=== PATIENT | male | born 1970 | race African-American/Black ===

== ENCOUNTER 2017-11-13 19:09 | Observation (INO) | payer SELFPAY ==
--- OUTSIDE RECORDS SUMMARY | 2017-11-13 19:11 | XMS REPORT | Clinical Summary ---
:1970 Author Organization [facility] Address [address] [place] [address] Care Team Providers Name Role Phone Asked, No Pcp Primary Care Provider Unavailable Allergies Active Allergy Reactions Severity Noted Date Comments No Known Drug Allergies 04/25/2016 Current Medications Prescription Sig. Disp. Refills Start Date End Date Status colchicine 0.6 mg Take 1 Active capsule capsule every day by oral route for 90 days. blood-glucose meter Contour Next Active (CONTOUR NEXT EZ EZ Meter METER) [facility] blood sugar Contour Next Active diagnostic strips Strips (CONTOUR NEXT STRIPS) strip test strips glimepiride (AMARYL) Take 1 tablet Active 2 MG tablet every day by oral route for 90 days. metFORMIN Take 1 tablet Active (GLUCOPHAGE) 500 mg twice a day tablet by oral route for 90 days. carvedilol (COREG) Take 50 mg by Active 25 MG tablet mouth 2 (two) times a day with meals. furosemide (LASIX) Take 3 504 tablet 3 02/20/2017 Active 20 mg tablet tablets (60 mg total) by mouth 2 (two) times a day. spironolactone Take 1 tablet 90 tablet 3 02/20/2017 Active (ALDACTONE) 25 MG every day by tablet oral route for 90 days. losartan-hydrochloro Take 1 tablet 90 tablet 3 02/20/2017 Active thiazide (HYZAAR) by mouth 8 100-25 mg per tablet daily. pravastatin Take 1 tablet 90 tablet 3 02/20/2017 Active (PRAVACHOL) 40 MG (40 mg total) tablet by mouth daily. hydrALAZINE Take 1 tablet 180 tablet 3 03/21/2017 Active (APRESOLINE) 25 MG (25 mg total) tablet by mouth 2 (two) times a day. aspirin (ECOTRIN) 81 Take 81 mg by Active MG enteric coated mouth daily. tablet isosorbide dinitrate Take 1 tablet 60 tablet 11 03/21/2017 Active (ISORDIL) 20 MG (20 mg total) 8 tablet by mouth 2 (two) times a day. allopurinol Take 1 tablet 90 tablet 3 03/21/2017 Active (ZYLOPRIM) 300 MG every day by tablet oral route for 90 days. warfarin (COUMADIN) Take 3 180 tablet 0 09/21/2017 Active 5 MG tablet tablets 9 (15mg) by mouth X 1 day per week; 2 tablets (10mg) on the other 6 days allopurinol Take 1 tablet Discontinued (ZYLOPRIM) 300 MG every day by 7 tablet oral route for 90 days. aspirin 325 MG Take 1 tablet Discontinued tablet every day by 7 oral route for 90 days. hydrALAZINE Take 1 tablet Discontinued (APRESOLINE) 25 MG twice a day 7 tablet by oral route for 90 days. isosorbide dinitrate Take 1 tablet Discontinued (ISORDIL) 20 MG every 8 hours 7 tablet by oral route for 90 days. pravastatin Take 1 tablet Discontinued (PRAVACHOL) 40 MG every day by 7 tablet oral route for 90 days. spironolactone Take 1 tablet Discontinued (ALDACTONE) 25 MG every day by 7 tablet oral route for 90 days. warfarin (COUMADIN) Take 10 mg by Discontinued 10 MG tablet mouth daily. 8 minocycline Take 100 mg Discontinued (MINOCIN,DYNACIN) by mouth 7 100 MG capsule daily. furosemide (LASIX) Take 60 mg by Discontinued 20 mg tablet mouth 2 (two) 7 times a day. naproxen (NAPROSYN) Take 500 mg Discontinued 500 MG tablet by mouth 2 7 (two) times a day with meals. valsartan (DIOVAN) Take 1 tablet 90 tablet 3 09/06/2016 Discontinued 40 MG tablet (40 mg total) 7 by mouth daily. losartan-hydrochloro Take 1 tablet 90 tablet 3 10/04/2016 Discontinued thiazide (HYZAAR) by mouth 7 100-25 mg per tablet daily. isosorbide Take 1 tablet 90 tablet 3 02/20/2017 Discontinued mononitrate (20 mg total) 7 (ISMO,MONOKET) 20 MG by mouth tablet daily. hydrALAZINE Take 1 tablet 90 tablet 3 02/20/2017 Discontinued (APRESOLINE) 25 MG (25 mg total) 7 tablet by mouth daily. isosorbide Take 1 tablet 180 tablet 3 03/21/2017 Discontinued mononitrate (20 mg total) 7 (ISMO,MONOKET) 20 MG by mouth 2 tablet (two) times a day. COUMADIN 5 mg Three tabs 180 tablet 3 09/11/2017 Discontinued tabletIndications: (15 mg) one 8 LV (left day a week; 2 ventricular) mural tabs (10 mg ) thrombus without NH on other 6 days Hospital, Clinic, or Ordered Dose Route Frequency Start Date End Date Status Other Facility Administered Medication warfarin (COUMADIN) 5 mg oral once 11/30/2016 11/30/2016 Discontinued tablet 5 mgIndications: Thrombotic disorder warfarin (COUMADIN) 5 mg oral once 11/30/2016 09/19/2017 Discontinued tablet 5 mgIndications: Thrombotic disorder Active Problems Problem Noted Date Non-ischemic cardiomyopathy 03/21/2017 Cardiac defibrillator in situ 06/28/2016 Last Assessment & Plan: No rhythm problems, no recent shocks or fires. Chronic combined systolic and diastolic heart failure 04/25/2016 Last Assessment & Plan: niCMP, HFrEF, stage C, NYHA II. Stable Exam with soft S4. Continue all medications as directed. Cough 04/25/2016 Dyslipidemia 04/25/2016 Essential hypertension 04/25/2016 Last Assessment & Plan: BP at goal. No change in medications Continue exercise and low-sodium diet. RTC in 4-6 weeks with home BP log and BP medications list. Gout 04/25/2016 Hyperglycemia 04/25/2016 Thrombotic disorder 04/25/2016 Last Assessment & Plan: On Coumadin, stable. Encounters Date Type Specialty Care Team Description 10/31/2017 Office Visit Cardiology Lincoln Guy, LV (left ventricular) mural thrombus without NH (Primary Dx); Chronic combined systolic and diastolic heart failure; Non-ischemic cardiomyopathy; Cardiac defibrillator in situ 09/26/2017 Anticoagulation Visit Cardiology LV (left ventricular) mural thrombus without NH (Primary Dx) 09/21/2017 Telephone Cardiology Jeanine Guthrie, RX REFILL MA 09/19/2017 Office Visit Cardiology Lincoln Guy, Paroxysmal atrial fibrillation (Primary Dx); Chronic combined systolic and diastolic heart failure; Essential hypertension; Thrombotic disorder; Cardiac defibrillator in situ 09/11/2017 Orders Only Cardiology [place], LV (left ventricular) Tamar, TELEPHONE CLERK TELEGRAPH OFFICE mural thrombus without NH (Primary Dx) 08/08/2017 Office Visit Cardiology Lincoln Guy, Chronic combined systolic and diastolic heart failure (Primary Dx); Essential hypertension; Thrombotic disorder; Cardiac defibrillator in situ 08/08/2017 Telephone Cardiology [place], Anticoagulation Tamar, TELEPHONE CLERK TELEGRAPH OFFICE 07/03/2017 Anticoagulation Visit Cardiology LV (left ventricular) mural thrombus following NH (Primary Dx) 06/02/2017 Anticoagulation Visit Cardiology LV (left ventricular) mural thrombus without NH (Primary Dx) 05/19/2017 Anticoagulation Visit Cardiology LV (left ventricular) mural thrombus without NH (Primary Dx) 04/18/2017 Office Visit Cardiology Lincoln Guy, Chronic combined systolic and diastolic heart failure (Primary Dx); Essential hypertension; Thrombotic disorder; Cardiac defibrillator in situ 04/18/2017 Telephone Cardiology [place], Anticoagulation Tamar, TELEPHONE CLERK TELEGRAPH OFFICE 03/21/2017 Office Visit Cardiology Lincoln Guy, Chronic combined systolic and diastolic heart failure (Primary Dx); Essential hypertension; Cardiac defibrillator in situ; Non-ischemic cardiomyopathy 03/21/2017 Telephone Cardiology [place], Anticoagulation Tamar, TELEPHONE CLERK TELEGRAPH OFFICE 03/21/2017 Telephone Cardiology [place], Anticoagulation Tamar, TELEPHONE CLERK TELEGRAPH OFFICE 02/23/2017 Anticoagulation Visit Cardiology LV (left ventricular) mural thrombus (Primary Dx) 02/20/2017 Telephone Cardiology Sherrie Whitley, FRANNY Med Refill 02/20/2017 Telephone Cardiology Sherrie Whitley, FRANNY Med Refill 02/15/2017 Telephone Cardiology Sherrie Whitley, FRANNY refills 02/02/2017 Anticoagulation Visit Cardiology LV (left ventricular) mural thrombus (Primary Dx) 12/15/2016 Anticoagulation Visit Cardiology [place], Thrombus (Primary Dx) Tamar, TELEPHONE CLERK TELEGRAPH OFFICE 12/07/2016 Anticoagulation Visit Cardiology [place], Thrombotic disorder Tamar, TELEPHONE CLERK TELEGRAPH OFFICE (Primary Dx) 11/30/2016 Anticoagulation Visit Cardiology [place], Thrombotic disorder Tamar, TELEPHONE CLERK TELEGRAPH OFFICE (Primary Dx) 11/30/2016 Orders Only Cardiology Traylor, Tamar, TELEPHONE CLERK TELEGRAPH OFFICE 11/30/2016 Orders Only Cardiology [place], Thrombotic disorder Tamar, TELEPHONE CLERK TELEGRAPH OFFICE (Primary Dx) after 11/12/2016 Family History Medical History Relation Name Comments Heart disease Brother Hypertension Brother Heart disease Father Hypertension Father Heart disease Mother Hypertension Mother Diabetes Sister Heart disease Sister Hypertension Sister Relation Name Status Comments Brother Father Mother Sister Social History Tobacco Use Types Packs/Day Years Used Date Never Smoker Smokeless Tobacco: Never Used Alcohol Use Drinks/Week oz/Week Comments No Sex Assigned at Date Recorded Not on file Last Filed Vital Signs Vital Sign Reading Time Taken Blood Pressure 95/65 10/31/2017 4:13 PM CDT Pulse 55 10/31/2017 4:13 PM CDT Temperature - - Respiratory Rate 18 10/31/2017 4:13 PM CDT Oxygen Saturation 98% 10/31/2017 4:13 PM CDT Inhaled Oxygen Concentration - - Weight 111 kg (245 lb) 10/31/2017 4:13 PM CDT Height 170.2 cm (5' 7") 10/31/2017 4:13 PM CDT Body Mass Index 38.37 10/31/2017 4:13 PM CDT Plan of Treatment Date Type Specialty Care Team Description 11/28/2017 Anticoagulation Visit Cardiology 02/06/2018 Office Visit Cardiology Christiano Soto MD [address] [address] Health Maintenance Due Date Last Done Comments INFLUENZA VACCINE 02/14/2018 Results POC PT/INR (10/31/2017 4:16 PM)Only the most recent of11 resultswithin the time period is included. Component Value Ref Range POC prothrombin time 17.3 POC INR 1.4 Specimen Performing Laboratory Blood ECG 12 lead (08/08/2017 1:40 PM) Component Value Ref Range Ventricular rate 85 Atrial rate 85 NE interval 144 QRSD interval 104 QT interval 406 QTC interval 483 P axis 1 64 QRS axis 1 1 T wave axis 189 EKG impression Normal sinus rhythm-Biatrial enlargement-Left ventricular hypertrophy-T wave abnormality, consider inferolateral ischemia-Prolonged QT- Abnormal ECG-In automated comparison with ECG of 23-OCT-2015 06:02,-No significant change was found- Specimen Performing Laboratory [facility] [address] [place] [address] Prothrombin time with INR (08/08/2017)Only the most recent of2 resultswithin the time period is included. Component Value Ref Range INR 1.70 Specimen Performing Laboratory Blood [facility] after 11/12/2016
[2017-11-13] MEDS ORDERED: FUROSEMIDE 40 MG/4 ML VIAL ONE (19:26)
[2017-11-13 19:33] LABS: Absolute Lymphocytes (CBC) 1.5 K/uL (0.7-4.9); Absolute Monocytes 0.3 K/uL (0.1-1.3); Absolute Neutrophil 2.9 K/uL (1.8-8.0); Eosinophils % 1.3 % (0-4.4); Hematocrit 40.8 % (39.6-49.0); Lymphocytes % 31.8 % (15.3-44.8); MCH 28.7 pg (27.0-35.0); MCV 85.2 fL (80-100); MPV 10.2 fL (7.6-11.3); Monocytes % 6.8 % (3.3-12.3); RBC Red Blood Cell Count 4.79 M/uL (4.33-5.43)
[2017-11-13 19:37] LABS: Protime INR 1.52
[2017-11-13 19:40] LABS: Potassium 4.2 mEq/L (3.6-5.0)
[2017-11-13 19:47] LABS: Albumin 4.1 g/dL (3.2-5.5); Bilirubin Direct 0.1 mg/dL (0-0.2); Bilirubin Total 0.6 mg/dL (0.3-1.2); Magnesium 2.4 mg/dL (1.8-2.5); Protein, Total 8.3 g/dL (6.0-8.3)
[2017-11-13 19:50] LABS: CKMB Creatine Kinase MB 4.9 ng/ml (0.3-4.0)
[2017-11-13] MEDS ORDERED: ASPIRIN 81 MG CHEWABLE TABLET ONE (20:05)
[2017-11-13] MEDS ORDERED: INSULIN -REGULAR HUMAN 50 UNIT/0.5 ML ML ONE (20:05)
[2017-11-13] MEDS ORDERED: NITROGLYCERIN 0.4 MG/TAB SL ONE (20:06)
--- NOTE | 2017-11-13 20:09 | EDPHYS ---
Physician Documentation [facility] Name: Cam Huitron Age: 47 yrs Sex: Male : 1970 Arrival Date: 11/13/2017 Time: 19:11 Bed 20 Private MD: ED Physician Surjit Huertas HPI: 11/13 19:57 This 47 yrs old Black Male presents to ER via EMS with complaints of Shortness Of kb Breath. 19:57 The patient has experienced similar episodes in the past, multiple times. The patient kb has not recently seen a physician. 19:57 The patient or guardian reports chest pain that is located primarily in the substernal kb area. Onset: 2 day(s) ago. The pain does not radiate. Associated signs and symptoms: Pertinent positives: shortness of breath, Pertinent negatives: abdominal pain, cough, diaphoresis, dizziness, headache, lower extremity pain, lower extremity swelling, lightheadedness, nausea, near syncope, palpitations, recent travel, syncope, vomiting. The chest pain is described as a heaviness. Duration: The patient or guardian reports a single episode, that is still ongoing. Modifying factors: The symptoms are alleviated by nothing. the symptoms are aggravated by exertion. Severity of pain: At its worst the pain was moderate in the emergency department the pain is unchanged. Historical: - Allergies: 19:13 No Known Allergies; bp - Home Meds: 19:13 furosemide 20 mg Oral tab 3 tabs 2 times per day [Active]; metformin 500 mg Oral TbER 1 bp tab 2 times per day [Active]; - PMHx: 19:13 CHF; Diabetes - NIDDM; Gout; Hypertension; Myocardial infarction; bp - Immunization history:: Adult Immunizations up to date. - Social history:: Smoking status: unknown. ROS: 19:56 Constitutional: Negative for fever, chills, and weight loss, Cardiovascular: Negative kb for chest pain, palpitations, and edema, Abdomen/GI: Negative for abdominal pain, nausea, vomiting, diarrhea, and constipation, Back: Negative for injury and pain, : Negative for injury, bleeding, discharge, and swelling, MS/Extremity: Negative for injury and deformity, Skin: Negative for injury, rash, and discoloration, Neuro: Negative for headache, weakness, numbness, tingling, and seizure. 19:56 Respiratory: Positive for dyspnea on exertion, shortness of breath, at rest. Negative for cough, hemoptysis, orthopnea, pleurisy, sputum production, wheezing. Exam: 19:56 Constitutional: This is a well developed, well nourished patient who is awake, alert, kb and in no acute distress. Head/Face: Normocephalic, atraumatic. ENT: Nares patent. No nasal discharge, no septal abnormalities noted. Tympanic membranes are normal and external auditory canals are clear. Oropharynx with no redness, swelling, or masses, exudates, or evidence of obstruction, uvula midline. Mucous membranes moist. Neck: Trachea midline, no thyromegaly or masses palpated, and no cervical lymphadenopathy. Supple, full range of motion without nuchal rigidity, or vertebral point tenderness. No Meningismus. Chest/axilla: Normal chest wall appearance and motion. Nontender with no deformity. No lesions are appreciated. Cardiovascular: Regular rate and rhythm with a normal S1 and S2. No gallops, murmurs, or rubs. Normal PMI, no JVD. No pulse deficits. Abdomen/GI: Soft, non-tender, with normal bowel sounds. No distension or tympany. No guarding or rebound. No evidence of tenderness throughout. Back: No spinal tenderness. No costovertebral tenderness. Full range of motion. Skin: Warm, dry with normal turgor. Normal color with no rashes, no lesions, and no evidence of cellulitis. MS/ Extremity: Pulses equal, no cyanosis. Neurovascular intact. Full, normal range of motion. Neuro: Awake and alert, GCS 15, oriented to person, place, time, and situation. Cranial nerves II-XII grossly intact. Motor strength 5/5 in all extremities. Sensory grossly intact. Cerebellar exam normal. Normal gait. 19:56 Respiratory: the patient does not display signs of respiratory distress, Respirations: normal, Breath sounds: decreased breath sounds, that are mild, that are moderate, are located in both bases. Vital Signs: 19:20 BP 145 / 77; Pulse 80; Resp 16; Temp 98.7; Pulse Ox 96% ; Weight 111.13 kg; Height 5 bp ft. 7 in. (170.18 cm); 19:58 BP 148 / 90; Pulse 84; Resp 16; Pulse Ox 100% on R/A; mt 21:34 BP 120 / 91; Pulse 86; Resp 18; Pulse Ox 97% on R/A; mt 19:20 Body Mass Index 38.37 (111.13 kg, 170.18 cm) bp MDM: 19:12 Patient medically screened. kb 19:56 Data reviewed: vital signs, nurses notes. Data interpreted: Pulse oximetry: on room air kb is 96 %. Interpretation: normal. 20:08 The patient was given aspirin in the Emergency Department. Counseling: I had a detailed kb discussion with the patient and/or guardian regarding: the historical points, exam findings, and any diagnostic results supporting the discharge/admit diagnosis, lab results, radiology results, the need for further work-up and treatment in the hospital. 11/13 19:15 Order name: Basic Metabolic Panel; Complete Time: 19:54 kb 11/13 19:15 Order name: BNP; Complete Time: 19:52 kb 11/13 19:15 Order name: CBC with Diff; Complete Time: 19:38 kb 11/13 19:15 Order name: Ckmb; Complete Time: 19:54 kb 11/13 19:15 Order name: CPK; Complete Time: 19:54 kb 11/13 19:15 Order name: LFT's; Complete Time: 19:54 kb 11/13 19:15 Order name: Magnesium; Complete Time: 19:54 kb 11/13 19:15 Order name: PT-INR; Complete Time: 19:39 kb 11/13 19:15 Order name: Ptt, Activated; Complete Time: 19:39 kb 11/13 19:15 Order name: Troponin (emerg Dept Use Only); Complete Time: 19:48 kb 11/13 20:30 Order name: Basic Metabolic Panel EDMS 11/13 20:30 Order name: Basic Metabolic Panel EDMS 11/13 20:30 Order name: CBC with Automated Diff EDMS 11/13 20:30 Order name: CBC with Automated Diff EDMS 11/13 19:15 Order name: XRAY Chest (1 view); Complete Time: 20:49 kb 11/13 19:15 Order name: EKG; Complete Time: 19:16 kb 11/13 19:15 Order name: Cardiac monitoring; Complete Time: 19:25 kb 11/13 20:30 Order name: Carb Control (ADA) [address] EDMS 11/13 20:30 Order name: CONS Physician Consult EDMS 11/13 20:30 Order name: Hemoglobin A1C [facility] 11/13 20:30 Order name: Hemoglobin A1C [facility] 11/13 20:30 Order name: Troponin I [facility] 11/13 20:30 Order name: Troponin I [facility] 11/13 20:30 Order name: Troponin I [facility] 11/13 19:15 Order name: EKG - Nurse/Tech; Complete Time: 19:25 kb 11/13 19:15 Order name: IV Saline Lock; Complete Time: 19:25 kb 11/13 19:15 Order name: Labs collected and sent; Complete Time: 19:25 kb 11/13 19:15 Order name: O2 Per Protocol; Complete Time: 19:25 kb 11/13 19:15 Order name: O2 Sat Monitoring; Complete Time: 19:25 kb Administered Medications: 19:25 Drug: Lasix 40 mg Route: IVP; Site: right antecubital; bp 20:16 Follow up: Urine output 800 ml bp 20:10 Drug: Insulin Regular Human 10 units {Co-Signature: bs1 (Claudine Barrera RN).} Route: bp IVP; Site: right antecubital; 21:40 Follow up: Response: Blood sugar is lowered bp 20:10 Drug: Aspirin Chewable Tablet 324 mg Route: PO; bp 20:16 Follow up: Response: No adverse reaction bp 20:10 Drug: Nitroglycerin 0.4 mg Route: Sublingual; bp 20:39 Follow up: Response: Pain is decreased bp 20:10 Drug: morphine 2 mg Route: IVP; Site: right antecubital; bp 21:37 Follow up: Response: Pain is decreased bp 20:10 Drug: Zofran 4 mg Route: IVP; Site: right antecubital; bp 21:37 Follow up: Response: Pain is decreased bp Point of Care Testing: Blood Glucose: 19:13 Blood Glucose: 555 mg/dL; bp 21:12 Blood Glucose: 173 mg/dL; mt 19:13 EMS bp Ranges: Critical Glucose Levels:Adult <50 mg/dl or >400 mg/dl <40 mg/dl or >180 mg/dl Disposition: 11/14 07:19 Co-signature as Attending Physician, Surjit Huertas MD I agree with the assessment and arnaldo plan of care. Disposition: 11/13/17 20:09 Hospitalization ordered by Eden Ramos for Observation. Preliminary diagnosis are Chest pain, unspecified, Dyspnea, Hyperglycemia, unspecified, Elevated Troponin. - Bed requested for Telemetry/MedSurg (observation). - Status is Observation. bp - Condition is Stable. - Problem is new. - Symptoms have improved. UTI on Admission? No Signatures: Dispatcher [employer] EDMS Dyana Martinez FNP-C FNP-Ckb Webb, Martha, RN RN mw Anderson, Corey, MD MD cha Peltier, Brian, RN RN bp Claudine Barrera RN bs1
--- NOTE | 2017-11-13 20:09 | ER ---
Nurse's Notes [facility] Name: Cam Huitron Age: 47 yrs Sex: Male : 1970 Arrival Date: 11/13/2017 Time: 19:11 Bed 20 Private MD: Diagnosis: Chest pain, unspecified;Dyspnea;Hyperglycemia, unspecified;Elevated Troponin Presentation: 11/13 19:11 Presenting complaint: EMS states: HE'S BEEN HAVING SHORTNESS OF BREATH FOR TWO DAYS. bp Transition of care: patient was not received from another setting of care. Onset of symptoms was November 11, 2017. Initial Sepsis Screen: Does the patient meet any 2 criteria? No. Patient's initial sepsis screen is negative. Does the patient have a suspected source of infection? No. Patient's initial sepsis screen is negative. Care prior to arrival: Glucose check: 555. 19:11 Method Of Arrival: EMS: [facility] bp 19:11 Acuity: SILVER 3 bp Triage Assessment: 19:13 General: Appears in no apparent distress. comfortable, obese, Behavior is calm, bp cooperative, appropriate for age. Pain: Denies pain. EENT: No deficits noted. Neuro: Level of Consciousness is awake, alert, obeys commands, Oriented to person, place, time, situation, Appropriate for age. Cardiovascular: Rhythm is sinus rhythm. Respiratory: Reports shortness of breath Breath sounds with crackles Onset: The symptoms/episode began/occurred yesterday, the patient has mild shortness of breath. GI: No signs and/or symptoms were reported involving the gastrointestinal system. : No signs and/or symptoms were reported regarding the genitourinary system. Derm: No deficits noted. Musculoskeletal: Circulation, motion, and sensation intact. Range of motion: intact in all extremities. Historical: - Allergies: 19:13 No Known Allergies; bp - Home Meds: 19:13 furosemide 20 mg Oral tab 3 tabs 2 times per day [Active]; metformin 500 mg Oral TbER 1 bp tab 2 times per day [Active]; - PMHx: 19:13 CHF; Diabetes - NIDDM; Gout; Hypertension; Myocardial infarction; bp - Immunization history:: Adult Immunizations up to date. - Social history:: Smoking status: unknown. Screenin:16 Abuse screen: Denies threats or abuse. Denies injuries from another. Nutritional bp screening: No deficits noted. Tuberculosis screening: No symptoms or risk factors identified. Fall Risk None identified. Assessment: 19:14 General: SEE TRIAGE NOTE. 47YO BM P/W SOB/CP AND HYPERGLYCEMIA, QUESTIONABLE MED bp COMPLIANCE. 21:35 Cardiovascular: Rhythm is sinus rhythm. Respiratory: Airway is patent Respiratory bp effort is even, unlabored. Vital Signs: 19:20 BP 145 / 77; Pulse 80; Resp 16; Temp 98.7; Pulse Ox 96% ; Weight 111.13 kg; Height 5 bp ft. 7 in. (170.18 cm); 19:58 BP 148 / 90; Pulse 84; Resp 16; Pulse Ox 100% on R/A; mt 21:34 BP 120 / 91; Pulse 86; Resp 18; Pulse Ox 97% on R/A; mt 19:20 Body Mass Index 38.37 (111.13 kg, 170.18 cm) bp ED Course: 19:11 Patient arrived in ED. bp 19:12 Dyana [facility]C [facility] kb 19:12 Surjit Huertas MD is Attending Physician. kb 19:12 Triage completed. bp 19:14 Arm band placed on. bp 19:15 Patient has correct armband on for positive identification. Placed in gown. Bed in low bp position. Call light in reach. Side rails up X2. Pulse ox on. NIBP on. 19:20 Inserted saline lock: 20 gauge in right antecubital area, using aseptic technique. bp Blood collected. 19:24 Abel Parra, FRANNY is Primary Nurse. bp 19:42 X-ray completed. Portable x-ray completed in exam room. Patient tolerated procedure kc2 well. 19:42 XRAY Chest (1 view) In Process Unspecified. EDMS 20:08 Eden Ramos MD is Hospitalizing Provider. kb 21:36 No provider procedures requiring assistance completed. Patient admitted, IV remains in bp place. Administered Medications: 19:25 Drug: Lasix 40 mg Route: IVP; Site: right antecubital; bp 20:16 Follow up: Urine output 800 ml bp 20:10 Drug: Insulin Regular Human 10 units {Co-Signature: bs1 (Claudine Barrera RN).} Route: bp IVP; Site: right antecubital; 21:40 Follow up: Response: Blood sugar is lowered bp 20:10 Drug: Aspirin Chewable Tablet 324 mg Route: PO; bp 20:16 Follow up: Response: No adverse reaction bp 20:10 Drug: Nitroglycerin 0.4 mg Route: Sublingual; bp 20:39 Follow up: Response: Pain is decreased bp 20:10 Drug: morphine 2 mg Route: IVP; Site: right antecubital; bp 21:37 Follow up: Response: Pain is decreased bp 20:10 Drug: Zofran 4 mg Route: IVP; Site: right antecubital; bp 21:37 Follow up: Response: Pain is decreased bp Point of Care Testing: Blood Glucose: 19:13 Blood Glucose: 555 mg/dL; bp 21:12 Blood Glucose: 173 mg/dL; mt 19:13 EMS bp Ranges: Output: 20:16 Urine: 800ml; Total: 800ml. bp Outcome: 20:09 Decision to Hospitalize by Provider. kb 21:36 Condition: stable bp 21:36 Instructed on the need for admit. 21:40 Admitted to Tele accompanied by tech, family with patient, via wheelchair, room 219, bp with chart, Report called to TIFFANY BLANTON 21:46 Patient left the ED. bp Signatures: Dispatcher [employer] EDMS Dyana Martinez, REINALDO THIRD COOK-Vy [place] 2 [facility] Abel Parra RN RN bp Claudine Barrera RN bs1 Corrections: (The following items were deleted from the chart) 19:32 19:20 BP 145 / 77; Pulse 80bpm; Resp 16bpm; Pulse Ox 96%; Temp 98.7F; bp bp
[2017-11-13] MEDS ORDERED: ACETAMINOPHEN 500 MG TAB PO PRN (20:22)
[2017-11-13] MEDS ORDERED: ONDANSETRON 4 MG/2 ML VIAL IV PRN (20:22)
--- NOTE | 2017-11-13 20:45 | P.HP ---
Certification for Inpatient Patient admitted to: Observation With expected LOS: <2 Midnights Practitioner: I am a practitioner with admitting privileges, knowledge of patient current condition, hospital course, and medical plan of care. Services: Services provided to patient in accordance with Admission requirements found in Title 42 Section 412.3 of the Code of Federal Regulations Patient History Date of Service: 11/13/17 Reason for admission: chest pain History of Present Illness: Mr Huitron is a 47 years old male with history of CAD, Chronic systolic CHF with EF 30-35%, s/p ICD placement, CKD, HTN, anticoagulated with warfarin due to previous history of mural thrombi, who start about 2 days ago with recurrent episodes of chest pain. He describe the pain as squeezy sensation, lasting for 2 minutes, associated with worsening SOB. He denied nuasea or diaphoresis episodes. Lab work is ramarkable for troponin I is 0.09, BS 484, creatinine 1.61. At the time of november exmamination his chest pain was improving after receive a dose of Nitro SL. Allergies No Known Allergies Allergy (Unverified 02/16/17 07:43) Home Medications: Allopurinol 300 mg PO DAILY #30 tablet 02/10/15 Aspirin Chewable [Aspirin Chewable*] 81 mg PO DAILY #30 tab.chew 02/10/15 Pravastatin Sodium [Pravachol] 40 mg PO DAILY #30 tablet 02/10/15 Metformin HCl [Glucophage*] 500 mg PO BIDWM #60 tab 07/18/15 Spironolactone [Aldactone*] 25 mg PO DAILY 08/25/16 Carvedilol [Coreg*] 12.5 mg PO BID #60 tab 10/01/16 Furosemide [Lasix] 40 mg PO BID #120 tablet 10/01/16 Glimepiride [Amaryl*] 2 mg PO BID 02/16/17 Hydralazine [Apresoline*] 25 mg PO DAILY 02/16/17 Isosorbide Mononitrate [Ismo] 20 mg PO DAILY 02/16/17 Losartan/Hydrochlorothiazide [Losartan-Hctz 100-25 mg Tab] 1 each PO DAILY 02/16 Warfarin Sodium [Coumadin] 10 mg PO DAILY 02/16/17 - Past Medical/Surgical History Diabetic: Yes -: HTN -: diabetes, -: chf -: stemi mi aug 2014 -: gout -: defibrillator - Family History Sister -: Heart disease, Kidney disease Mother -: Heart disease Notes: chf Father -: Lung disease, Cancer Notes: lung ca - Social History Alcohol use: No CD- Drugs: No Caffeine use: Yes Review of Systems 10-point ROS is otherwise unremarkable Physical Examination - Physical Exam General: Alert, In no apparent distress HEENT: Atraumatic, PERRLA, Mucous membr. moist/pink, EOMI, Sclerae nonicteric Neck: Supple, 2+ carotid pulse no bruit, No LAD, Without JVD or thyroid abnormality Respiratory: Clear to auscultation bilaterally, Normal air movement Cardiovascular: Regular rate/rhythm, Normal S1 S2 Gastrointestinal: Normal bowel sounds, No tenderness Musculoskeletal: No tenderness Integumentary: No rashes Neurological: Normal speech, Normal strength at 5/5 x4 extr, Normal tone, Normal affect Lymphatics: No axilla or inguinal lymphadenopathy - Studies Laboratory Data (last 24 hrs) 11/13/17 19:12: PT 18.0 H, INR 1.52, APTT 32.5 11/13/17 19:12: WBC 4.9, Hgb 13.8, Hct 40.8, Plt Count 207 11/13/17 19:12: B-Natriuretic Peptide 44 11/13/17 19:12: Sodium 133 L, Potassium 4.2, BUN 24 H, Creatinine 1.61 H, Glucose 484 H*, Magnesium 2.4 D, Total Bilirubin 0.6, AST 50 H, ALT 66 H, Alkaline Phosphatase 108 Assessment and Plan - Problems (Diagnosis) (1) Acute kidney injury superimposed on CKD Current Visit: Yes Status: Acute (2) Chest pain Onset Date: 02/16/17 Current Visit: No Status: Acute Qualifiers: Chest pain type: precordial pain Qualified Code(s): R07.2 - Precordial pain (3) Chronic systolic congestive heart failure Onset Date: 02/10/15 Current Visit: No Status: Chronic (4) History of implantable cardioverter-defibrillator (ICD) placement Current Visit: No Status: Chronic (5) Hypertension Onset Date: 02/10/15 Current Visit: No Status: Chronic Qualifiers: Hypertension type: essential hypertension (6) Non-insulin dependent type 2 diabetes mellitus Onset Date: 02/16/17 Current Visit: No Status: Chronic - Plan Mr Hiutron will be admitted to the hospital due to chest pain. It improved after Nitro SL, EKG shows no changes with previous one, Tropoinin I elevated 0.09. Renal function is worsening as well. Will consult Cardiology team, order serial cardiac enzymes and EKG. Will resume ASA, Statins and Carvedilol. Also start SSI to control his BS, the rest of the home medication once verified. Check HgbA1c. - Advance Directives Does patient have a Living Will: No Does patient have a Durable POA for Healthcare: No - Code Status/Comfort Care Code Status Assessed: Yes Code Status: Full Code
--- NOTE | 2017-11-13 20:47 | RAD REPORT ---
EXAM DESCRIPTION: Sreekanth Single View11/13/2017 8:24 pm CLINICAL HISTORY: Chest pain COMPARISON: February 2017 FINDINGS: The lungs appear clear of acute infiltrate. The heart is borderline enlarged. Pacemaker l ead is in place IMPRESSION: No acute abnormalities displayed
[2017-11-13] MEDS: INSULIN -REGULAR HUMAN 50 UNIT/0.5 ML ML SQ SCH (21:00)
[2017-11-13] MEDS ORDERED: ONDANSETRON 4 MG/2 ML VIAL ONE (21:15)
[2017-11-13] MEDS ORDERED: Morphine 2 MG/2 ML SYR ONE (21:16)
[2017-11-13] MEDS: CARVEDILOL 12.5 MG TAB PO SCH (22:58)
[2017-11-14 04:52] LABS: Absolute Lymphocytes (CBC) 1.6 K/uL (0.7-4.9); Absolute Monocytes 0.5 K/uL (0.1-1.3); Absolute Neutrophil 2.9 K/uL (1.8-8.0); Basophils % 0.7 % (0-1.3); Eosinophils % 1.7 % (0-4.4); Hematocrit 37.6 % (39.6-49.0); Lymphocytes % 31.8 % (15.3-44.8); MCH 28.4 pg (27.0-35.0); MCV 85.3 fL (80-100); MPV 10.2 fL (7.6-11.3); Monocytes % 8.9 % (3.3-12.3); RBC Red Blood Cell Count 4.41 M/uL (4.33-5.43)
[2017-11-14 05:40] LABS: Potassium 3.9 mEq/L (3.6-5.0)
[2017-11-14] MEDS ORDERED: POTASSIUM 25 MEQ EFFERV TAB PO ONE (05:53)
[2017-11-14] MEDS ORDERED: REGADENOSON 0.4 MG/5 ML SYR IV ONE (07:40)
[2017-11-14 08:12] LABS: Urine Appearance CLEAR; Urine Bilirubin NEGATIVE (NEG); Urine Blood NEGATIVE (NEG); Urine Color YELLOW; Urine Glucose 3+ (NEG); Urine Protein NEGATIVE (NEG); Urine Specific Gravity 1.025 (1.005-1.030); Urine Urobilinogen 0.2 mg/dL (0.2-1.0); Urine pH 5.5 (5.0-7.0)
[2017-11-14 08:14] LABS: Urine Microscopic Reflex NO UMIC
[2017-11-14] MEDS: ALLOPURINOL 300 MG TAB PO SCH (08:52)
[2017-11-14] MEDS: INSULIN -REGULAR HUMAN 50 UNIT/0.5 ML ML SQ SCH ×4 (08:52→21:12)
[2017-11-14] MEDS: LOSARTAN/HCTZ 50-12.5 PO SCH (08:53)
[2017-11-14] MEDS: HYDRALAZINE HCL 25 MG TABLET PO SCH (08:55)
[2017-11-14] MEDS: SPIRONOLACTONE 25 MG TABLET PO SCH (08:55)
[2017-11-14] MEDS: FUROSEMIDE 20 MG TABLET PO SCH ×2 (08:56→21:14)
[2017-11-14] MEDS: ASPIRIN 81 MG CHEWABLE TABLET PO SCH (08:56)
[2017-11-14] MEDS: ISOSORBIDE MONO 10 MG TAB PO SCH ×2 (08:57→21:15)
[2017-11-14] MEDS: CARVEDILOL 12.5 MG TAB PO SCH ×2 (08:57→21:13)
[2017-11-14 09:55] LABS: A1c Component 1.72 mg/dL
[2017-11-14 10:07] LABS: Hemoglobin A1c 14.3 % (4-6.0)
[2017-11-14] MEDS ORDERED: D50W 25 GM/50 ML SYRINGE IV PRN (13:25)
[2017-11-14] MEDS ORDERED: GLUCAGON 1 MG/VIAL IM PRN (13:25)
--- NOTE | 2017-11-14 14:05 | RAD REPORT ---
EXAM DESCRIPTION: NM - Rest Stress Cardiac Imaging - 11/14/2017 1:53 pm CLINICAL HISTORY: Chest pain. COMPARISON: 08/25/2016 TECHNIQUE: The patient was administered approximately 10mCi of Tc 99m Sestamibi prior to resting SPE CT imaging of the heart. The patient was then administered approximately 30 mCi of Tc 99m Sestamibi f ollowing exercise or pharmacologic stress. Multiplanar SPECT images were reviewed. FINDINGS: No stress induced ischemic defect is seen to suggest stress induced ischemia. Large fixed defect along the inferior vogel again noted, without appreciable change, likely related to scar tissu e. The end diastolic volume is 171 ml, the end systolic volume is 119 ml, and the ejection fraction is 3 0 %. IMPRESSION: No stress induced ischemia. Reduced EF of 30%.
--- NOTE | 2017-11-14 14:39 | EKG ---
Test Date: 2017-11-13 Test Time: 19:15:32 Information Systems Consultant: ESTELLE MEASUREMENT RESULTS: Intervals: Rate: 77 PA: 142 QRSD: 112 QT: 390 QTc: 441 [place]: P: 50 PA: 142 QRS: 0 T: 195 INTERPRETIVE STATEMENTS: Normal sinus rhythm Left ventricular hypertrophy with repolarization abnormality Abnormal ECG Compared to ECG 02/15/2017 16:54:59 No significant changes Electronically Signed On 11-14-17 14:34:30 CDT by Tomas Pickard
--- NOTE | 2017-11-14 15:45 | TREADPHA ---
DX: CHEST PAIN/ CONGESTIVE HEART FAILURE Date of Study: 11/14/2017 Ht: 5 7 Wt: 245 lb 6 oz Consulting Physician: KEISHA MEDICATIONS: TYLENOL, ASPIRIN, COREG, NOVOLIN-R, ZOFRAN, COUMADIN HISTORY: 47 YEARS OLD, MALE HERE FOR CHEST PAIN AND CONGESTIVE HEART FAILURE. HISTORY OF DIABETES, GOUT, HYPERTENSION, MYOCARIDAL INFARCTION, DEFIBULLATOR PLACED 2015. PHYSICIAL EXAMINATION: RESTING B.P.: 90/72 RESTING H.R.: 86 RESTING EKG: SINUS RHYTHM, LEFT VENTRICULAR HYPERTROPHY PROTOCOL: LEXISCAN EXERCISE TIME: 3:30 B.P. AT PEAK STRESS: 86/57 IMPRESSION: LEXISCAN STRESS TEST PERFORMED. CARDIOLITE INJECTED PER PROTOCOL. PREMATURE VENTRICULAR COMPLEXES NOTED THORUGHOUT TEST. DENIES ANY PAIN. SEE NUCLEAR MEDICINE REPORT.
[2017-11-14] MEDS: INSULIN DETEMIR 100 UNIT/1 ML INSULIN SQ SCH (16:36)
[2017-11-14] MEDS ORDERED: WARFARIN SODIUM 5 MG TAB PO SCH (17:00)
--- NOTE | 2017-11-14 18:05 | PN ---
Date of Progress Note: 11/14/2017 Subjective: The patient seen and examined. Chart reviewed and case discussed with RN and Dr. Elsy desai. The patient doing well. Reports the chest pain has improved. Will be going for stress test late r today. Review of Systems: Negative except as above. Medications: Reviewed. Physical Examination: Vital Signs: Temperature 97.7, heart rate 74, blood pressure 136/86, respirations 16, O2 98% on room air. General: Awake, alert, oriented x3, in no acute distress. Morbidly obese male, BMI 38. CV: S1, S2. Regular rate and rhythm. Peripheral pulses present. No murmurs. Respiratory: Clear to auscultation bilaterally. No wheezing. No stridor. No use of accessory musc les. Gastrointestinal: Abdomen is soft, nontender, and nondistended. Positive bowel sounds. No guarding or rigidity. Extremities: No clubbing, cyanosis, edema. Neuro: Nonfocal. Laboratory Data: Sodium 140, potassium 3.9, chloride 102, CO2 29, BUN 25, creatinine 1.43, glucose 2 87. Hemoglobin A1c is 14.3. Calcium 9.4. Troponin 0.09 and 0.07. WBC 5.1, H and H 12.5 and 37.6, platelets 190. Assessment And Plan: A 47-year-old male with: 1.Unstable angina. The patient is going for repeat stress test. Appreciate Cardiology input. Cont inue with chest pain guidelines. 2.Acute on chronic kidney injury. We will continue to monitor creatinine. Continue with IV fluids. Avoid NSAIDs and nephrotoxins. 3.Chronic systolic heart failure, currently compensated. We will continue home medications. 4.Status post AICD secondary to cardiomyopathy. 5.Essential hypertension, stable. 6.Diabetes mellitus type 2 with chronic kidney complications without long-term use of insulin, uncon trolled. Hemoglobin A1c is 14%. We will adjust insulin dose and basal insulin. Plan: Cardiac stress test. /GABRIELA Voice ID: [id number] Report ID: [id number]
--- NOTE | 2017-11-14 19:07 | CON ---
Date of Consultation: 11/14/2017 History Of Present Illness: Mr. Huitron is a patient normally of Dr. Guy at [facility], has a conges tive heart failure program. He has a history of congestive heart failure. He was admitted to Dr. Reaves's service on 11/13/2017. I saw the patient on 11/14/2017. Reason For Consultation: At this time is chest pain. History Of Present Illness: Mr. Huitron has a history of a chronic systolic congestive heart failure. He has a history of left ventricular apical thrombus that has resolved, but still taking Coumadin. He has a history of renal insufficiency, has AICD, diabetes, history of gout, COPD, coronary artery disease, and PCI, left-sided pleuritic-type chest pain which is now without any nausea, vomiting, torri phoresis, PND, orthopnea, pedal edema, palpitations, or shock. By the time I saw him, he had a tropo jordan of 0.09, blood glucose level was 484, AST was 50, ALT is 66, BNP was only 44. He had a negative Lexiscan in August of 2016, and a chest x-ray today was negative. EKG showed a paced rhythm. Past Medical History: Otherwise stated above. Allergies: NONE. Review of Systems: Negative. Social History: Negative. Family History: Noncontributory. Medications: Include Lasix, metformin, and Coumadin. Physical Examination: Vital Signs: Stable. He was afebrile. HEENT: Negative. Neck: Supple. No bruit. Chest: Clear to auscultation and percussion. Cardiac: Revealed a regular rhythm. No murmurs, gallops, or rubs. Abdomen: Benign. Extremities: Revealed no clubbing, cyanosis, or edema. Diagnostic Data: As stated earlier. Impression And Plan: 1.Chest pain that sounds more pleuritic. The patient does have coronary artery disease and has a hi story of congestive heart failure and AICD. No reason to repeat an echocardiogram since he has had o ne within the last year documenting a cardiomyopathy. 2.Chronic systolic congestive heart failure without any exacerbation. 3.Diabetes, very poorly controlled. 4.Renal insufficiency, stage 3. 5.Elevated troponin, probably secondary to congestive heart failure. 6.History of left ventricular thrombus, on Coumadin. 7.History of gout. 8.History of chronic obstructive pulmonary disease. Mr. Huitron stated to me that Dr. Guy is moving to [place] and he would rather stay local and I rec ommended that he can see me as an outpatient for today. I will order another stress test which accor bell to him is due as per his supervisor [employer] in [place]. We will see what the Lexiscan shows before ma wilfrid the further decision. RUBEN/GABRIELA Voice ID: [id number] Report ID: [id number]
[2017-11-14] MEDS ORDERED: ATORVASTATIN 10 MG TAB PO SCH (21:00)
[2017-11-15 05:32] LABS: Potassium 3.9 mEq/L (3.6-5.0)
[2017-11-15 05:35] VITALS: O2SAT 96
[2017-11-15] MEDS ORDERED: POTASSIUM 25 MEQ EFFERV TAB PO ONE (06:30)
[2017-11-15 06:38] VITALS: BMI 38.5
[2017-11-15] MEDS: ALLOPURINOL 300 MG TAB PO SCH (09:09)
[2017-11-15] MEDS: LOSARTAN/HCTZ 50-12.5 PO SCH (09:09)
[2017-11-15] MEDS: FUROSEMIDE 20 MG TABLET PO SCH (09:09)
[2017-11-15] MEDS: ISOSORBIDE MONO 10 MG TAB PO SCH (09:09)
[2017-11-15] MEDS: ASPIRIN 81 MG CHEWABLE TABLET PO SCH (09:10)
[2017-11-15] MEDS: SPIRONOLACTONE 25 MG TABLET PO SCH (09:10)
[2017-11-15] MEDS: INSULIN -REGULAR HUMAN 50 UNIT/0.5 ML ML SQ SCH ×2 (09:10→12:18)
[2017-11-15] MEDS: CARVEDILOL 12.5 MG TAB PO SCH (09:10)
[2017-11-15] MEDS: HYDRALAZINE HCL 25 MG TABLET PO SCH (09:10)
[2017-11-15] MEDS: INSULIN DETEMIR 100 UNIT/1 ML INSULIN SQ SCH (09:10)
[2017-11-15 13:34] VITALS: BP 104/65; TEMP 99.8
--- NOTE | 2017-11-16 14:49 | DS ---
Date of Discharge: 11/15/2017 Consultants: Dr. Pickard with Cardiology. Procedures: Cardiac stress test. No stress-induced ischemia seen. Admitting Diagnoses: 1.Chest pain, unstable angina. 2.Acute kidney injury on chronic kidney injury. 3.Chronic systolic heart failure. 4.History of ICD placement. 5.Essential hypertension. 6.Diabetes mellitus type 2, non-insulin dependent. Discharge Diagnoses: 1.Unstable angina. 2.Acute on chronic kidney injury. 3.Chronic systolic heart failure, compensated. 4.Status post AICD secondary to cardiomyopathy. 5.Essential hypertension, stable. 6.Diabetes mellitus type 2 with chronic kidney complications without long-term use of insulin, uncon trolled. Hemoglobin A1c 14%. Hospital Course: The patient is a 47-year-old male with past medical history of heart disease, who c omes in with chest pain. The patient has ICD placed before and is on Coumadin due to history of mura l thrombi. The patient was admitted to the hospital for further workup of his chest pain. His tropo jordan levels were elevated at 0.09. The patient was seen by Cardiology, Dr. Pickard, who ordered a str ess test. Stress test was negative, did not show any stress-induced ischemia. The patient was other crowell doing well. His chest pain resolved. He did have some uncontrolled blood sugars. His hemoglob in A1c was 14.3%. He was added on long-acting insulin. The patient did have some acute on chronic k idney injury, which remained stable. The patient was then cleared for discharge from Cardiology [facility]. He is chest pain free. The patient was then discharged home in stable condition. Activity: As tolerated. Medications: As per medication reconciliation list. Followup: Follow up with primary care physician in 2-3 days. Follow up with director pharmacovigilance, Dr. Sivan funes in 1 week. Return to ER for worsening condition. Diet: Diabetic. Physical Examination: General: Awake, alert, oriented, no acute distress. CV: S1, S2. No murmurs. Respiratory: Moving air well bilaterally. Extremities: No clubbing, cyanosis, edema. Abdomen: Soft, nontender, and nondistended. Positive bowel sounds. Neurologic: Nonfocal. SA/MODL Voice ID: [id number] Report ID: [id number]
== END 2017-11-15 12:34 | disposition home or self-care (01) ==
LOC: ER 19:09 → 2ND 20:10
PROVIDERS: ADMIT Internal Medicine; ATTEND Internal Medicine
DX: I25.110 Atherosclerotic heart disease of native coronary artery with unstable angina pectoris (principal); Z95.810 Presence of automatic (implantable) cardiac defibrillator; I13.0 Hypertensive heart and chronic kidney disease with heart failure and stage 1 through stage 4 chronic kidney disease, or unspecified chronic kidney disease; E11.22 Type 2 diabetes mellitus with diabetic chronic kidney disease; E11.65 Type 2 diabetes mellitus with hyperglycemia; N18.9 Chronic kidney disease, unspecified; I50.22 Chronic systolic (congestive) heart failure; N17.9 Acute kidney failure, unspecified; E66.01 Morbid (severe) obesity due to excess calories; Z68.38 Body mass index [BMI] 38.0-38.9, adult; Z79.01 Long term (current) use of anticoagulants
CPT/HCPCS: 36415; 71045; 78452; 80048; 80076; 81003; 82550; 82553; 82962; 83036; 83735; 83880; 84484; 85025; 85610; 85730; 93005; 93017; 94760; 96374; 96375; 99285; A9500; G0378; J2270; J2405; J2785

== ENCOUNTER 2018-12-14 19:18 | Observation (INO) | payer OTHER, SELFPAY ==
--- OUTSIDE RECORDS SUMMARY | 2018-12-14 19:22 | XMS REPORT | Clinical Summary ---
:1970 Author Organization [facility] Address [address] [place] [address] Care Team Providers Name Role Phone Ronan Blandon MD Primary Care Provider Allergies Active Allergy Reactions Severity Noted Date Comments No Known Drug Allergies 04/25/2016 Medications Medication Sig Dispensed Refills Start Date End Date Status blood-glucose meter Contour Next 0 Active (CONTOUR NEXT EZ EZ Meter METER) [facility] [place] blood sugar Contour Next 0 Active diagnostic strips Strips once a (CONTOUR NEXT day STRIPS) strip test strips glimepiride (AMARYL) Take 1 tablet 0 Active 2 MG tablet every day by oral route for 90 days. metFORMIN Take 1 tablet 0 Active (GLUCOPHAGE) 500 mg twice a day by tablet oral route for 90 days. carvedilol (COREG) Take 50 mg by 0 Active 25 MG tablet mouth 2 (two) times a day with meals. pravastatin Take 1 tablet 90 tablet 3 02/20/2017 Active (PRAVACHOL) 40 MG (40 mg total) tablet by mouth daily. hydrALAZINE Take 1 tablet 180 tablet 3 03/21/2017 Active (APRESOLINE) 25 MG (25 mg total) tablet by mouth 2 (two) times a day. aspirin (ECOTRIN) 81 Take 81 mg by 0 Active MG enteric coated mouth daily. tablet warfarin (COUMADIN) TAKE TWO 180 tablet 3 01/19/2018 Active 5 MG tablet TABLETS BY MOUTH ONCE DAILY digOXIN (LANOXIN) Take 1 tablet 90 tablet 3 02/06/2018 Active 125 mcg (125 mcg 9 tabletIndications: total) by Chronic combined mouth daily. systolic and diastolic CHF (congestive heart failure) (HCC), Chronic combined systolic and diastolic heart failure (HCC), Non-ischemic cardiomyopathy (HCC), Hyperlipidemia, unspecified hyperlipidemia type warfarin (COUMADIN) TAKE 1 TABLET 90 tablet 0 09/10/2018 Active 10 MG tablet BY MOUTH DAILY 0 spironolactone Take 1 tablet 90 tablet 3 09/26/2018 Active (ALDACTONE) 25 MG every day by tabletIndications: oral route for Chronic combined 90 days. systolic and diastolic heart failure (HCC) allopurinol Take 1 tablet 90 tablet 2 09/27/2018 Active (ZYLOPRIM) 300 MG every day by tablet oral route for 90 days. HUMULIN 70/30 U-100 0 09/27/2018 Active KWIKPEN 100 unit/mL (70-30) sertraline (ZOLOFT) Take 50 mg by 0 Active 50 MG tablet mouth daily. isosorbide dinitrate Take 1 tablet 180 tablet 3 10/09/2018 Active (ISORDIL) 20 MG (20 mg total) 0 tablet by mouth 2 (two) times a day. furosemide (LASIX) Take 1 tablet 30 tablet 1 10/09/2018 Active 40 mg (40 mg total) 0 tabletIndications: by mouth Chronic combined daily. systolic and diastolic heart failure (HCC) colchicine 0.6 mg Take 1 capsule 0 Discontinued capsule every day by 8 oral route for 90 days. furosemide (LASIX) Take 3 tablets 504 tablet 3 02/20/2017 Discontinued 20 mg tablet (60 mg total) 8 by mouth 2 (two) times a day. spironolactone Take 1 tablet 90 tablet 3 02/20/2017 Discontinued (ALDACTONE) 25 MG every day by 9 tablet oral route for 90 days. losartan-hydrochloro Take 1 tablet 90 tablet 3 02/20/2017 Discontinued thiazide (HYZAAR) by mouth 8 100-25 mg per tablet daily. isosorbide dinitrate Take 1 tablet 60 tablet 11 03/21/2017 (ISORDIL) 20 MG (20 mg total) 8 tablet by mouth 2 (two) times a day. allopurinol Take 1 tablet 90 tablet 3 03/21/2017 Discontinued (ZYLOPRIM) 300 MG every day by 9 tablet oral route for 90 days. warfarin (COUMADIN) Take 3 tablets 180 tablet 0 09/21/2017 Discontinued 5 MG tablet (15mg) by 8 mouth X 1 day per week; 2 tablets (10mg) on the other 6 days torsemide (DEMADEX) Take 2 tablets 360 tablet 3 02/06/2018 Discontinued 20 MG (40 mg total) 8 tabletIndications: by mouth 2 Chronic combined (two) times a systolic and day. diastolic CHF (congestive heart failure) (HCC), Chronic combined systolic and diastolic heart failure (HCC), Non-ischemic cardiomyopathy (HCC), Hyperlipidemia, unspecified hyperlipidemia type losartan (COZAAR) Take 1 tablet 90 tablet 3 02/06/2018 Discontinued 100 MG (100 mg total) 9 tabletIndications: by mouth Chronic combined daily. systolic and diastolic CHF (congestive heart failure) (HCC), Chronic combined systolic and diastolic heart failure (HCC), Non-ischemic cardiomyopathy (HCC), Hyperlipidemia, unspecified hyperlipidemia type torsemide (DEMADEX) Please take 360 tablet 3 05/11/2018 Discontinued 20 MG 60mg by mouth 9 tabletIndications: in the morning Chronic combined and 40mg by systolic and mouth in the diastolic CHF afternoon (congestive heart failure) (HCC), Chronic combined systolic and diastolic heart failure (HCC), Non-ischemic cardiomyopathy (HCC), Hyperlipidemia, unspecified hyperlipidemia type furosemide (LASIX) Take 1 tablet 30 tablet 1 09/26/2018 Discontinued 40 mg (40 mg total) 9 tabletIndications: by mouth Chronic combined daily. systolic and diastolic heart failure (HCC) atorvastatin Take 40 mg by 0 09/27/2018 Discontinued (LIPITOR) 40 MG mouth daily. 9 tablet furosemide (LASIX) Take 1 tablet 30 tablet 1 10/09/2018 Discontinued 40 mg (40 mg total) 9 tabletIndications: by mouth Chronic combined daily. systolic and diastolic heart failure (HCC) Active Problems Problem Noted Date Chest pain 10/09/2018 Last Assessment & Plan: - Refills given for medications. - If chest pain persists, then we will plan for stress test. Sleep apnea 03/13/2018 Last Assessment & Plan: - He has still not done his sleep study. We will help set up an appointment for him. Non-ischemic cardiomyopathy 03/21/2017 Cardiac defibrillator in situ 06/28/2016 Last Assessment & Plan: No rhythm problems, no recent shocks or fires. Chronic combined systolic and diastolic heart failure 04/25/2016 Last Assessment & Plan: NYHA II - Order blood work today. - Will follow up on echo results once finalized. - I suggested not taking his dose of Lasix tomorrow to see how he feels. He can restart it the day after next. Dyslipidemia 04/25/2016 Essential hypertension 04/25/2016 Last Assessment & Plan: BP at goal. No change in medications Continue exercise and low-sodium diet. RTC in 4-6 weeks with home BP log and BP medications list. Gout 04/25/2016 Hyperglycemia 04/25/2016 Last Assessment & Plan: - I advised him to have better control of his blood glucose levels. - I have also advised him to find a physician locally to help manage his blood glucose. Thrombotic disorder 04/25/2016 Last Assessment & Plan: On Coumadin, stable. Resolved Problems Problem Noted Date Resolved Date Cough 04/25/2016 10/09/2018 Encounters Date Type Specialty Care Team Description 12/14/2018 Telephone Cardiology Que, abnormal labs FRANNY Lopez 12/13/2018 Hospital Encounter Sleep Medicine Williams, Obstructive sleep Jayasimha apnea MD Jim 12/12/2018 Transcribe Orders Sleep Medicine Williams, Obstructive sleep Jayasimha apnea (Primary Dx) MD Jim 12/11/2018 Office Visit Cardiology Karina Soto MD systolic and diastolic heart failure (HCC) (Primary Dx) 11/30/2018 Orders Only Cardiology John Corey MD 11/20/2018 Anticoagulation Visit Cardiology LV (left ventricular) mural thrombus (Primary Dx) 11/14/2018 Hospital Encounter Sleep Medicine Karina Soto combined systolic and diastolic heart failure (HCC); MD Christiano Sleep apnea, unspecified type 11/06/2018 Office Visit Cardiology Kavita Fishman Chronic combined CYNTHIA Enrique-Rekha systolic and diastolic heart failure (HCC) (Primary Dx) 11/06/2018 Hospital Encounter Transplant Cornelia Mejia Chronic combined MD Pascale systolic and diastolic congestive heart failure (HCC) 11/06/2018 Anticoagulation Visit Cardiology LV (left ventricular) mural thrombus (Primary Dx) 11/05/2018 Orders Only Pascale Snow RN 10/31/2018 Orders Only Cardiology Christiano Soto MD 10/12/2018 Orders Only Cardiology Sherrie Whitley, Karina combined RN systolic and diastolic congestive heart failure (HCC) (Primary Dx) 10/09/2018 Office Visit Cardiology Brittany, Left ventricular thrombosis without MT (Primary Dx); MD Christiano Other chest pain; Chronic combined systolic and diastolic heart failure (HCC); Sleep apnea, unspecified type 10/01/2018 Telephone Cardiology Que, Hilda Only; FRANNY Lopez Appointment 10/01/2018 Orders Only Cardiology Karina Soto combined MD Christiano systolic and diastolic heart failure (HCC) (Primary Dx) 09/27/2018 Telephone Cardiology Ritesh Triana, Med Refill MA 09/26/2018 Refill Cardiology Que, Med Refill FRANNY Lopez 09/20/2018 Anticoagulation Visit Cardiology Left ventricular thrombosis without MT (Primary Dx) 09/11/2018 Telephone Cardiology Ritesh Triana, Med Refill MA 09/10/2018 Refill Cardiology Jeanine Guthrie Med Refill A, MA 09/06/2018 Anticoagulation Visit Cardiology Left ventricular thrombosis without MT (Primary Dx) 08/23/2018 Anticoagulation Visit Cardiology Left ventricular mural thrombus without MT (Primary Dx) 08/09/2018 Anticoagulation Visit Cardiology Left ventricular mural thrombus (Primary Dx); Left ventricular mural thrombus without MT; Thrombotic disorder 07/26/2018 Anticoagulation Visit Cardiology 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) (Primary Dx) 07/04/2018 Anticoagulation Visit Cardiology Left ventricular mural thrombus without MT (Primary Dx) 06/19/2018 Office Visit Cardiology Brittany, Left ventricular mural thrombus (Primary Dx); MD Christiano Chronic combined systolic and diastolic heart failure (HCC) 05/22/2018 Documentation Cardiology Kavita Fishman NP-C 05/11/2018 Office Visit Cardiology Kavita Fishman Chronic combined systolic and diastolic heart failure (HCC) (Primary Dx); ESTUARDO Enrique Chronic combined systolic and diastolic CHF (congestive heart failure) (HCC); Non-ischemic cardiomyopathy (HCC); Hyperlipidemia, unspecified hyperlipidemia type 05/11/2018 Hospital Encounter Transplant Gabby Borrego Chronic combined systolic and diastolic congestive heart failure (HCC) 05/11/2018 Telephone Cardiology Sherrie Whitley, med instructions RN 05/08/2018 Orders Only Cardiology Sherrie Whitley, Karina combined RN systolic and diastolic congestive heart failure (HCC) (Primary Dx) 05/04/2018 Orders Only Cardiology Juju Simons 04/25/2018 Surgery Procedural [place], Cv right heart cath Cardiology MD Jony with CARDIOMEMS PLACEMENT [[id number] (CPT)] 04/25/2018 Hospital Encounter Procedural Brittany, Cardiology MD Christiano 04/24/2018 Documentation Cardiology PudloKavita Theordore, CHRONIC MANAGER-C 04/23/2018 Orders Only Cardiology PudloKavitadore, CHRONIC MANAGER-C 04/23/2018 Documentation Cardiology PudloKavita Theordore, CHRONIC MANAGER-C 04/23/2018 Documentation Cardiology PudloKavita Theordore, CHRONIC MANAGER-C 04/11/2018 Documentation Cardiology Kavita Fishmandorufina, CHRONIC MANAGER-C 04/06/2018 Refill Cardiology Lincoln Guy MD 03/30/2018 Hospital Encounter Procedural Brittany Cardiology MD Christiano 03/29/2018 Telephone Cardiology Jeanine Guthrie ANTICOAGULATION A, MA 03/20/2018 Telephone Cardiology Landon, Follow-up FRANNY Chinchilla 03/20/2018 Orders Only Cardiology Landon, Chronic combined systolic and diastolic heart failure (Primary Dx); FRANNY Chinchilla Non-ischemic cardiomyopathy 03/13/2018 Office Visit Cardiology Brittany, Chronic combined systolic and diastolic heart failure (Primary Dx); MD Christiano Sleep apnea, unspecified type; Hyperglycemia 02/14/2018 Lab Lab jess, Routine general MD Christiano medical examination at a health care facility (Primary Dx) 02/13/2018 Telephone Cardiology hilda Lopez RN 02/12/2018 Telephone Cardiology Jessica Results FRANNY Coffman 02/09/2018 Lab Lab jess, Chronic combined systolic and diastolic CHF ( congestive heart failure); MD Christiano Chronic combined systolic and diastolic heart failure; Non-ischemic cardiomyopathy; Hyperlipidemia, unspecified hyperlipidemia type; Abnormal laboratory test 02/09/2018 Orders Only Cardiology Brittany, Chronic combined systolic and diastolic heart failure (Primary Dx); MD Christiano Non-ischemic cardiomyopathy 02/06/2018 Office Visit Cardiology Brittany, Hyperlipidemia, unspecified hyperlipidemia type (Primary Dx); MD Christiano Chronic combined systolic and diastolic CHF (congestive heart failure); Chronic combined systolic and diastolic heart failure; Non-ischemic cardiomyopathy; Abnormal laboratory test 01/18/2018 Refill Cardiology Lincoln Guy MD 01/02/2018 Anticoagulation Visit Cardiology LV (left ventricular) mural thrombus without MT (Primary Dx) after 12/13/2017 Family History Medical History Relation Name Comments [...] Assigned at Date Recorded Not on file Job Start Date Occupation Industry Not on file Not on file Not on file Travel History Travel Start Travel End No recent travel history available. Last Filed Vital Signs Vital Sign Reading Time Taken Blood Pressure 141/83 12/11/2018 3:01 PM CDT Pulse 80 12/11/2018 3:01 PM CDT Temperature 36 C (96.8 F) 11/06/2018 12:21 PM CDT Respiratory Rate 18 12/11/2018 3:01 PM CDT Oxygen Saturation 100% 12/11/2018 3:01 PM CDT Inhaled Oxygen Concentration - - Weight 109 kg (240 lb) 12/11/2018 3:01 PM CDT Height 170.2 cm (5' 7") 12/11/2018 3:01 PM CDT Body Mass Index 37.59 12/11/2018 3:01 PM CDT Plan of Treatment Date Type Specialty Care Team Description 08/13/2019 Office Visit Cardiology Christiano Soto MD [address] [place] [id number] Health Maintenance Due Date Last Done Comments INFLUENZA VACCINE 02/14/2019 Implants Implanted Type Area Well Service Floorperson Device Shelf Model / Identifier Expiration Serial / Date Lot [employer] Sensor [employer] - [id number] Cardiovascular N/A: [employer] [id number] / Implanted: 04/25/2018 (Quantity not on file) Implants N/A INC / Procedures Procedure Name Priority Date/Time Associated Diagnosis Comments CBC WITH PLATELET AND Routine 12/12/2018 1:36 Chronic combined Results for this DIFFERENTIAL PM CDT systolic and procedure are in diastolic heart the results failure (HCC) section. COMPREHENSIVE Routine 12/12/2018 1:36 Chronic combined Results for this METABOLIC PANEL PM CDT systolic and procedure are in diastolic heart the results failure (HCC) section. ECHOCARDIOGRAM 2D Routine 12/11/2018 3:01 Left ventricular Results for this COMPLETE W MMODE PM CDT thrombosis without MT procedure are in SPECTRAL COLOR DOPPLER Chronic combined the results (57689) systolic and section. diastolic heart failure (HCC) AMB REFERRAL TO SLEEP Routine 11/20/2018 10:41 Chronic combined MEDICINE AM CDT systolic and diastolic heart failure (HCC) Sleep apnea, unspecified type POC PT/INR Routine 11/20/2018 10:02 LV (left ventricular) Results for this AM CDT mural thrombus procedure are in the results section. ESTIMATED GFR STAT 11/06/2018 12:05 Results for this PM CDT procedure are in the results section. MAGNESIUM LEVEL STAT 11/06/2018 12:05 Chronic combined Results for this PM CDT systolic and procedure are in diastolic congestive the results heart failure (HCC) section. BASIC METABOLIC PANEL STAT 11/06/2018 12:05 Chronic combined Results for this PM CDT systolic and procedure are in diastolic congestive the results heart failure (HCC) section. B NATRIURETIC PEPTIDE STAT 11/06/2018 12:05 Chronic combined Results for this PM CDT systolic and procedure are in diastolic congestive the results heart failure (HCC) section. POC PT/INR Routine 11/06/2018 10:51 LV (left ventricular) AM CDT mural thrombus ECG 12-LEAD Routine 10/09/2018 4:55 Left ventricular Results for this PM CDT thrombosis without MT procedure are in Other chest pain the results section. POC PT/INR Routine 10/09/2018 3:30 Left ventricular Results for this PM CDT thrombosis without MT procedure are in the results section. CBC WITH PLATELET AND Routine 10/03/2018 11:56 Chronic combined Results for this DIFFERENTIAL AM CDT systolic and procedure are in diastolic heart the results failure (HCC) section. DIGOXIN LEVEL Routine 10/03/2018 11:56 Chronic combined Results for this AM CDT systolic and procedure are in diastolic heart the results failure (HCC) section. B NATRIURETIC PEPTIDE Routine 10/03/2018 11:56 Chronic combined Results for this AM CDT systolic and procedure are in diastolic heart the results failure (HCC) section. COMPREHENSIVE Routine 10/03/2018 11:56 Chronic combined Results for this METABOLIC PANEL AM CDT systolic and procedure are in diastolic heart the results failure (HCC) section. POC PT/INR Routine 09/20/2018 10:20 Left ventricular Results for this AM [employer] GRADE TEACHER thrombosis without MT procedure are in the results section. POC PT/INR Routine 09/06/2018 10:20 Left ventricular Results for this AM [employer] TE[employer] thrombosis without MT procedure are in the results section. POC PT/INR Routine 08/23/2018 10:22 Left ventricular Results for this AM [employer] mural thrombus procedure are in without MT the results section. POC PT/INR Routine 08/09/2018 10:31 Left ventricular Results for this AM [employer]ER mural thrombus procedure are in without MT the results Left ventricular section. mural thrombus Thrombotic disorder POC PT/INR Routine 07/26/2018 10:21 Left ventricular Results for this AM [employer] mural thrombosis procedure are in following myocardial the results infarction (HCC) section. POC PT/INR Routine 07/04/2018 12:01 Left ventricular Results for this PM [employer] TE[employer]ER mural thrombus procedure are in without MT the results section. B NATRIURETIC PEPTIDE Routine 06/21/2018 1:54 Chronic combined Results for this PM [employer]ER systolic and procedure are in diastolic heart the results failure (HCC) section. BASIC METABOLIC PANEL Routine 06/21/2018 1:54 Chronic combined Results for this PM [employer]ER systolic and procedure are in diastolic heart the results failure (HCC) section. POC PT/INR Routine 06/19/2018 1:10 Left ventricular Results for this PM [employer] GRADE TE[employer]ER mural thrombus procedure are in the results section. CV PACEMAKER DEFIB ILR Routine 06/11/2018 INTERROGATION ESTIMATED GFR STAT 05/11/2018 11:00 Results for this AM CDT procedure are in the results section. MAGNESIUM LEVEL STAT 05/11/2018 11:00 Chronic combined Results for this AM CDT systolic and procedure are in diastolic congestive the results heart failure (HCC) section. B NATRIURETIC PEPTIDE STAT 05/11/2018 11:00 Chronic combined Results for this AM CDT systolic and procedure are in diastolic congestive the results heart failure (HCC) section. COMPREHENSIVE STAT 05/11/2018 11:00 Chronic combined Results for this METABOLIC PANEL AM CDT systolic and procedure are in diastolic congestive the results heart failure (HCC) section. POC GLUCOSE Routine 04/25/2018 4:59 Results for this PM CDT procedure are in the results section. CV RIGHT HEART CATH Routine 04/25/2018 4:19 Results for this PM CDT procedure are in the results section. POC GLUCOSE Routine 04/25/2018 1:29 Results for this PM CDT procedure are in the results section. PROTHROMBIN TIME WITH STAT 04/25/2018 11:51 Results for this INR AM CDT procedure are in the results section. HC COMPLETE BLD COUNT STAT 04/25/2018 11:51 Results for this W/AUTO DIFF AM CDT procedure are in the results section. B NATRIURETIC PEPTIDE STAT 04/25/2018 11:51 Results for this AM CDT procedure are in the results section. POC GLUCOSE Routine 04/25/2018 11:31 Results for this AM CDT procedure are in the results section. ESTIMATED GFR STAT 04/25/2018 11:23 Results for this AM CDT procedure are in the results section. COMPREHENSIVE STAT 04/25/2018 11:23 Results for this METABOLIC PANEL AM CDT procedure are in the results section. ECHOCARDIOGRAM 2D STAT 03/30/2018 2:59 Results for this COMPLETE W MMODE PM CDT procedure are in SPECTRAL COLOR DOPPLER the results ([id number]) section. ESTIMATED GFR STAT 03/30/2018 12:22 Results for this PM CDT procedure are in the results section. B NATRIURETIC PEPTIDE STAT 03/30/2018 12:22 Results for this PM CDT procedure are in the results section. COMPREHENSIVE STAT 03/30/2018 12:22 Results for this METABOLIC PANEL PM CDT procedure are in the results section. POC GLUCOSE Routine 03/30/2018 9:27 Results for this AM CDT procedure are in the results section. ECG PRE/POST OP Routine 03/30/2018 9:17 Results for this AM CDT procedure are in the results section. PT AND PTT Routine 03/28/2018 2:32 Chronic combined Results for this PM CDT systolic and procedure are in diastolic heart the results failure section. Non-ischemic cardiomyopathy CBC WITH PLATELET AND Routine 03/28/2018 2:32 Chronic combined Results for this DIFFERENTIAL PM CDT systolic and procedure are in diastolic heart the results failure section. Non-ischemic cardiomyopathy BASIC METABOLIC PANEL Routine 03/28/2018 2:32 Chronic combined Results for this PM CDT systolic and procedure are in diastolic heart the results failure section. Non-ischemic cardiomyopathy ALKALINE PHOSPHATASE Routine 02/14/2018 2:10 Routine general Results for this PM CDT medical examination procedure are in at a [facility] care the results facility section. AST (SGOT) Routine 02/14/2018 2:10 Routine general Results for this PM CDT medical examination procedure are in at a health care the results facility section. ALT (SGPT) Routine 02/14/2018 2:10 Routine general Results for this PM CDT medical examination procedure are in at a health care the results facility section. POTASSIUM LEVEL Routine 02/14/2018 2:10 Routine general Results for this PM CDT medical examination procedure are in at a health care the results facility section. COMPREHENSIVE Routine 02/09/2018 10:17 Results for this METABOLIC PANEL AM CDT procedure are in the results section. HC COMPLETE BLD COUNT Routine 02/09/2018 10:17 Results for this W/AUTO DIFF AM CDT procedure are in the results section. T3 Routine 02/09/2018 10:17 Results for this AM CDT procedure are in the results section. T4 Routine 02/09/2018 10:17 Results for this AM CDT procedure are in the results section. THYROID STIMULATING Routine 02/09/2018 10:17 Results for this HORMONE AM CDT procedure are in the results section. B NATRIURETIC PEPTIDE Routine 02/09/2018 10:17 Results for this AM CDT procedure are in the results section. ZZESTIMATED GFR Routine 02/09/2018 10:17 Results for this AM CDT procedure are in the results section. HEMOGLOBIN A1C Routine 02/09/2018 10:17 Chronic combined Results for this AM CDT systolic and procedure are in diastolic CHF the results (congestive heart section. failure) Chronic combined systolic and diastolic heart failure Non-ischemic cardiomyopathy Hyperlipidemia, unspecified hyperlipidemia type Abnormal laboratory test ECHOCARDIOGRAM 2D Routine 02/09/2018 9:42 Chronic combined Results for this COMPLETE W MMODE AM CDT systolic and procedure are in SPECTRAL COLOR DOPPLER diastolic CHF the results (82130) (congestive heart section. failure) Chronic combined systolic and diastolic heart failure Non-ischemic cardiomyopathy Hyperlipidemia, unspecified hyperlipidemia type ECG 12-LEAD Routine 02/06/2018 1:35 Chronic combined Results for this PM CDT systolic and procedure are in diastolic CHF the results (congestive heart section. failure) POC PT/INR Routine 02/06/2018 1:34 Chronic combined Results for this PM CDT systolic and procedure are in diastolic CHF the results (congestive heart section. failure) POC PT/INR Routine 01/02/2018 2:59 LV (left ventricular) Results for this PM CDT mural thrombus procedure are in without MT the results section. after 12/13/2017 Results CBC with platelet and differential (12/12/2018 1:36 PM CDT)Only the most recent of5 resultswithin the time period is included. [facility] WBC 5.0 3.8 - 10.8 [facility] Thousand/uL [place] RBC 4.86 4.20 - 5.80 [facility] Million/uL [place] HGB 13.6 13.2 - 17.1 [facility] g/dL [place] HCT 41.5 38.5 - 50.0 % [facility] [place] MCV 85.4 80.0 - 100.0 fL [facility] [place] MCH 28.0 27.0 - 33.0 pg [facility] [place] MCHC 32.8 32.0 - 36.0 [facility] g/dL [place] RDW 13.7 11.0 - 15.0 % [employer] [facility] [place] Platelet count 208 140 - 400 [facility] Thousand/uL [place] MPV 12.5 7.5 - 12.5 fL [employer] [place] Neutrophils, absolute 3,130 1,500 - 7,800 [facility] cells/uL [place] Lymphocytes, absolute 1,490 850 - 3,900 [facility] cells/uL [place] Monocytes, absolute 290 200 - 950 [facility] cells/uL [place] Eosinophils, absolute 90 15 - 500 [facility] cells/uL [place] Basophils, absolute 0 0 - 200 [facility] cells/uL [place] Neutrophils 62.6 % [employer] [place] Lymphocytes 29.8 % [employer] [place] Monocytes 5.8 % [employer] [place] Eosinophils 1.8 % [employer] [place] Basophils + RC 0.0 % [employer] [place] Specimen Blood Narrative Performed At FASTING:NO [facility] FASTING: NO Resulting Agency Comment Performing Organization Information: Site ID: [id number] Name: [facility] Lab Address: [address] [place] [phone] Director: Alma Delia Pal Performing Organization Address City/State/Zipcode Phone Number [employer] [address] [address] Comprehensive metabolic panel (12/12/2018 1:36 PM CDT)Only the most recent of6 resultswithin the time period is included. [facility] Glucose 823 (H) 65 - 139 [facility] Comment: mg/dL [place] Results verified by repeat analysis on dilution. Non-fasting reference interval BUN, whole blood 37 (H) 7 - 25 mg/dL [employer] [place] Creatinine 2.05 (H) 0.60 - 1.35 [facility] mg/dL [place] EGFR Non-Afr. 37 (L) > OR=60 [facility] Prydeinig mL/min/1.73m2 [place] EGFR 43 (L) > OR=60 [facility] Prydeinig mL/min/1.73m2 [place] BUN/creatinine 18 6 - 22 (calc) [facility] ratio [place] Sodium 123 (L) 135 - 146 [facility] mmol/L [place] Potassium 3.8 3.5 - 5.3 [facility] mmol/L [place] Chloride 85 (L) 98 - 110 [facility] Comment: mmol/L [place] Verified by repeat analysis. CO2 25 20 - 32 [facility] mmol/L [place] Calcium 9.3 8.6 - 10.3 [facility] mg/dL [place] Protein 7.4 6.1 - 8.1 [facility] g/dL [place] Albumin, S 4.0 3.6 - 5.1 [facility] g/dL [place] Globulin, total 3.4 1.9 - 3.7 [facility] g/dL (calc) [place] Albumin/globulin 1.2 1.0 - 2.5 [facility] ratio (calc) [place] Total bilirubin 0.5 0.2 - 1.2 [facility] mg/dL [place] Alkaline 112 40 - 115 U/L [facility] phosphatase [place] AST 24 10 - 40 U/L [facility] [place] ALT 31 9 - 46 U/L [facility] [place] Specimen Blood Narrative Performed At FASTING:NO [facility] FASTING: NO Resulting Agency Comment Performing Organization Information: Site ID: [id number] Name: [facility] Lab Address: [address] [place] [phone] Director: Alma Delia Pal Performing Organization Address City/State/Zipcode Phone [place] [address] Echocardiogram complete w contrast and 3D if needed (12/11/2018 3:01 PM CDT) Specimen Narrative Performed At [facility] Echocardiography Report Pat.Name:BARBARA KAVITA Komal.ID:[id number] .Date: 12/11/2018 Refer.MD:CHRISTIANO SOTO MD Exam Time: 2:04:00 PMStudy Type:Routine Echo Height:67inWeight: 240lb BSA: 2.19 m2 DOBAge:1970,48Y Sex: MALEBP:141/83 HR:71 bpm Sonogrphr: Jada Estrada, [facility], [facility]. Stat.:OutpatientRoom:[facility] Study Status:Final Echo Event ID:[id number] Order ID:[id number] Reason for Study:Chronic combined systolic and diastolic heart failure History / Clinical:Congestive Heart Failure, Hypertension, Congestive Cardiomyopathy, Hyperlipidemia Procedures:2D Echo, Colorflow Doppler, Intravenous Definity Contrast Race:B SUMMARY: LV size is mildly enlarged. There is severe concentric LV hypertrophy. LV EF is severely depressed. Estimated EF is 25-29%. Diastolic dysfunction Grade I (Mild): Impaired relaxation with normal LV filling pressures. FINDINGS: LV: LV size is mildly enlarged. There is severe concentric LV hypertrophy.LV EF is severely depressed. Estimated EF is 25-29%.Overall wall motion is hypokinetic. RV: RV size is normal. A pacemaker wire is seen in the RV. RV systolicfunction is depressed. LA: LA volume is moderately enlarged. RA: RA volume is normal. A pacemaker wire is seen. AO: Aortic root diameter is normal. MAEGAN: No pericardial effusion. AV: Mild thickening and calcification of AV leaflets. MV: No structural MV abnormalities noted. Mild mitral regurgitation. PV: Pulmonic valve not well seen. TV: No structural TV abnormalities noted. Mccall: Diastolic dysfunction Grade I (Mild): Impaired relaxation withnormal LV filling pressures. Other:Insufficient TR jet to estimate PA systolic pressure. MEASUREMENTS: 2D Parasternal Long Lutz Ao An2.5 cmLV%fs9.8 % Ao Rtd 3.3 cmIndex1.5 cm/m IVSd 1.6 cm LVOT 2.3 cmLVPWd1.5 cm LA Ds4.5 cm LV Fsdu691.6 g(122-174) LVIDd5.1 cmIndex2.3 cm/m LVM Hfdzi470.4 g/m2 LVIDs4.6 cmRWT0.6 LV EF SinglePlane LV Ad 46.4 cm2(9.5-22.3) LV EF 28.6 %(63-77) CBONF265.7 ml (65-193) Index84.3 ml/m HR70 bpm LV As 37.2 cm2(4-11.6) LV CO3.7 l/min JHSZS618.9 eaHutxd86.2 ml/m LV CI1.7 l/m/m2 LV SV 52.7 ml LA Sng Plane LA Area 22.9 cm2(8.8-23.4) LA Vol60.5 ml Index27.6 ml/m LA LngAx 7.3 cm DOPPLER LVOT Stroke Vol LVOT 2.3 cmLVOT CO3.8 l/min LVOT TVI13.2 cmLVOT CI1.8 l/m/m2 LVOT Tm206 nidlRJ75 bpm LVOT SV 54.8 ml Signed 12/12/2018 07:37 AM Rafi Decker MD Procedure Note Interface, Radiology Results In - 12/12/2018 7:39 AM CDT [facility] Echocardiography Report Pat.Name: KAVITA JIMENEZ Pat.ID: [id number] St.Date: 12/11/2018 Refer.MD: CHRISTIANO SOTO MD Exam Time: 2:04:00 PM Study Type:Routine Echo Height: 67in Weight: 240lb BSA: 2.19 m2 Age: 3 1970,48Y Sex: MALE BP: 141/83 HR: 71 bpm Sonogrphr: BIANCA Mauro FASE Pat. Stat.:Outpatient Room: [place] [address] Study Status:Final Echo Event ID:[id number] Order ID: [id number] Reason for Study:Chronic combined systolic and diastolic heart failure History / Clinical:Congestive Heart Failure, Hypertension, Congestive Cardiomyopathy, Hyperlipidemia Procedures:2D Echo, Colorflow Doppler, Intravenous Definity Contrast Race: B SUMMARY: LV size is mildly enlarged. There is severe concentric LV hypertrophy. LV EF is severely depressed. Estimated EF is 25-29%. Diastolic dysfunction Grade I (Mild): Impaired relaxation with normal LV filling pressures. FINDINGS: LV: LV size is mildly enlarged. There is severe concentric LV hypertrophy. LV EF is severely depressed. Estimated EF is 25-29%. Overall wall motion is hypokinetic. RV: RV size is normal. A pacemaker wire is seen in the RV. RV systolic function is depressed. LA: LA volume is moderately enlarged. RA: RA volume is normal. A pacemaker wire is seen. AO: Aortic root diameter is normal. MAEGAN: No pericardial effusion. AV: Mild thickening and calcification of AV leaflets. MV: No structural MV abnormalities noted. Mild mitral regurgitation. PV: Pulmonic valve not well seen. TV: No structural TV abnormalities noted. Mccall: Diastolic dysfunction Grade I (Mild): Impaired relaxation with normal LV filling pressures. Other: Insufficient TR jet to estimate PA systolic pressure. MEASUREMENTS: 2D Parasternal Long Lutz Ao An 2.5 cm LV%fs 9.8 % Ao Rtd 3.3 cm Index 1.5 cm/m IVSd 1.6 cm LVOT 2.3 cm LVPWd 1.5 cm LA Ds 4.5 cm LV Mass 355.6 g (122-174) LVIDd 5.1 cm Index 2.3 cm/m LVM Index 162.4 g/m2 LVIDs 4.6 cm RWT 0.6 LV EF SinglePlane LV Ad 46.4 cm2 (9.5-22.3) LV EF 28.6 % (63-77) LVEDV 184.7 ml (65-193) Index 84.3 ml/m HR 70 bpm LV As 37.2 cm2 (4-11.6) LV CO 3.7 l/min LVESV 131.9 ml Index 60.2 ml/m LV CI 1.7 l/m/m2 LV SV 52.7 ml LA Sng Plane LA Area 22.9 cm2 (8.8-23.4) LA Vol 60.5 ml Index 27.6 ml/m LA LngAx 7.3 cm DOPPLER LVOT Stroke Vol LVOT 2.3 cm LVOT CO 3.8 l/min LVOT TVI 13.2 cm LVOT CI 1.8 l/m/m2 LVOT Tm 206 msec HR 70 bpm LVOT SV 54.8 ml Signed 12/12/2018 07:37 AM Rafi Decker MD Performing Organization Address City/State/Zipcode Phone Number [facility] [address] [place] [address] Ambulatory referral to Sleep Medicine (11/20/2018 10:41 AM CDT) Narrative Performed At POC PT/INR (11/20/2018 10:02 AM CDT)Only the most recent of11 resultswithin the time period is included. POC prothrombin time 39.8 POC INR 3.3 Specimen Blood Estimated GFR (11/06/2018 12:05 PM CDT)Only the most recent of4 resultswithin the time period is included. Estimated GFR 56 (A) mL/min/1.73 [place] [facility] Comment: m2 HOSPITAL CatergoryUnitsInterpretation G1 >=90 Normal or high G2 60-89Mildly decreased T2t63-07Abbwim to moderately decreased Y4b23-31Ksdkupbjkg to severely decreased G4 15-29Severely decreased G5 <15Kidney failure The eGFR was calculated using the Chronic Kidney Disease Epidemiology Collaboration (CKD-EPI) equation. Interpretation is based on recommendations of the National Kidney Foundation-Kidney Disease Outcomes Quality Initiative (NKF-KDOQI) published in 2014. Specimen Plasma specimen Performing Organization Address City/[facility] [place] [facility] Phone Number [facility] DEPARTMENT OF PATHOLOGY AND [address] [place] [address] B natriuretic peptide (11/06/2018 12:05 PM CDT)Only the most recent of7 resultswithin the time period is included. BNP 44 0 - 100 pg/mL [facility] Specimen Blood Performing Organization Address [facility]/[place] [facility] Cent[facility]ode Phone Number [facility] DEPARTMENT OF PATHOLOGY AND [address] [place] [address] Magnesium level (11/06/2018 12:05 PM CDT)Only the most recent of2 resultswithin the time period is included. Magnesium 1.9 1.6 - 2.6 mg/dL [facility] Specimen Plasma specimen Performing Organization Address [facility] Phone Number [facility] DEPARTMENT OF PATHOLOGY AND [address] [place], [place] [id number] Basic metabolic panel (11/06/2018 12:05 PM CDT)Only the most recent of3 resultswithin the time period is included. Sodium 139 135 - 148 mEq/L [facility] Potassium 3.9 3.5 - 5.0 mEq/L [facility] Chloride 99 98 - 112 mEq/L [facility] CO2 26 24 - 31 mEq/L [facility] Anion gap 14@ANIO 7 - 15 mEq/L [facility] BUN 23 (H) 6 - 20 mg/dL [facility] Creatinine 1.65 (H) 0.70 - 1.20 mg/dL [facility] Glucose 333 (H) 65 - 99 mg/dL [facility] Calcium 9.8 8.3 - 10.2 mg/dL [facility] Specimen Plasma specimen Performing Organization Address City/[facility]/Zipcode Phone Number [facility] DEPARTMENT OF PATHOLOGY AND [address] [place] [address] GENOMIC MEDICINE [facility] [address] [place] [address] ECG 12 lead (10/09/2018 4:55 PM CDT)Only the most recent of2 resultswithin the time period is included. Ventricular rate 72 [facility] Atrial rate 72 [facility] AK interval 144 [facility] MUSE QRSD interval 110 [facility] QT interval 410 [facility] MUSE QTC interval 448 [facility] MUSE P axis 1 41 [facility] QRS axis 1 -8 [facility] T wave axis 176 [facility] MUSE EKG impression Normal sinus rhythm-Possible Left atrial enlargement-Left ventricular hypertrophy with repolarization abnormality-Abnormal ECG-In automated comparison with ECG of 30-MAR-2018 09:17,-aberrant conduction is no longer present- Specimen Narrative Performed At Performing Organization Address [facility]/[place] [facility] Centercode Phone Number [facility] [address] [place] [address] Digoxin level (10/03/2018 11:56 AM CDT) Digoxin <0.5 (L) 0.8 - 2.0 mcg/L [employer] Comment: [place] Verified by repeat analysis. WILMAN Anti-Digoxin (Digibind(R)) in serum/plasma of patients under toxicity therapy may interfere with the digoxin immunoassay. Specimen Blood Narrative Performed At FASTING:YES [facility] FASTING: YES Resulting Agency Comment Performing Organization Information: Site ID: [id number] Name: [facility] Lab Address: [address] [place] [phone] Director: Alma Delia Pal Performing Organization Address [facility]/Zipcode Phone Number [employer] [place] [phone] CV pacemaker defib or ilr interrogation (06/11/2018) Narrative Performed At POC glucose (04/25/2018 4:59 PM CDT)Only the most recent of4 resultswithin the time period is included. 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 Pulmonary hypertension is absent. Wedge pressure is normal. Cardiac output is decreased. Low CO Successful cardioMEMs placement F/up heart failure clinic Performing Organization Address [facility]/[place] [facility] Centercode Phone Number [facility] [address] [place] [address] Prothrombin time with INR (04/25/2018 11:51 AM CDT) [facility] Prothrombin time 24.4 (H) 12.0 - 15.0 [facility] DEPARTMENT OF sec PATHOLOGY AND GENOMIC MEDICINE INR 2.2 [facility] DEPARTMENT OF Comment: PATHOLOGY AND The International Normalized Ratio (INR) is a therapeutic GENOMIC MEDICINE monitoring tool for patients who are stable on oral anticoagulant therapy. An INR of 2.0-3.0 is suggested for deep vein thrombosis/pulmonary embolism. Specimen Blood Performing Organization Address [facility] Phone Number [facility] DEPARTMENT OF PATHOLOGY AND [address] [place] [address] GENOMIC MEDICINE Echocardiogram complete w contrast and 3D if needed (03/30/2018 2:59 PM CDT) Specimen Narrative Performed At [facility] Echocardiography Report [address] [place] [address] Pat.Name:KAVITA JIMENEZ Pat.ID:[id number] .Date: 03/30/2018 Refer.MD:CHRISTIANO SOTO MD Exam Time: 1:46:00 PMStudy Type:Routine Echo Height:67inWeight: 247lb BSA: 2.21 m2 DOBAge:1970,47Y Sex: MALEBP:153/92 HR:84 bpmSonogrphr: BIANCA Bautista Pat. Stat.:Inpatient Room:[facility] Study Status:Final Echo Event ID:[id number] Order ID:[id number] Reason for Study:HF - Re-eval of known HF (systolic or diastolic) with a change in clinical status or cardiac exam with a clear precipitating change in medication or diet; LVEF Assessment History / Clinical:Congestive Heart Failure, Hypertension, Congestive Cardiomyopathy, Hyperlipidemia Procedures:2D Echo, Colorflow Doppler, Portable, Stat, Intravenous Definity Contrast Race:B SUMMARY: LV EF is moderately to severely depressed. Global hypokinesis. Estimated EF is 25-29%. RV size is normal. RV systolic function is mild to moderately depressed. Diastolic dysfunction Grade III (Severe): Impaired relaxation with restrictive LV filling pressures. FINDINGS: LV: LV size is mildly enlarged. There is moderate to severe eccentricLV hypertrophy. LV EF is moderately to severely depressed.Global hypokinesis. Estimated EF is 25-29%. RV: RV size is normal. A pacemaker wire is seen in the RV. RV systolicfunction is mild to moderately depressed. LA: LA volume is moderately enlarged. RA: RA volume is normal. A pacemaker wire is seen. AO: Aortic root diameter is normal. MAEGAN: No pericardial effusion. AV: Focal calcification of AV leaflets. MV: No structural MV abnormalities noted. Mild mitral regurgitation. PV: No structural PV abnormalities noted. TV: No structural TV abnormalities noted. Mccall: Diastolic dysfunction Grade III (Severe): Impaired relaxationwith restrictive LV filling pressures. Other:Insufficient TR jet to estimate PA systolic pressure. MEASUREMENTS: 2D Parasternal Long Lutz LVOT 2.1 cmLA Ds4.4 cm LVIDd6 cmIndex2.7 cm/m Ao An2.4 cm LVIDs5 cmAo Rtd 2.8 cm Index1.3 cm/m LV%fs 16.7 % LV Odfm820 g(122-174) IVSd 1.4 cmLVM Pkgko209.1 g/m2 LVPWd1 cmRWT0.3 LA Sng Plane LA Area 26.2 cm2(8.8-23.4) LA Vol94.7 ml Index42.9 ml/m LA LngAx 6.1 cm Signed 03/30/2018 05:04 PM Miguelito Esposito M.D. Procedure Note Interface, Radiology Results In - 03/30/2018 5:05 PM CDT Echocardiography Report [id number]Name: KAVITA JIMENEZ [facility].ID: [id number] .Date: 03/30/2018 Refer.MD: CHRISTIANO SOTO MD Exam Time: 1:46:00 PM Study Type:Routine Echo Height: 67in Weight: 247lb BSA: 2.21 m2 Age: 3 1970,47Y Sex: MALE BP: 153/92 HR: 84 bpm Sonogrphr: BIANCA Bautista Pat. Stat.:Inpatient Room: [facility] Study Status:Final Echo Event ID:[id number] Order ID: [id number] Reason for Study:HF - Re-eval of known HF (systolic or diastolic) with a change in clinical status or cardiac exam with a clear precipitating change in medication or diet; LVEF Assessment History / Clinical:Congestive Heart Failure, Hypertension, Congestive Cardiomyopathy, Hyperlipidemia Procedures:2D Echo, Colorflow Doppler, Portable, Stat, Intravenous Definity Contrast Race: B SUMMARY: LV EF is moderately to severely depressed. Global hypokinesis. Estimated EF is 25-29%. RV size is normal. RV systolic function is mild to moderately depressed. Diastolic dysfunction Grade III (Severe): Impaired relaxation with restrictive LV filling pressures. FINDINGS: LV: LV size is mildly enlarged. There is moderate to severe eccentric LV hypertrophy. LV EF is moderately to severely depressed. Global hypokinesis. Estimated EF is 25-29%. RV: RV size is normal. A pacemaker wire is seen in the RV. RV systolic function is mild to moderately depressed. LA: LA volume is moderately enlarged. RA: RA volume is normal. A pacemaker wire is seen. AO: Aortic root diameter is normal. MAEGAN: No pericardial effusion. AV: Focal calcification of AV leaflets. MV: No structural MV abnormalities noted. Mild mitral regurgitation. PV: No structural PV abnormalities noted. TV: No structural TV abnormalities noted. Mccall: Diastolic dysfunction Grade III (Severe): Impaired relaxation with restrictive LV filling pressures. Other: Insufficient TR jet to estimate PA systolic pressure. MEASUREMENTS: 2D Parasternal Long Lutz LVOT 2.1 cm LA Ds 4.4 cm LVIDd 6 cm Index 2.7 cm/m Ao An 2.4 cm LVIDs 5 cm Ao Rtd 2.8 cm Index 1.3 cm/m LV%fs 16.7 % LV Mass 314 g (122-174) IVSd 1.4 cm LVM Index 142.1 g/m2 LVPWd 1 cm RWT 0.3 LA Sng Plane LA Area 26.2 cm2 (8.8-23.4) LA Vol 94.7 ml Index 42.9 ml/m LA LngAx 6.1 cm Signed 03/30/2018 05:04 PM Miguelito Esposito M.D. Performing Organization Address City/State/[place] [facility] Centercode Phone Number [facility] [address] [place] [address] ECG Pre/Post Op (03/30/2018 9:17 AM CDT) Ventricular rate 72 [facility] Atrial rate 72 [facility] AK interval 146 [facility] QRSD interval 106 [facility] QT interval 420 [facility] QTC interval 459 [facility] MUSE P axis 1 38 [facility] QRS axis 1 -13 [facility] T wave axis 175 [facility] MUSE EKG impression Sinus rhythm with Possible premature atrial complexes with aberrant conduction-Biatrial enlargement-Left ventricular hypertrophy with repolarization abnormality-Abnormal ECG-In automated comparison with [facility] MUSE ECG of 06-FEB-2018 13:35,-premature ventricular complexes are no longer present-aberrant conduction is now present- Specimen Performing Organization Address [facility]/[place] [facility] Centercowi Phone Number [facility] MUSE [address] [place] [address] PT and PTT (03/28/2018 2:32 PM CDT) PTT 37 (H) 22 - 34 sec [facility] Comment: [place] This test has not been validated for monitoring unfractionated heparin therapy. For testing that is validated for this type of therapy, please refer to the Heparin Anti-Xa assay (test code 13151). For additional information, please refer to http://education.[employer].com/faq/YBR397 (This link is being provided for informational/educational purposes only.) INR 2.4 (H) [facility] Comment: [place] Reference Range 0.9-1.1 Moderate-intensity Warfarin Therapy 2.0-3.0 Higher-intensity Warfarin Therapy 3.0-4.0 Prothrombin time 23.6 (H) 9.0 - 11.5 [facility] sec [place] Specimen Blood Narrative Performed At FASTING:NO [facility] FASTING: NO Resulting Agency Comment Performing Organization Information: Site ID: [id number] Name: [facility] Lab Address: [address] [place] [phone] Director: Alma Delia Pal Performing Organization Address [facility]/[place] [facility] Centercode Phone Number [employer] [place] [phone] ALT (SGPT) (02/14/2018 2:10 PM CDT) ALT 28 5 - 50 U/L [facility] DEPARTMENT OF PATHOLOGY AND GENOMIC MEDICINE Specimen Plasma specimen Performing Organization Address [facility] Phone Number [facility] DEPARTMENT OF PATHOLOGY AND [address] [place] [address] AST (SGOT) (02/14/2018 2:10 PM CDT) AST 22 10 - 50 U/L [facility] DEPARTMENT OF PATHOLOGY AND GENOMIC MEDICINE Specimen Plasma specimen Performing Organization Address [facility] Phone Number [facility] DEPARTMENT OF PATHOLOGY AND [address] [place] [address] Potassium level (02/14/2018 2:10 PM CDT) Potassium 3.9 3.5 - 5.0 mEq/L [facility] DEPARTMENT OF PATHOLOGY AND GENOMIC MEDICINE Specimen Plasma specimen Performing Organization Address [facility] Phone Number [facility] DEPARTMENT OF PATHOLOGY AND [address] [place] [address] Alkaline phosphatase (02/14/2018 2:10 PM CDT) Alkaline phosphatase 81 40 - 129 U/L [facility] DEPARTMENT OF PATHOLOGY AND GENOMIC MEDICINE Specimen Plasma specimen Performing Organization Address [facility] Phone Number [facility] DEPARTMENT OF PATHOLOGY AND [address] [place] [address] Estimated GFR (02/09/2018 10:17 AM CDT) GFR Non Af Amer 59 (A) mL/min/1.73 [facility] DEPARTMENT OF m2 PATHOLOGY AND GENOMIC MEDICINE GFR Af Amer 71 mL/min/1.73 [facility] DEPARTMENT OF Comment: m2 PATHOLOGY AND Chronic kidney disease: <60 mL/min/1.73m2 GENOMIC MEDICINE Kidney failure: <15 mL/min/1.73m2 The estimated GFR is calculated from the IDMS-traceable Modification of Diet in Renal Disease Equation. The accuracy of the calculation is poor when the creatinine is normal. Calculated values >90 mL/min/1.73m2 are not reported. This equation has not been validated in children (<18 years), women, the elderly (>70 years), or ethnic groups other than Caucasians and Americans. Specimen Plasma specimen Performing Organization Address [facility]/Zipcode Phone Number [facility] DEPARTMENT OF PATHOLOGY AND [address] [place] [address] GENOMIC MEDICINE T3 (02/09/2018 10:17 AM CDT) T3 97 80 - 200 ng/dL [facility] DEPARTMENT OF PATHOLOGY AND GENOMIC MEDICINE Specimen Plasma specimen Performing Organization Address [facility]/[place] [facility] Centercode Phone Number [facility] [facility] DEPARTMENT OF PATHOLOGY AND [address] [place] [address] Thyroid stimulating hormone (02/09/2018 10:17 AM CDT) TSH 0.47 0.27 - 4.20 uIU/mL [facility] DEPARTMENT OF PATHOLOGY AND GENOMIC MEDICINE Specimen Plasma specimen Performing Organization Address [facility] Phone Number [facility] DEPARTMENT OF PATHOLOGY AND [address] [place] [address] MEDICINE T4 (02/09/2018 10:17 AM CDT) T4 7.6 4.5 - 11.7 ug/dL [facility] DEPARTMENT OF PATHOLOGY AND GENOMIC MEDICINE Specimen Plasma specimen Performing Organization Address [facility] [place] Phone Number [facility] DEPARTMENT OF PATHOLOGY AND [address] [place] [address] MEDICINE Hemoglobin A1c (02/09/2018 10:17 AM CDT) Hemoglobin A1C 10.8 (H) 4.0 - 5.6 % [facility] DEPARTMENT OF Comment: PATHOLOGY AND HbA1c cutoffs for diagnosing diabetes: GENOMIC MEDICINE 4.0% - 5.6%=normal 5.7% - 6.4%=increased risk for diabetes (prediabetes) >=6.5%=diabetes Goals for glycemic control (ADA 2016) < 7.0%Target for non adults with diabetes. More or less stringent targets may be appropriate for individual patients. <7.5% Target for Children and adolescents with type 1 diabetes. Specimen Blood Performing Organization Address [facility] [place] [facility] Cent[facility]ode Phone Number [facility] DEPARTMENT OF PATHOLOGY AND [address] [place] [address] MEDICINE Echocardiogram complete w contrast and 3D if needed (02/09/2018 9:42 AM CDT) Specimen Narrative Performed At [facility] Echocardiography Report Pat.Name:KAVITA JIMENEZ.ID:[id number] St.Date: 02/09/2018 Refer.MD:CHRISTIANO SOTO MD Exam Time: 9:04:00 AMStuderasmo Type:Routine Echo Height:67inWeight: 245lb BSA: 2.21 m2 DOBAge:1970,47Y Sex: MALEBP:174/111 HR:76 bpmSonogrphr: Hesham Davila NADIR Pat. Stat.:OutpatientRoom:[facility] Study Status:Final Echo Event ID:[id number] Order ID:[id number] Reason for Study:Combined Diastolic, Systolic Congestive Heart Failure, Cardiomyopathy History / Clinical:Congestive Heart Failure, Hypertension, Congestive Cardiomyopathy, Hyperlipidemia Procedures:2D Echo, Colorflow Doppler, Portable Race:B SUMMARY: LV size is mildly enlarged. There is mild eccentric LV hypertrophy. LV EF is moderately to severely depressed. Mild aortic stenosis. RV size is normal. RV systolic function is mildly depressed. FINDINGS: LV: LV size is mildly enlarged. There is mild eccentric LV hypertrophy.LV EF is moderately to severely depressed. EstimatedEF is 30-34%. Global hypokinesis. RV: RV size is normal. A pacemaker wire is seen in the RV. RV systolicfunction is mildly depressed. LA: LA volume is mild to moderately enlarged. RA: RA volume is normal. A pacemaker wire is seen. AO: Aortic root is normal in size. MAEGAN: No pericardial effusion. IAS:Atrial septum is normal. AV: Mild thickening and calcification of AV leaflets. Mild aorticstenosis. MV: Mild mitral annular calcification. A trace of mitral regurgitation. PV: No structural PV abnormalities noted. TV: No structural TV abnormalities noted. A trace of tricuspid regurgitation Mccall: LV relaxation is impaired. LV filling pressure is restrictivepattern, mean PCWP >25mmHg. Hepatic vein pressureis normal, RA pressure < 5mmHg. Other:Insufficient TR jet to estimate PA systolic pressure. MEASUREMENTS: 2D Parasternal Long Lutz LVOT 2.3 cmLA Ds4.3 cm LVIDd5.8 cmIndex2.6 cm/m Ao Rtd 3.3 cm Index1.5 cm/m LVIDs4.6 cm LV Ahus368.6 g(122-174) IVSd 1.3 cmLVM Rzdlx754.9 g/m2 LVPWd1.2 cmRWT0.5 LA Sng Plane LA Area 24.8 cm2(8.8-23.4) LA Vol82.2 ml Index37.2 ml/m LA LngAx 6.3 cm LA Biplane LA 4Ch Area 20.6 cm2 LA Vol63.1 ml Index28.6 ml/m LA 2Ch Area 20.9 cm2 DOPPLER AV For Flow/Valve Assess AV pkVel 211.5 cm/s (100-170) AV ET243 msec AV mnVel 150.6 cm/Cinthya AC/ET 0.4 AV pkPG 17.9 mmHgAV TVI36.6 cm AV Mean G 10.5 mmHgAVpkAcRt 5029.6 cm/s2 AV AC 94 msec (83-118) Signed 02/12/2018 10:23 AM Félix Last MD Procedure Note Interface, Radiology Results In - 02/12/2018 10:24 AM CDT [facility] Ech[facility] Report Pat.Name: KAVITA JIMENEZ Komal.ID: [id number] .Date: 02/09/2018 Refer.MD: CHRISTIANO SOTO MD Exam Time: 9:04:00 AM Study Type:Routine Echo Height: 67in Weight: 245lb BSA: 2.21 m2 Age: 2 1970,47Y Sex: MALE BP: 174/111 HR: 76 bpm Sonogrphr: Hesham Davila RDCS Pat. Stat.:Outpatient Room: [facility] Study Status:Final Echo Event ID:[id number] Order ID: [id number] Reason for Study:Combined Diastolic, Systolic Congestive Heart Failure, Cardiomyopathy History / Clinical:Congestive Heart Failure, Hypertension, Congestive Cardiomyopathy, Hyperlipidemia Procedures:2D Echo, Colorflow Doppler, Portable Race: B SUMMARY: LV size is mildly enlarged. There is mild eccentric LV hypertrophy. LV EF is moderately to severely depressed. Mild aortic stenosis. RV size is normal. RV systolic function is mildly depressed. FINDINGS: LV: LV size is mildly enlarged. There is mild eccentric LV hypertrophy. LV EF is moderately to severely depressed. Estimated EF is 30-34%. Global hypokinesis. RV: RV size is normal. A pacemaker wire is seen in the RV. RV systolic function is mildly depressed. LA: LA volume is mild to moderately enlarged. RA: RA volume is normal. A pacemaker wire is seen. AO: Aortic root is normal in size. MAEGAN: No pericardial effusion. IAS: Atrial septum is normal. AV: Mild thickening and calcification of AV leaflets. Mild aortic stenosis. MV: Mild mitral annular calcification. A trace of mitral regurgitation. PV: No structural PV abnormalities noted. TV: No structural TV abnormalities noted. A trace of tricuspid regurgitation Mccall: LV relaxation is impaired. LV filling pressure is restrictive pattern, mean PCWP >25mmHg. Hepatic vein pressure is normal, RA pressure < 5mmHg. Other: Insufficient TR jet to estimate PA systolic pressure. MEASUREMENTS: 2D Parasternal Long Lutz LVOT 2.3 cm LA Ds 4.3 cm LVIDd 5.8 cm Index 2.6 cm/m Ao Rtd 3.3 cm Index 1.5 cm/m LVIDs 4.6 cm LV Mass 271.6 g (122-174) IVSd 1.3 cm LVM Index 122.9 g/m2 LVPWd 1.2 cm RWT 0.5 LA Sng Plane LA Area 24.8 cm2 (8.8-23.4) LA Vol 82.2 ml Index 37.2 ml/m LA LngAx 6.3 cm LA Biplane LA 4Ch Area 20.6 cm2 LA Vol 63.1 ml Index 28.6 ml/m LA 2Ch Area 20.9 cm2 DOPPLER AV For Flow/Valve Assess AV pkVel 211.5 cm/s (100-170) AV ET 243 msec AV mnVel 150.6 cm/s AV AC/ET 0.4 AV pkPG 17.9 mmHg AV TVI 36.6 cm AV Mean G 10.5 mmHg AVpkAcRt 5029.6 cm/s2 AV AC 94 msec (83-118) Signed 02/12/2018 10:23 AM Félix Last MD Performing Organization Address City/State/[place] [facility] Phone Number [facility] [id number] [place] [address] after 12/13/2017 Insurance Payer Benefit Plan / Subscriber ID Effective Dates Phone Address Type Group [facility] t Advance Directives Patient has advance care planning documents on file. For more information, please contact:Festus Melendrez[address] [place] [address]
--- NOTE | 2018-12-14 20:06 | RAD REPORT ---
EXAM DESCRIPTION: Sreekanth Single View12/14/2018 8:00 pm CLINICAL HISTORY: Hypertension COMPARISON: October 2017 FINDINGS: The lungs appear clear of acute infiltrate. The heart is mildly enlarged. Pacemaker leads are in place. IMPRESSION: No acute abnormalities displayed
[2018-12-14 20:10] LABS: Absolute Lymphocytes (CBC) 1.5 K/uL (0.7-4.9); Basophils % 0.5 % (0-1.3); Eosinophils % 1.4 % (0-4.4); Hematocrit 40.6 % (39.6-49.0); Lymphocytes % 32.9 % (15.3-44.8); MPV 11.1 fL (7.6-11.3); RBC Red Blood Cell Count 4.82 M/uL (4.33-5.43)
[2018-12-14 20:16] LABS: Protime INR 1.81
[2018-12-14 20:28] LABS: ALT/SGPT 58 U/L (12-78); AST/SGOT 41 U/L (15-37); Albumin 3.5 g/dL (3.4-5.0); Alkaline Phosphatase 147 U/L (45-117); BUN Blood Urea Nitrogen 38 mg/dL (7-18); Bicarbonate 25 mmol/L (21-32); Bilirubin Direct < 0.1 mg/dL (0-0.2); Bilirubin Total 0.5 mg/dL (0.2-1.0); Magnesium 2.7 mg/dL (1.8-2.4); NT PRO-BNP 165 pg/mL (<125); Potassium 4.1 mmol/L (3.5-5.1); Protein, Total 8.1 g/dL (6.4-8.2); Sodium Level 125 mmol/L (136-145); Troponin (Emerg Dept Use Only) 0.09 ng/mL (0.0-0.045)
[2018-12-14 20:30] LABS: Glucose Level 655 mg/dL (74-106)
[2018-12-14] MEDS ORDERED: INSULIN -REGULAR HUMAN 50 UNIT/0.5 ML ML ONE (21:00)
--- NOTE | 2018-12-14 21:15 | ER ---
Nurse's Notes [facility] Name: Cam Huitron Age: 48 yrs Sex: Male : 1970 Arrival Date: 12/14/2018 Time: 19:25 Bed 7 Private MD: Diagnosis: Chest pain, unspecified;Hyperglycemia, unspecified;Renal insufficiency;sub-therapeutic digoxin level, elevated troponin Presentation: 12/14 19:26 Presenting complaint: EMS states: pt c/o SOB and CP X4 days [employer]. pt FSBG over 500 on ak1 EMS Glucometer. pt stated to EMS he has not had his insulin or metformin today. pt was given 324 aspirin [employer]. Transition of care: patient was not received from another setting of care. Onset of symptoms is unknown. Risk Assessment: Do you want to hurt yourself or someone else? Patient reports no desire to harm self or others. Initial Sepsis Screen: Does the patient meet any 2 criteria? No. Patient's initial sepsis screen is negative. Does the patient have a suspected source of infection? No. Patient's initial sepsis screen is negative. Care prior to arrival: 324mg aspirin. 19:26 Method Of Arrival: EMS: [facility] ak1 19:26 Acuity: SILVER 3 ak1 Triage Assessment: 19:35 General: Appears in no apparent distress. Behavior is calm, cooperative. Pain: ak1 Complains of pain in chest. EENT: No signs and/or symptoms were reported regarding the EENT system. Neuro: No deficits noted. Cardiovascular: Heart tones S1 S2 present Capillary refill < 3 seconds Rhythm is sinus rhythm. Respiratory: Airway is patent Respiratory effort is even, unlabored, Respiratory pattern is regular, Breath sounds are clear bilaterally. GI: No signs and/or symptoms were reported involving the gastrointestinal system. : No signs and/or symptoms were reported regarding the genitourinary system. Derm: No signs and/or symptoms reported regarding the dermatologic system. Musculoskeletal: No signs and/or symptoms reported regarding the musculoskeletal system. Historical: - Allergies: 19:35 No Known Allergies; ak1 - Home Meds: 19:35 carvedilol 25 mg Oral tab 2 tab 2 times per day [Active]; glimepiride 2 mg Oral tab 1 ak1 tab twice a day [Active]; hydralazine 25 mg Oral tab 1 tab daily [Active]; metformin 500 mg Oral TbER 1 tab 2 times per day [Active]; losartan 100 mg oral tab 1 tab once daily [Active]; digoxin 125 mcg Oral tab 1 tab once daily [Active]; aspirin 81 mg Oral TbEC 1 tab once daily [Active]; pravastatin 40 mg Oral tab 1 tab once daily [Active]; spironolactone 25 mg Oral tab 1 tab once daily [Active]; torsemide oral 60mg in the morning and 40mg in the afternoon oral [Active]; allopurinol 300 mg Oral tab 1 tab once daily [Active]; warfarin 10 mg Oral tab 1 tab once daily [Active]; - PMHx: 19:35 Myocardial infarction; Hypertension; Gout; Diabetes - NIDDM; CHF; Anemia; ADD/ADHD; ak1 - PSHx: 19:[address]; ak1 - Immunization history:: Adult Immunizations unknown. - Social history:: Smoking status: Patient/guardian denies using tobacco. - Ebola Screening: : No symptoms or risks identified at this time. Screenin:46 Abuse screen: Denies threats or abuse. Denies injuries from another. Nutritional ak1 screening: No deficits noted. Tuberculosis screening: No symptoms or risk factors identified. Fall Risk None identified. Assessment: 19:45 Pain: Pain does not radiate. Pain began 2-3 days ago. ak1 20:11 Reassessment: Patient appears in no apparent distress at this time. No changes from ak1 previously documented assessment. Patient is alert, oriented x 3, equal unlabored respirations, skin warm/dry/pink. pt sister, Komal, can be reached at [phone]. pt sister, Gaviota, can be reached at [phone] Patient states feeling better. Patient states symptoms have improved. Vital Signs: 19:26 BP 145 / 98; Pulse 87; Resp 16; Temp 97.6(O); Pulse Ox 100% on R/A; Weight 108.86 kg ak1 (R); Height 5 ft. 7 in. (170.18 cm) (R); Pain 6/10; 20:47 BP 135 / 85; Pulse 83; Resp 20; Pulse Ox 98% on R/A; ak1 22:12 BP 127 / 97; Pulse 88; Resp 18; Temp 98; Pulse Ox 98% on R/A; ak1 23:19 BP 125 / 75; Pulse 82; Resp 14; Temp 98.1; Pulse Ox 98% on R/A; ak1 19:26 Body Mass Index 37.59 (108.86 kg, 170.18 cm) ak1 ED Course: 19:20 Inserted saline lock: 20 gauge in right antecubital area, using aseptic technique. cc3 Blood collected. 19:25 Patient arrived in ED. cc3 19:26 Eleonora Simmons, FRANNY is Primary Nurse. ak1 19:28 Triage completed. ak1 19:29 Gloria Van FNP-C [facility]. snw 19:29 Mxa Martin MD is Attending Physician. snw 19:45 Patient maintains SpO2 saturation greater than 95% on room air. ak1 19:46 Patient has correct armband on for positive identification. Placed in gown. Bed in low ak1 position. Call light in reach. Side rails up X2. classroom monitor on. Pulse ox on. NIBP on. 19:46 Arm band placed on Patient placed Patient notified of wait time. EKG completed in ak1 triage. Results shown to MD. 19:59 XRAY Chest (1 view) In Process Unspecified. EDMS 21:12 Eden Ramos MD is Hospitalizing Provider. snw 23:20 No provider procedures requiring assistance completed. Patient admitted, IV remains in ak1 place. Administered Medications: 19:49 Not Given (inappropriate): NS 0.45 % 1000 ml IV at 125 ml/hr continuous snw 20:45 Drug: Insulin Regular Human 10 units {Co-Signature: ak1 (Eleonora Simmons RN).} Route: IVP; cc3 Site: right antecubital; 21:50 Follow up: Response: No adverse reaction ak1 Point of Care Testing: Blood Glucose: 21:53 Blood Glucose: 367 mg/dL; ak1 Ranges: Outcome: 21:14 Decision to Hospitalize by Provider. snw 23:22 Condition: good ak1 23:22 Instructed on the need for admit. 23:35 Admitted to Tele accompanied by tech, via wheelchair, room 424, with chart, Report ak1 called to Monica BLANTON for 424 23:52 Patient left the ED. ak1 Signatures: Dispatcher [employer] EDMS Gloria Van FNP-C [employer] PRODUCTION SUPERVISOR-Csnw Iris, Eleonora, RN RN ak1 Jeanne Sierra cc3 Eleonora Simmons RN ak1
--- NOTE | 2018-12-14 21:16 | EDPHYS ---
Physician Documentation [facility] Name: Cam Huitron Age: 48 yrs Sex: Male : 1970 Arrival Date: 12/14/2018 Time: 19:25 Bed 7 Private MD: ED Physician Max Martin HPI: 12/14 20:42 This 48 yrs old Black Male presents to ER via EMS with complaints of Chest Pain, snw Breathing Difficulty. 20:42 The patient or guardian reports chest pain that is located primarily in the substernal snw area. Onset: gradually, 4 day(s) ago, and became persistent increases with activity. Associated signs and symptoms: The patient has no apparent associated signs or symptoms. The chest pain is described as a pressure. Duration: The patient or guardian reports multiple episodes, that wax and wane. Modifying factors: the symptoms are aggravated by activity. Severity of pain: At its worst the pain was moderate. EMS care prior to arrival includes: aspirin, saline lock, supplemental oxygen. The patient has experienced a previous episode. sees Dr. Blandon, no recent changes to medications. Historical: - Allergies: 19:35 No Known Allergies; ak1 - Home Meds: 19:35 carvedilol 25 mg Oral tab 2 tab 2 times per day [Active]; glimepiride 2 mg Oral tab 1 ak1 tab twice a day [Active]; hydralazine 25 mg Oral tab 1 tab daily [Active]; metformin 500 mg Oral TbER 1 tab 2 times per day [Active]; losartan 100 mg oral tab 1 tab once daily [Active]; digoxin 125 mcg Oral tab 1 tab once daily [Active]; aspirin 81 mg Oral TbEC 1 tab once daily [Active]; pravastatin 40 mg Oral tab 1 tab once daily [Active]; spironolactone 25 mg Oral tab 1 tab once daily [Active]; torsemide oral 60mg in the morning and 40mg in the afternoon oral [Active]; allopurinol 300 mg Oral tab 1 tab once daily [Active]; warfarin 10 mg Oral tab 1 tab once daily [Active]; - PMHx: 19:35 Myocardial infarction; Hypertension; Gout; Diabetes - NIDDM; CHF; Anemia; ADD/ADHD; ak1 - PSHx: 19:[address]; ak1 - Immunization history:: Adult Immunizations unknown. - Social history:: Smoking status: Patient/guardian denies using tobacco. - Ebola Screening: : No symptoms or risks identified at this time. ROS: 20:39 Constitutional: Negative for fever, chills, and weight loss, Eyes: Negative for injury, snw pain, redness, and discharge, ENT: Negative for injury, pain, and discharge, Neck: Negative for injury, pain, and swelling, Cardiovascular: Positive for chest pain over the past four days, increasing in intensity with activity, no defibrilation episodes, no palpitations, and no edema, Respiratory: Negative for shortness of breath, cough, wheezing, and pleuritic chest pain, Abdomen/GI: Negative for abdominal pain, nausea, vomiting, diarrhea, and constipation, Back: Negative for injury and pain, : Negative for injury, bleeding, discharge, and swelling, MS/Extremity: Negative for injury and deformity, Skin: Negative for injury, rash, and discoloration, Neuro: Negative for headache, weakness, numbness, tingling, and seizure. Exam: 20:38 Constitutional: This is a well developed, well nourished patient who is awake, alert, snw and in no acute distress. Head/Face: Normocephalic, atraumatic. Eyes: Pupils equal round and reactive to light, extra-ocular motions intact. Lids and lashes normal. Conjunctiva and sclera are non-icteric and not injected. Cornea within normal limits. Periorbital areas with no swelling, redness, or edema. ENT: Nares patent. No nasal discharge, no septal abnormalities noted. Tympanic membranes are normal and external auditory canals are clear. Oropharynx with no redness, swelling, or masses, exudates, or evidence of obstruction, uvula midline. Mucous membranes moist. Neck: Trachea midline, no thyromegaly or masses palpated, and no cervical lymphadenopathy. Supple, full range of motion without nuchal rigidity, or vertebral point tenderness. No Meningismus. Chest/axilla: Normal chest wall appearance and motion. Nontender with no deformity. No lesions are appreciated. Respiratory: Lungs have equal breath sounds bilaterally, clear to auscultation and percussion. No rales, rhonchi or wheezes noted. No increased work of breathing, no retractions or nasal flaring. Abdomen/GI: Soft, non-tender, with normal bowel sounds. No distension or tympany. No guarding or rebound. No evidence of tenderness throughout. Back: No spinal tenderness. No costovertebral tenderness. Full range of motion. Skin: Warm, dry with normal turgor. Normal color with no rashes, no lesions, and no evidence of cellulitis. MS/ Extremity: Pulses equal, no cyanosis. Neurovascular intact. Full, normal range of motion. Neuro: Awake and alert, GCS 15, oriented to person, place, time, and situation. Cranial nerves II-XII grossly intact. Motor strength 5/5 in all extremities. Sensory grossly intact. Cerebellar exam normal. Normal gait. Psych: Awake, alert, with orientation to person, place and time. Behavior, mood, and affect are within normal limits. 20:38 Cardiovascular: Rate: normal, Rhythm: regular, Pulses: no pulse deficits are appreciated, Heart sounds: normal, Edema: is not appreciated. Vital Signs: 19:26 BP 145 / 98; Pulse 87; Resp 16; Temp 97.6(O); Pulse Ox 100% on R/A; Weight 108.86 kg ak1 (R); Height 5 ft. 7 in. (170.18 cm) (R); Pain 6/10; 20:47 BP 135 / 85; Pulse 83; Resp 20; Pulse Ox 98% on R/A; ak1 22:12 BP 127 / 97; Pulse 88; Resp 18; Temp 98; Pulse Ox 98% on R/A; ak1 23:19 BP 125 / 75; Pulse 82; Resp 14; Temp 98.1; Pulse Ox 98% on R/A; ak1 19:26 Body Mass Index 37.59 (108.86 kg, 170.18 cm) ak1 MDM: 19:29 Patient medically screened. snw 20:37 Data reviewed: vital signs, nurses notes. Data interpreted: Pulse oximetry: on room air snw is 100 %. Interpretation: normal. Counseling: I had a detailed discussion with the patient and/or guardian regarding: the historical points, exam findings, and any diagnostic results supporting the discharge/admit diagnosis, lab results. 20:40 HEART Score: History: Moderately Suspicious (1), ECG: Significant ST-deviation (2), snw Age: > 45 and < 65 years (1), Risk Factors: > or = 3 Risk factors for atherosclerotic disease (2), [Hypercholesterolemia] [Hypertension] [DM] Troponin: < or = 1 x Normal Limit (0), Total Score =. The patient was not given aspirin in the Emergency Department. Administered by EMS. 12/14 19:37 Order name: CBC with Diff; Complete Time: 20:17 snw 12/14 19:37 Order name: Chem 7; Complete Time: 20:35 snw 12/14 19:37 Order name: Blood Culture Adult (2) snw 12/14 19:37 Order name: Procalcitonin; Complete Time: 20:50 snw 12/14 19:37 Order name: Lactate; Complete Time: 20:35 snw 12/14 19:37 Order name: LFT's; Complete Time: 20:35 snw 12/14 19:37 Order name: Magnesium; Complete Time: 20:35 snw 12/14 19:37 Order name: NT PRO-BNP; Complete Time: 20:35 snw 12/14 19:37 Order name: PT-INR; Complete Time: 20:26 snw 12/14 19:37 Order name: Troponin (emerg Dept Use Only); Complete Time: 20:35 snw 12/14 19:37 Order name: XRAY Chest (1 view); Complete Time: 20:17 snw 12/14 19:52 Order name: Digoxin snw 12/14 19:53 Order name: Digoxin Level; Complete Time: 20:50 EDMS 12/14 19:37 Order name: EKG; Complete Time: 19:38 snw 12/14 19:37 Order name: Cardiac monitoring; Complete Time: 19:47 snw 12/14 19:37 Order name: EKG - Nurse/Tech; Complete Time: 19:48 snw 12/14 19:37 Order name: IV Saline Lock; Complete Time: 19:48 snw 12/14 19:37 Order name: Labs collected and sent; Complete Time: 20:00 snw 12/14 19:37 Order name: O2 Per Protocol; Complete Time: 19:47 snw 12/14 19:37 Order name: O2 Sat Monitoring; Complete Time: 19:48 snw 12/14 21:41 Order name: FSBS; Complete Time: 21:53 snw Administered Medications: 19:49 Not Given (inappropriate): NS 0.45 % 1000 ml IV at 125 ml/hr continuous snw 20:45 Drug: Insulin Regular Human 10 units {Co-Signature: ak1 (Eleonora Simmons RN).} Route: IVP; cc3 Site: right antecubital; 21:50 Follow up: Response: No adverse reaction ak1 Point of Care Testing: Blood Glucose: 21:53 Blood Glucose: 367 mg/dL; ak1 Ranges: Critical Glucose Levels:Adult <50 mg/dl or >400 mg/dl <40 mg/dl or >180 mg/dl Disposition: 12/14/18 21:14 Hospitalization ordered by Eden Rmaos for Inpatient Admission. Preliminary diagnosis are Chest pain, unspecified, Hyperglycemia, unspecified, Renal insufficiency, sub-therapeutic digoxin level, elevated troponin. - Bed requested for Telemetry/MedSurg (Inpatient). - Status is Inpatient Admission. ak1 - Condition is Stable. - Problem is an acute exacerbation. - Symptoms have worsened. UTI on Admission? No Addendum: 12/17/2018 07:02 Co-signature as Attending Physician, Max Martin MD I agree with the assessment and k dr plan of care. Signatures: Dispatcher [employer] EDMS Max Martin MD MD [facility] Gloria Van, JOINT SUPERVISOR-C JOINT SUPERVISOR-Csnw Eleonora Simmons RN RN ak1 Sarah Ellington RN RN Jeanne Sierra cc3 Eleonora Simmons RN ak1 Corrections: (The following items were deleted from the chart) 12/14 19:39 19:29 Constitutional: This is a well developed, well nourished patient who is awake, snw alert, and in no acute distress. Head/Face: Normocephalic, atraumatic. Eyes: Pupils equal round and reactive to light, extra-ocular motions intact. Lids and lashes normal. Conjunctiva and sclera are non-icteric and not injected. Cornea within normal limits. Periorbital areas with no swelling, redness, or edema. ENT: Nares patent. No nasal discharge, no septal abnormalities noted. Tympanic membranes are normal and external auditory canals are clear. Oropharynx with no redness, swelling, or masses, exudates, or evidence of obstruction, uvula midline. Mucous membranes moist. Neck: Trachea midline, no thyromegaly or masses palpated, and no cervical lymphadenopathy. Supple, full range of motion without nuchal rigidity, or vertebral point tenderness. No Meningismus. Chest/axilla: Normal chest wall appearance and motion. Nontender with no deformity. No lesions are appreciated. Cardiovascular: Regular rate and rhythm with a normal S1 and S2. No gallops, murmurs, or rubs. Normal PMI, no JVD. No pulse deficits. Respiratory: Lungs have equal breath sounds bilaterally, clear to auscultation and percussion. No rales, rhonchi or wheezes noted. No increased work of breathing, no retractions or nasal flaring. Abdomen/GI: Soft, non-tender, with normal bowel sounds. No distension or tympany. No guarding or rebound. No evidence of tenderness throughout. Back: No spinal tenderness. No costovertebral tenderness. Full range of motion. Neuro: Awake and alert, GCS 15, oriented to person, place, time, and situation. Cranial nerves II-XII grossly intact. Motor strength 5/5 in all extremities. Sensory grossly intact. Cerebellar exam normal. Normal gait. Psych: Awake, alert, with orientation to person, place and time. Behavior, mood, and affect are within normal limits. snw 19:39 19:29 Musculoskeletal/extremity: ROM: limited active range of motion due to pain, in snw the left knee, snw 19:39 19:29 Skin: Appearance: Color: erythematous, Temperature: hot, swelling, cellulitis, snw that is moderate, on the left leg, jl intact, dressing removed. Lower leg skin shiny, edematous. 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 Preliminary cg diagnosis is Chest pain, unspecified; Hyperglycemia, unspecified; Renal insufficiency; sub-therapeutic digoxin level, elevated troponin. Bed requested for Telemetry/MedSurg (Inpatient). Status is Inpatient Admission. Condition is Stable. Problem is an acute exacerbation. Symptoms have worsened. UTI on Admission? No. snw 23:52 23:13 12/14/2018 21:14 Hospitalization Ordered by Eden Ramos MD for Inpatient ak1 Admission. Preliminary diagnosis is Chest pain, unspecified; Hyperglycemia, unspecified; Renal insufficiency; sub-therapeutic digoxin level, elevated troponin. Bed requested for Telemetry/MedSurg (Inpatient). Status is Inpatient Admission. Condition is Stable. Problem is an acute exacerbation. Symptoms have worsened. UTI on Admission? No. cg
--- NOTE | 2018-12-14 22:18 | P.HP ---
Certification for Inpatient Patient admitted to: Observation With expected LOS: <2 Midnights Practitioner: I am a practitioner with admitting privileges, knowledge of patient current condition, hospital course, and medical plan of care. Services: Services provided to patient in accordance with Admission requirements found in Title 42 Section 412.3 of the Code of Federal Regulations Patient History Date of Service: 12/14/18 Reason for admission: chest pain, hyperglycemia History of Present Illness: Mr Huitron is a 48 years old male with history of HTN, DM II, CAD, ICD placement , who came to ED complaining of chest pain. The pain is located substernally, pressure like, sometimes associated with SOB and nausea, no diaphoresis. The pain is comes and go, lasting for 20 minutes. Sometimes exacerbated by deep breathing Trop I 0.09, EKG . He had similar symptoms about 1 year ago. Had a NM stress test negative to induce ischemia. EKG today is different to the last one , now he has incomplete LBBB. BS elevated as well. He recognized not been very compliant with his insulin. No signs of DKA. Allergies No Known Allergies Allergy (Verified 11/13/17 22:47) Home medications list reviewed: Yes Home Medications: Allopurinol 300 mg PO DAILY 11/13/17 Carvedilol 12.5 mg PO BID 11/13/17 Furosemide 60 mg PO BID 11/13/17 Hydralazine HCl 25 mg PO DAILY 11/13/17 Isosorbide [place] (Bid) [Ismo 10 mg Tab*] 20 mg PO BID 11/13/17 Losartan/Hydrochlorothiazide [Losartan-Hctz 100-25 mg Tab] 1 tab PO DAILY Metformin HCl 1,000 mg PO BID 11/13/17 Pravastatin Sodium 40 mg PO DAILY 11/13/17 Spironolactone [Aldactone*] 25 mg PO DAILY 11/13/17 Warfarin Sodium 10 mg PO DAILY 11/13/17 Insulin Detemir [Levemir*] 7 units SQ BIDWM #1 vial 11/15/17 - Past Medical/Surgical History Diabetic: Yes -: HTN -: diabetes, -: chf -: stemi mi aug 2014 -: gout -: ICD - Family History Sister -: Heart disease, Kidney disease Notes: deseased Mother -: Heart disease Notes: chf Father -: Lung disease, Cancer Notes: lung ca - Social History Smoking Status: Never smoker Alcohol use: No CD- Drugs: No Caffeine use: Yes Place of Residence: Home Review of Systems 10-point ROS is otherwise unremarkable Physical Examination - Physical Exam General: Alert, In no apparent distress HEENT: Atraumatic, PERRLA, Mucous membr. moist/pink, EOMI, Sclerae nonicteric Neck: Supple, 2+ carotid pulse no bruit, No LAD, Without JVD or thyroid abnormality Respiratory: Clear to auscultation bilaterally, Normal air movement Cardiovascular: Regular rate/rhythm, Normal S1 S2 Gastrointestinal: Normal bowel sounds, No tenderness Musculoskeletal: No tenderness Integumentary: No rashes Neurological: Normal speech, Normal strength at 5/5 x4 extr, Normal tone, Normal affect Lymphatics: No axilla or inguinal lymphadenopathy - Studies Laboratory Data (last 24 hrs) 12/14/18 19:20: PT 20.9 H, INR 1.81 12/14/18 19:20: Sodium 125 L, Potassium 4.1, BUN 38 H, Creatinine 2.69 H, Glucose 655 H*, Magnesium 2.7 H, Total Bilirubin 0.5, AST 41 H, ALT 58, Alkaline Phosphatase 147 H 12/14/18 19:20: WBC 4.5, Hgb 13.4 L, Hct 40.6, Plt Count 200 Assessment and Plan - Problems (Diagnosis) (1) Diabetes mellitus Current Visit: Yes Status: Acute Qualifiers: Diabetes mellitus type: type 2 Diabetes mellitus exterminator insulin use: with exterminator use Diabetes mellitus complication status: with unspecified complications Qualified Code(s): E11.8 - Type 2 diabetes mellitus with unspecified complications; Z79.4 - senior care (current) use of insulin (2) Chest pain Onset Date: 11/14/17 Current Visit: No Status: Acute Qualifiers: Chest pain type: unspecified Qualified Code(s): R07.9 - Chest pain, unspecified (3) CKD (chronic kidney disease) stage 3, GFR 30-59 ml/min Onset Date: 02/16/17 Current Visit: No Status: Chronic (4) Chronic anticoagulation Current Visit: No Status: Chronic (5) Dilated cardiomyopathy Current Visit: No Status: Chronic (6) Hypertension Onset Date: 02/10/15 Current Visit: No Status: Chronic Qualifiers: Hypertension type: essential hypertension - Plan Will admit the patient for chest pain. He has mildly elevated trop I (similar to last admission) EKG incomplete LBBB (new compared to last EKG) Will order serial cardiac enzymes, EKG, consult Cariology team for further recommendations. Check HgbA1c. Conitnue with SSI. - Advance Directives Does patient have a Living Will: No Does patient have a Durable POA for Healthcare: No - Code Status/Comfort Care Code Status Assessed: Yes Code Status: Full Code
[2018-12-15 00:04] VITALS: BMI 37.5
[2018-12-15] MEDS ORDERED: GLUCAGON 1 MG/VIAL IM PRN ×5 (00:17→17:59)
[2018-12-15] MEDS ORDERED: ONDANSETRON 4 MG/2 ML VIAL IV PRN (00:17)
[2018-12-15] MEDS: NA CHLORIDE 0.9% 1,000 ML IV SCH ×3 (00:17→21:09)
[2018-12-15] MEDS ORDERED: D50W 25 GM/50 ML SYRINGE IV PRN ×5 (00:17→17:59)
[2018-12-15] MEDS ORDERED: INSULIN -REGULAR HUMAN 50 UNIT/0.5 ML ML SQ SCH ×2 (00:35→07:30)
[2018-12-15 06:03] LABS: Absolute Lymphocytes (CBC) 1.6 K/uL (0.7-4.9); Basophils % 0.3 % (0-1.3); Eosinophils % 1.4 % (0-4.4); Hematocrit 39.6 % (39.6-49.0); Lymphocytes % 32.3 % (15.3-44.8); MPV 10.6 fL (7.6-11.3); Monocytes % 7.3 % (3.3-12.3); RBC Red Blood Cell Count 4.73 M/uL (4.33-5.43)
[2018-12-15 06:20] LABS: Potassium 3.4 mmol/L (3.5-5.1)
[2018-12-15] MEDS: INSULIN -REGULAR HUMAN 50 UNIT/0.5 ML ML SQ SCH ×3 (06:24→18:28)
--- NOTE | 2018-12-15 08:34 | EKG ---
Test Date: 2018-12-14 Test Time: 19:14:19 Chrome Plater Helper: ALICJA MEASUREMENT RESULTS: Intervals: Rate: 83 NE: 146 QRSD: 108 QT: 364 QTc: 427 [place]: P: 42 NE: 146 QRS: -8 T: 164 INTERPRETIVE STATEMENTS: Normal sinus rhythm Possible Left atrial enlargement Left ventricular hypertrophy with repolarization abnormality Abnormal ECG Compared to ECG 11/13/2017 19:15:32 No significant changes Electronically Signed On 12-15-18 08:32:46 CDT by Virgilio Juárez
[2018-12-15] MEDS ORDERED: POTASSIUM CL SA 10 MEQ TAB PO ONE (09:00)
[2018-12-15 09:51] LABS: Urine Appearance CLEAR; Urine Bilirubin NEGATIVE (NEG); Urine Blood NEGATIVE (NEG); Urine Color YELLOW; Urine Glucose 3+ (NEG); Urine Protein NEGATIVE (NEG); Urine Specific Gravity 1.025 (1.005-1.030); Urine Urobilinogen 0.2 mg/dL (0.2-1.0); Urine pH 5.5 (5.0-7.0)
[2018-12-15] MEDS: ATORVASTATIN 10 MG TAB PO SCH (10:02)
[2018-12-15] MEDS: CARVEDILOL 12.5 MG TAB PO SCH ×2 (10:02→21:07)
[2018-12-15] MEDS: ASPIRIN 81 MG CHEWABLE TABLET PO SCH (10:03)
[2018-12-15 10:11] LABS: Urine Microscopic Reflex NO UMIC
--- NOTE | 2018-12-15 10:39 | CON ---
History Of Present Illness: Mr. Huitron was told by his doctor to come to the hospital. His blood kerr gar apparently was over 800. Since he has been here, his blood sugars have been in the 300s. I am a sked to see him because he has an abnormal troponin level. We have seen Mr. Huitron in the past. He has cardiomyopathy. No evidence of blocked arteries. He has a defibrillator and is followed by a ca rdiology group in [place]. His defibrillator was put in in 2014. He has been in the Heart Transplan t Program, I believe, at [facility], but I do not think he is on the transplant list presently. He wa s not having shortness of breath. When asked, he said he is having chest pain, but it was not a comp laint. He was not planning on seeing anybody about it. His troponin levels are elevated, there has been one of 0.09 and one of 0.11. He has had cardiac cath before, but never any other interventions. The last time we did any study on him, it was a nuclear stress test. It was just about exactly a y ear ago. The ejection fraction was in the 30s similar to what an echo ejection fraction was. There is no evidence of ischemia or scar. The patient has underlying renal insufficiency as well. Physical Examination: General: 5 feet 7 inches, 240 pounds. Appears to be older than his stated age of 48. Lungs: No crackles or wheeze. Heart: There seems to be a systolic murmur consistent with aortic valve sclerosis. I do not think celsa campos has aortic stenosis. He probably has some mitral regurgitation as well. Abdomen: Soft. Extremities: No edema. Distal pulses diminished, but palpable. Impression: My impression is that Mr. Huitron's troponins are caused by his severe metabolic abnormal ity with diabetes out of control. I do not see the need to do another stress test. I do not have an y plans to do a cardiac cath on Mr. Huitron based on what we see. He simply needs to get his diabetes under better control and continue to follow the physicians in [facility] that see him. SH/MODL Voice ID: [id number] Report ID: [id number]
[2018-12-15] MEDS: INSULIN 70/30 100 UNITS/ML SQ SCH (11:45)
[2018-12-15] MEDS ORDERED: INSULIN -REGULAR HUMAN 50 UNIT/0.5 ML ML SQ ONE ×2 (15:39→18:00)
--- NOTE | 2018-12-15 16:23 | P.PN ---
Subjective Date of Service: 12/15/18 Chief Complaint: chest pain, hyperglycemia Patient seen and examined. Chart reviewed and case discussed w RN and Dr. Juárez. Patient denies any further chest pain. Review of Systems 10-point ROS is otherwise unremarkable Cardiovascular: As per HPI Physical Examination - Vital Signs Temperature: 98.0 F Blood Pressure: 128/66 Pulse: 85 Respirations: 18 Pulse Ox (%): 94 - Physical Exam General: Alert, In no apparent distress, Oriented x3, Obese HEENT: Atraumatic, PERRLA, EOMI Neck: Supple, JVD not distended Respiratory: Clear to auscultation bilaterally, Normal air movement Cardiovascular: No edema, Normal pulses, Regular rate/rhythm, Normal S1 S2 Gastrointestinal: Normal bowel sounds, Soft and benign, Non-distended, No tenderness Musculoskeletal: No tenderness Integumentary: No rashes, No erythema Neurological: Normal speech, Normal tone, Normal affect - Studies Laboratory Data (last 24 hrs) 12/14/18 19:20: PT 20.9 H, INR 1.81 12/14/18 19:20: Sodium 125 L, Potassium 4.1, BUN 38 H, Creatinine 2.69 H, Glucose 655 H*, Magnesium 2.7 H, Total Bilirubin 0.5, AST 41 H, ALT 58, Alkaline Phosphatase 147 H 12/14/18 19:20: WBC 4.5, Hgb 13.4 L, Hct 40.6, Plt Count 200 Medications List Reviewed: Yes Assessment And Plan - Current Problems (Diagnosis) (1) Unstable angina Current Visit: Yes Status: Acute (2) CKD (chronic kidney disease) stage 3, GFR 30-59 ml/min Onset Date: 02/16/17 Current Visit: No Status: Chronic (3) Chronic systolic congestive heart failure Onset Date: 02/10/15 Current Visit: No Status: Chronic (4) History of implantable cardioverter-defibrillator (ICD) placement Current Visit: No Status: Chronic (5) Hyperlipidemia Onset Date: 02/10/15 Current Visit: No Status: Chronic Qualifiers: Hyperlipidemia type: unspecified Qualified Code(s): E78.5 - Hyperlipidemia , unspecified (6) Hypothyroidism Onset Date: 02/10/15 Current Visit: No Status: Chronic Qualifiers: Hypothyroidism type: acquired Qualified Code(s): E03.9 - Hypothyroidism, unspecified (7) Diabetes mellitus Current Visit: Yes Status: Acute Qualifiers: Diabetes mellitus type: type 2 Diabetes mellitus nursing home insulin use: with portfolio strategist use Diabetes mellitus complication status: with hyperglycemia Qualified Code(s): E11.65 - Type 2 diabetes mellitus with hyperglycemia; Z79.4 - prison (current) use of insulin - Plan Chest pain is resolving. No intervention planned by cardiology. Patient had recent stress test that was negative. Pts blood glucose levels very high and his diabetes is poorly controlled. Will add long acting insulin. Pt already on aggressive sliding scale. Pt continues to be high risk - needs better control of blood glucose before being discharged. Resume home meds Discuss with cardiology regarding starting entresto. creatnine improving. Monitor. Avoid NSAIDs replace potassium and monitor Discharge Plan: Home Plan to discharge in: 24 Hours
[2018-12-15] MEDS ORDERED: WARFARIN SODIUM 5 MG TAB PO SCH (17:00)
[2018-12-15 19:15] LABS: Potassium 4.2 mmol/L (3.5-5.1)
[2018-12-15] MEDS ORDERED: INSULIN 70/30 100 UNITS/ML SQ SCH (21:00)
[2018-12-15] MEDS ORDERED: INSULIN GLARGINE 100 UNITS/ML SQ SCH (21:00)
[2018-12-15] MEDS: clonazePAM 0.5 MG TAB PO SCH (21:07)
[2018-12-15] MEDS: ISOSORBIDE MONO 10 MG TAB PO SCH (21:07)
[2018-12-15] MEDS: GLIMEPIRIDE 2 MG TABLET PO SCH (21:07)
[2018-12-16] MEDS: INSULIN -REGULAR HUMAN 50 UNIT/0.5 ML ML SQ SCH ×3 (00:51→12:10)
[2018-12-16 05:40] LABS: Potassium 3.7 mmol/L (3.5-5.1)
[2018-12-16] MEDS ORDERED: POTASSIUM CL SA 10 MEQ TAB PO ONE (05:49)
[2018-12-16] MEDS: NA CHLORIDE 0.9% 1,000 ML IV SCH (06:32)
[2018-12-16] MEDS: clonazePAM 0.5 MG TAB PO SCH (08:52)
[2018-12-16] MEDS: ASPIRIN 81 MG CHEWABLE TABLET PO SCH (08:52)
[2018-12-16] MEDS: ISOSORBIDE MONO 10 MG TAB PO SCH (08:52)
[2018-12-16] MEDS: GLIMEPIRIDE 2 MG TABLET PO SCH (08:53)
[2018-12-16] MEDS: ATORVASTATIN 10 MG TAB PO SCH (08:53)
[2018-12-16] MEDS: CARVEDILOL 12.5 MG TAB PO SCH (08:54)
[2018-12-16] MEDS ORDERED: hydroCHLOROthiazide 25 MG TAB PO SCH (09:00)
[2018-12-16] MEDS ORDERED: DIGOXIN 0.125 MG TABLET PO SCH (09:00)
[2018-12-16] MEDS ORDERED: ALLOPURINOL 300 MG TAB PO SCH (09:00)
[2018-12-16] MEDS ORDERED: SERTRALINE HCL 50 MG TAB PO SCH (09:00)
[2018-12-16] MEDS ORDERED: SPIRONOLACTONE 25 MG TABLET PO SCH (09:00)
[2018-12-16] MEDS ORDERED: HYDRALAZINE HCL 25 MG TABLET PO SCH (09:00)
[2018-12-16] MEDS ORDERED: FUROSEMIDE 40 MG TABLET PO SCH (09:00)
[2018-12-16] MEDS ORDERED: LOSARTAN POTASSIUM 50 MG TABLET PO SCH (09:00)
[2018-12-16] MEDS: INSULIN 70/30 100 UNITS/ML SQ SCH (09:02)
[2018-12-16] MEDS ORDERED: CETIRIZINE HCL 5 MG TABLET PO PRN (10:23)
[2018-12-16 12:01] VITALS: BP 111/57; TEMP 97
[2018-12-16 12:42] VITALS: O2SAT 98
--- NOTE | 2018-12-16 13:48 | P.DS ---
Admission Date: 12/14/18 Discharge Date: 12/16/18 Disposition: ROUTINE DISCHARGE Discharge Condition: FAIR Reason for Admission: chest pain, hyperglycemia - Problems (1) Unstable angina Status: Acute (2) CKD (chronic kidney disease) stage 3, GFR 30-59 ml/min Onset Date: 02/16/17 Status: Chronic (3) Chronic systolic congestive heart failure Onset Date: 02/10/15 Status: Chronic (4) History of implantable cardioverter-defibrillator (ICD) placement Status: Chronic (5) Hyperlipidemia Onset Date: 02/10/15 Status: Chronic Qualifiers: Hyperlipidemia type: unspecified Qualified Code(s): E78.5 - Hyperlipidemia , unspecified (6) Hypothyroidism Onset Date: 02/10/15 Status: Chronic Qualifiers: Hypothyroidism type: acquired Qualified Code(s): E03.9 - Hypothyroidism, unspecified (7) Diabetes mellitus Status: Acute Qualifiers: Diabetes mellitus type: type 2 Diabetes mellitus longterm insulin use: with longterm use Diabetes mellitus complication status: with hyperglycemia Qualified Code(s): E11.65 - Type 2 diabetes mellitus with hyperglycemia; Z79.4 - terminal carman (current) use of insulin Brief History of Present Illness: from [facility]&P Mr Huitron is a 48 years old male with history of HTN, DM II, CAD, ICD placement , who came to ED complaining of chest pain. The pain is located substernally, pressure like, sometimes associated with SOB and nausea, no diaphoresis. The pain is comes and go, lasting for 20 minutes. Sometimes exacerbated by deep breathing Trop I 0.09, EKG . He had similar symptoms about 1 year ago. Had a NM stress test negative to induce ischemia. EKG today is different to the last one , now he has incomplete LBBB. BS elevated as well. He recognized not been very compliant with his insulin. No signs of DKA. Hospital Course: Patient is a 48-year-old male with past medical history of systolic heart failure diabetes which is not well controlled hypertension status post a for [place] comes in with chest pain. Patient had recent stress test and echocardiogram done. Patient was started on chest pain guidelines. Troponin levels remained minimally elevated at 0.09 and this was 0.1. Cardiology was consulted. Dr. Everett on recommend any further testing including repeat stress test or cardiac catheterization. He felt that this was likely due to his metabolic derangements and uncontrolled blood sugars. Patient's pain resolved. Regarding patient's diabetes is very poorly controlled. He is not on any long- acting insulin. his hemoglobin A1c is still pending. Patients blood glucose level was in the 600's arrived. He was not in DKA. Patient was started on IV fluids. His home dose of insulin was resumed however was insufficient to control his blood sugar levels. Patient was then switched to long-acting Lantus along with sliding scale insulin. Blood sugars were difficult to control. Patient would need some outpatient diabetes education setup through [facility]. Patient is cleared for discharge from cardiology standpoint. Patient may be a candidate for Entresto. follow up with cardiology. He was asymptomatic. Patient went home in a stable condition. Chest pain-free Vital Signs/Physical Exam: Temp Pulse Resp BP Pulse Ox 97 F 78 18 111/57 L 98 12/16/18 12:00 12/16/18 12:00 12/16/18 12:00 12/16/18 12:00 12/16/18 12:00 General: Alert, In no apparent distress, Oriented x3, Obese HEENT: Atraumatic, PERRLA, EOMI Neck: Supple, JVD not distended Respiratory: Clear to auscultation bilaterally, Normal air movement Cardiovascular: Regular rate/rhythm, Normal S1 S2 Gastrointestinal: Normal bowel sounds, No tenderness Musculoskeletal: No tenderness Integumentary: No rashes Neurological: Normal speech, Normal tone, Normal affect Laboratory Data at Discharge: WBC 5.1 K/uL (4.3-10.9) 12/15/18 05:22 Hgb 13.1 g/dL (13.6-17.9) L 12/15/18 05:22 Hct 39.6 % (39.6-49.0) 12/15/18 05:22 Plt Count 178 K/uL (152-406) 12/15/18 05:22 PT 20.9 SECONDS (9.5-12.5) H 12/14/18 19:20 INR 1.81 12/14/18 19:20 Sodium 140 mmol/L (136-145) 12/16/18 05:06 Potassium 3.7 mmol/L (3.5-5.1) 12/16/18 05:06 BUN 24 mg/dL (7-18) H 12/16/18 05:06 Creatinine 1.33 mg/dL (0.55-1.3) H 12/16/18 05:06 Glucose 202 mg/dL (74-106) H 12/16/18 05:06 Magnesium 2.7 mg/dL (1.8-2.4) H 12/14/18 19:20 Total Bilirubin 0.5 mg/dL (0.2-1.0) 12/14/18 19:20 AST 41 U/L (15-37) H 12/14/18 19:20 ALT 58 U/L (12-78) 12/14/18 19:20 Alkaline Phosphatase 147 U/L (45-117) H 12/14/18 19:20 Troponin I 0.08 ng/mL (0.0-0.045) H 12/15/18 14:59 Home Medications: Allopurinol 300 mg PO DAILY 11/13/17 Carvedilol 25 mg PO BID 11/13/17 Furosemide 40 mg PO DAILY 11/13/17 Hydralazine HCl 25 mg PO DAILY 11/13/17 Isosorbide Mifflin (Bid) [Ismo 10 mg Tab*] 20 mg PO BID 11/13/17 Losartan/Hydrochlorothiazide [Losartan-Hctz 100-25 mg Tab] 1 tab PO DAILY Metformin HCl 1,000 mg PO BID 11/13/17 Spironolactone [Aldactone*] 25 mg PO DAILY 11/13/17 Warfarin Sodium 10 mg PO DAILY 11/13/17 Aspirin 81 mg PO DAILY 12/15/18 Atorvastatin Calcium 40 mg PO BEDTIME 12/15/18 Digoxin [Lanoxin*] 125 mcg PO DAILY 12/15/18 Glimepiride [Amaryl*] 2 mg PO BID 12/15/18 Sertraline [Zoloft*] 50 mg PO DAILY 12/15/18 clonazePAM [Clonazepam] 0.5 mg PO BID 12/15/18 Insulin -Regular Human [Novolin -R*] 7 unit SQ TIDWM #1 vial 12/16/18 Insulin Glargine Human [Lantus*] 20 units SQ BEDTIME #1 vial 12/16/18 New Medications: Insulin -Regular Human [Novolin -R*] 7 unit SQ TIDWM #1 vial Insulin Glargine Human [Lantus*] 20 units SQ BEDTIME #1 vial Patient Discharge Instructions: f/up w PCP in 2-3 days. f/up w rivet thrower Dr. Juárez in 2 weeks. Return to ER for worsening condition. Diabetic education set up at [facility]. INR check on Monday Diet: ADA Activity: Ad giacomo Followup: Ronan Blandon MD [ACTIVE - CAN ADMIT] - (call to schedule appointment)
== END 2018-12-16 12:20 | disposition home or self-care (01) ==
LOC: ER 19:18 → ERHOLD 22:24 → 4TH 23:30
PROVIDERS: ADMIT Internal Medicine; ATTEND Internal Medicine
DX: I25.110 Atherosclerotic heart disease of native coronary artery with unstable angina pectoris (principal); I44.7 Left bundle-branch block, unspecified; I13.0 Hypertensive heart and chronic kidney disease with heart failure and stage 1 through stage 4 chronic kidney disease, or unspecified chronic kidney disease; E11.22 Type 2 diabetes mellitus with diabetic chronic kidney disease; E11.65 Type 2 diabetes mellitus with hyperglycemia; N18.3 Chronic kidney disease, stage 3 (moderate); I50.22 Chronic systolic (congestive) heart failure; E78.5 Hyperlipidemia, unspecified; E03.9 Hypothyroidism, unspecified; Z95.810 Presence of automatic (implantable) cardiac defibrillator; Z79.4 Long term (current) use of insulin
CPT/HCPCS: 93005; 87040; 85025 ×2; 80048 ×4; 36415 ×2; 83735; 84132; 85610; 80162; 82962 ×12; 80076; 83605; 81003; 83036; 84484 ×4; 84145; 83880; 71045; 96374; 99285; J7030 ×4; G0378 ×2

== ENCOUNTER 2019-12-03 15:53 | Emergency (ER) | payer OTHER ==
--- OUTSIDE RECORDS SUMMARY | 2019-12-03 15:57 | XMS REPORT | Clinical Summary ---
:1970 Author Organization [facility] Address [address] [place] [address] Care Team Providers Name Role Phone Ronan Blandon MD Primary Care Provider Allergies Active Allergy Reactions Severity Noted Date Comments No Known Drug Allergies 04/25/2016 Medications Medication Sig Dispensed Refills Start Date End Date Status glimepiride Take 1 0 Active (AMARYL) 2 MG tablet every tablet day by oral route for 90 days. metFORMIN Take 1 0 Active (GLUCOPHAGE) 500 mg tablet twice tablet a day by oral route for 90 days. carvedilol (COREG) Take 50 mg 0 Active 25 MG tablet by mouth 2 (two) times a day with meals. pravastatin Take 1 90 tablet 3 02/20/2017 Active (PRAVACHOL) 40 MG tablet (40 tablet mg total) by mouth daily. hydrALAZINE Take 1 180 tablet 3 03/21/2017 Active (APRESOLINE) 25 MG tablet (25 tablet mg total) by mouth 2 (two) times a day. aspirin (ECOTRIN) Take 81 mg 0 A ctive 81 MG enteric by mouth coated tablet daily. warfarin (COUMADIN) TAKE 1 90 tablet 0 09/10/2018 Active 10 MG tablet TABLET BY MOUTH DAILY HUMULIN 70/30 U-100 0 09/27/2018 Active KWIKPEN 100 unit/mL (70-30) sertraline (ZOLOFT) Take 50 mg 0 Active 50 MG tablet by mouth daily. warfarin (COUMADIN) TAKE 2 180 tablet 3 01/24/2019 Active 5 MG tablet TABLETS BY MOUTH ONCE DAILY semaglutide Inject under 0 Activ e (OZEMPIC SUBQ) the skin once a week. 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 systolic and diastolic CHF (congestive heart failure) (HCC), Chronic combined systolic and diastolic heart failure (HCC), Non-ischemic cardiomyopathy (HCC), Hyperlipidemia, unspecified hyperlipidemia type digOXIN (LANOXIN) Take 1 90 tablet 3 02/06/2018 E xpired 125 mcg tablet (125 9 tabletIndications: mcg total) Chronic combined by mouth systolic and daily. diastolic CHF (congestive heart failure) (HCC), Chronic combined systolic and diastolic heart failure (HCC), Non-ischemic cardiomyopathy (HCC), Hyperlipidemia, unspecified hyperlipidemia type spironolactone Take 1 90 tablet 3 09/26/2018 Disc ontinued (ALDACTONE) 25 MG tablet every 0 tabletIndications: day by oral Chronic combined route for 90 systolic and days. diastolic heart failure (HCC) allopurinol Take 1 90 tablet 2 09/27/2018 Discont inued (ZYLOPRIM) 300 MG tablet every 0 tablet day by oral route for 90 days. isosorbide Take 1 180 tablet 3 10/09/2018 dinitrate (ISORDIL) tablet (20 0 20 MG tablet mg total) by mouth 2 (two) times a day. furosemide (LASIX) Take 1 30 tablet 1 10/09/2018 Discontinued 40 mg tablet (40 0 tabletIndications: mg total) by Chronic combined mouth daily. systolic and diastolic heart failure (HCC) furosemide (LASIX) TAKE 1 60 tablet 0 09/02/2019 Discontinued 40 mg TABLET BY 0 tabletIndications: MOUTH ONCE Chronic combined DAILY systolic and diastolic heart failure (HCC) Active Problems Problem Noted Date Chest pain 10/09/2018 Last Assessment & Plan: - Refills given for medications. - If chest pain persists, then we will p shannon for stress test. Sleep apnea 03/13/2018 Last [...] Will follow up on echo results once fi nalized. - I suggested not taking his dose of Las ix tomorrow to see how he feels. He [...] have also advised him to find a phys ician locally to help manage his blood glucose. Thrombotic disorder 04/25/2016 Last Assessment & Plan: On Coumadin, stable. 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 POLICY ADVISOR Essential hyper tension 11/14/2019 Travel 10/28/2019 Refill Cardiology Brittany Med Refkeena Alvarado MD 10/14/2019 Telephone Cardiology Vanessa Gonzalez Appointment MA 10/14/2019 Travel 10/14/2019 Telephone Cardiology Vanessa Gonzalez Appointment MA 09/20/2019 Travel 09/13/2019 Telephone Cardiology [place], Anticoagulation Tamar, MUSEUM TOUR GUIDE 09/04/2019 Telephone Cardiology [place] Anticoagulation Tamar, MUSEUM TOUR GUIDE 09/01/2019 Refill Cardiology Brittany, Med Refkeena Alvarado MD 08/13/2019 Office Visit Cardiology Brittany, Chronic combine d MD Christiano systolic and diastolic heart failure (HCC) (Primary Dx) 08/07/2019 Refill Cardiology Que, Med Gladys Lopez RN 07/19/2019 Documentation Cardiology Kavita Fishman Follow-up ESTUARDO Enrique ([facility]) 07/07/2019 Refill Cardiology Brittany, Med Refkeena Alvarado MD 07/03/2019 Documentation Cardiology Kasey Daniels Pacemaker Ch nima [place] 06/17/2019 Refill Cardiology Brittany Med Refkeena Alvarado MD 06/03/2019 Anticoagulation Visit Cardiology Left v entricular mural thrombus (Primary Dx) 04/17/2019 Telephone Transplant Dorothy Shell [facility] T[facility] RN 04/15/2019 Office Visit Cardiology Chronic combine d systolic and diastolic heart failure (HCC) (Primary Dx); Essential hyper tension; Non-ischemic ca rdiomyopathy (HCC) 04/15/2019 Documentation ADMIN Pascale Snow, RN 04/09/2019 Orders Only ADMIN Pascale Snow, Chronic hea rt RN failure, unspec ified heart failure t ype (HCC) (Primary Dx) 04/08/2019 Anticoagulation Visit Cardiology Left v entricular mural thrombus (Primary Dx) 03/14/2019 Orders Only ADMIN Pascale Snow, Chronic hea rt RN failure, unspec ified heart failure t ype (HCC) (Primary Dx) 03/05/2019 Lab Lab hCristiano Soto MD 03/05/2019 Anticoagulation Visit Cardiology Left v entricular mural thrombus (Primary Dx) 02/19/2019 Orders Only Cardiology John Corey MD 02/05/2019 Anticoagulation Visit Cardiology Left v entricular mural thrombus (Primary Dx) 01/30/2019 Documentation ADMIN Juju Simons 01/28/2019 Refill Cardiology Ritesh Triana MA Med Refill 01/22/2019 Refill Cardiology Brittany, Med Refill MD Christiano 01/08/2019 Documentation ADMIN Pascale Snow RN 01/07/2019 Documentation ADMIN Juju Simons 12/14/2018 Telephone Cardiology [place], sophie Lopez RN 12/13/2018 Hospital Encounter Sleep Medicine Williams, Obstruc tive sleep Jayasimha apnea MD Jim 12/12/2018 Transcribe Orders Sleep Medicine Williams, Obstruct rajendra sleep Jayasimha apnea (Primary Dx) MD Jim 12/11/2018 Office Visit Cardiology Karina Soto combine d MD Christiano systolic and diastolic heart failure (HCC) (Primary Dx) after 12/02/2018 Family History Medical History Relation Name Comments [...] Travel End No recent travel history available. COVID-19 Exposure Response Date Recorded In the last month, have you been in contact with No / Unsure 12/03/2019 2:21 PM CDT someone who was confirmed or suspected to have Coronavirus / COVID-19? Last Filed Vital Signs Vital Sign Reading Time Taken Comments Blood Pressure 114/60 08/13/2019 3:06 PM GUN STOCK MAKER Pulse 88 08/13/2019 3:06 PM GUN STOCK MAKER Temperature 36.4 C (97.6 F) 04/15/2019 11:27 AM CDT Respiratory Rate 18 04/15/2019 11:27 AM CDT Oxygen Saturation 98% 04/15/2019 11:27 AM CDT Inhaled Oxygen Concentration - - Weight 103 kg (226 lb) 08/13/2019 3:06 PM GUN STOCK MAKER Height 170.2 cm (5' 7") 08/13/2019 3:06 PM GUN STOCK MAKER Body Mass Index 35.4 08/13/2019 3:06 PM GUN STOCK MAKER Plan of Treatment Date Type Specialty Care Team Description 12/31/2019 Office Visit Cardiology Christiano Soto MD [address] [place], [place] [address] [phone] Health Maintenance Due Date Last Done Comments COLONOSCOPY SCREENING 09/19/2019 SHINGLES VACCINES (#1) 09/19/2019 INFLUENZA VACCINE 02/15/2020 Implants Implanted Type Area Glaze Mixer Device Shelf Model / Identifier Expiration Serial / Date Lot Cardiomems [employer] Sensor And Delivery Systems - [id number] Cardiovas cular N/A: [employer] [id number] / Implanted: 04/25/2018 at [facility] (Quantity not on file) Implants N/A INC / Procedures Procedure Name Priority Date/Time Associated Comments Diagnosis COMPREHENSIVE Routine 09/06/2019 12:27 Chronic combined Result s for this METABOLIC PANEL PM GUN STOCK MAKER systolic and procedure ar e in diastolic heart the results failure (HCC) section. CBC WITH PLATELET AND Routine 09/06/2019 12:27 Chronic combine d Results for this DIFFERENTIAL PM GUN STOCK MAKER systolic and procedure are i n diastolic heart the results failure (HCC) section. LIPID PANEL Routine 09/06/2019 12:27 Chronic combined Results for this PM GUN STOCK MAKER systolic and procedure are i n diastolic heart the results failure (HCC) section. POC PT/INR Routine 08/13/2019 3:42 Chronic combined Results for this PM GUN STOCK MAKER systolic and procedure are i n diastolic heart the results failure (HCC) section. ECG 12-LEAD Routine 08/13/2019 3:09 Chronic combined Results for this PM GUN STOCK MAKER systolic and procedure are i n diastolic heart the results failure (HCC) section. CV PACEMAKER DEFIB ILR Routine 06/16/2019 INTERROGATION POC PT/INR Routine 06/03/2019 1:11 Left ventricular Results for this PM GUN STOCK MAKER mural thrombus procedure are in the results section. NT-PROBNP Routine 04/15/2019 12:31 Results for this PM CDT procedure are i n the results section. ESTIMATED GFR Routine 04/15/2019 12:31 Results fo r this PM CDT procedure are i n the results section. BASIC METABOLIC PANEL Routine 04/15/2019 12:31 Chronic heart R esults for this PM CDT failure, procedure are i n unspecified heart the result s failure type (HCC) section. POC PT/INR Routine 04/08/2019 11:12 Left ventricular Results for this AM CDT mural thrombus procedure are in the results section. POC PT/INR Routine 03/05/2019 11:16 Left ventricular Results for this AM CDT mural thrombus procedure are in the results section. POC PT/INR Routine 02/05/2019 1:32 Left ventricular Results for this PM CDT mural thrombus procedure are in the results section. GENERAL SLEEP STUDY Routine 12/21/2018 7:59 Obstructive sleep AM CDT apnea CBC WITH PLATELET AND Routine 12/12/2018 1:36 Chronic combine d Results for this DIFFERENTIAL PM CDT systolic and procedure are i n diastolic heart the results failure (HCC) section. COMPREHENSIVE Routine 12/12/2018 1:36 Chronic combined Result s for this METABOLIC PANEL PM CDT systolic and procedure ar e in diastolic heart the results failure (HCC) section. TTE COMPLETE, WO Routine 12/11/2018 3:01 Left ventricular Res ults for this CONTRAST, W DOPPLER PM CDT thrombosis without pr ocedure are in ([id number]) [place] the results Chronic combined section. systolic and diastolic heart failure (HCC) after 12/02/2018 Results CBC with platelet and differential (09/06/2019 12:27 PM GUN STOCK MAKER)Only the most recent of2 resultswithin the time period is included. WBC 6.3 3.8 - 10.8 [facility] Thousand/uL [place] RBC 5.06 4.20 - 5.80 [facility] Million/uL [place] HGB 13.5 13.2 - 17.1 [facility] g/dL [place] HCT 41.1 38.5 - 50.0 % [facility] [place] MCV 81.2 80.0 - 100.0 fL [facility] [place] MCH 26.7 (L) 27.0 - 33.0 pg [facility] [place] MCHC 32.8 32.0 - 36.0 [facility] g/dL [place] RDW 15.2 (H) 11.0 - 15.0 % [facility] [place] Platelet count 238 140 - 400 [facility] Thousand/uL [place] MPV 11.8 7.5 - 12.5 fL [facility] [place] Neutrophils, absolute 4,505 1,500 - 7,800 [facility] cells/uL [place] Lymphocytes, absolute 1,329 850 - 3,900 [facility] cells/uL [place] Monocytes, absolute 359 200 - 950 [facility] cells/uL [place] Eosinophils, absolute 88 15 - 500 [facility] cells/uL [place] Basophils, absolute 19 0 - 200 [facility] cells/uL [place] Neutrophils 71.5 % [facility] [place] Lymphocytes 21.1 % [facility] [place] Monocytes 5.7 % [facility] [place] Eosinophils 1.4 % [employer] [place] Basophils + RC 0.3 % [employer] [place] Specimen Blood Narrative Performed At FASTING:YES [facility] FASTING: YES Resulting Agency Comment Performing Organization Information: Site ID: [id number] Name: [facility] Address: [address] [place] [id number] Director: Tate Rodriguez Performing Organization Address City/[facility] Centercode Phone [place] [address] Lipid panel (09/06/2019 12:27 PM GUN STOCK MAKER) Cholesterol, total 195 <200 mg/dL [facility] [employer] [place] HDL cholesterol 52 > OR = 40 [facility] mg/dL [place] Triglycerides 124 <150 mg/dL [facility] LDL cholesterol 120 (H) mg/dL (calc) [facility] [employer] calculated Comment: [facility] Reference range: <100 Desirable range <100 mg/dL for primary prevention; <70 mg/dL for patients with CHD or diabetic patients with > or = 2 CHD risk factors. LDL-C is now calculated using the Bridgette calculation, which is a validated novel method providi ng better accuracy than the Friedewald equation in the estimation of LDL-C. Danish SS et al. YOSVANY. 2013;310(19): 8338-2561 (http://education.Movellas.[employer]/faq/ZUA683) Cholesterol/HDL 3.8 <5.0 (calc) [employer] Non-HDL cholesterol 143 (H) <130 mg/dL [employer] Comment: (calc) [place] For patients with diabetes plus 1 major ASCVD risk factor, treating to a non-HDL-C goal of <100 mg/dL (LDL-C of <70 mg/dL) is considered a therapeutic option. Specimen Blood Narrative Performed At FASTING:YES [facility] FASTING: YES Resulting Agency Comment Performing Organization Information: Site ID: [id number] Name: [facility] Address: [address] [place] [id number] Director: Tate Rodriguez Performing Organization Address [facility]/Zipcode Phone Number DENISE [employer] [address] [address] Comprehensive metabolic panel (09/06/2019 12:27 PM GUN STOCK MAKER)Only the most recent of2 resultswithin the time period is included. Glucose 172 (H) 65 - 99 [facility] Comment: mg/dL [facility] Fasting reference interval For someone without known diabetes, a glucose value >125 mg/dL indicates that they may have diabetes and this should be confirmed with a follow-up test. BUN 17 7 - 25 mg/dL [facility] [place] Creatinine 1.27 0.60 - 1.35 [facility] mg/dL [place] EGFR Non-Afr. 66 > OR = 60 [facility] Finnish mL/min/1.73m [facility] 2 EGFR 76 > OR = 60 [facility] Finnish mL/min/1.73m [facility] 2 BUN/creatinine NOT APPLICABLE 6 - 22 [facility] ratio (calc) [facility] Sodium 138 135 - 146 [facility] mmol/L [place] Potassium 4.1 3.5 - 5.3 [facility] mmol/L [place] Chloride 101 98 - 110 [facility] mmol/L [place] CO2 30 20 - 32 [facility] mmol/L [place] Calcium 9.8 8.6 - 10.3 [facility] mg/dL [place] Protein 7.1 6.1 - 8.1 [facility] g/dL [place] Albumin, S 4.0 3.6 - 5.1 [facility] g/dL [place] Globulin, total 3.1 1.9 - 3.7 [facility] g/dL (calc) [place] Albumin/globulin 1.3 1.0 - 2.5 [facility] ratio (calc) [facility] Total bilirubin 0.5 0.2 - 1.2 [facility] mg/dL [place] Alkaline 93 36 - 130 U/L [employer] phosphatase [place] AST 17 10 - 40 U/L [facility] [place] ALT 20 9 - 46 U/L [facility] Specimen Blood Narrative Performed At FASTING:YES [facility] FASTING: YES Resulting Agency Comment Performing Organization Information: Site ID: [id number] Name: [facility] Mehnaz jaimes Address: [address] [place] [address] Director: Tate Rodriguez Performing Organization Address City/State/Zipcode Phone Number DENISE [employer] [place] [address] [place] [phone] POC PT/INR (08/13/2019 3:42 PM GUN STOCK MAKER)Only the most recent of5 resultswithin the time period is included. Pathologist Sig nature POC prothrombin time 20.0 POC INR 1.7 Specimen Blood ECG 12 lead (08/13/2019 3:09 PM GUN STOCK MAKER) Pathologist Sig nature Ventricular rate 81 [facility] Atrial rate 81 [facility] TN interval 144 [facility] QRSD interval 104 [facility] QT interval 402 [facility] QTC interval 466 [facility] P axis 1 50 [facility] QRS axis 1 4 [facility] T wave axis 193 [facility] EKG impression Normal sinus rhythm-Possible Left atrial enlargement-Left ventricular hypertrophy with repolarization abnormality-Abnormal ECG-In automated comparison with ECG of 09-OCT-2018 16:55,-No significant farooq [facility] MUSE e was found- Specimen Narrative Performed At This result has an attachment that is no t available. Performing Organization Address City/[facility] Centercode Phone Number [facility] MUSE [address] [place] [phone] CV pacemaker defib or ilr interrogation (06/16/2019) Narrative Performed At This result has an attachment that is no t available. NT-proBNP (04/15/2019 12:31 PM CDT) Pathologist [facility] NT-proBNP 116 0 - 125 pg/mL [facility] Specimen Performing Organization Address City/[facility] Centercode Phone Number [facility] DEPARTMENT OF PATHOLOGY AND [address] [place] [phone] GENOMIC MEDICINE [address] [address] Estimated GFR (04/15/2019 12:31 PM CDT) Estimated GFR 53 (A) mL/min/1.73 [facility] Comment: m2 HOSPITAL Catergory Units Interpretation G1 >=90 Normal or high G2 60-89 Mildly decreased G3a 45-59 Mildly to moderately decreas ed G3b 30-44 Moderately to severely decre ased G4 15-29 Severely decreased G5 <15 Kidney failure The eGFR was calculated using the Chronic Kidney Disea se Epidemiology Collaboration (CKD-EPI) equation. Interpretation is based on recommendations of the National Kidney Foundation-Kidney Disease Outcomes Eduar lity Initiative (NKF-KDOQI) published in 2014. Specimen Plasma specimen Performing Organization Address City/[facility] Centercode Phone Number [facility] DEPARTMENT OF PATHOLOGY AND [address] [place] [phone] [place] [id number] [place] [address] Basic metabolic panel (04/15/2019 12:31 PM CDT) Pathologist Sig nature Sodium 139 135 - 148 mEq/L [facility] Potassium 3.3 (L) 3.5 - 5.0 mEq/L [facility] Chloride 99 98 - 112 mEq/L [facility] CO2 29 24 - 31 mEq/L [facility] Anion gap 11@ANIO 7 - 15 mEq/L [facility] BUN 31 (H) 6 - 20 mg/dL [facility] Creatinine 1.72 (H) 0.70 - 1.20 mg/dL [facility] Glucose 230 (H) 65 - 99 mg/dL [facility] Calcium 9.8 8.3 - 10.2 mg/dL [facility] Specimen Plasma specimen Performing Organization Address City/State/Zipcode Phone Number [facility] DEPARTMENT OF PATHOLOGY AND [address] [place] [phone] [address] [id number] [place] [address] General sleep study (12/21/2018 7:59 AM CDT) Specimen Narrative Performed At This result has an attachment that is no t available. Echocardiogram complete w contrast and 3D if needed (12/11/2018 3:01 PM CDT) Specimen Narrative Performed At [facility] Echo cardiography Report Pat.Name: KAVITA JIMENEZ Pat.ID: [id number] .Date: 12/11/2018 Refer.MD: CHRISTIANO SOTO MD Exam Time: 2:04:00 PM Study Type:R outine Echo Height: 67in Weight: 240lb BSA: 2.19 m2 Ag e: 1970,48Y Sex: MALE BP: 141/83 HR: 71 bpm Sonogrphr: BIANCA Mauro FASE Pat. Stat.:Outpatient Room: [place] [address] Study Status:Final Echo Event ID:[id number] Order ID: [id number] Reason for Study:Chronic combined systol ic and diastolic heart failure History / Clinical:Congestive Heart Fail ure, Hypertension, Congestive Cardiomyopathy, Hyperlipidemia Procedures:2D Echo, Colorflow Doppler, I ntravenous Definity Contrast Race: B SUMMARY: LV size is mildly enlarged. There is sev ere concentric LV hypertrophy. LV EF is severely depressed. Estimated E F is 25-29%. Diastolic dysfunction Grade I (Mild): I mpaired relaxation with normal LV filling pressures. FINDINGS: LV: LV size is mildly enlarged. There is severe concentric LV hypertrophy. LV EF is severely depres sed. Estimated EF is 25-29%. Overall wall mo tion is hypokinetic. RV: RV size is normal. A pacema ker wire is seen in the RV. RV systolic function is de pressed. LA: LA volume is moderately enl arged. RA: RA volume is normal. A pace maker wire is seen. AO: Aortic root diameter is nor mal. MAEGAN: No pericardial effusion. AV: Mild thickening and calcifi cation of AV leaflets. MV: No structural MV abnormalit ies noted. Mild mitral regurgitation. PV: Pulmonic valve not well see n. TV: No structural TV abnormalit ies noted. Mccall: Diastolic dysfunction Grade I (Mild): Impaired relaxation with normal LV filling pressures. Other: Insufficient TR jet to estim ate PA systolic pressure. MEASUREMENTS: 2D Parasternal Long [place] Ao An 2.5 cm LV%fs 9.8 % Ao Rtd 3.3 cm Index 1.5 cm/m IVSd 1.6 cm LVOT 2.3 cm LVPWd 1.5 cm LA Ds 4.5 cm LV Mass 355.6 g (122-17 4) LVIDd 5.1 cm Index 2.3 cm/m LVM Index 162.4 g/m2 LVIDs 4.6 cm RWT 0.6 LV EF SinglePlane LV Ad 46.4 cm2 (9.5-22 .3) LV EF 28.6 % (63-77 ) LVEDV 184.7 ml (65-193) Index 84.3 ml/m HR 70 bpm LV As 37.2 cm2 (4-11.6) LV CO 3.7 l/min LVESV 131.9 ml Index 60.2 ml/m LV CI 1.7 l/m/m2 LV SV 52.7 ml LA Sng Plane LA Area 22.9 cm2 (8.8-23.4) LA Vol 60.5 ml Index 27.6 ml/m LA LngAx 7.3 cm DOPPLER LVOT Stroke Vol LVOT 2.3 cm LVOT C O 3.8 l/min LVOT TVI 13.2 cm LVOT CI 1.8 l/m/m2 LVOT Tm 206 msec HR 70 bpm LVOT SV 54.8 ml Signed 12/12/2018 07:37 AM Rafi Decker MD Procedure Note Interface, Radiology Results In - 2018 7:39 AM CDT [facility]ologist [facility] Echocardiography Report Pat.Name: KAVITA JIMENEZ Pat.I D: [id number] St.Date: 12/11/2018 Refer .MD: CHRISTIANO SOTO MD Exam Time: 2:04:00 PM Study Type:Routine Echo Height: 67in Weigh t: 240lb BSA: 2.19 m2 Age: 2 1970,48Y Sex: MALE BP: 141/83 HR: 71 bpm Sonogrphr: BIANCA Mauro FASE Pat. Stat.:Outpatient Room: [place] Study Status:Final Echo Event ID:[id number] Order ID: [id number] Reason for Study:Chronic combined systol ic and diastolic heart failure History / Clinical:Congestive Heart Fail ure, Hypertension, Congestive Cardiomyopathy, Hyperlipidemia Procedures:2D Echo, Colorflow Doppler, I ntravenous Definity Contrast Race: B SUMMARY: LV size is mildly enlarged. There is sev ere concentric LV hypertrophy. LV EF is severely depressed. Estimated E F is 25-29%. Diastolic dysfunction Grade I (Mild): I mpaired relaxation with normal LV filling pressures. FINDINGS: LV: LV size is mildly enlarged. Th ere is severe concentric LV hypertrophy. LV EF is severel y depressed. Estimated EF is 25-29%. Overall wall motion i s hypokinetic. RV: RV size is normal. A pacemaker wire is seen in the RV. RV systolic function is depresse d. LA: LA volume is moderately enlarg ed. RA: RA volume is normal. A pacemak er wire is seen. AO: Aortic root diameter is normal . MAEGAN: No pericardial effusion. AV: Mild thickening and calcificat ion of AV leaflets. MV: No structural MV abnormalities noted. Mild mitral regurgitation. PV: Pulmonic valve not well seen. TV: No structural TV abnormalities noted. Mccall: Diastolic dysfunction Grade I (Mild): Impaired relaxation with normal LV filling pressu res. Other: Insufficient TR jet to estimat e PA systolic pressure. MEASUREMENTS: 2D Parasternal [place] Ao An 2.5 cm LV%f s 9.8 % Ao Rtd 3.3 cm Inde x 1.5 cm/m IVSd 1.6 cm LVOT 2.3 cm LVPW d 1.5 cm LA Ds 4.5 cm LV Mass 355.6 g (122-174) LVIDd 5.1 cm Inde x 2.3 cm/m LVM Index 162.4 g/m2 LVIDs 4.6 cm RWT 0.6 LV EF SinglePlane LV Ad 46.4 cm2 (9.5-22.3) LV EF 28.6 % (63-77) LVEDV 184.7 ml (65-193) Inde x 84.3 ml/m HR 70 bpm LV As 37.2 cm2 (4-11.6) LV C O 3.7 l/min LVESV 131.9 ml Inde x 60.2 ml/m LV CI 1.7 l/m/m2 LV [...] Organization Address City/State/Zipcode Phone Number [facility] [address] [place] [address] after 12/02/2018 Advance Directives For more information, please contact: [phone] Type Date 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
[2019-12-03 17:26] LABS: Absolute Lymphocytes (CBC) 1.5 K/uL (0.7-4.9); Hematocrit 35.1 % (39.6-49.0); Lymphocytes % 32.4 % (15.3-44.8); MPV 9.7 fL (7.6-11.3); RBC Red Blood Cell Count 4.19 M/uL (4.33-5.43)
[2019-12-03 17:47] LABS: ALT/SGPT 22 U/L (12-78); AST/SGOT 14 U/L (15-37); Albumin 3.3 g/dL (3.4-5.0); Alkaline Phosphatase 101 U/L (45-117); BUN Blood Urea Nitrogen 19 mg/dL (7-18); Bicarbonate 27 mmol/L (21-32); Bilirubin Direct < 0.1 mg/dL (0-0.2); Bilirubin Total 0.3 mg/dL (0.2-1.0); Glucose Level 354 mg/dL (74-106); Magnesium 1.9 mg/dL (1.8-2.4); NT PRO-BNP 286 pg/mL (<125); Potassium 3.9 mmol/L (3.5-5.1); Protein, Total 7.3 g/dL (6.4-8.2); Sodium Level 140 mmol/L (136-145); Troponin (Emerg Dept Use Only) 0.04 ng/mL (0.0-0.045)
--- NOTE | 2019-12-03 18:05 | RAD REPORT ---
EXAM DESCRIPTION: CT - Chest For Pe Angio - 12/03/2019 5:49 pm CLINICAL HISTORY: Chest pain. SOB COMPARISON: CTANGIO CHEST FOR PE dated 09/01/2013; Chest Single View dated 12/14/2018 TECHNIQUE: CT angiogram of the pulmonary arteries was performed with MIP. All CT scans are performed using dose optimization technique as appropriate and may include automated exposure control or mA/KV adjustment according to patient size. FINDINGS: No evidence of pulmonary thromboembolism. A 13 mm metallic linear structure is present in the left lower lobe posterior pulmonary artery. No acute aortic finding demonstrated. Mild interstitial pulmonary edema. No significant pericardial or pleural fluid. No concerning bony finding. Mild esophageal thickening. IMPRESSION: No evidence of pulmonary thromboembolism. 13 mm metallic linear structure in the left lo wer lobe posterior pulmonary artery may represent fractured wiring from the pacemaker wires. Mild interstitial pulmonary edema.
--- NOTE | 2019-12-03 18:09 | RAD REPORT ---
EXAM DESCRIPTION: RAD - Chest Single View - 12/03/2019 5:49 pm CLINICAL HISTORY: SOB Chest pain. COMPARISON: Chest Single View dated 12/14/2018; Chest Single View dated 11/13/2017; Chest Single View dated 02/15/2017; Chest Single View dated 09/29/2016 FINDINGS: Portable technique limits examination quality. The lungs are grossly clear. The heart is upper limit of normal in size. Single lead pacer/ defibrill ator device noted. IMPRESSION: No acute intrathoracic process suspected.
[2019-12-03 18:47] LABS: Protime INR 5.36
--- NOTE | 2019-12-03 20:51 | EDPHYS ---
Physician Documentation [facility] Name: Cam Huitron Age: 49 yrs Sex: Male : 1970 Arrival Date: 12/03/2019 Time: 15:55 Bed 26 Private MD: ED Physician Boy Beasley HPI: 12/02 19:17 This 49 yrs old Black Male presents to ER via Ambulatory with complaints of Shortness kdr Of Breath, Leg Pain. 19:17 The patient has shortness of breath at rest, with light activity. Onset: The kdr symptoms/episode began/occurred gradually, 3 day(s) ago. Duration: The symptoms are continuous. The patient's shortness of breath is aggravated by exertion, light activity. Associated signs and symptoms: Pertinent positives: Left calf pain and swelling for three weeks. Severity of symptoms: At their worst the symptoms were mild in the emergency department the symptoms are unchanged. The patient has not experienced similar symptoms in the past. The patient has not recently seen a physician. Historical: - Allergies: 16:33 No Known Allergies; ph - PMHx: 16:33 ADD/ADHD; Anemia; CHF; Diabetes - NIDDM; Gout; Hypertension; Myocardial infarction; ph - PSHx: 16:33 defibrillator; ph - Immunization history:: Adult Immunizations up to date. - Social history:: Smoking status: unknown. ROS: 19:17 Constitutional: Negative for fever, chills, and weight loss, Eyes: Negative for injury, kdr pain, redness, and discharge, Neck: Negative for injury, pain, and swelling, Cardiovascular: Negative for chest pain, palpitations, and edema, Abdomen/GI: Negative for abdominal pain, nausea, vomiting, diarrhea, and constipation, Back: Negative for injury and pain, : Negative for injury, bleeding, discharge, and swelling, Skin: Negative for injury, rash, and discoloration, Neuro: Negative for headache, weakness, numbness, tingling, and seizure activity. Psych: Negative for depression, anxiety, suicide ideation, homicidal ideation, and hallucinations, Allergy/Immunology: Negative for hives, rash, and allergies, Endocrine: Negative for neck swelling, polydipsia, polyuria, polyphagia, and marked weight changes, Hematologic/Lymphatic: Negative for swollen nodes, abnormal bleeding, and unusual bruising. 19:17 Respiratory: Positive for dyspnea on exertion, shortness of breath, on exertion. Negative for hemoptysis, orthopnea, pleurisy, sputum production, wheezing, Similar to prior CHF episode. Exam: 19:17 Constitutional: This is a well developed, well nourished patient who is awake, alert, kdr and in no acute distress. Head/Face: Normocephalic, atraumatic. Eyes: Pupils equal round and reactive to light, extra-ocular motions intact. Lids and lashes normal. Conjunctiva and sclera are non-icteric and not injected. Cornea within normal limits. Periorbital areas with no swelling, redness, or edema. Neck: Trachea midline, no thyromegaly or masses palpated, and no cervical lymphadenopathy. Supple, full range of motion without nuchal rigidity, or vertebral point tenderness. No Meningismus. Chest/axilla: Normal chest wall appearance and motion. Nontender with no deformity. No lesions are appreciated. Cardiovascular: Regular rate and rhythm with a normal S1 and S2. No gallops, murmurs, or rubs. Normal PMI, no JVD. No pulse deficits. Respiratory: Lungs have equal breath sounds bilaterally, clear to auscultation and percussion. No rales, rhonchi or wheezes noted. No increased work of breathing, no retractions or nasal flaring. Abdomen/GI: Soft, non-tender, with normal bowel sounds. No distension or tympany. No guarding or rebound. No evidence of tenderness throughout. Back: No spinal tenderness. No costovertebral tenderness. Full range of motion. Skin: Warm, dry with normal turgor. Normal color with no rashes, no lesions, and no evidence of cellulitis. Neuro: Awake and alert, GCS 15, oriented to person, place, time, and situation. Cranial nerves II-XII grossly intact. Motor strength 5/5 in all extremities. Sensory grossly intact. Cerebellar exam normal. Normal gait. Psych: Awake, alert, with orientation to person, place and time. Behavior, mood, and affect are within normal limits. 19:17 Musculoskeletal/extremity: Extremities: grossly normal except: pain, swelling, tenderness, Right medial calf. Vital Signs: 16:29 BP 123 / 63; Pulse 66; Resp 18; Temp 98.0; Pulse Ox 98% on R/A; Weight 104.33 kg; ph Height 5 ft. 2 in. (157.48 cm); 16:30 BP 123 / 63; Pulse 65; Resp 17; Pulse Ox 98% on R/A; vc 17:30 BP 112 / 73; Pulse 64; Resp 16; Pulse Ox 98% on R/A; vc 18:15 BP 122 / 70; Pulse 61; Resp 15; Pulse Ox 95% on R/A; vc 19:00 BP 130 / 74; Pulse 69; Resp 16; Pulse Ox 97% on R/A; vc 20:00 BP 148 / 89; Pulse 60; Resp 16; Pulse Ox 99% on R/A; vc 20:57 BP 137 / 72; Pulse 62; Resp 15; Pulse Ox 98% on R/A; vc 16:29 Body Mass Index 42.07 (104.33 kg, 157.48 cm) ph MDM: 19:34 Patient medically screened. [facility] 12/03 06:40 Data reviewed: vital signs, nurses notes. Counseling: I had a detailed discussion with [facility] the patient and/or guardian regarding: the historical points, exam findings, and any diagnostic results supporting the discharge/admit diagnosis, lab results, radiology results. Special discussion: I discussed with the patient/guardian in detail that at this point there is no indication for admission to the hospital. It is understood, however, that if the symptoms persist or worsen the patient needs to return immediately for re-evaluation. 12/02 16:57 Order name: Basic Metabolic Panel; Complete Time: 19:02 [facility] 12/02 16:57 Order name: CBC with Diff; Complete Time: 17:50 [facility] 12/02 16:57 Order name: LFT's; Complete Time: 19: [facility] 12/02 16:57 Order name: Magnesium; Complete Time: 19:02 [facility] 12/02 16:57 Order name: NT PRO-BNP; Complete Time: 19:02 [facility] 12/02 16:57 Order name: PT-INR; Complete Time: 19:02 [facility] 12/02 16:57 Order name: Troponin (emerg Dept Use Only); Complete Time: 19:02 [facility] 12/02 16:57 Order name: XRAY Chest (1 view); Complete Time: 19:02 [facility] 12/02 16:57 Order name: EKG; Complete Time: 16:57 [facility] 12/02 16:57 Order name: Cardiac monitoring; Complete Time: 17:49 [facility] 12/02 17:12 Order name: DD; Complete Time: 19:02 [facility] 12/02 17:12 Order name: US Extremity Venous Unilateral Ltd [facility] 12/02 17:17 Order name: CT Chest For PE Angio; Complete Time: 19:02 [facility] 12/02 17:57 Order name: CREATININE WHOLE BLOOD; Complete Time: 19:02 [facility] 12/02 16:57 Order name: EKG - Nurse/Tech; Complete Time: 17:49 [facility] 12/02 16:57 Order name: IV Saline Lock; Complete Time: 17:50 [facility] 12/02 16:57 Order name: Labs collected and sent; Complete Time: 17:50 [facility] 12/02 16:57 Order name: O2 Per Protocol; Complete Time: 17:50 [facility] 12/02 16:57 Order name: O2 Sat Monitoring; Complete Time: 17:50 [facility] Administered Medications: No medications were administered Disposition: 12/03/19 20:50 Discharged to Home. Impression: Pain in left lower leg, Dyspnea, unspecified. - Condition is Stable. - Discharge Instructions: Pain Without a Known Cause, Shortness of Breath. - Prescriptions for Ibuprofen 800 mg Oral Tablet - take 1 tablet by ORAL route every 8 hours As needed take with food; 30 tablet. - Medication Reconciliation Form, Thank You Letter, Antibiotic Education, Prescription Opioid Use form. - Follow up: Private Physician; When: Upon discharge from the Emergency Department; Reason: Recheck today's complaints, Continuance of care, Re-evaluation by your physician. - Problem is new. - Symptoms have improved. Signatures: Dispatcher [employer] EDPR Max Martin MD MD kdr Lauren Ribeiro, RN RN Boy Beasley MD MD tw4 Amelia Dang RN RN vc Corrections: (The following items were deleted from the chart) 12/02 21:03 20:50 12/03/2019 20:50 Discharged to Home. Impression: Pain in left lower leg; Dyspnea, vc unspecified. Condition is Stable. Forms are Medication Reconciliation Form, Thank You Letter, Antibiotic Education, Prescription Opioid Use. Follow up: Private Physician; When: Upon discharge from the Emergency Department; Reason: Recheck today's complaints, Continuance of care, Re-evaluation by your physician. Problem is new. Symptoms have improved. tw4
--- NOTE | 2019-12-03 20:51 | ER ---
Nurse's Notes [facility] Name: Cam Huitron Age: 49 yrs Sex: Male : 1970 Arrival Date: 12/03/2019 Time: 15:55 Bed 26 Private MD: Diagnosis: Pain in left lower leg;Dyspnea, unspecified Presentation: 12/02 16:29 Chief complaint: Patient states: Shortness of breath upon exertion, area of pain and ph swelling to L calf that began a few weeks ago, reports hx of CHF, denies fever or cough, states, " My sister wanted me to get my leg checked for a blood clot.". Coronavirus screen: Patient denies a cough. Patient reports shortness of breath or difficulty breathing. Patient denies measured and/or subjective temperature greater than 100.4F prior to today's visit. Patient denies travel on a cruise ship or to a country the [facility] currently lists as an affected area. Patient denies contact with known and/or suspected case of COVID-19. Ebola Screen: No symptoms or risks identified at this time. Initial Sepsis Screen: Does the patient meet any 2 criteria? No. Patient's initial sepsis screen is negative. Does the patient have a suspected source of infection? No. Patient's initial sepsis screen is negative. Risk Assessment: Do you want to hurt yourself or someone else? Patient reports no desire to harm self or others. Onset of symptoms was December 03, 2019. 16:29 Method Of Arrival: Ambulatory 16:29 Acuity: SILVER 3 ph Triage Assessment: 16:44 General: Appears in no apparent distress. comfortable, Behavior is calm, cooperative, vc appropriate for age. Respiratory: Reports shortness of breath at rest on exertion Onset: The symptoms/episode began/occurred at an unknown time. the patient has mild shortness of breath. Historical: - Allergies: 16:33 No Known Allergies; ph - PMHx: 16:33 ADD/ADHD; Anemia; CHF; Diabetes - NIDDM; Gout; Hypertension; Myocardial infarction; ph - PSHx: 16:33 defibrillator; ph - Immunization history:: Adult Immunizations up to date. - Social history:: Smoking status: unknown. Screenin:43 Abuse screen: Denies threats or abuse. Nutritional screening: No deficits noted. vc Tuberculosis screening: No symptoms or risk factors identified. Fall Risk None identified. Assessment: 16:43 Pain: Complains of pain in left calf Pain currently is 7 out of 10 on a pain scale. vc Quality of pain is described as aching, dull, Aggravated by increased activity, repositioning, weight bearing. Neuro: Level of Consciousness is awake, alert, obeys commands, Oriented to person, place, time, situation. Cardiovascular: Rhythm is regular. Respiratory: Airway is patent Respiratory effort is even, unlabored, Breath sounds are clear. 16:48 General: Appears in no apparent distress. comfortable, Behavior is calm, cooperative, vc appropriate for age. GI: No signs and/or symptoms were reported involving the gastrointestinal system. : No signs and/or symptoms were reported regarding the genitourinary system. Derm: Skin is black in color to posterior calf, the size of a quarter, hard and warm on palpation. Musculoskeletal: Swelling present in left calf Reports pain in left calf. 17:54 Reassessment: Patient back from CT via stretcher. vc 18:00 Reassessment: Patient appears in no apparent distress at this time. Patient and/or vc family updated on plan of care and expected duration. Pain level reassessed. Patient is alert, oriented x 3, equal unlabored respirations, skin warm/dry/pink. 19:00 Reassessment: Patient appears in no apparent distress at this time. Patient and/or vc family updated on plan of care and expected duration. Pain level reassessed. Patient is alert, oriented x 3, equal unlabored respirations, skin warm/dry/pink. Patient states symptoms have not improved. 20:00 Reassessment: Patient appears in no apparent distress at this time. Patient and/or vc family updated on plan of care and expected duration. Pain level reassessed. Patient is alert, oriented x 3, equal unlabored respirations, skin warm/dry/pink. 20:51 Reassessment: Patient appears in no apparent distress at this time. Patient and/or vc family updated on plan of care and expected duration. Pain level reassessed. Patient is alert, oriented x 3, equal unlabored respirations, skin warm/dry/pink. Respiratory: Respiratory effort is even, unlabored, Respiratory pattern is regular, symmetrical. 21:02 Reassessment: Patient states feeling better. Patient states symptoms have improved. vc Vital Signs: 16:29 BP 123 / 63; Pulse 66; Resp 18; Temp 98.0; Pulse Ox 98% on R/A; Weight 104.33 kg; ph Height 5 ft. 2 in. (157.48 cm); 16:30 BP 123 / 63; Pulse 65; Resp 17; Pulse Ox 98% on R/A; vc 17:30 BP 112 / 73; Pulse 64; Resp 16; Pulse Ox 98% on R/A; vc 18:15 BP 122 / 70; Pulse 61; Resp 15; Pulse Ox 95% on R/A; vc 19:00 BP 130 / 74; Pulse 69; Resp 16; Pulse Ox 97% on R/A; vc 20:00 BP 148 / 89; Pulse 60; Resp 16; Pulse Ox 99% on R/A; vc 20:57 BP 137 / 72; Pulse 62; Resp 15; Pulse Ox 98% on R/A; vc 16:29 Body Mass Index 42.07 (104.33 kg, 157.48 cm) ph ED Course: 15:55 Patient arrived in ED. ag5 16:18 Max Martin MD is Attending Physician. kdr 16:30 Amelia Dang RN is Primary Nurse. vc 16:32 Triage completed. ph 16:33 Arm band placed on Patient placed in an exam room. ph 16:47 Patient has correct armband on for positive identification. Bed in low position. Call vc light in reach. Side rails up X2. Pulse ox on. NIBP on. 17:49 XRAY Chest (1 view) In Process Unspecified. EDMS 17:49 CT Chest For PE Angio In Process Unspecified. EDMS 18:47 Notified ED physician of a critical lab result(s). INR 5.36. hb 19:18 Attending Physician role handed off by Max Martin MD tw4 19:18 Boy Beasley MD is Attending Physician. tw4 20:55 US Extremity Venous Unilateral Ltd In Process Unspecified. EDMS 21:02 No provider procedures requiring assistance completed. IV discontinued, intact, vc bleeding controlled, No redness/swelling at site. Pressure dressing applied. Administered Medications: No medications were administered Outcome: 20:50 Discharge ordered by . tw4 21:02 Discharged to home ambulatory. vc 21:02 Condition: good 21:02 Discharge instructions given to patient, Instructed on discharge instructions, follow up and referral plans. medication usage, Demonstrated understanding of instructions, follow-up care, medications, Prescriptions given X 1. 21:03 Patient left the ED. vc Signatures: Dispatcher [employer] EDMS Max Martin MD MD kdr Hall, Patricia, RN RN Sun Winters RN RN Boy Perez MD MD tw4 Klever [place] 5 Amelia Dang RN RN vc
[2019-12-03 21:40] VITALS: TEMP 98
[2019-12-03 21:47] VITALS: BP 137/72; O2SAT 98
--- NOTE | 2019-12-03 21:53 | RAD REPORT ---
EXAM DESCRIPTION: US - Extremity Venous Uni Ltd - 12/03/2019 8:55 pm CLINICAL HISTORY: SOB;Pain Leg swelling and edema. COMPARISON: EXT VENOUS UNI LTD dated 09/30/2015 FINDINGS: Left lower extremity venous system was interrogated with Doppler technique. Normal flow, c ompressibility and augmentation was noted. There is no DVT present.Nonspecific fluid collection measu ring 2.4 x 1.8 cm is seen left calf. IMPRESSION: No evidence of left lower extremity deep venous thrombosis.
--- NOTE | 2019-12-05 06:32 | EKG ---
Test Date: 2019-12-03 Test Time: 17:23:28 Certified Real Estate Appraiser: ORQUIDEA MEASUREMENT RESULTS: Intervals: Rate: 63 NM: 152 QRSD: 104 QT: 418 QTc: 427 [place]: P: 47 NM: 152 QRS: 7 T: 196 INTERPRETIVE STATEMENTS: Sinus rhythm with occasional premature ventricular complexes Possible Left atrial enlargement ST & T wave abnormality, consider inferolateral ischemia Abnormal ECG Compared to ECG 12/14/2018 19:14:19 Ventricular premature complex(es) now present ST (T wave) deviation now present Possible ischemia now present Left ventricular hypertrophy no longer present Early repolarization no longer present Electronically Signed On 12-05-19 06:30:26 CDT by Tomas Pickard
== END 2019-12-03 21:03 | disposition home or self-care (01) ==
LOC: ER 15:53
DX: M79.662 Pain in left lower leg (principal); I10 Essential (primary) hypertension; Z95.810 Presence of automatic (implantable) cardiac defibrillator
CPT/HCPCS: 93005; 85025; 80048; 36415; 83735; 85610; 82565; 85379; 80076; 84484; 83880; 71275; 71045; 93971; 99283; Q9967

== ENCOUNTER 2021-06-02 16:30 | Emergency (ER) | payer OTHER ==
--- OUTSIDE RECORDS SUMMARY | 2021-06-02 16:33 | XMS REPORT | Continuity of Care Document ---
:1970 Author Organization [facility] t Address [address] [place] [address] Care Team Providers Name Role Phone MARIPOSA Attending Clinician Unavailable Michael Donaldson RN Attending Clinician Unavailable Only, Test Attending Clinician Unavailable Cara BECERRA Attending Clinician MARROQUIN Attending Clinician Unavailable Doctor Unassigned, Name Attending Clinician Unavailable Payers Payer Name Policy Type Policy Number Effective Date Expiration Date S ource Problems This patient has no known problems. Allergies, Adverse Reactions, Alerts Allergy Allergy Status Severity Reaction(s) Onset Inactive Treating Comm ents Source Name Type Date Date Clinician NO KNOWN Drug Active [facility]ERGIE Class ity of [facility] Social History Social Habit Start Date Stop Date Quantity Comments Source [facility] to SARS-CoV-2 Not sure [facility] [place] [facility] Smoking Status Start Date Stop Date Source Unknown if ever smoked [facility] Medications This patient has no known medications. Procedures Procedure Date / Time Performed Performing Clinician [facility] e ASSIGNMENT OF BENEFITS 2020-03-04 16:50:53 Doctor Unassigned, No [facility] Encounters Start End Encounter Admission Attending Care Care Encounter Source Date/Time Date/Time Type Type Clinicians Facility Department ID 2021-04-28 2021-04-28 Outpatient ALEXIA [facility] [id number] [place] 00:00:00 00:00:00 NICHOLAS [address] 2021-02-15 2021-02-15 Outpatient [facility] [id number] [place] 00:00:00 00:00:[address] 2021-02-04 2021-02-04 Outpatient [facility] [id number] [place] 00:00:00 00:00:[address] 2020-03-05 2020-03-05 Letter OSWALDO Donaldson [id number] Univers 00:00:00 00:00:00 (Out) Renée RICHTER [id number] it y of HOSPITAL [id number] Octavio as [id number] [facility] [address] [place] 2020-03-05 2020-03-05 Letter OSWALDO Donaldson [id number] 00:00:00 00:00:00 (Out) Renée RICHTER [id number] [facility] [id number] [facility] 2020-03-04 2020-03-04 Laboratory Only, [facility] Test [facility] 1.2.840. [id number] [facility] 11:49:51 12:04:51 Only Alexx Marroquin [id number] ity of [place] [id number] [facility] [id number] [facility] [address] 2020-03-04 2020-03-04 Laboratory Only, [facility] [id number] 11:49:51 12:04:51 Only Test [place] [id number] [place] [id number] [place] [id number] [facility] 2020-03-04 2020-03-04 Outpatient R ALEXX MARROQUIN [facility] [place] 337 [id number] [facility] 10:45:00 10:45:00 ity of [facility] 2020-03-04 2020-03-04 Orders Doctor OSWALDO [id number] Univers 00:00:00 00:00:00 Only Unassigned, NEELAM [id number] ity of [place] [facility] [id number] Octavio as [id number] [address] 2020-03-04 2020-03-04 Orders Doctor OSWALDO [id number] 00:00:00 00:00:00 Only Unassigned, NEELAM [id number] [place] [facility] [id number] Results This patient has no known results.
[2021-06-02] MEDS ORDERED: ACETAMINOPHEN 325 MG TABLET ONE (17:55)
[2021-06-02 18:11] LABS: SARS-COV-2 RT PCR NEGATIVE (NEGATIVE)
--- NOTE | 2021-06-02 18:24 | RAD REPORT ---
EXAM DESCRIPTION: RAD - Chest Single View - 06/02/2021 6:15 pm CLINICAL HISTORY: fever, cough COMPARISON: November 2019 TECHNIQUE: AP portable chest image was obtained 06/02/2021 6:15 pm . FINDINGS: Lung volumes are low. No focal mass or consolidation. Significant failure or volume overlo ad suspected. Defibrillator is in place. Heart and vasculature are normal. No measurable pleural effu jaimie and no pneumothorax. No acute bony abnormality seen. No acute aortic findings suspected. IMPRESSION: No acute cardiopulmonary process. No significant change from comparison study.
--- NOTE | 2021-06-02 18:36 | ER ---
Nurse's Notes [facility] Name: Cam Huitron Age: 50 yrs Sex: Male : 1970 Arrival Date: 06/02/2021 Time: 16:33 Bed 15 Private MD: Diagnosis: Acute pharyngitis, unspecified Presentation: 06/02 16:36 Chief complaint: Patient states: i have a sore throat and a slight headache that tw2 started yesterday. i feel weak all over. it comes and goes. also have a little cough. and i had a little diarrhea this morning. and i think i have a UTI. my urine has been dark for 2 or 3 weeks. Coronavirus screen: cough unrelated to allergies, fatigue, headache, runny nose, sore throat, Client presents with at least one sign or symptom that may indicate coronavirus-19. Standard/surgical mask placed on the client. Provider contacted for isolation considerations. Ebola Screen: Patient denies travel to an Ebola-affected area in the 21 days before illness onset. Initial Sepsis Screen: Does the patient meet any 2 criteria? HR > 90 bpm. No. Patient's initial sepsis screen is negative. Does the patient have a suspected source of infection? No. Patient's initial sepsis screen is negative. Risk Assessment: Do you want to hurt yourself or someone else? Patient reports no desire to harm self or others. Onset of symptoms was June 02, 2021. 16:36 Method Of Arrival: Ambulatory tw2 16:36 Acuity: SILVER 3 tw2 Triage Assessment: 16:40 General: Appears in no apparent distress. Behavior is calm, cooperative, appropriate tw2 for age. Pain: Complains of pain in uvula, left aspect of posterior pharynx and right aspect of posterior pharynx. EENT: Reports nasal discharge. Respiratory: Reports cough that is Airway is patent Respiratory effort is even, unlabored, Respiratory pattern is regular, symmetrical, Denies shortness of breath. Historical: - Allergies: 16:38 No Known Allergies; tw2 - Home Meds: 16:38 allopurinol 300 mg Oral tab 1 tab once daily [Active]; carvedilol 25 mg Oral tab 2 tab tw2 2 times per day [Active]; aspirin 81 mg Oral TbEC 1 tab once daily [Active]; digoxin 125 mcg Oral tab 1 tab once daily [Active]; glimepiride 2 mg Oral tab 1 tab twice a day [Active]; hydralazine 25 mg Oral tab 1 tab daily [Active]; losartan 100 mg Oral tab 1 tab once daily [Active]; metformin 500 mg Oral TbER 1 tab 2 times per day [Active]; pravastatin 40 mg Oral tab 1 tab once daily [Active]; spironolactone 25 mg Oral tab 1 tab once daily [Active]; torsemide 60mg in the morning and 40mg in the afternoon Oral [Active]; warfarin 10 mg Oral tab 1 tab once daily [Active]; - PMHx: 16:38 ADD/ADHD; Anemia; CHF; Diabetes - NIDDM; Gout; Hypertension; Myocardial infarction; tw2 - PSHx: 16:38 defibrillator; tw2 - Immunization history:: Client reports receiving the 2nd dose of the Covid vaccine. - Social history:: Smoking status: Patient denies any tobacco usage or history of. Screenin:44 Abuse screen: Denies threats or abuse. Nutritional screening: No deficits noted. tw2 Tuberculosis screening: No symptoms or risk factors identified. Fall Risk Secondary diagnosis (15 points) impaired mobility, Ambulatory Aid- Crutches/Cane/Walker (15 pts). Assessment: 16:45 Respiratory: Reports cough that is Airway is patent Respiratory effort is even, kd3 unlabored, Breath sounds are clear bilaterally. 19:17 EENT: Throat is reddened. bp Vital Signs: 16:36 BP 124 / 89; Pulse 110; Resp 20; Temp 100.1(TE); Pulse Ox 100% on R/A; Weight 99.79 kg; tw2 Height 5 ft. 7 in. (170.18 cm); Pain 8/10; 18:00 BP 132 / 82; Pulse 98; Resp 16; Pulse Ox 100% ; bp 19:15 BP 139 / 82; Pulse 75; Resp 16; Pulse Ox 99% ; bp 16:36 Body Mass Index 34.46 (99.79 kg, 170.18 cm) tw2 ED Course: 16:33 Patient arrived in ED. am2 16:36 Willie Downs PA is PHCP. [facility] 16:36 Ketan Varghese MD is Attending Physician. [facility] 16:38 Triage completed. tw2 16:39 Arm band placed on. tw2 16:40 Bed in low position. Call light in reach. Adult w/ patient. tw2 16:54 Madhuri Del Valle, RN is Primary Nurse. kd3 17:15 Strep Sent. kd3 18:15 Chest Single View XRAY In Process Unspecified. EDMS 19:15 IV discontinued. bp 19:15 No provider procedures requiring assistance completed. bp Administered Medications: 17:58 Drug: Tylenol 650 mg Route: PO; bp 19:17 Follow up: Response: No adverse reaction bp Outcome: 18:36 Discharge ordered by . jmm 19:15 Discharged to home ambulatory. bp 19:16 Discharged to home ambulatory. bp 19:16 Condition: stable 19:16 Discharge instructions given to patient, Instructed on discharge instructions, follow up and referral plans. medication usage, Demonstrated understanding of instructions, follow-up care, medications. 19:18 Patient left the ED. bp Signatures: Dispatcher [employer] EDMS Willie Downs PA PA jmm Wise, Tara, RN RN tw2 Pavithra Pedro am2 Abel Parra, RN RN bp Madhuri Del Valle, RN RN kd3 Corrections: (The following items were deleted from the chart) 16:41 16:36 Chief complaint: Patient states: i have a sore throat and a slight headache that tw2 started yesterday. i feel weak all over. it comes and goes. also have a little cough. and i had a little diarrhea this morning tw2 16:44 16:40 Respiratory: Reports cough that is Denies shortness of breath tw2 tw2 17:19 17:15 Influenza Screen (A \T\ B)+BA.LAB.BRZ drawn and sent. kd3 EDMS 17:19 17:15 SARS-COV-2 RT PCR+MOL.LAB.BRZ drawn and sent. 3 EDMS
--- NOTE | 2021-06-02 18:36 | EDPHYS ---
Physician Documentation [facility] Name: Cam Huitron Age: 50 yrs Sex: Male : 1970 Arrival Date: 06/02/2021 Time: 16:33 Bed 15 Private MD: ED Physician Ketan Varghese HPI: 06/02 16:55 This 50 yrs old Black Male presents to ER via Ambulatory with complaints of Sore jmm Throat, General Weakness. 16:55 The patient presents with sore throat. Onset: The symptoms/episode began/occurred jmm today. Modifying factors: The symptoms are alleviated by nothing, the symptoms are aggravated by nothing. Associated signs and symptoms: Pertinent positives: cough, fever. It is unknown whether or not the patient has had similar symptoms in the past. Historical: - Allergies: 16:38 No Known Allergies; tw2 - Home Meds: 16:38 allopurinol 300 mg Oral tab 1 tab once daily [Active]; carvedilol 25 mg Oral tab 2 tab tw2 2 times per day [Active]; aspirin 81 mg Oral TbEC 1 tab once daily [Active]; digoxin 125 mcg Oral tab 1 tab once daily [Active]; glimepiride 2 mg Oral tab 1 tab twice a day [Active]; hydralazine 25 mg Oral tab 1 tab daily [Active]; losartan 100 mg Oral tab 1 tab once daily [Active]; metformin 500 mg Oral TbER 1 tab 2 times per day [Active]; pravastatin 40 mg Oral tab 1 tab once daily [Active]; spironolactone 25 mg Oral tab 1 tab once daily [Active]; torsemide 60mg in the morning and 40mg in the afternoon Oral [Active]; warfarin 10 mg Oral tab 1 tab once daily [Active]; - PMHx: 16:38 ADD/ADHD; Anemia; CHF; Diabetes - NIDDM; Gout; Hypertension; Myocardial infarction; tw2 - PSHx: 16:38 defibrillator; tw2 - Immunization history:: Client reports receiving the 2nd dose of the Covid vaccine. - Social history:: Smoking status: Patient denies any tobacco usage or history of. ROS: 16:55 Constitutional: Positive for body aches, fever. jmm 16:55 ENT: Positive for sore throat. 16:55 Respiratory: Positive for cough. 16:55 All other systems are negative. Exam: 16:55 Constitutional: This is a well developed, well nourished patient who is awake, alert, jmm and in no acute distress. Head/Face: atraumatic. Eyes: EOMI, no conjunctival erythema appreciated ENT: Moist Mucus Membranes Neck: Trachea midline, Supple Chest/axilla: Normal chest wall appearance and motion. Cardiovascular: Regular rate and rhythm. No edema appreciated Respiratory: Normal respirations, no respiratory distress appreciated Abdomen/GI: Non distended, soft 16:55 Skin: General appearance color normal MS/ Extremity: Moves all extremities, no obvious deformities appreciated, no edema noted to the lower extremities Neuro: Awake and alert, normal gait Psych: Behavior is normal, Mood is normal, Patient is cooperative and pleasant 16:55 ENT: Posterior pharynx: erythema, that is moderate. Vital Signs: 16:36 BP 124 / 89; Pulse 110; Resp 20; Temp 100.1(TE); Pulse Ox 100% on R/A; Weight 99.79 kg; tw2 Height 5 ft. 7 in. (170.18 cm); Pain 8/10; 18:00 BP 132 / 82; Pulse 98; Resp 16; Pulse Ox 100% ; bp 19:15 BP 139 / 82; Pulse 75; Resp 16; Pulse Ox 99% ; bp 16:36 Body Mass Index 34.46 (99.79 kg, 170.18 cm) tw2 MDM: 16:55 Patient medically screened. [facility] 18:34 Data reviewed: vital signs, nurses notes. Counseling: I had a detailed discussion with [facility] the patient and/or guardian regarding: the historical points, exam findings, and any diagnostic results supporting the discharge/admit diagnosis, lab results, radiology results, the need for outpatient follow up, to return to the emergency department if symptoms worsen or persist or if there are any questions or concerns that arise at home. 06/02 16:58 Order name: Strep; Complete Time: 17:33 [facility] 06/02 17:19 Order name: COVID-19/FLU A+B; Complete Time: 18:16 [facility] 06/02 17:45 Order name: Chest Single View XRAY; Complete Time: 18:26 [facility] 06/02 19:00 Order name: Urine Dipstick-Ancillary; Complete Time: 19:01 [facility] 06/02 16:58 Order name: Urine Dipstick-Ancillary (obtain specimen); Complete Time: 19:00 [facility] Administered Medications: 17:58 Drug: Tylenol 650 mg Route: PO; bp 19:17 Follow up: Response: No adverse reaction bp Disposition Summary: 06/02/21 18:36 Discharge Ordered Location: Home [facility] Condition: Stable [facility] Diagnosis - Acute pharyngitis, unspecified [facility] Followup: [facility] - With: Private Physician - When: 2 - 3 days - Reason: Recheck today's complaints, Continuance of care, Re-evaluation by your physician Discharge Instructions: - Discharge Summary Sheet [facility] - Pharyngitis [facility] Forms: - Medication Reconciliation Form [facility] - Thank You Letter [facility] - Antibiotic Education [facility] - Prescription Opioid Use [facility] Prescriptions: - Augmentin 875-125 mg Oral Tablet - take 1 tablet by ORAL route every 12 hours for 10 days; 20 tablet; Refills: 0, [facility] Product Selection Permitted Addendum: 06/05/2021 07:36 Co-signature as Attending Physician, Ketan Varghese MD I agree with the assessment and r n plan of care. Attestation: The patient's history, exam findings, diagnostics, and a summary of any interventions or procedures was reviewed in detail with Willie BENJAMIN. Signatures: Dispatcher [employer] [facility] Willie Downs PA PA [facility] Ketan Varghese MD MD rn Wise, Tara, RN RN 2 Abel Parra, RN RN bp Corrections: (The following items were deleted from the chart) 06/02 17:19 16:59 Influenza Screen (A \T\ B)+BA.LAB.BRZ ordered. EDMS EDMS 17:19 16:59 SARS-COV-2 RT PCR+MOL.LAB.BRZ ordered. EDMS EDMS
[2021-06-02 19:00] LABS: Urine Blood Trace-lysed (Negative); Urine Glucose 3+ (Negative); Urine Protein 1+ (Negative); Urine Specific Gravity 1.015 (1.005-1.030)
[2021-06-02 19:24] VITALS: TEMP 100.1
[2021-06-02 19:26] VITALS: BP 139/82; O2SAT 99
== END 2021-06-02 19:18 | disposition home or self-care (01) ==
LOC: ER 16:30
DX: J02.9 Acute pharyngitis, unspecified (principal); I11.0 Hypertensive heart disease with heart failure; I50.9 Heart failure, unspecified; E11.9 Type 2 diabetes mellitus without complications; I25.2 Old myocardial infarction; Z95.810 Presence of automatic (implantable) cardiac defibrillator; Z20.822 Contact with and (suspected) exposure to COVID-19
CPT/HCPCS: 87081; 81003; 0240U; 71045; 99283

== ENCOUNTER 2022-07-10 22:35 | Emergency (ER) | payer OTHER ==
--- OUTSIDE RECORDS SUMMARY | 2022-07-10 22:40 | XMS REPORT | Continuity of Care Document ---
:1970 Author Organization [facility] t Address [address] [place] [address] Care Team Providers Name Role Phone Jamia Thomas MD, Ronan Garcia Primary Care Physician [phone] Tamar Traylor LVN Attending Clinician Unavailable Brittany BECERRA, Christiano Attending Clinician Rodger TREVIZO, Mesha Attending Clinician Unavailable Jeanine Guthrie MA Attending Clinician Unavailable Fannie Greene MA Attending Clinician Unavailable Keith Russell NP, Shari Sharma Attending Clinician [phone] Mendoza BLANTON, Renée Rodriguez Attending Clinician Unavailable Only, Adc Test Attending Clinician Unavailable Jena Marroquin MD Attending Clinician JENA MARROQUIN Attending Clinician Unavailable Doctor Unassigned, [place] Attending Clinician Unavailable Payers Payer Name Policy Type Policy Number Effective Date Expiration Date [facility] [id number] 2021 (MEDICARE 00:00:00 REPLACEMENT O) Problems Condition Condition Condition Status Onset Resolution Last Treating Co mments Source Name Details Category Date Date Treatment Clinician Date Chest pain Chest pain Disease Active Last M ethodi 3-[address] 00:00: t & Plan: Hospita 00 Formattin shahnaz g of this note might be different from the original. - Refills given for medicatio ns. - If chest pain persists, then we will plan for stress test. Sleep Sleep Disease Active Last Methodi apnea apnea 8-[address] 00:00: t & Plan: Hospita 00 Formattin l g of this note might be different from the original. - He has still not done his sleep study. We will help set up an appointme nt for him. 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 No rhythm problems, no recent shocks or fires. 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 NYHA II- Order blood work today.- Will follow up on echo results once finalized . - I suggested not taking his dose of Lasix tomorrow to see how he feels. He can restart it the day after next. Dyslipidem Dyslipidem Disease Active 2015-07 M mishel ia ia 0-10 st 00:00: Hospita 00 l Essential Essential Disease Active 2015-07 Last Met hodi hypertensi hypertensi 0-[address] on on 00:00: t & Plan: Hospita 00 Formattin l g of this note might be different from the original. BP at goal. No change in medicatio nsContinu e exercise and low-sodiu m diet.RTC in 4-6 weeks with home BP log and BP medicatio ns list. Gout Gout Disease Active 2015-07 Methodi 0-10 st 00:00: Hospita 00 l Hyperglyce Hyperglyce Disease Active 2015-07 Last M mishel thelma thelma 0-[address] 00:00: t & Plan: Hospita 00 Formattin l g of this note might be different from the original. - I advised him to have better control of his blood glucose levels. - I have also advised him to find a physician locally to help manage his blood glucose. Thrombotic Thrombotic Disease Active 2015-07 Last M dariaodi disorder disorder 0-[address] 00:00: t & Plan: Hospita 00 Formattin l g of this note might be different from the original. On Coumadin, stable. Allergies, Adverse Reactions, Alerts Allergy Allergy Status Severity Reaction(s) Onset Inactive Treating Comm ents Source Name Type Date Date Clinician No Known Propensi Active 2015-07 Method i Drug ty to 0-10 st Allergie adverse 00:00: Hospita s reaction 00 l s to drug NO KNOWN Drug Active Univers ALLERGIE Class ity of S [facility] Family History Family Member Diagnosis Comments Start Date Stop Date Source Natural brother Heart disease [facility] Natural brother Hypertension [facility] Natural father Heart disease [facility] father Hypertension [facility] mother Heart disease [facility] mother Hypertension [facility] sister Diabetes [facility] sister Heart disease [facility] sister Hypertension [facility] Social History Social Habit Start Date Stop Date Quantity Comments Source Exposure to Not sure [facility] of SARS-CoV-2 [facility] (event) [place] Alcohol intake 2022-05-18 2022-05-18 [facility] 00:00:00 00:00:00 non-drinker of alcohol (finding) Tobacco use and 2016-04-25 2016-04-25 Smokeless tobacco [facility] exposure 00:00:00 00:00:00 non-user Sex Ass[birth year] At [birth year] [facility] 00:00:00 00:00:00 Smoking Status Start Date Stop Date Source Unknown if ever smoked [facility] Never smoked tobacco [facility] ospital Medications Ordered Filled Start Stop Current Ordering Indication Dosage Frequency Signature Comments Components Source Medication Medication Date Date Medication? Clinician (SIG) Name Name icosapent 2021-07- Yes 1g Q.5D Take 1 Metho di ethyL 2-12 - capsule (1 st (Vascepa) 1 00:00: 04:59 g total) H ospita gram 00 :00 by mouth 2 l capsule (two) times a day for 90 days. rosuvastati 2021-07 Yes Take 1 Meth judy n (CRESTOR) - tablet by st 10 mg 00:00: mouth once Hospit a tablet 00 daily l carvedilol 2021-07 Yes 50mg Q.5D Take 50 mg M ethodi (COREG) 25 -[address] MG tablet 10:02: (two) Hospita 14 times a l day with meals. aspirin 2021-07 Yes 81mg QD Take 81 mg Meth judy (ECOTRIN) 07-[address] 81 MG 10:02: daily. Hospita enteric 14 l coated tablet sertraline 2021-07 Yes 50mg QD Take 50 mg M ethodi (ZOLOFT) 50 07-[address] MG tablet 10:02: daily. Hospit a 14 l semaglutide 2021-07 Yes Q7D Inject Meth judy (OZEMPIC 07-[address] SUBQ) 10:02: skin once Hospita 14 a week. l spironolact 2021-07 Yes [id number] Take 1 Methodi one 0-[address] (ALDACTONE) 00:00: mouth once Hospita 25 MG 00 daily l tablet metFORMIN Yes TAKE 1 Method i (GLUCOPHAGE 9-[address] ) 500 mg 00:00: MOUTH IN Hospi ta tablet 00 THE l MORNING AND TAKE 1 TABLET BEFORE BEDTIME digOXIN Yes [id number] TAKE 1 Meth judy (LANOXIN) 9-[address] 125 mcg 00:00: MOUTH ONCE Hosp lani (0.125 mg) 00 DAILY l tablet PLEASE SCHEDULE AN APPOINTMEN T FOR FUTURE REFILLS furosemide Yes [id number] 40mg QD Take 1 Methodi (LASIX) 40 8-25 9100 tablet (40 st mg tablet 00:00: mg total) Hos savage 00 by mouth l daily. digOXIN 2021- No [id number] 125ug QD Take 1 Me thodi (LANOXIN) 8-25 09-[address] 125 mcg 00:00: 00:00 (125 mcg Hospi ta (0.125 mg) 00 :00 total) by l tablet mouth daily. warfarin Yes Take 2 Methodi (COUMADIN) 7-[address] 5 MG tablet 00:00: mouth x 5 H ospita 00 days per l week and 3 tablets (15mg) on Monday and sacubitriL- Yes 1{tbl} Q.5D Take 1 Me thodi valsartan 6-[address] (ENTRESTO) 00:00: mouth 2 Hosp lani 97-103 mg 00 (two) l tablet per times a tablet day. digOXIN 2021- No [id number] TAKE 1 Met hodi (LANOXIN) 6-10 08-[address] 125 mcg 00:00: 00:00 MOUTH ONCE Hos savage (0.125 mg) 00 :00 DAILY . l tablet APPOINTMEN T REQUIRED FOR FUTURE REFILLS metFORMIN 2021- No TAKE ONE Met hodi (GLUCOPHAGE 5-25 09-[address] ) 500 mg 00:00: 00:00 MOUTH IN Hosp lani tablet 00 :00 THE l MORNING AND 1 TABLET BY MOUTH BEFORE BEDTIME digOXIN 2021- No [id number] TAKE 1 Met hodi (LANOXIN) 5-25 06-[address] 125 mcg 00:00: 00:00 MOUTH ONCE Hos savage (0.125 mg) 00 :00 DAILY . l tablet APPOINTMEN T REQUIRED FOR FUTURE REFILLS metFORMIN 2021- No Take 1 Metho di (GLUCOPHAGE 3-09 03-[address] ) 500 mg 11:23: 00:00 twice a Hospi ta tablet 46 :00 day by l oral route for 90 days. glimepiride 2021- No Take 1 Met hodi (AMARYL) 2 3-09 03-[address] MG tablet 10:30: 00:00 every day Ho spita 09 :00 by oral l route for 90 days. sacubitriL- Yes 1{tbl} Q.5D Take 1 Me thodi valsartan 3-[address] (ENTRESTO) 00:00: mouth in Hos savage 49-51 mg 00 the l tablet per morning tablet and 1 tablet before bedtime. metFORMIN 2021- No 500mg Q.5D Take 1 Meth judy (GLUCOPHAGE 3-09 05-[address] ) 500 mg 00:00: 00:00 (500 mg Hospi ta tablet 00 :00 total) by l mouth in the morning and 1 tablet (500 mg total) before bedtime. furosemide 2021- No [id number] Take 1 Methodi (LASIX) 40 2-25 08-[address] mg tablet 00:00: 00:00 mouth once H ospita 00 :00 daily l isosorbide 2021- No Take 1 Meth judy dinitrate 2-25 07-[address] (ISORDIL) 00:00: 00:00 mouth Hospit a 20 MG 00 :00 twice l tablet daily furosemide Yes [id number] 40mg QD Take 1 Methodi (LASIX) 40 08-12 9100 tablet (40 st mg tablet 00:00: mg total) Hos savage 00 by mouth l daily. furosemide 2021- No [id number] 40mg QD Take 1 Methodi (LASIX) 40 08-12- 9100 tablet (40 st mg tablet 00:00: 00:00 mg total) Ho spita 00 :00 by mouth l daily. digOXIN 2020-07 Yes [id number] TAKE 1 Meth judy (LANOXIN) 2-[address] 125 mcg 00:00: MOUTH ONCE Hosp lani (0.125 mg) 00 DAILY l tablet (NEED APPOINTMEN T FOR MORE REFILLS) pravastatin 2020-07 Yes Take 1 Meth judy (PRAVACHOL) 2-[address] 40 mg 00:00: mouth once Hospit a tablet 00 daily l digOXIN 2020-07- No [id number] TAKE 1 Met hodi (LANOXIN) 2-27 05-[address] 125 mcg 00:00: 00:00 MOUTH ONCE Hos savage (0.125 mg) 00 :00 DAILY l tablet (NEED APPOINTMEN T FOR MORE REFILLS) pravastatin 2020-07- No Take 1 Met hodi (PRAVACHOL) 2-27 04-[address] 40 mg 00:00: 00:00 mouth once Hospi ta tablet 00 :00 daily l allopurinoL 2020-07 Yes 300mg QD Take 1 Met hodi (ZYLOPRIM) 0-[address] 300 MG 00:00: (300 mg Hospita tablet 00 total) by l mouth daily. allopurinoL 2020-07 Yes 300mg QD Take 1 Met hodi (ZYLOPRIM) 0-[address] 300 MG 00:00: (300 mg Hospita tablet 00 total) by l mouth daily. glimepiride 2020-07 Yes Take 1 Meth judy (AMARYL) 2 0-[address] MG tablet 15:12: every day Hos savage 49 by oral l route for 90 days. metFORMIN 2020-07 Yes Take 1 Method i (GLUCOPHAGE 0-[address] ) 500 mg 15:12: twice a Hospit a tablet 49 day by l oral route for 90 days. carvedilol 2020-07 Yes 50mg Q.5D Take 50 mg M ethodi (COREG) 25 0-[address] MG tablet 15:12: (two) Hospita 49 times a l day with meals. aspirin 2020-07 Yes 81mg QD Take 81 mg Meth judy (ECOTRIN) 0-[address] 81 MG 15:12: daily. Hospita enteric 49 l coated tablet sertraline 2020-07 Yes 50mg QD Take 50 mg M ethodi (ZOLOFT) 50 0-[address] MG tablet 15:12: daily. Hospit a 49 l semaglutide 2020-07 Yes Q7D Inject Meth judy (OZEMPIC 0-[address] SUBQ) 15:12: skin once Hospita 49 a week. l sacubitriL- 2020-07 Yes 1{tbl} Q.5D Take 1 Me thodi valsartan 0-[address] (Entresto) 00:00: mouth 2 Hosp lani 24-26 mg 00 (two) l tablet per times a tablet day. rosuvastati 2020-07- No 10mg QD Take 1 Met hodi n (CRESTOR) 0-13 11-28 tablet (10 s t 10 mg 00:00: 00:00 mg total) Hospit a tablet 00 :00 by mouth l daily. rosuvastati 2020-07- No 10mg QD Take 1 Met hodi n (CRESTOR) 0-13 10-14 tablet (10 s t 10 mg 00:00: 04:59 mg total) Hospit a tablet 00 :00 by mouth l daily. sacubitriL- 2020-07- No 1{tbl} Q.5D Take 1 M ethodi valsartan 0-13 03-[address] (Entresto) 00:00: 00:00 mouth 2 Hos savage 24-26 mg 00 :00 (two) l tablet per times a tablet day. isosorbide Yes Take 1 Metho di dinitrate 9-[address] (ISORDIL) 00:00: mouth Hospita 20 MG 00 twice l tablet daily isosorbide 2021- No Take 1 Meth judy dinitrate 04-[address] (ISORDIL) 00:00: 00:00 mouth Hospit a 20 MG 00 :00 twice l tablet daily furosemide 2021- No [id number] 40mg QD Take 1 Methodi (LASIX) 40 04-13 9100 tablet (40 st mg tablet 00:00: 00:00 mg total) Ho spita 00 :00 by mouth l daily. furosemide 2021- No [id number] 40mg QD Take 1 Methodi (LASIX) 40 04-13 9100 tablet (40 st mg tablet 00:00: 00:00 mg total) Ho spita 00 :00 by mouth l daily. pravastatin 2020- No Take 1 Met hodi (PRAVACHOL) 04-[address] 40 mg 00:00: 00:00 mouth once Hospi ta tablet 00 :00 daily l furosemide 2020- No [id number] Take 1 Methodi (LASIX) 40 04-[address] mg tablet 00:00: 00:00 mouth once H ospita 00 :00 daily l pravastatin 2020- No 40mg QD Take 1 Met hodi (PRAVACHOL) 02-24 tablet (40 s t 40 mg 00:00: 00:00 mg total) Hospit a tablet 00 :00 by mouth l daily. digOXIN 2020- No [id number] Take 1 Met hodi (LANOXIN) 02-[address] 125 mcg 00:00: 00:00 mouth once Hos savage (0.125 mg) 00 :00 daily l tablet digOXIN 2020- No [id number] Take 1 Met hodi (LANOXIN) 02-[address] 125 mcg 00:00: 00:00 mouth once Hos savage (0.125 mg) 00 :00 daily l tablet warfarin Yes Two Methodi (COUMADIN) 7-[address] 5 MG tablet 00:00: daily or Ho spita 00 as l directed by MD office warfarin 2021- No Two Methodi (COUMADIN) 02-04 07-[address] 5 MG tablet 00:00: 00:00 daily or H ospita 00 :00 as l directed by MD office allopurinoL 2020- No Take 1 Met hodi (ZYLOPRIM) 12-[address] 300 MG 00:00: 00:00 mouth once Hosp lani tablet 00 :00 daily l pravastatin 2020- No 40mg QD Take 1 Met hodi (PRAVACHOL) 12-03 08- tablet (40 s t 40 mg 00:00: 00:00 mg total) Hospit a tablet 00 :00 by mouth l daily. spironolact 2019-07 Yes [id number] Take 1 Methodi one 08-[address] (ALDACTONE) 00:00: mouth once Hospita 25 MG 00 daily l tablet spironolact 2019-07 No [id number] Take 1 Methodi one 08-[address] (ALDACTONE) 00:00: 00:00 mouth once Hospita 25 MG 00 :00 daily l tablet furosemide 2019-07 No [id number] 40mg QD Take 1 Methodi (LASIX) 40 08-09 9100 tablet (40 st mg tablet 00:00: 00:00 mg total) Ho spita 00 :00 by mouth l daily. allopurinoL 2019-07 No Take 1 Met hodi (ZYLOPRIM) 08-09 05-[address] 300 MG 00:00: 00:00 mouth once Hosp lani tablet 00 :00 daily l digOXIN 2019-07- No [id number] Take 1 Met hodi (LANOXIN) 07-18 08-[address] 125 mcg 00:00: 00:00 mouth once Hos savage (0.125 mg) 00 :00 daily l tablet warfarin Yes TAKE 2 Methodi (COUMADIN) 7-[address] 5 MG tablet 00:00: MOUTH ONCE Hospita 00 DAILY l warfarin Yes TAKE 2 Methodi (COUMADIN) 7-[address] 5 MG tablet 00:00: MOUTH ONCE Hospita 00 DAILY l isosorbide 2020- No 20mg Q.5D Take 1 Meth judy dinitrate 10-09 09-28 tablet (20 st (ISORDIL) 00:00: 00:00 mg total) Ho spita 20 MG 00 :00 by mouth 2 l tablet (two) times a day. HUMULIN Yes Methodi 70/30 U-100 3-14 st KWIKPEN 100 00:00: Hospit a unit/mL 00 l (70-30) HUMULIN Yes Methodi 70/30 U-100 3-14 st KWIKPEN 100 00:00: Hospit a unit/mL 00 l (70-30) warfarin 2020- No TAKE 1 Method i (COUMADIN) 2-25 10-[address] 10 MG 00:00: 00:00 MOUTH Hospita tablet 00 :00 DAILY l hydrALAZINE Yes 25mg Q.5D Take 1 Meth judy (APRESOLINE 9-05 tablet (25 st ) 25 MG 00:00: mg total) Hospi ta tablet 00 by mouth 2 l (two) times a day. hydrALAZINE 2021- No 25mg Q.5D Take 1 Met hodi (APRESOLINE 9-05 06-29 tablet (25 s t ) 25 MG 00:00: 00:00 mg total) Hosp lani tablet 00 :00 by mouth 2 l (two) times a day. pravastatin 2020- No 40mg QD Take 1 Met hodi (PRAVACHOL) 807 05-20 tablet (40 s t 40 MG 00:00: 00:00 mg total) Hospit a tablet 00 :00 by mouth l daily. Vital Signs Vital Name Observation Time Observation Value Comments Source Systolic blood 2022-05-31 20:06:00 148 mm[Hg] [facility] pressure Diastolic blood 2022-05-31 20:06:00 91 mm[Hg] [facility] pressure Heart rate 2022-05-31 20:06:00 84 /min [facility] Body height 2022-05-31 20:06:00 170.2 cm [facility] Body weight 2022-05-31 20:06:00 99.791 kg [facility] BMI 2022-05-31 20:06:00 34.46 kg/m2 [facility] Oxygen saturation in 2022-05-31 20:06:00 99 /min [facility] Arterial blood by Pulse oximetry Respiratory rate 2022-05-18 14:59:00 16 /min [facility] Systolic blood 2021-04-28 20:07:00 138 mm[facility]Hg[facility] Diastolic blood 2021-04-28 20:07:00 81 mm[Hg] [facility] pressure Heart rate 2021-04-28 20:07:00 88 /min [facility] Body height 2021-04-28 20:07:00 170.2 cm [facility] Body weight 2021-04-28 20:07:00 100.971 kg [facility] BMI 2021-04-28 20:07:00 34.86 kg/m2 [facility] Oxygen saturation in 2021-04-28 20:07:00 92 /min [facility] Arterial blood by Pulse oximetry Procedures Procedure Date / Time Performing Clinician Source Performed CV MRI VALVE ASSESSMENT 2022-05-31 21:02:52 Christiano Soto [facility] W CONTRAST ESTIMATED GFR 2022-05-31 19:42:00 [facility] P[facility]EL 2022-05-31 19:42:00 [facility] PROTHROMBIN TIME WITH 2022-05-25 16:07:00 [facility] 2022-05-25 16:05:00 Christiano Soto [facility] ospital LIPID PANEL 2022-05-25 16:05:00 [facility] CBC WITH PLATELET AND 2022-05-25 16:05:00 [facility] DIFFERENTIAL THYROID STIMULATING 2022-05-25 16:05:00 Christiano Soto [facility] HORMONE T4, FREE 2022-05-25 16:05:00 Christiano [facility]oto [facility] COMPREHENSIVE METABOLIC 2022-05-25 16:05:00 Christiano Soto [facility] PANEL PROTHROMBIN TIME WITH 2022-05-25 00:00:00 Provider, Not In [facility] INR System ECG 12-LEAD 2022-05-18 15:08:12 Christiano Soto H ospital PROTHROMBIN TIME WITH 2022-04-19 17:14:00 Christiano Soto [facility] INR POC PT/INR 2022-04-04 16:09:59 Christiano Soto [facility] PROTHROMBIN TIME WITH 2022-04-04 00:00:00 Provider, Not In [facility] INR System PROTHROMBIN TIME WITH 2022-04-01 19:17:00 Christiano Soto [facility] INR PROTHROMBIN TIME WITH 2022-02-21 18:51:00 Christiano Soto [facility] INR POC PT/INR 2022-01-12 20:18:00 Christiano Soto H ospital ECG 12-LEAD 2022-01-12 19:59:11 Christiano Soto H ospital PROTHROMBIN TIME WITH 2022-01-12 00:00:00 Provider, Not In [facility] INR System LIPID PANEL 2021-10-27 18:40:00 Christiano Soto H ospital COMPREHENSIVE METABOLIC 2021-10-27 18:40:00 Christiano Soto [facility] PANEL CBC WITH PLATELET AND 2021-10-27 18:40:00 Christiano Soto [facility] DIFFERENTIAL T3 2021-10-27 18:40:00 Christiano Soto H ospital T4, FREE 2021-10-27 18:40:00 Christiano Soto H ospital THYROID STIMULATING 2021-10-27 18:40:00 [facility] A1C 2021-10-27 18:40:00 Christiano Soto H ospital TTE COMPLETE, W 2021-09-29 15:00:00 Christiano Soto H ospital CONTRAST, W DOPPLER ([id number]) POC PT/INR 2021-09-22 16:52:00 Christiano Soto H ospital BASIC METABOLIC PANEL 2021-05-06 19:51:00 Christiano Soto [facility] PROTHROMBIN TIME WITH 2021-05-06 19:50:00 [facility] 12-LEAD 2021-04-28 20:13:30 Christiano Stoo [facility] POC PT/INR 2021-02-15 16:44:00 [facility] PROT[facility]OMBIN TIME WITH 2021-02-15 00:00:00 Provider, Historical [facility] INR POC PT/INR 2021-02-04 16:31:00 [facility] PROTHROM[facility] TIME WITH 2021-02-04 00:00:00 Provider, Historical [facility] INR ASSIGNMENT OF BENEFITS 2020-03-04 16:50:53 Doctor Unassigned, No [facility] Plan of Care Planned Activity Planned Date Details Comments Source Future Scheduled 2022-07-10 Pneumococcal Vaccine: [facility] Test 22:38:21 Pediatrics (0 to 5 Years) and At-Risk Patients (6 to 64 Years) (1 - PCV) [code = Pneumococcal Vaccine: Pediatrics (0 to 5 Years) and At-Risk Patients (6 to 64 Years) (1 - PCV)] Future Scheduled 2022-07-10 DIABETES: RETINAL EYE [facility] Test 22:38:21 EXAM [code = DIABETES: RETINAL EYE EXAM] Future Scheduled 2022-07-10 DIABETIC FOOT EXAM [facility] Test 22:38:21 [code = DIABETIC FOOT EXAM] Future Scheduled 2022-07-10 URINE MICROALBUMIN [facility] Test 22:38:21 [code = URINE MICROALBUMIN] Future Scheduled 2022-07-10 Hepatitis C screening [facility] Test 22:38:21 (procedure) [code = 046411434] Future Scheduled 2022-07-10 COLONOSCOPY SCREENING [facility] Test 22:38:21 [code = COLONOSCOPY SCREENING] Future Scheduled 2022-07-10 SHINGLES VACCINES (1 Met [facility] Test 22:38:21 of 2) [code = SHINGLES VACCINES (1 of 2)] Future Scheduled 2022-07-10 COVID-19 VACCINE (4 - [facility] Test 22:38:21 Booster for Moderna series) [code = COVID-19 VACCINE (4 - Booster for Moderna series)] Future Scheduled 2022-07-10 INFLUENZA VACCINE [facility] Test 22:38:21 [code = INFLUENZA VACCINE] Future Scheduled 2021-08-12 COVID-19 VACCINE (1) Met [facility] Test 09:06:24 [code = COVID-19 VACCINE (1)] Future Scheduled 2021-08-12 Hepatitis C screening [facility] Test 09:06:24 (procedure) [code = 797859038] Future Scheduled 2021-08-12 COLONOSCOPY SCREENING [facility] Test 09:06:24 [code = COLONOSCOPY SCREENING] Future Scheduled 2021-08-12 SHINGLES VACCINES (#1) [facility] Test 09:06:24 [code = SHINGLES VACCINES (#1)] Future Scheduled 2021-08-12 INFLUENZA VACCINE Method [facility] Test 09:06:24 [code = INFLUENZA VACCINE] Encounters Start End Encounter Admission Attending Care Care Encounter Source Date/Time Date/Time Type Type Clinicians Facility Department ID 2022-07-08 2022-07-08 Orders Layton, 1.2.840.1 [id number] Methodi 00:00:00 00:00:00 Only Tamar [id number] 3.430.2.7 Hospit a .3.331373 l .8 2022-07-01 2022-07-01 Orders Layton 1.2.840.1 [id number] Methodi 00:00:00 00:00:00 Only Tamar [id number] 3.430.2.7 Hospit a .3.615284 l .8 2022-06-29 2022-06-29 Documentat Brittany 1.2.840.1 [id number] Methodi 00:00:00 00:00:00 ion Christiano [id number] 3.430.2.7 Hospit a .3.895725 l .8 2022-06-27 2022-06-27 Orders Rodger 1.2.840.1 [id number] Methodi 00:00:00 00:00:00 Only Mesha [id number] 3.430.2.7 Hospit a .3.636105 l .8 2022-06-26 2022-06-26 [facility], 1.2.840.1 [id number] Methodi 00:00:00 00:00:[id number] 3.430.2.7 Hospit a .3.279279 l .8 2022-06-24 2022-06-24 Orders Layton, 1.2.840.1 [id number] Methodi 00:00:00 00:00:00 Only Tamar [id number] 3.430.2.7 Hospit a .3.033231 l .8 2022-06-17 2022-06-17 Orders Layton, 1.2.840.1 [id number] Methodi 00:00:00 00:00:00 Only Tamar [id number] 3.430.2.7 Hospit a .3.487229 l .8 2022-06-10 2022-06-10 Orders Layton, 1.2.840.1 [id number] Methodi 00:00:00 00:00:00 Only Tamar [id number] 3.430.2.7 Hospit a .3.951822 l .8 2022-06-10 2022-06-10 [facility], 1.2.840.1 [id number] Methodi 00:00:00 00:00:[address] 3.430.2.7 Hospit a .3.731651 l .8 2022-06-03 2022-06-03 Orders Layton, 1.2.840.1 [id number] Methodi 00:00:00 00:00:00 Only Tamar [id number] 3.430.2.7 Hospit a .3.560779 l .8 2022-05-31 2022-05-31 [facility], 1.2.840.1 [id number] Methodi 13:02:32 23:59:00 Encounter Christiano [id number] 3.430.2.7 Hospit a .3.311391 l .8 2022-05-31 2022-05-31 [facility] [id number] [place] 00:00:00 00:00:[address]O [address] 2022-05-30 2022-05-30 Travel 1.2.840.1 1.2.087.674 4393 495835 Methodi 00:00:00 00:00:[address] 3.430.2.7 0.2.7.3.698 Ho spita .3.327400 084.8 l .8 2022-05-27 2022-05-27 Orders Layton, 1.2.840.1 [id number] 034980 3767 Methodi 00:00:00 00:00:00 Only Tamar 25945.1.[address] 3.430.2.7 Hospit a .3.252187 l .8 2022-05-26 2022-05-26 Telephone [place], 1.2.840.1 [id number] 2100 093349 Methodi 00:00:00 00:00:00 Jeanine A [address]10.1.[address] 3.430.2.7 Hospit a .3.569861 l .8 2022-05-26 2022-05-26 Telephone Layton, 1.2.840.1 [id number] 2099 070544 Methodi 00:00:00 00:00:[address] 3.430.2.7 Hospit a .3.785681 l .8 2022-05-20 2022-05-20 Orders Layton 1.2.840.1 [id number] 835588 9884 Methodi 00:00:00 00:00:00 Only Tamar 04265.1.[address] 3.430.2.7 Hospit a .3.337684 l .8 2022-05-18 2022-05-18 [facility], 1.2.840.1 [id number] 2099 710888 Methodi 09:20:00 12:15:38 Visit Christiano 53374.1.[address] 3.430.2.7 Hospit a .3.597027 l .8 2022-05-18 2022-05-18 Travel 1.2.840.1 1.2.035.397 4905 207542 Methodi 00:00:00 00:00:[address] 3.430.2.7 0.2.7.3.698 Ho spita .3.900600 084.8 l .8 2022-05-18 2022-05-18 [facility] 90486 42875 Ancram 00:00:00 00:00:00 CHRISTIANO [address] 2022-05-13 2022-05-13 Bishop Traylor, 1.2.840.1 [id number] 540110 1847 Methodi 00:00:00 00:00:00 Only Tamar 95269.1.[address] 3.430.2.7 Hospit a .3.917714 l .8 2022-05-11 2022-05-11 Travel 1.2.840.1 1.2.090.126 1098 556323 Methodi 00:00:00 00:00:[address] 3.430.2.7 0.2.7.3.698 Ho spita .3.783969 084.8 l .8 2022-05-09 2022-05-09 Refill [facility], 1.2.840.1 [id number] 2099 203783 Methodi 00:00:00 00:00:[address] 3.430.2.7 Hospit a .3.983696 l .8 2022-05-06 2022-05-06 Orders Layton, 1.2.840.1 [id number] 960377 2458 Methodi 00:00:00 00:00:00 Only Tamar 60292.1.[address] 3.430.2.7 Hospit a .3.202338 l .8 2022-04-29 2022-04-29 Orders Layton, 1.2.840.1 205795311 670248 4771 Methodi 00:00:00 00:00:00 Only Tamar 25688.1.[address] 3.430.2.7 Hospit a .3.540572 l .8 2022-04-22 2022-04-22 Orders Layton, 1.2.840.1 [id number] 132314 9493 Methodi 00:00:00 00:00:00 Only Tamar 78557.1.[address] 3.430.2.7 Hospit a .3.165705 l .8 2022-04-20 2022-04-20 Telephone Layton, 1.2.840.1 [id number] 2100 696910 Methodi 00:00:00 00:00:[address] 3.430.2.7 Hospit a .3.919272 l .8 2022-04-15 2022-04-15 Orders Layton, 1.2.840.1 945994100 963063 7087 Methodi 00:00:00 00:00:00 Only Tamar 06565.1.[address] 3.430.2.7 Hospit a .3.606435 l .8 2022-04-08 2022-04-08 Orders Layton, 1.2.840.1 069477549 237146 7297 Methodi 00:00:00 00:00:00 Only Tamar 36258.1.[address] 3.430.2.7 Hospit a .3.820935 l .8 2022-04-04 2022-04-04 Anticoagul 1.2.840.1 478267148 152 7600161 Methodi 10:50:00 11:00:[address] Visit 3.430.2.7 Hospit a .3.039476 l .8 2022-04-04 2022-04-04 Travel 1.2.840.1 1.2.499.447 9349 551049 Methodi 00:00:00 00:00:[address] 3.430.2.7 0.2.7.3.698 Ho spita .3.144523 084.8 l .8 2022-04-04 2022-04-04 Atiya Traylor, 1.2.840.1 [id number] 2099 865988 Methodi 00:00:00 00:00:[address] 3.430.2.7 Hospit a .3.776537 l .8 2022-04-04 2022-04-04 Outpatient [facility] 8539313 641 Ancram 00:00:00 00:00:[address] 2022-04-01 2022-04-01 Orders Layton 1.2.840.1 086843228 440206 5884 Methodi 00:00:00 00:00:00 Only Tamar 45167.1.[address] 3.430.2.7 Hospit a .3.685786 l .8 2022-03-30 2022-03-30 Refill Brittany, 1.2.840.1 [id number] 2099 817574 Methodi 00:00:00 00:00:[address] 3.430.2.7 Hospit a .3.991123 l .8 2022-03-25 2022-03-25 Orders Layton 1.2.840.1 596912287 577003 9569 Methodi 00:00:00 00:00:00 Only Tamar 59207.1.[address] 3.430.2.7 Hospit a .3.939356 l .8 2022-03-18 2022-03-18 Orders Layton 1.2.840.1 142793967 186559 1733 Methodi 00:00:00 00:00:00 Only Tamar 67182.1.[address] 3.430.2.7 Hospit a .3.809461 l .8 2022-03-15 2022-03-15 Refill Brittany, 1.2.840.1 [id number] 2099 370668 Methodi 00:00:00 00:00:[address] 3.430.2.7 Hospit a .3.689416 l .8 2022-03-11 2022-03-11 Bishop Traylor, 1.2.840.1 [id number] 841017 6830 Methodi 00:00:00 00:00:00 Only Tamar 26133.1.[address] 3.430.2.7 Hospit a .3.797528 l .8 2022-03-10 2022-03-10 Gladys Greene, 1.2.840.1 [id number] 2099 938217 Methodi 00:00:00 00:00:[address] 3.430.2.7 Hospit a .3.440088 l .8 2022-03-04 2022-03-04 Bishop Traylor, 1.2.840.1 628500112 088201 6407 Methodi 00:00:00 00:00:00 Only Tamar 13261.1.[address] 3.430.2.7 Hospit a .3.770199 l .8 2022-02-25 2022-02-25 Bishop Traylor, 1.2.840.1 006113713 697002 3641 Methodi 00:00:00 00:00:00 Only Tamar 31396.1.[address] 3.430.2.7 Hospit a .3.195894 l .8 2022-02-22 2022-02-22 Atiya Traylor 1.2.840.1 445570024 2099 543887 Methodi 00:00:00 00:00:[address] 3.430.2.7 Hospit a .3.029237 l .8 2022-02-18 2022-02-18 Bishop Traylor, 1.2.840.1 825557991 322383 0095 Methodi 00:00:00 00:00:00 Only Tamar 33382.1.[address] 3.430.2.7 Hospit a .3.167072 l .8 2022-02-11 2022-02-11 Orders Layton, 1.2.840.1 [id number] 562199 0698 Methodi 00:00:00 00:00:00 Only Tamar 14633.1.[address] 3.430.2.7 Hospit a .3.171913 l .8 2022-02-04 2022-02-04 Gladys Guthrie, 1.2.840.1 [id number] 250733 5452 Methodi 00:00:00 00:00:00 Jeanine A [address]573.1.[address] 3.430.2.7 Hospit a .3.792616 l .8 2022-02-04 2022-02-04 Bishop Traylor, 1.2.840.1 312668131 505280 2203 Methodi 00:00:00 00:00:00 Only Tamar 33272.1.[address] 3.430.2.7 Hospit a .3.927089 l .8 2022-01-28 2022-01-28 Orders Layton, 1.2.840.1 846934026 600813 9704 Methodi 00:00:00 00:00:00 Only Tamar 48454.1.[address] 3.430.2.7 Hospit a .3.126371 l .8 2022-01-21 2022-01-21 Orders Layton, 1.2.840.1 792107430 683160 9339 Methodi 00:00:00 00:00:00 Only Tamar 39179.1.[address] 3.430.2.7 Hospit a .3.124549 l .8 2022-01-12 2022-01-12 Office Brittany, 1.2.840.1 [id number] 2100 832553 Methodi 13:40:00 14:00:00 Visit Christiano 96974.1.[address] 3.430.2.7 Hospit a .3.236150 l .8 2022-01-12 2022-01-12 Bishop Traylor, 1.2.840.1 329491242 301187 4492 Methodi 00:00:00 00:00:00 Only Tamar 66375.1.[address] 3.430.2.7 Hospit a .3.612053 l .8 2022-01-12 2022-01-12 Travel 1.2.840.1 1.2.761.993 9349 509135 Methodi 00:00:00 00:00:[address] 3.430.2.7 0.2.7.3.698 Ho spita .3.698853 084.8 l .8 2022-01-12 2022-01-12 Outpatient [facility], [facility] 88850 39829 Ancram 00:00:00 00:00:00 CHRISTIANO [address] 2022-01-02 2022-01-02 Refill [facility], 1.2.840.1 [id number] 2100 818006 Methodi 00:00:00 00:00:[address] 3.430.2.7 Hospit a .3.403816 l .8 2021-12-22 2021-12-22 Refill imaraj, 1.2.840.1 347106162 2100 046096 Methodi 00:00:00 00:00:[address] 3.430.2.7 Hospit a .3.855271 l .8 2021-11-29 2021-11-29 Refill [facility], 1.2.840.1 [id number] 2099 804448 Methodi 00:00:00 00:00:[address] 3.430.2.7 Hospit a .3.469480 l .8 2021-11-09 2021-11-09 Refill imaraj, 1.2.840.1 [id number] 2099 181232 Methodi 00:00:00 00:00:[address] 3.430.2.7 Hospit a .3.417833 l .8 2021-10-27 2021-10-27 Orders Bhimaraj, 1.2.840.1 [id number] 2099 372444 Methodi 00:00:00 00:00:00 Only Christiano 99006.1.[address] 3.430.2.7 Hospit a .3.396408 l .8 2021-10-22 2021-10-22 Orders Rodger, 1.2.840.1 [id number] 2099 649234 Methodi 00:00:00 00:00:00 Only Mesha 42632.1.[address] 3.430.2.7 Hospit a .3.034885 l .8 2021-10-05 2021-10-05 Atiya Rodger, 1.2.840.1 [id number] 23741924 Methodi 00:00:00 00:00:[address] 3.430.2.7 Hospit a .3.578246 l .8 2021-09-29 2021-09-29 Travel 1.2.840.1 1.2.849.720 7341 535301 Methodi 00:00:00 00:00:[address] 3.430.2.7 0.2.7.3.698 Ho spita .3.495117 084.8 l .8 2021-09-29 2021-09-29 [facility] 46985 10473 Ancram 00:00:00 00:00:00 CHRISTIANO [address] 2021-09-24 2021-09-24 Bishop Traylor, 1.2.840.1 [id number] 496450 1495 Methodi 00:00:00 00:00:00 Only Tamar 84473.1.[address] 3.430.2.7 Hospit a .3.892215 l .8 2021-09-22 2021-09-22 Office jess, 1.2.840.1 [id number] 2099 901863 Methodi 10:40:00 11:33:28 Visit Christiano 36040.1.[address] 3.430.2.7 Hospit a .3.642807 l .8 2021-09-22 2021-09-22 Travel 1.2.840.1 1.2.745.059 0201 177845 Methodi 00:00:00 00:00:[address] 3.430.2.7 0.2.7.3.698 Ho spita .3.369972 084.8 l .8 2021-09-22 2021-09-22 [facility], [facility] Ancram 00:00:00 00:00:00 CHRISTIANO [address] 2021-09-10 2021-09-10 Bishop Traylor, 1.2.840.1 [id number] 323990 0400 Methodi 00:00:00 00:00:00 Only Tamar 09656.1.[address] 3.430.2.7 Hospit a .3.357439 l .8 2021-09-09 2021-09-09 Refill Brittany 1.2.840.1 [id number] 2099 147683 Methodi 00:00:00 00:00:[address] 3.430.2.7 Hospit a .3.591215 l .8 2021-08-27 2021-08-27 Bishop Traylor 1.2.840.1 724066901 912014 1293 Methodi 00:00:00 00:00:00 Only Tamar 48476.1.[address] 3.430.2.7 Hospit a .3.603177 l .8 2021-08-13 2021-08-13 Bishop Traylor 1.2.840.1 865278099 556196 6616 Methodi 00:00:00 00:00:00 Only Tamar 34586.1.[address] 3.430.2.7 Hospit a .3.298355 l .8 2021-08-13 2021-08-13 Bishop Traylor 1.2.840.1 578308035 914245 8081 Methodi 00:00:00 00:00:00 Only Tamar 99922.1.[address] 3.430.2.7 Hospit a .3.369854 l .8 2021-08-12 2021-08-12 Orders Rodger, 1.2.840.1 [id number] 2099 635657 Methodi 00:00:00 00:00:00 Only Mesha 40355.1.[address] 3.430.2.7 Hospit a .3.296150 l .8 2021-08-12 2021-08-12 Orders Rodger, 1.2.840.1 [id number] 2099 625773 Methodi 00:00:00 00:00:00 Only Mesha 31001.1.[address] 3.430.2.7 Hospit a .3.559855 l .8 2021-07-30 2021-07-30 Orders Layton, 1.2.840.1 [id number] 143919 1601 Methodi 00:00:00 00:00:00 Only Tamar 92872.1.[address] 3.430.2.7 Hospit a .3.133472 l .8 2021-07-30 2021-07-30 Orders Layton, 1.2.840.1 172505951 081407 6098 Methodi 00:00:00 00:00:00 Only Tamar 93331.1.[address] 3.430.2.7 Hospit a .3.428271 l .8 2021-07-16 2021-07-16 Orders Layton, 1.2.840.1 542397548 511929 7357 Methodi 00:00:00 00:00:00 Only Tamar 98808.1.[address] 3.430.2.7 Hospit a .3.916208 l .8 2021-07-16 2021-07-16 Orders Layton, 1.2.840.1 250580901 091112 1000 Methodi 00:00:00 00:00:00 Only Tamar 95931.1.[address] 3.430.2.7 Hospit a .3.320763 l .8 2021-07-11 2021-07-11 Refkeena Soto, 1.2.840.1 [id number] 2099 972480 Methodi 00:00:00 00:00:[address] 3.430.2.7 Hospit a .3.661502 l .8 2021-07-11 2021-07-11 Refill Brittany, 1.2.840.1 593298317 2100 613092 Methodi 00:00:00 00:00:[address] 3.430.2.7 Hospit a .3.882685 l .8 2021-07-08 2021-07-08 Telephone Rodgre, 1.2.840.1 [id number] 21 [id number] Methodi 00:00:00 00:00:[address] 3.430.2.7 Hospit a .3.059057 l .8 2021-07-05 2021-07-05 [facility]patient [facility] 239580- 202 Devoted 08:00:00 08:00:00 [address] [employer] 2021-07-02 2021-07-02 Orders Layton, 1.2.840.1 [id number] 133504 5523 Methodi 00:00:00 00:00:00 Only Tamar 31360.1.[address] 3.430.2.7 Hospit a .3.751780 l .8 2021-06-18 2021-06-18 Orders Layton, 1.2.840.1 [id number] 381075 2649 Methodi 00:00:00 00:00:00 Only Tamar 91002.1.[address] 3.430.2.7 Hospit a .3.496502 l .8 2021-06-04 2021-06-04 Orders Layton, 1.2.840.1 901873623 142258 9746 Methodi 00:00:00 00:00:00 Only Tamar 35850.1.[address] 3.430.2.7 Hospit a .3.272660 l .8 2021-05-31 2021-05-31 Telephone Brittany, 1.2.840.1 [id number] 21 [id number] Methodi 00:00:00 00:00:[address] 3.430.2.7 Hospit a .3.705851 l .8 2021-05-21 2021-05-21 Orders Layton, 1.2.840.1 [id number] 069418 7686 Methodi 00:00:00 00:00:00 Only Tamar 10980.1.[address] 3.430.2.7 Hospit a .3.688102 l .8 2021-05-12 2021-05-12 Orders Rodger, 1.2.840.1 [id number] 2099 911789 Methodi 00:00:00 00:00:00 Only Mesha 65357.1.[address] 3.430.2.7 Hospit a .3.955281 l .8 2021-05-12 2021-05-12 Refill Brittany, 1.2.840.1 542113975 2099 814193 Methodi 00:00:00 00:00:[address] 3.430.2.7 Hospit a .3.082386 l .8 2021-05-07 2021-05-07 Telephone Layton, 1.2.840.1 [id number] 2099 273185 Methodi 00:00:00 00:00:[address] 3.430.2.7 Hospit a .3.486049 l .8 2021-05-07 2021-05-07 Orders Layton, 1.2.840.1 [id number] 245376 1283 Methodi 00:00:00 00:00:00 Only Tamar 98683.1.[address] 3.430.2.7 Hospit a .3.172047 l .8 2021-04-28 2021-04-28 Office Brittany, 1.2.840.1 [id number] 2099 846594 Methodi 15:01:18 16:02:44 Visit Christiano 56073.1.[address] 3.430.2.7 Hospit a .3.431277 l .8 2021-04-28 2021-04-28 Travel 1.2.840.1 1.2.562.466 4355 301030 Methodi 00:00:00 00:00:[address] 3.430.2.7 0.2.7.3.698 Ho spita .3.245679 084.8 l .8 2021-04-23 2021-04-23 Bishop Traylor, 1.2.840.1 291304921 224075 3996 Methodi 00:00:00 00:00:00 Only Tamar 13361.1.[address] 3.430.2.7 Hospit a .3.732436 l .8 2021-04-12 2021-04-12 Refill Brittany, 1.2.840.1 [id number] 2099 101897 Methodi 00:00:00 00:00:[address] 3.430.2.7 Hospit a .3.492228 l .8 2021-03-30 2021-03-30 Bishop Traylor, 1.2.840.1 745889919 382905 7293 Methodi 00:00:00 00:00:00 Only Tamar 75932.1.[address] 3.430.2.7 Hospit a .3.838652 l .8 2021-03-30 2021-03-30 Atiya Traylor, 1.2.840.1 [id number] 2099 095856 Methodi 00:00:00 00:00:[address] 3.430.2.7 Hospit a .3.624352 l .8 2021-03-08 2021-03-08 Travel 1.2.840.1 1.2.442.946 5236 408124 Methodi 00:00:00 00:00:[address] 3.430.2.7 0.2.7.3.698 Ho spita .3.648639 084.8 l .8 2021-02-24 2021-02-24 Bishop Soares, 1.2.840.1 [id number] 2099 909834 Methodi 00:00:00 00:00:00 Only Mesha 24923.1.[address] 3.430.2.7 Hospit a .3.196703 l .8 2021-02-17 2021-02-17 Refill Santiagorhoda, 1.2.840.1 [id number] 2099 474145 Methodi 00:00:00 00:00:[address] 3.430.2.7 Hospit a .3.695865 l .8 2021-02-15 2021-02-15 Anticoagul 1.2.840.1 786248714 106 8743162 Methodi 11:26:57 11:36:[address] Visit 3.430.2.7 Hospit a .3.413090 l .8 2021-02-15 2021-02-15 Travel 1.2.840.1 1.2.269.717 0151 253752 Methodi 00:00:00 00:00:[address] 3.430.2.7 0.2.7.3.698 Ho spita .3.099112 084.8 l .8 2021-02-04 2021-02-04 Anticoagul 1.2.840.1 728833319 054 1402976 Methodi 11:25:38 11:45:[address] Visit 3.430.2.7 Hospit a .3.368158 l .8 2021-02-04 2021-02-04 Bishop Traylor, 1.2.840.1 [id number] 895128 9452 Methodi 00:00:00 00:00:00 Only Tamar 27804.1.[address] 3.430.2.7 Hospit a .3.631603 l .8 2021-02-04 2021-02-04 Travel 1.2.840.1 1.2.799.685 2525 589448 Methodi 00:00:00 00:00:[address] 3.430.2.7 0.2.7.3.698 Ho spita .3.740678 084.8 l .8 2021-01-25 2021-01-25 Refill Floresmamadouwali, 1.2.840.1 249672662 2100 928922 Methodi 00:00:00 00:00:[address] 3.430.2.7 Hospit a .3.573547 l .8 2021-01-04 2021-01-04 Documentat Delos 1.2.840.1 [id number] 923 4232497 Methodi 00:00:00 00:00:00 ion Drew, 85920.1.[address] Shari F. 3.430.2.7 Hosp lani .3.493680 l .8 2020-12-03 2020-12-03 Orders Rodger, 1.2.840.1 [id number] 2099 311793 Methodi 00:00:00 00:00:00 Only Mesha 64446.1.[address] 3.430.2.7 Hospit a .3.611945 l .8 2020-12-02 2020-12-02 Refill Floresmamadouwali, 1.2.840.1 [id number] 2099 103267 Methodi 00:00:00 00:00:[address] 3.430.2.7 Hospit a .3.276438 l .8 2020-03-05 2020-03-05 Letter OSWALDO Donaldson 1.2.840.114 [id number] 27 [facility] 00:00:00 00:00:00 (Out) Renée RICHTER 350.1.13.[address] [facility] 4.2.7.2.686 Octavio as [id number] [facility] [address] Branch 2020-03-05 2020-03-05 Letter OSWALDO Donaldson 1.2.840.114 [id number] 27 00:00:00 00:00:00 (Out) Renée RICHTER 350.1.13.10 [facility] 4.2.7.2.686 [id number] 019 2020-03-04 2020-03-04 Laboratory Only, Adc Test [facility] 1.2.840. 114 [id number] [facility] 11:49:51 12:04:51 Only Jena Marroquin 350.1.13.10 ity [facility] 4.2.7.2.686 [facility] [id number] [facility] [address] 2020-03-04 2020-03-04 Laboratory Only, [facility] 1.2.840.114 7 [id number] 11:49:51 12:04:51 Only Test [place] 350.1.13.10 [place] 4.2.7.2.686 [place] [id number] [facility] 2020-03-04 2020-03-04 Outpatient R JENA MARROQUIN [facility] 629 [id number] Univers 10:45:00 10:45:00 ity of [facility] 2020-03-04 2020-03-04 Orders Doctor OSWALDO 1.2.840.114 [id number] Univers 00:00:00 00:00:00 Only Unassigned, NEELAM 350.1.13.10 ity of [place] [facility] 4.2.7.2.686 [facility] [phone] [address] 2020-03-04 2020-03-04 Orders Doctor OSWALDO 1.2.840.114 806562 85 00:00:00 00:00:00 Only Unassigned, NEELAM 350.1.13.10 [place] [facility] 4.2.7.2.686 [id number] 009 Results Test Description Test Time Test Comments Results Result Comments Source POC panel 2022-05-31 19:53:01 Test Item Value Reference Range Interpretation Comme [facility] POC creatinine (test code = 1.2 mg/dl 0.7-1.2 Oyster Grader Name: Keshawn Mireles 37901-5) ID: [id number] POC hematocrit (test code = 43 % 41-51 4544-3) [id number] 19:53:00 Test Item Value Reference Range Interpretation Comments Estimated GFR (test mL/min/1.73 m2 [facility] Units code = 30468-0) Interpretati onG1 >=90 Normal or highG 2 60-89 Mildly decrease dG3a 45-59 Mildly to moder ately tevmkvivqD9f 3 0-44 Moderately to s everely decreasedG4 15- 29 Severely decreasedG5 <15 Kidney failureThe eGFR was calculated usin g the Chronic Kidney Disease Epidemiology Co llaboration (CKD-EPI) equat ion. Interpretation is based on recommendations of the National Kidney Foundation-Kidn ey Disease Outcomes Qualit y Initiative (NKF-KDOQI) pub lished in 2014. [facility] [id number] 06:16:00 Test Item Value Reference Range Interpretation Comments Glucose (test code = 357 mg/dL 65-99 H Fastin g 2345-7) reference interval For someone without known diabetes, a glucosevalue >1 25 mg/dL indicates that they may havediabetes an d this should be confirmed with afollow-up test . BUN (test code = 25 mg/dL 7-25 3094-0) Creatinine (test 1.20 mg/dL 0.70-1.30 code = 2160-0) eGFR (test code = See_Comment The eGFR i s based 8257) on the CKD-EPI 2020 equation. To calculate the n ew eGFR from a previous Creatinine or Cystatin Cresul t, go to https://www.kid ne y.org/professio na ls/kdoqi/gfr%5F ca lculator [Automated message] The system which generated this result transmitted reference range : > OR = 60 mL/min/1.73m2. The reference range was not used to interpr et this result as normal/abnormal . BUN/creatinine ratio NOT APPLICABLE See_Comment [Aut omated (test code = 3097-3) message ] The system which generated this result transmitted reference range : 6 - 22 (calc). The reference range was not used to interpr et this result as normal/abnormal . Sodium (test code = 136 mmol/L 873-242 7183-2) Potassium (test code 4.1 mmol/L 3.5-5.3 = 2823-3) Chloride (test code 102 mmol/L 98-110 = 2075-0) CO2 (test code = 26 mmol/L 20-32 2027-) Calcium (test code = 9.4 mg/dL 8.6-10.3 82679-0) Protein (test code = 7.1 g/dL 6.1-8.1 2885-2) Albumin, S (test 3.8 g/dL 3.6-5.1 code = 1751-7) Globulin, total See_Comment [Automated (test code = message] The 90830-3) system which generated this result transmitted reference range : 1.9 - 3.7 g/dL (calc). The reference range was not used to interpret this result as normal/abnormal . Albumin/globulin See_Comment [Automated ratio (test code = message] The 1759-0) system which generated this result transmitted reference range : 1.0 - 2.5 (calc ). The reference range was not used to interpr et this result as normal/abnormal . Total bilirubin 0.4 mg/dL 0.2-1.2 (test code = 1975-2) Alkaline phosphatase 87 U/L 35-144 (test code = 6768-6) AST (test code = 18 U/L 10-35 0-8) ALT (test code = 18 U/L 9-46 2-6) SHIVAM (test code = FASTING:YES SHIVAM) FASTING: YES RAC (test code = Performing RAC) Organization Information: Site ID: RGA Name: [facility] Address: [address] [place] [phone] Director: Tate Rodriguez Lab Interpretation Abnormal (test code = 20399-9) [id number] 06:16:00 Test Item Value Reference Interpretation Comments Range Cholesterol, total 188 mg/dL See_Comment [Automat ed (test code = 2093-3) message ] The system which generated this result transmitted reference range : <=200. The reference range was not used to interpret this result as normal/abnormal . HDL cholesterol 43 mg/dL See_Comment [Automated (test code = 2085-9) message ] The system which generated this result transmitted reference range : > OR = 40. The reference range was not used to interpret this result as normal/abnormal . Triglycerides (test 301 mg/dL See_Comment H If a no n-fasting code = 2571-8) specimen was collected, considerrepeat triglyceride testing on a fasting specime nif clinically indicated. Kanu pacheco al. J. of Cl in. Lipidol. 2015;9:129-169. [Automated mess age] The system whic h generated this result transmit maxine reference range : <=150. The reference range was not used to interpret this result as normal/abnormal . LDL cholesterol mg/dL (calc) H Reference ra nge: calculated (test <100 Desira ble code = 11968-6) range <100 m g/dL for primary prevention; <70 mg/dL for patie nts with CHD or diabetic patien ts with > or = 2 C HD risk factors. L DL-C is now calculat ed using the Danish-Christian calculation, wh ich is a validated novel method providing rosemary r accuracy than t he Friedewald equa tion in the estimati on of LDL-C. Zena n SS et al. YOSVANY. 2013;310(19): 0817-5695 (http://educati on.SaaSMAX .Pinkdingo /faq/XJG413) Cholesterol/HDL See_Comment [Automated ratio (test code = message] The system 9830-1) which generated this result transmitted reference range : <5.0 (calc). Th e reference range was not used to interpret this result as normal/abnormal . Non-HDL cholesterol See_Comment H For shailesh ents with (test code = diabetes plus 1 63133-1) major ASCVD ris k factor, treatin g to a non-HDL-C goa l of <100 mg/dL (LDL -C of <70 mg/dL) i s considered a therapeutic opt ion. [Automated mess age] The system whic h generated this result transmit maxine reference range : <130 mg/dL (melissa c). The reference r keenan was not used to interpret this result as normal/abnormal . SHIVAM (test code = FASTING:YES SHIVAM) FASTING: YES RAC (test code = Performing RAC) Organization Information: Site ID: RGA Name: [facility] Address: [address] [place] [phone] Director: Tate Rodriguez Lab Interpretation Abnormal (test code = 82232-5) nicole Santos2022-11-10 06:16:00 Test Item Value Reference Range Interpretation Comments T4, free (test code 1.4 ng/dL 0.8-1.8 = 3024-7) SHIVAM (test code = FASTING:YES FASTING: YES SHIVAM) RAC (test code = Performing Organization RAC) Information: Site ID: A Name: [facility] Lab Address: [address] [place] [phone] [facility] [id number] 06:16:00 Test Item Value Reference Range Interpretation Comments TSH (test See_Comment [Automated mes freedom] code = The system ic h 3016-3) generated this result transmit maxine reference range : 0.40 - 4.50 mIU /L. The reference r keenan was not used to interpret this result as normal/abnormal . SHIVAM (test FASTING:YES FASTING: code = SHIVAM) YES RAC (test Performing code = RAC) Organization Information: Site ID: [facility] Name: [facility] Lab Address: [address] [place] [address] [facility]10 06:16:00 Test Item Value Reference Range Interpretation Comments T3 (test code = 105 ng/dL 76-181 3053-6) SHIVAM (test code = FASTING:YES FASTING: YES SHIVAM) RAC (test code = Performing Organization RAC) Information: Site ID: JON Name: [facility] Lab Address: [address] [place], [place] [id number] Director[facility] with [facility] and [id number] 06:16:00 Test Item Value Reference Range Interpretation Comments WBC (test code = See_Comment [Automated 0590-2) message] The system which generated this result transmitted reference range : 3.8 - 10.8 Thousand/uL. Th e reference range was not used to interpret this result as normal/abnormal . RBC (test code = See_Comment [Automated 249-8) message] The system which generated this result transmitted reference range : 4.20 - 5.80 Million/uL. The reference range was not used to interpret this result as normal/abnormal . HGB (test code = 13.2 g/dL 13.2-17.1 718-7) HCT (test code = 39.4 % 38.5-50.0 4544-3) MCV (test code = 82.6 fL 80.0-100.0 787-2) MCH (test code = 27.7 pg 27.0-33.0 785-6) MCHC (test code = 33.5 g/dL 32.0-36.0 786-4) RDW (test code = 13.4 % 11.0-15.0 788-0) Platelet count See_Comment [Automated (test code = message] The 777-3) system which generated this result transmitted reference range : 140 - 400 Thousand/uL. Th e reference range was not used to interpret this result as normal/abnormal . MPV (test code = 10.4 fL 7.5-12.5 776-5) Neutrophils, See_Comment [Automated absolute (test message] The code = 751-8) system which generated this result transmitted reference range : 1,500 - 7,800 cells/uL. The reference range was not used to interpret this result as normal/abnormal . Lymphocytes, See_Comment [Automated absolute (test message] The code = 731-0) system which generated this result transmitted reference range : 850 - 3,900 cells/uL. The reference range was not used to interpret this result as normal/abnormal . Monocytes, See_Comment [Automated absolute (test message] The code = 742-7) system which generated this result transmitted reference range : 200 - 950 cells/uL. The reference range was not used to interpret this result as normal/abnormal . Eosinophils, See_Comment [Automated absolute (test message] The code = 711-2) system which generated this result transmitted reference range : 15 - 500 cells/uL. The reference range was not used to interpret this result as normal/abnormal . Basophils, See_Comment [Automated absolute (test message] The code = 704-7) system which generated this result transmitted reference range : 0 - 200 cells/u L. The reference range was not used to interpr et this result as normal/abnormal . Neutrophils (test 62.2 % code = 770-8) Lymphocytes (test 31.6 % code = 736-9) Monocytes (test 4.5 % code = 5905-5) Eosinophils (test 1.3 % code = 713-8) Basophils + RC 0.4 % (test code = 706-2) SHIVAM (test code = FASTING:YES SHIVAM) FASTING: YES RAC (test code = Performing RAC) Organization Information: Site ID: RGA Name: [facility] Address: [address] [place] [id number] Director: Tate Rodriguez [facility]th[facility] time with [id number] 05:19:00 Test Item Value Reference Range Interpretation Comments INR (test code = H Reference R keenan 6301-6) 0.9-1.1Moderate -i ntensity Warfar in Therapy 2.0-3.0Higher-i nt ensity Warfarin Therapy 3.0-4.0 Prothrombin time See_Comment H For additio nal (test code = 5902-2) informa tion, please refer tohttp://educat io n.streamOnce/faq/FAQ10 4( This link is being provided for informational/e du cational purpos es only.) [Automat ed message] The system which generated this result transmitted reference range : 9.0 - 11.5 sec. The reference range was not used to interpr et this result as normal/abnormal . RAC (test code = Performing RAC) Organization Information: Site ID: A Name: [facility] Address: [address] [place] [phone] Director: Tate Rodriguez Lab Interpretation Abnormal (test code = 07157-1) [facility] 12 [id number] 07:55:19 Test Item Value Reference Range Interpretation Comments Ventricular rate (test code = 253) Atrial rate (test code = 255) VT interval (test code = 266) QRSD interval (test code = 260) QT interval (test code = 264) QTC interval (test code = 265) P axis 1 (test code = 267) QRS axis 1 (test code = 268) T wave axis (test code = 270) EKG impression (test Sinus rhythm with code = 273) occasional premature ventricular complexes-Possible Left atrial enlargement-Left ventricular hypertrophy with repolarization abnormality-Electronical ly Signed By Donna Talbot ([id number]) on 05/19/2022 2:55:13 AM [facility] [id number] 16:09:59 Test Item Value Reference Range Interpretation Comments POC prothrombin time (test code = 4159522) POC INR (test code = 1132922) [facility] CenterHem[facility] [id number] 11:38:00 Test Item Value Reference Interpretation Comments Range Hemoglobin A1C (test See_Comment H For rl eone without code = 4548-4) known diabete s, a hemoglobin A1cv alue of 6.5% or grea ter indicates that they may have diabet es and this should be confirmed with a follow-up test. For someone with kn own diabetes, a luis ue <7% indicates t hat their diabetes is well controlled and a value greater than or equal t o 7% indicates suboptimal cont rol. A1c targets landen uld be individualiz ed based on durati on of diabetes, ag e, comorbid conditions, and other considerations. Currently, no consensus exist s regarding use ofhemoglobin A1 c for diagnosis o f diabetes for children. [Automated mess age] The system whic [employer] generated this result transmit maxine reference range : <5.7 % of total Hgb. The refere nce range was not u sed to interpret th is result as normal/abnormal . SHIVAM (test code = FASTING:YES SHIVAM) FASTING: YES RAC (test code = Performing RAC) Organization Information: Site ID: A Name: [facility] Address: [address] [place], [place] [id number] Director: Tate Rodriguez Lab Interpretation Abnormal (test code = 14163-7) [facility] [id number] 09:04:00 Test Item Value Reference Range Interpretation Comments INR (test code = H Reference R keenan 6301-6) 0.9-1.1Moderate -i ntensity Warfar in Therapy 2.0-3.0Higher-i nt ensity Warfarin Therapy 3.0-4.0 Prothrombin time See_Comment H For additio nal (test code = 5902-2) informa tion, please refer tohttp://educat io n.streamOnce/faq/FAQ10 4( This link is being provided for informational/e du cational purpos es only.) [Automat ed message] The system which generated this result transmitted reference range : 9.0 - 11.5 sec. The reference range was not used to interpr et this result as normal/abnormal . RAC (test code = Performing RAC) Organization Information: Site ID: A Name: [facility] Address: [address] [place] [address] Director: Tate Rodriguez Lab Interpretation Abnormal (test code = 43547-2) [facility] metabolic [id number] 06:54:00 Test Item Value Reference Interpretation Comments Range Glucose (test code 266 mg/dL 65-99 H Fasting reference = 2345-7) interval For so agustín without known diabetes, a glucosevalue >1 25 mg/dL indicates that they may havediabetes an d this should be confirmed with afollow-up test . BUN (test code = 22 mg/dL 7-25 3094-0) Creatinine (test 1.39 mg/dL 0.70-1.33 H For patient s >49 code = 2160-0) years of age, the reference limit for Creatinine is approximately 1 3% higher for peopleidentifie d as -Oralia n. EGFR Non-Afr. See_Comment L [Automated me ssage] Turkish (test code The syst em which = 2775) generated this result transmit maxine reference range : > OR = 60 mL/min/1.73m2. The reference range was not used to interpret this result as normal/abnormal . EGFR See_Comment [Automated mes freedom] Turkish (test code The syst em which = 2774) generated this result transmit maxine reference range : > OR = 60 mL/min/1.73m2. The reference range was not used to interpret this result as normal/abnormal . BUN/creatinine See_Comment [Automated m essage] ratio (test code = The syste m which 3097-3) generated this result transmit maxine reference range : 6 - 22 (calc). The reference range was not used to interpret this result as normal/abnormal . Sodium (test code = 139 mmol/L 413-594 2795-2) Potassium (test 4.3 mmol/L 3.5-5.3 code = 2823-3) Chloride (test code 99 mmol/L 98-110 = 2075-0) CO2 (test code = 33 mmol/L 20-32 H 2028-03) Calcium (test code 9.1 mg/dL 8.6-10.3 = 02398-4) RAC (test code = Performing RAC) Organization Information: Site ID: RGA [facility] Address: [address] [place] [address] Director: Tate Rodriguez Lab Interpretation Abnormal (test code = 04580-4) [facility] 12 [id number] 09:04:28 Test Item Value Reference Range Interpretation Comments Ventricular rate (test code = 253) Atrial rate (test code = 255) VT interval (test code = 266) QRSD interval (test code = 260) QT interval (test code = 264) QTC interval (test code = 265) P axis 1 (test code = 267) QRS axis 1 (test code = 268) T wave axis (test code = 270) EKG impression (test Sinus rhythm with code = 273) occasional premature ventricular complexes-Biatrial enlargement-ST & T wave abnormality, consider inferior ischemia-ST & T wave abnormality, consider anterolateral ischemia- [facility] [id number] 16:44:00 Test Item Value Reference Range Interpretation Comments POC prothrombin time (test code = 8382267) POC INR (test code = 9400944) [facility]
[2022-07-11 00:32] LABS: Absolute Lymphocytes (CBC) 1.5 K/uL (0.7-4.9); Hematocrit 41.2 % (39.6-49.0); Lymphocytes % 17.8 % (15.3-44.8); MCV 82.4 fL (80-100); MPV 9.5 fL (7.6-11.3)
[2022-07-11 00:38] LABS: Protime INR 3.43
[2022-07-11] MEDS ORDERED: FENTANYL CITR 100 MCG/2 ML ONE (00:51)
[2022-07-11 01:04] LABS: Magnesium 2.4 mg/dL (1.6-2.4); Potassium 3.5 mmol/L (3.5-5.1)
--- NOTE | 2022-07-11 01:08 | EDPHYS ---
Physician Documentation [facility] Name: Cam Huitron Age: 51 yrs Sex: Male : 1970 Arrival Date: 07/10/2022 Time: 22:38 Bed 15 Private MD: ED Physician Yang Plata HPI: 07/10 23:00 This 51 yrs old Black Male presents to ER via Ambulatory with complaints of Puncture cp Wound To Head. 23:00 The patient or guardian reports pain, swelling, tenderness. The complaints affect the cp scalp. Onset: The symptoms/episode began/occurred 4 day(s) ago. Associated signs and symptoms: The patient has no apparent associated signs or symptoms. 23:00 Patient reports removing ingrown hair from scalp 4 days ago and now area is swollen, cp painful and draining pus. Historical: - Allergies: 23:02 No Known Allergies; vc1 - PMHx: 23:02 ADD/ADHD; Anemia; CHF; Diabetes - NIDDM; Gout; Hypertension; Myocardial infarction; vc1 - PSHx: 23:02 defibrillator; vc1 - Immunization history:: Client reports receiving the 2nd dose of the Covid vaccine. - Social history:: Smoking status: Patient denies any tobacco usage or history of. ROS: 23:05 Constitutional: Negative for body aches, chills, fever, poor PO intake. cp 23:05 Eyes: Negative for injury, pain, redness, and discharge. cp 23:05 Cardiovascular: Negative for chest pain, palpitations. 23:05 Respiratory: Negative for cough, shortness of breath, wheezing. 23:05 Abdomen/GI: Negative for abdominal pain, nausea, vomiting, and diarrhea. 23:05 Skin: Positive for abscess, erythema, swelling, of the scalp. 23:05 Neuro: Positive for headache, Negative for altered mental status, dizziness, weakness. 23:05 All other systems are negative. Exam: 23:10 Constitutional: The patient appears in no acute distress, alert, awake, non-toxic, well cp developed, well nourished, uncomfortable. 23:10 Head/face: Noted is swelling, that is moderate, of the scalp, tenderness, that is cp moderate, of the scalp. 23:10 Eyes: Periorbital structures: appear normal, Conjunctiva: normal, no exudate, no injection, Lids and lashes: appear normal, bilaterally. 23:10 ENT: External ear(s): are unremarkable, Nose: is normal, Mouth: Lips: moist, Oral mucosa: pink and intact, moist, Posterior pharynx: Airway: no evidence of obstruction, patent. 23:10 Chest/axilla: Inspection: normal. 23:10 Cardiovascular: Rate: normal, Rhythm: regular. 23:10 Respiratory: the patient does not display signs of respiratory distress, Respirations: normal, no use of accessory muscles, no retractions, labored breathing, is not present, Breath sounds: are clear throughout, no decreased breath sounds, no stridor, no wheezing. 23:10 Abdomen/GI: Inspection: abdomen appears normal, Palpation: abdomen is soft and non-tender, in all quadrants. 23:10 Skin: abscess, that is moderate sized, of the scalp, with drainage, that is purulent, with fluctuance, that is moderate, with surrounding cellulitis, that is moderate. 23:10 Neuro: Orientation: to person, place \T\ time. Mentation: is normal, Motor: moves all fours, strength is normal, Sensation: is normal. 07/11 02:25 ECG was reviewed by the Attending Physician. Vital Signs: 07/10 22:56 BP 155 / 103; Pulse 88; Resp 18; Temp 98.2; Pulse Ox 99% ; Weight 97.52 kg; Height 5 vc1 ft. 7 in. (170.18 cm); Pain 7/10; 23:00 BP 183 / 91; Pulse 89; Resp 19; Pulse Ox 100% ; vc1 07/11 00:00 BP 131 / 68; Pulse 88; Resp 18; Pulse Ox 96% on R/A; vc1 02:00 BP 150 / 87; Pulse 85; Resp 18; Pulse Ox 98% on R/A; vc1 07/10 22:56 Body Mass Index 33.67 (97.52 kg, 170.18 cm) vc1 Procedures: 01:45 I \T\ D: Incision and drainage was performed for an abscess of the scalp Prepped with Betadine, Anesthetized with 5 ccs of mixture 1% lidocaine w/o epi and 0.5% marcaine. Incised with #11 blade. Drained moderate amount purulent fluid. bloody fluid. Packed with iodoform gauze, Dressing: sterile 4x4 gauze, the patient tolerated the procedure well. MDM: 07/10 22:51 Patient medically screened. 07/11 00:00 Differential diagnosis: sepsis, abscess, cellulitis. 01:50 Data reviewed: vital signs, nurses notes, lab test result(s). 01:50 Counseling: I had a detailed discussion with the patient and/or guardian regarding: the cp historical points, exam findings, and any diagnostic results supporting the discharge/admit diagnosis, lab results, the need for outpatient follow up, a general surgeon, to return to the emergency department if symptoms worsen or persist or if there are any questions or concerns that arise at home. Response to treatment: the patient's symptoms have mildly improved after treatment, and as a result, I will discharge patient. ED course: VSS. Labs reviewed. Discussed patient with attending and consulted hospitalist. Will treat outpatient with oral antibiotics and refer to general surgery for f/u. Patient instructed to return to ED worsening symptoms. 07/10 23:07 Order name: Basic Metabolic Panel; Complete Time: 01:05 07/11 01:06 Interpretation: Normal except: GLUC 464; CRE 1.50; GFR 56; Reviewed. 07/10 23:07 Order name: CBC with Diff; Complete Time: 00:39 07/11 00:39 Interpretation: Normal except: HGB 13.4; MCH 26.8. 07/10 23:07 Order name: Magnesium; Complete Time: 01:05 07/10 23:07 Order name: PT-INR; Complete Time: 00:39 07/10 23:07 Order name: Wound Culture 07/10 23:07 Order name: Lactate w/ 2H reflex if indic.; Complete Time: 00:50 07/11 00:50 Interpretation: Abnormal: LAC 1.3. 07/10 23:07 Order name: Procalcitonin; Complete Time: 01:07 07/11 01:07 Interpretation: Reviewed. 07/10 23:07 Order name: Blood Culture Adult (2) 07/11 01:04 Order name: SARS RAPID la1 07/10 23:07 Order name: EKG; Complete Time: 23:08 07/10 23:07 Order name: Cardiac monitoring; Complete Time: 02:52 07/10 23:07 Order name: EKG - Nurse/Tech; Complete Time: 02:52 cp 07/10 23:07 Order name: IV Saline Lock; Complete Time: : cp 07/10 23:07 Order name: Labs collected and sent; Complete Time: :57 cp 07/10 23:07 Order name: O2 Per Protocol; Complete Time: : cp 07/10 23:07 Order name: O2 Sat Monitoring; Complete Time: : cp EC: Rate is 83 beats/min. Rhythm is regular. PA interval is normal. QRS interval is cp prolonged at 108 msec. QT interval is prolonged at 392 msec. T waves are Inverted in leads I, II, aVL, V4, V5, V6. Interpreted by me. Reviewed by me. Administered Medications: 01:50 CANCELLED (Physician Discretion): vancoMYCIN 1 grams IVPB once over 2 hrs cp 01:50 CANCELLED (Physician Discretion): Cefepime 1 grams IVPB at 200 ml/hr once over 30 mins; cp (mix in NS 100 mL) 02:12 Drug: fentaNYL (PF) 25 mcg Route: IVP; Site: right antecubital; jb4 02:52 Follow up: Response: No adverse reaction; Marked relief of symptoms; Pain is decreased jb4 02:12 Drug: Clindamycin 900 mg Route: IVPB; Infused Over: 30 mins; Site: right antecubital; jb4 02:52 Follow up: Response: No adverse reaction; IV Status: Completed infusion; IV Intake: 96txdw4 02:12 Drug: Bactrim (trimethoprim-sulfamethoxazole) (160 mg-800 mg (DS) 2 tablet Route: PO; jb4 02:52 Follow up: Response: No adverse reaction jb4 Disposition: 07:13 Co-signature as Attending Physician, Yang Plata MD I agree with the assessment and rt plan of care. Disposition Summary: 07/11/22 01:52 Discharge Ordered Location: Home(07/11/22 01:52) cp Problem: new(07/11/22:52) cp Symptoms: have improved(07/11/22 01:52) cp Condition: Stable(07/11/22:52) cp Diagnosis - Cutaneous abscess of head [any part, except face](07/11/22:52) cp - Diabetes mellitus due to underlying condition with hyperglycemia cp Followup: cp - With: Lars Lazcano MD - When: 1 - 2 days - Reason: Wound Recheck Followup: cp - With: Lars Lazcano MD - When: 1 - 2 days - Reason: Recheck today's complaints Discharge Instructions: - Discharge Summary Sheet cp - Skin Abscess cp - Hyperglycemia cp - Incision and Drainage cp - Blood Glucose Monitoring, Adult cp - Diabetes Mellitus and Nutrition, Adult cp Forms: - Medication Reconciliation Form cp - Thank You Letter cp - Antibiotic Education cp - Prescription Opioid Use cp Prescriptions: - Clindamycin HCl 300 mg Oral Capsule - take 1 capsule by ORAL route every 6 hours for 10 days; 40 capsule; Refills: 0, cp Product Selection Permitted - Ibuprofen 800 mg Oral Tablet - take 1 tablet by ORAL route every 8 hours As needed take with food; 30 tablet; cp Refills: 0, Product Selection Permitted - Bactrim DS 800-160 mg Oral Tablet - take 1 tablet by ORAL route every 12 hours for 10 days; 20 tablet; Refills: 0, cp Product Selection Permitted - Tylenol-Codeine #3 300 mg-30 mg Oral - take 2 tablet by ORAL route every 8 hours; 14 tablet; Refills: 0, Product cp Selection Permitted Signatures: Dispatcher [employer] EDMS Surjit Matute PA PA cp Ramiro Gibson, RN RN jb4 Amelia Dang RN RN vc1 Yang Plata MD MD rt Peggy kat, RN RN pf1 Corrections: (The following items were deleted from the chart) 01:22 01:08 Tate Hdz cp cp 01:36 01:08 Telemetry/MedSurg (Inpatient) cp pf1 01:36 01:08 cp pf1 01:50 01:07 vancoMYCIN 1 grams IVPB once over 2 hrs ordered. cp cp 01:50 01:07 Cefepime 1 grams IVPB at 200 ml/hr once over 30 mins; (mix in NS 100 mL) ordered. cp cp 01:50 01:08 Inpatient Admission cp cp 01:50 01:08 Stable cp cp 01:50 01:08 new cp cp 01:50 01:08 have improved cp cp 01:50 01:08 Standard cp cp 01:50 01:08 Cutaneous abscess of head [any part, except face] cp cp 01:50 01:10 Other specified diabetes mellitus with hyperglycemia cp cp 01:50 01:22 Carlitos Eric cp cp 01:50 01:23 Cellulitis of neck cp cp 01:50 01:36 [facility] ER HOLD pf1 cp 01:50 01:36 ERHOLD- pf1 cp
--- NOTE | 2022-07-11 01:08 | ER ---
Nurse's Notes [facility] Name: Cam Huitron Age: 51 yrs Sex: Male : 1970 Arrival Date: 07/10/2022 Time: 22:38 Bed 15 Private MD: Diagnosis: Cutaneous abscess of head [any part, except face];Diabetes mellitus due to underlying condition with hyperglycemia Presentation: 07/10 22:56 Chief complaint: Patient states: "I had an ingrown hair in the back of my head and we vc1 pulled it but now I have a spot that's leaking and wet on the back on the back of my head. My family said I needed to come in since I am diabetic.". Coronavirus screen: Vaccine status: Patient reports receiving the 2nd dose of the covid vaccine. Plus booster; moderna Client denies travel out of the [place] in the last 14 days. At this time, the client does not indicate any symptoms associated with coronavirus-19. Ebola Screen: No symptoms or risks identified at this time. 22:56 Method Of Arrival: Ambulatory vc1 23:01 Initial Sepsis Screen: Does the patient meet any 2 criteria? No. Patient's initial vc1 sepsis screen is negative. Does the patient have a suspected source of infection? Yes: Skin breakdown/wound. Risk Assessment: Do you want to hurt yourself or someone else? Patient reports no desire to harm self or others. Onset of symptoms was July 07, 2022. 23:01 Acuity: SILVER 3 vc1 Triage Assessment: 23:03 General: Appears in no apparent distress. Behavior is calm, cooperative, appropriate vc1 for age. Pain: Complains of pain in scalp Pain does not radiate. Pain currently is 7 out of 10 on a pain scale. Quality of pain is described as shooting, Pain began gradually, 2-3 days ago. Is intermittent. EENT: No deficits noted. Neuro: Level of Consciousness is awake, alert, obeys commands, Oriented to person, place, time, situation, Appropriate for age. Cardiovascular: No deficits noted. Respiratory: Airway is patent Respiratory effort is even, unlabored, Respiratory pattern is regular, symmetrical. GI: No deficits noted. No signs and/or symptoms were reported involving the gastrointestinal system. : No deficits noted. No signs and/or symptoms were reported regarding the genitourinary system. Derm: No deficits noted. No signs and/or symptoms reported regarding the dermatologic system. Musculoskeletal: No deficits noted. No signs and/or symptoms reported regarding the musculoskeletal system. Historical: - Allergies: 23:02 No Known Allergies; vc1 - PMHx: 23:02 ADD/ADHD; Anemia; CHF; Diabetes - NIDDM; Gout; Hypertension; Myocardial infarction; vc1 - PSHx: 23:02 defibrillator; vc1 - Immunization history:: Client reports receiving the 2nd dose of the Covid vaccine. - Social history:: Smoking status: Patient denies any tobacco usage or history of. Screenin:04 [facility] ED Fall Risk Assessment (Adult) History of falling in the last 3 months, vc1 including since admission No falls in past 3 months (0 pts). Abuse screen: Denies threats or abuse. Nutritional screening: No deficits noted. Tuberculosis screening: No symptoms or risk factors identified. Assessment: 23:10 General: Appears in no apparent distress. comfortable, Behavior is calm, cooperative, jb4 appropriate for age. Pain: Complains of pain in occipital area Pain does not radiate. Pain currently is 7 out of 10 on a pain scale. Neuro: Level of Consciousness is awake, alert, obeys commands, Oriented to person, place, time, situation. Cardiovascular: Patient's skin is warm and dry. Respiratory: Airway is patent Respiratory effort is even, unlabored, Respiratory pattern is regular, symmetrical. GI: No signs and/or symptoms were reported involving the gastrointestinal system. : No signs and/or symptoms were reported regarding the genitourinary system. EENT: No signs and/or symptoms were reported regarding the EENT system. Derm: Skin is intact, Skin is dry, Skin is normal, Skin temperature is warm. Musculoskeletal: Circulation, motion, and sensation intact. Range of motion: intact in all extremities. 07/11 00:30 Reassessment: Patient appears in no apparent distress at this time. Patient and/or jb4 family updated on plan of care and expected duration. Pain level reassessed. Patient is alert, oriented x 3, equal unlabored respirations, skin warm/dry/pink. 02:15 Reassessment: Patient appears in no apparent distress at this time. Patient and/or jb4 family updated on plan of care and expected duration. Pain level reassessed. Patient is alert, oriented x 3, equal unlabored respirations, skin warm/dry/pink. Provider at the bedside draining wound. 02:58 Reassessment: Patient appears in no apparent distress at this time. Patient and/or jb4 family updated on plan of care and expected duration. Pain level reassessed. Patient is alert, oriented x 3, equal unlabored respirations, skin warm/dry/pink. Vital Signs: 07/10 22:56 BP 155 / 103; Pulse 88; Resp 18; Temp 98.2; Pulse Ox 99% ; Weight 97.52 kg; Height 5 vc1 ft. 7 in. (170.18 cm); Pain 7/10; 23:00 BP 183 / 91; Pulse 89; Resp 19; Pulse Ox 100% ; vc1 07/11 00:00 BP 131 / 68; Pulse 88; Resp 18; Pulse Ox 96% on R/A; vc1 02:00 BP 150 / 87; Pulse 85; Resp 18; Pulse Ox 98% on R/A; vc1 07/10 22:56 Body Mass Index 33.67 (97.52 kg, 170.18 cm) vc1 ED Course: 07/10 22:38 Patient arrived in ED. ja2 22:50 Surjit Matute PA is PHCP. cp 22:50 Yang Plata MD is Attending Physician. cp 23:02 Triage completed. vc1 23:04 Patient has correct armband on for positive identification. Bed in low position. Call vc1 light in reach. Pulse ox on. NIBP on. 23:57 Procalcitonin Sent. pf1 23:57 Lactate w/ 2H reflex if indic. Sent. pf1 23:57 Basic Metabolic Panel Sent. pf1 23:57 CBC with Diff Sent. pf1 23:57 Magnesium Sent. pf1 23:57 PT-INR Sent. pf1 07/11 01:07 Tate Hdz MD is Hospitalizing Provider. cp 01:22 Carlitos Eric MD is Hospitalizing Provider. cp 01:51 Lars Lazcano MD is Referral Physician. cp 01:51 Referral Physician role handed off by Lars Lazcano MD cp 01:51 Lars Lazcano MD is Referral Physician. cp 02:51 Ramiro Gibson RN is Primary Nurse. jb4 02:58 Assist provider with I \\T\\ D: of an abscess on scalp. IV discontinued, intact, bleeding jb4 controlled, No redness/swelling at site. Pressure dressing applied. 23:20 Notified ED physician of a critical lab result(s). positive blood cultures Gram kl positive cocci in clusters pt was prescribed Clindamycin and Bactrim Notified Nurse Practitioner and/or Physician Patient Navigator of. Administered Medications: 01:50 CANCELLED (Physician Discretion): vancoMYCIN 1 grams IVPB once over 2 hrs cp 01:50 CANCELLED (Physician Discretion): Cefepime 1 grams IVPB at 200 ml/hr once over 30 mins; cp (mix in NS 100 mL) 02:12 Drug: fentaNYL (PF) 25 mcg Route: IVP; Site: right antecubital; jb4 02:52 Follow up: Response: No adverse reaction; Marked relief of symptoms; Pain is decreased jb4 02:12 Drug: Clindamycin 900 mg Route: IVPB; Infused Over: 30 mins; Site: right antecubital; jb4 02:52 Follow up: Response: No adverse reaction; IV Status: Completed infusion; IV Intake: [id number] 02:12 Drug: Bactrim (trimethoprim-sulfamethoxazole) (160 mg-800 mg (DS) 2 tablet Route: PO; jb4 02:52 Follow up: Response: No adverse reaction jb4 Medication: 02:58 VIS not applicable for this client. jb4 Intake: 02:52 IV: 50ml; Total: 50ml. jb4 Outcome: 01:08 Decision to Hospitalize by Provider. cp 01:52 Discharge ordered by MD. cp 02:58 Discharged to home ambulatory, with family. jb4 02:58 Condition: stable 02:58 Discharge instructions given to patient, Instructed on discharge instructions, follow up and referral plans. medication usage, Demonstrated understanding of instructions, follow-up care, medications, Prescriptions given X 4. 02:59 Patient left the ED. jb4 Signatures: Laine Lopez RN RN Surjit Chang PA PA cp Bryson, James, RN RN jb4 Sowmya Storm Vanessa, RN RN vc1 Peggy kat RN RN pf1
--- NOTE | 2022-07-11 01:40 | P.HP ---
Certification for Inpatient Patient admitted to: Observation Practitioner: I am a practitioner with admitting privileges, knowledge of patient current condition, hospital course, and medical plan of care. Services: Services provided to patient in accordance with Admission requirements found in Title 42 Section 412.3 of the Code of Federal Regulations Patient History Date of Service: 07/11/22 History of Present Illness: 51-year-old male with history of diabetes was type IIinsulin-dependent, chronic systolic congestive heart failure status post pacemaker/fibrillator placement, hypertension, CAD with previous stent placement presents to the emergency department for concern of infection to the posterior scalp. He reports he began with an ingrown hair in the past couple days is guarding to an abscess he was concerned given his history of diabetes. He was evaluated here in the emergency department his labs were significant for elevated glucose 464 procalcitonin 0.29 creatinine 1.5 GFR 56. He was given antibiotics vancomycin, cefepime in ED. ED provider wishes to admit for further evaluation from surgery, hospitalist team. Allergies No Known Allergies Allergy (Verified 11/13/17 22:47) Home Medications: Allopurinol 300 mg PO DAILY 11/13/17 Furosemide 40 mg PO DAILY 11/13/17 Hydralazine HCl 25 mg PO DAILY 11/13/17 Isosorbide [place] (Bid) [Ismo 10 mg Tab*] 20 mg PO BID 11/13/17 Losartan/Hydrochlorothiazide [Losartan-Hctz 100-25 mg Tab] 1 tab PO DAILY 11/13/17 Metformin HCl 1,000 mg PO BID 11/13/17 Spironolactone [Aldactone*] 25 mg PO DAILY 11/13/17 Warfarin Sodium 10 mg PO DAILY 11/13/17 carvediloL [Carvedilol] 25 mg PO BID 11/13/17 Aspirin 81 mg PO DAILY 12/15/18 Atorvastatin Calcium 40 mg PO BEDTIME 12/15/18 Digoxin [Lanoxin*] 125 mcg PO DAILY 12/15/18 Glimepiride [Amaryl*] 2 mg PO BID 12/15/18 Sertraline [Zoloft*] 50 mg PO DAILY 12/15/18 clonazePAM [Clonazepam] 0.5 mg PO BID 12/15/18 Insulin -Regular Human [Novolin -R*] 7 unit SQ TIDWM #1 vial 06/02/19 Insulin Glargine Human [Lantus*] 20 units SQ BEDTIME #1 vial 12/16/18 - Past Medical/Surgical History Diabetic: Yes -: HTN -: diabetes, -: chf -: stemi mi aug 2014 -: gout -: anemia -: add/adhd -: ICD - Family History Sister -: Heart disease, Kidney disease Notes: deseased Mother -: Heart disease Notes: chf Father -: Lung disease, Cancer Notes: lung ca - Social History Alcohol use: No CD- Drugs: No Caffeine use: Yes Physical Examination - Studies Laboratory Data (last 24 hrs) 07/10/22 23:50: PT 37.7 H, INR 3.43 07/10/22 23:50: WBC 8.50, Hgb 13.4 L, Hct 41.2, Plt Count 249 07/10/22 23:50: Sodium 136, Potassium 3.5, BUN 17, Creatinine 1.50 H, Glucose 464 H*, Magnesium 2.4 Assessment and Plan - Advance Directives Does patient have a Living Will: No Does patient have a Durable POA for Healthcare: No
[2022-07-11] MEDS ORDERED: LIDOCAINE 1% W/EPI 1:100,000 30 ML VIAL ONE (01:53)
[2022-07-11] MEDS ORDERED: LIDOCAINE 2% MPF 5 ML VIAL ONE (01:55)
[2022-07-11] MEDS ORDERED: BUPIVACAINE 0.5% PF 10 ML VIAL ONE (01:55)
[2022-07-11] MEDS ORDERED: LIDOCAINE 1% MPF 5 ML VIAL ONE (01:56)
[2022-07-11] MEDS ORDERED: SMZ./TMP. 800/160 MG TABLET ONE (02:04)
[2022-07-11] MEDS ORDERED: CLINDAMYCIN 900MG/D5W 900 MG/50 ML IVPB IV ONE (02:05)
[2022-07-11 03:30] VITALS: TEMP 98.2
[2022-07-11 03:33] VITALS: BP 150/87; O2SAT 98
--- NOTE | 2022-07-11 16:03 | EKG ---
Test Date: 2022-07-11 Test Time: 02:19:49 Tack Cutter: RENETTA MEASUREMENT RESULTS: Intervals: Rate: 83 NC: 140 QRSD: 108 QT: 392 QTc: 460 [place]: P: 40 NC: 140 QRS: -20 T: 147 INTERPRETIVE STATEMENTS: Normal sinus rhythm Possible Left atrial enlargement ST & T wave abnormality, consider lateral ischemia Prolonged QT Abnormal ECG Compared to ECG 12/03/2019 17:23:28 Prolonged QT interval now present Ventricular premature complex(es) no longer present ST (T wave) deviation still present Possible ischemia still present Electronically Signed On 07-11-22 16:02:58 CAKE WRAPPER by Luis Angel Huston
== END 2022-07-11 02:59 | disposition home or self-care (01) ==
LOC: ER 22:35 → ERHOLD 07-11 01:31 → UNDOADMOB 07-11 01:31 → UNDODISOB 07-12 02:59
PROC: 0H90XZZ Drainage of Scalp Skin, External Approach (ICD-10-PCS; principal; 2022-07-10)
DX: L02.811 Cutaneous abscess of head [any part, except face] (principal); E11.65 Type 2 diabetes mellitus with hyperglycemia; I10 Essential (primary) hypertension; Z95.810 Presence of automatic (implantable) cardiac defibrillator
CPT/HCPCS: 96365; 93005; 87040 ×2; 87070; 85025; 80048; 36415; 83735; 87205 ×3; 85610; 83605; 87077; 87186; 84145; 96375; 99284; 10060; J2001; J3010

== ENCOUNTER 2022-08-29 13:57 | Emergency (ER) | payer OTHER ==
--- OUTSIDE RECORDS SUMMARY | 2022-08-29 14:05 | XMS REPORT | Continuity of Care Document ---
:1970 Author Organization [facility] t Address [address] [place] [address] Care Team Providers Name Role Phone Jamia Thomas MD, Ronan Garcia Primary Care Physician [phone] Tamar Traylor LVN Attending Clinician Unavailable Brittany BECERRA, Christiano Attending Clinician Rodger TREVIZO, Mesha Attending Clinician Unavailable Jeanine Guthrie MA Attending Clinician Unavailable Fannie Greene MA Attending Clinician Unavailable Keith Russell NP, Shari Sharma Attending Clinician [phone] Mendoza BLANTON, Renée Rodriguez Attending Clinician Unavailable Only, Adc Test Attending Clinician Unavailable Jena Marroquin MD Attending Clinician JENA MARROQUIN Attending Clinician Unavailable Doctor Unassigned, [place] Common Attending Clinician Unavailable Payers Payer Name Policy Type Policy Number Effective Date Expiration Date S [facility] [id number] 2021 (MEDICARE 00:00:00 REPLACEMENT HMO) Problems Condition Condition Condition Status Onset Resolution Last Treating Co mments Source Name Details Category Date Date Treatment Clinician Date Chest pain Chest pain Disease Active Last M ethodi 3-[address] 00:00: t & Plan[facility] this note might be different [...] ic 9-05 st cardiomyop cardiomyop 00:00: Ho spita athy athy 00 l Cardiac Cardiac Disease [...] Thrombotic Thrombotic Disease Active 2015-07 Last M mishel disorder disorder 0-[address] 00:00: t [...] Active Univers [facility] Class ity of [facility] Family History Family Member Diagnosis Comments Start Date Stop Date Source Natural brother Heart disease [facility] Natural brother Hypertension [facility] Natural father Heart disease [facility] father Hypertension [facility] mother Heart disease [facility] mother Hypertension [facility] sister Diabetes [facility] sister Heart disease [facility] sister Hypertension [facility] Social History Social Habit Start Date Stop Date Quantity Comments Source Exposure to Not sure University SARS-CoV-2 [facility] (event) [place] Alcohol intake 2022-05-18 2022-05-18 [facility] 00:00:00 00:00:00 non-drinker of alcohol (finding) Tobacco use and 2016-04-25 2016-04-25 Smokeless tobacco [facility] exposure 00:00:00 00:00:00 non-user Sex Assigned At [birth year] [facility] 00:00:00 00:00:00 Smoking Status Start Date Stop Date Source Unknown if ever smoked [facility] Never smoked tobacco [facility] ospital Medications Ordered Filled Start Stop Current Ordering Indication Dosage Frequency Signature Comments Components Source Medication Medication Date Date Medication? Clinician (SIG) Name Name warfarin Yes TAKE 2 [facility]i (COUMADIN) 1-[address] 5 MG tablet 00:00: MOUTH 5 [facility] 00 DAYS PER l WEEK AND TAKE 3 TABLETS ON MONDAY AND MONDAY warfarin Yes Three [facility] (COUMADIN) 1-[address] 5 MG tablet 00:00: daily or Ho spita 00 as l directed by MD office icosapent 2021-07- Yes 1g Q.5D Take 1 Metho di ethyL 2-12 03-13 capsule (1 st (Vascepa) 1 00:00: 04:59 g total) H ospita gram 00 :00 by mouth 2 l capsule (two) times a day for 90 days. icosapent 2021-07- Yes 1g Q.5D Take 1 Metho di ethyL 2-12 03-13 capsule (1 st (Vascepa) 1 00:00: 04:59 g total) H ospita gram 00 :00 by mouth 2 l capsule (two) times a day for 90 days. rosuvastati 2021-07 Yes Take 1 Meth judy n (CRESTOR) 1-[address] 10 mg 00:00: mouth once Hospit a tablet 00 daily l rosuvastati 2021-07 Yes Take 1 Meth judy n (CRESTOR) 1-[address] 10 mg 00:00: mouth once Hospit a tablet 00 daily l carvedilol 2021-07 Yes 50mg Q.5D Take 50 mg M ethodi (COREG) 25 -[address] MG tablet 10:02: (two) Hospita 14 times a l day with meals. aspirin 2021-07 Yes 81mg QD Take 81 mg Meth judy (ECOTRIN) 1-[address] 81 MG 10:02: daily. Hospita enteric 14 l coated tablet sertraline 2021-07 Yes 50mg QD Take 50 mg M ethodi (ZOLOFT) 50 1-[address] MG tablet 10:02: daily. Hospit a 14 l semaglutide 2021-07 Yes Q7D Inject Meth judy (OZEMPIC 1-[address] SUBQ) 10:02: skin once Hospita 14 a week. l carvedilol 2021-07 Yes 50mg Q.5D Take 50 mg M ethodi (COREG) 25 1-[address] MG tablet 10:02: (two) Hospita 14 times a l day with meals. aspirin 2021-07 Yes 81mg QD Take 81 mg Meth judy (ECOTRIN) 1-[address] 81 MG 10:02: daily. Hospita enteric 14 l coated tablet sertraline 2021-07 Yes 50mg QD Take 50 mg M ethodi (ZOLOFT) 50 1-[address] MG tablet 10:02: daily. Hospit a 14 l semaglutide 2021-07 Yes Q7D Inject Meth judy (OZEMPIC 1-[address] SUBQ) 10:02: skin once Hospita 14 a week. l spironolact 2021-07 Yes [id number] Take 1 Methodi one 0-[address] (ALDACTONE) 00:00: mouth once Hospita 25 MG 00 daily l tablet spironolact 2021-07 Yes [id number] Take 1 [facility] one 0-[address] (ALDACTONE) 00:00: mouth once Hospita 25 MG 00 daily l tablet metFORMIN Yes TAKE 1 Method i (GLUCOPHAGE 9-[address] ) 500 mg 00:00: MOUTH IN Hospi ta tablet 00 THE l MORNING AND TAKE 1 TABLET BEFORE BEDTIME digOXIN Yes [id number] TAKE 1 Meth judy (LANOXIN) 9-[address] 125 mcg 00:00: MOUTH ONCE Hosp lani (0.125 mg) 00 DAILY l tablet PLEASE SCHEDULE AN APPOINTMEN T FOR FUTURE REFILLS metFORMIN Yes TAKE 1 Method i (GLUCOPHAGE 9-[address] ) 500 mg 00:00: MOUTH IN Hospi ta tablet 00 THE l MORNING AND TAKE 1 TABLET BEFORE BEDTIME digOXIN Yes [id number] TAKE 1 Meth judy (LANOXIN) 9-[address] 125 mcg 00:00: MOUTH ONCE Hosp lani (0.125 mg) 00 DAILY l tablet PLEASE SCHEDULE AN APPOINTMEN T FOR FUTURE REFILLS furosemide Yes [id number] 40mg QD Take 1 Methodi (LASIX) 40 8-25 9100 tablet (40 st mg tablet 00:00: mg total) [facility] 00 by mouth l daily. furosemide Yes [id number] 40mg QD Take 1 [facility] (LASIX) 40 8-25 9100 tablet (40 st mg tablet 00:00: mg total) [facility] 00 by mouth l daily. digOXIN 2021- No [id number] 125ug QD Take 1 Me thodi (LANOXIN) 03-10-[address] 125 mcg 00:00: 00:00 (125 mcg Hospi ta (0.125 mg) 00 :00 total) by l tablet mouth daily. digOXIN 2021- No [id number] 125ug QD Take 1 Me th[facility] (LANOXIN) 03-10-[address] 125 mcg 00:00: 00:00 (125 mcg Hospi ta (0.125 mg) 00 :00 total) by l tablet mouth daily. warfarin Yes Take 2 [facility] (COUMADIN) 7-[address] 5 MG tablet 00:00: mouth x 5 H ospita 00 days per l week and 3 tablets (15mg) on Monday and warfarin 0 2022- No Take 2 Method i (COUMADIN) 7-22 01-[address] 5 MG tablet 00:00: 00:00 mouth x 5 Hospita 00 :00 days per l week and 3 tablets (15mg) on Monday and sacubitriL- Yes 1{tbl} Q.5D Take 1 Me thodi valsartan 6-[address] (ENTRESTO) 00:00: mouth 2 Hosp lani 97-103 mg 00 (two) l tablet per times a tablet day. sacubitriL- Yes 1{tbl} Q.5D Take 1 Me thodi valsartan 6-[address] (ENTRESTO) 00:00: mouth 2 Hosp lani 97-103 mg 00 (two) l tablet per times a tablet day. digOXIN 2021- No [id number] TAKE 1 Met hodi (LANOXIN) 6-10 08-[address] 125 mcg 00:00: 00:00 MOUTH ONCE Hos [facility] (0.125 mg) 00 :00 DAILY . l tablet APPOINTMEN T REQUIRED FOR FUTURE REFILLS digOXIN 2021- No [id number] TAKE 1 Met hodi (LANOXIN) 6-10 08-25 [...] AND 1 TABLET BY MOUTH BEFORE BEDTIME metFORMIN 2021- No TAKE ONE Met hodi (GLUCOPHAGE 5-25 09-[address] ) 500 mg 00:00: 00:00 MOUTH IN Hosp lani tablet 00 :00 THE l MORNING AND 1 TABLET BY MOUTH BEFORE BEDTIME digOXIN 2021- No [id number] TAKE 1 Met hodi (LANOXIN) 5-25 06-[address] 125 mcg 00:00: 00:00 MOUTH ONCE [facility] (0.125 mg) 00 :00 DAILY . l tablet APPOINTMEN T REQUIRED FOR FUTURE REFILLS digOXIN 2021- No [id number] TAKE 1 Met hodi (LANOXIN) 5-25 06-[address] 125 mcg 00:00: 00:00 MOUTH ONCE [facility] (0.125 mg) 00 :00 DAILY . l tablet APPOINTMEN T REQUIRED FOR FUTURE REFILLS metFORMIN 2021- No Take 1 Metho di (GLUCOPHAGE 3-03 19-[address] ) 500 mg 11:23: 00:00 twice a Hospi ta tablet 46 :00 day by l oral route for 90 days. metFORMIN 2021- No Take 1 Metho di (GLUCOPHAGE 3-03 19-[address] ) 500 mg 11:23: 00:00 twice a Hospi ta tablet 46 :00 day by l oral route for 90 days. glimepiride 2021- No Take 1 Met hodi (AMARYL) 2 3- 03-[address] MG tablet 10:30: 00:00 every day Ho spita 09 :00 by oral l route for 90 days. glimepiride 2021- No Take 1 Met hodi (AMARYL) 2 3- 03-[address] MG tablet 10:30: 00:00 every day Ho spita 09 :00 by oral l route for 90 days. sacubitriL- Yes 1{tbl} Q.5D Take 1 Me thodi valsartan 3-[address] (ENTRESTO) 00:00: mouth in Hos [facility] 49-51 mg 00 the l tablet per morning tablet and 1 tablet before bedtime. sacubitriL- Yes 1{tbl} Q.5D Take 1 Me thodi valsartan 3-[address] (ENTRESTO) 00:00: mouth in [facility] 49-51 mg 00 the l tablet per morning tablet and 1 tablet before bedtime. metFORMIN 2021- No 500mg Q.5D Take 1 Meth judy (GLUCOPHAGE 3- 05-[address] ) 500 mg 00:00: 00:00 (500 mg Hospi ta tablet 00 :00 total) by l mouth in the morning and 1 tablet (500 mg total) before bedtime. metFORMIN 2021- No 500mg Q.5D Take 1 Meth judy (GLUCOPHAGE 3- 05-[address] ) 500 mg 00:00: 00:00 (500 mg Hospi ta tablet 00 :00 total) by l mouth in the morning and 1 tablet (500 mg total) before bedtime. furosemide 2021- No [id number] Take 1 Methodi (LASIX) 40 2-10 03- [address] mg tablet 00:00: 00:00 mouth once H ospita 00 :00 daily l furosemide 2021- No [id number] Take 1 [facility] (LASIX) 40 2- [address] mg tablet 00:00: 00:00 mouth once H ospita 00 :00 daily l isosorbide 2021- No Take 1 Meth judy dinitrate 09-10- tablet by st (ISORDIL) 00:00: 00:00 mouth Hospit a 20 MG 00 :00 twice l tablet daily isosorbide 2021- No Take 1 Meth judy dinitrate 09-10- tablet by st (ISORDIL) 00:00: 00:00 mouth Hospit a 20 MG 00 :00 twice l tablet daily furosemide Yes [id number] 40mg QD Take 1 [facility] (LASIX) 40 08-12 9100 tablet (40 st mg tablet 00:00: mg total) [facility] 00 by mouth l daily. furosemide 2021- No [id number] 40mg QD Take 1 [facility] (LASIX) 40 -12 09- 9100 tablet (40 st mg tablet 00:00: 00:00 mg total) Ho spita 00 :00 by mouth l daily. furosemide 2021- No [id number] 40mg QD Take 1 [facility] (LASIX) 40 -12 09- 9100 tablet (40 st mg tablet 00:00: 00:00 mg total) Ho spita 00 :00 by mouth l daily. digOXIN 2020-07 Yes [id number] TAKE 1 Meth judy (LANOXIN) 2-[address] 125 mcg 00:00: MOUTH ONCE Hosp lani (0.125 mg) 00 DAILY l tablet (NEED APPOINTMEN T FOR MORE REFILLS) pravastatin 2020-07 Yes Take 1 Meth judy (PRAVACHOL) 2-[address] 40 mg 00:00: mouth once Hospit a tablet 00 daily l digOXIN 2020-07- No [id number] TAKE 1 Met hodi (LANOXIN) 2-27 05-[address] 125 mcg 00:00: 00:00 MOUTH ONCE [facility] (0.125 mg) 00 :00 DAILY l tablet (NEED APPOINTMEN T FOR MORE REFILLS) digOXIN 2020-07- No [id number] TAKE 1 Met hodi (LANOXIN) 2-27 05-[address] 125 mcg 00:00: 00:00 MOUTH ONCE [facility] (0.125 mg) 00 :00 DAILY l tablet (NEED APPOINTMEN T FOR MORE REFILLS) pravastatin 2020-07- No Take 1 Met hodi (PRAVACHOL) 2-27 04-[address] 40 mg 00:00: 00:00 mouth once Hospi ta tablet 00 :00 daily l pravastatin 2020-07- No Take 1 Met hodi [...] l tablet per times a tablet day. sacubitriL- 2020-07- No 1{tbl} Q.5D Take 1 M ethodi valsartan 0-13 03-[address] (Entresto) 00:00: 00:00 mouth 2 [facility] 24-26 mg 00 :00 (two) l tablet per times a tablet day. isosorbide Yes Take 1 Metho di dinitrate 04-[address] (ISORDIL) 00:00: mouth Hospita 20 MG 00 twice l tablet daily isosorbide 2021- No Take 1 Meth judy dinitrate 04-[address] (ISORDIL) 00:00: 00:00 mouth Hospit a 20 MG 00 :00 twice l tablet daily isosorbide 2021- No Take 1 Meth judy dinitrate 04-[address] (ISORDIL) 00:00: 00:00 mouth Hospit a 20 MG 00 :00 twice l tablet daily furosemide 2021- No [id number] 40mg QD Take 1 [facility] (LASIX) 40 04-13 9100 tablet (40 st mg tablet 00:00: 00:00 mg total) Ho spita 00 :00 by mouth l daily. furosemide 2021- No [id number] 40mg QD Take 1 [facility] (LASIX) 40 04-13 9100 tablet (40 st mg tablet 00:00: 00:00 mg total) Ho spita 00 :00 by mouth l daily. pravastatin 2020- No Take 1 Met hodi (PRAVACHOL) 04-[address] 40 mg 00:00: 00:00 mouth once Hospi ta tablet 00 :00 daily l furosemide 2020- No [id number] Take 1 [facility] (LASIX) 40 04-[address] mg tablet 00:00: 00:00 mouth once H ospita 00 :00 daily l pravastatin 2020- No 40mg QD Take 1 Met hodi (PRAVACHOL) 02-24- tablet (40 s t 40 mg 00:00: 00:00 mg total) Hospit a tablet 00 :00 by mouth l daily. digOXIN 2020- No [id number] Take 1 Met hodi (LANOXIN) 02-[address] 125 mcg 00:00: 00:00 mouth once [facility] (0.125 mg) 00 :00 daily l tablet digOXIN 2020- No [id number] Take 1 Met hodi (LANOXIN) 02-[address] 125 mcg 00:00: 00:00 mouth once [facility] (0.125 mg) 00 :00 daily l tablet warfarin Yes Two [facility]i (COUMADIN) 7-[address] 5 MG tablet 00:00: daily or Ho spita 00 as l directed by MD office warfarin 2021- No Two [facility] (COUMADIN) 02-04- tablets st 5 MG tablet 00:00: 00:00 daily or H ospita 00 :00 as l directed by MD office warfarin 2021- No Two [facility] (COUMADIN) 02-04-[address] 5 MG tablet 00:00: 00:00 daily or H ospita 00 :00 as l directed by MD office allopurinoL 2020- No Take 1 Met hodi (ZYLOPRIM) 12-[address] 300 MG 00:00: 00:00 mouth once Hosp lani tablet 00 :00 daily l pravastatin 2020- No 40mg QD Take 1 Met hodi (PRAVACHOL) 12-03 tablet (40 s t 40 mg 00:00: 00:00 mg total) Hospit a tablet 00 :00 by mouth l daily. spironolact 2019-07 Yes [id number] Take 1 Methodi one 08-[address] (ALDACTONE) 00:00: mouth once Hospita 25 MG 00 daily l tablet spironolact 2019-07- No [id number] Take 1 [facility] one 08-[address] (ALDACTONE) 00:00: 00:00 mouth once Hospita 25 MG 00 :00 daily l tablet spironolact 2019-07- No [id number] Take 1 [facility] one 08-[address] (ALDACTONE) 00:00: 00:00 mouth once Hospita 25 MG 00 :00 daily l tablet furosemide 2019-07- No [id number] 40mg QD Take 1 [facility] (LASIX) 40 08-09 9100 tablet (40 st mg tablet 00:00: 00:00 mg total) Ho spita 00 :00 by mouth l daily. allopurinoL 2019-07- No Take 1 Met hodi (ZYLOPRIM) 08-09 05-[address] 300 MG 00:00: 00:00 mouth once [facility]osp [facility]ani tablet 00 :00 daily l digOXIN 2019-07- No [id number] Take 1 Met hodi (LANOXIN) 07-18 08-04 [...] Q.5D Take 1 Meth judy dinitrate 10-09 tablet (20 st (ISORDIL) 00:00: 00:00 mg total) Ho spita 20 MG 00 :00 by mouth 2 l tablet (two) times a day. HUMULIN 2018- Yes [facility]i 70/30 U-100 3-14 st KWIKPEN 100 00:00: Hospit a unit/mL 00 l (70-30) HUMULIN 2018-0 Yes [facility] 70/30 U-100 3-14 st KWIKPEN 100 00:00: Hospit a unit/mL 00 l (70-30) HUMULIN 2018-0 Yes Methodi 70/30 U-100 3-14 st KWIKPEN 100 00:00: Hospit a unit/mL 00 l (70-30) warfarin No TAKE 1 Method i (COUMADIN) 2-25 10-[address] 10 MG 00:00: 00:00 MOUTH Hospita tablet 00 :00 DAILY l hydrALAZINE Yes 25mg Q.5D Take 1 Meth judy (APRESOLINE 9-05 tablet (25 st ) 25 MG 00:00: mg total) Hospi ta tablet 00 by mouth 2 l (two) times a day. hydrALAZINE No 25mg Q.5D Take 1 Met hodi (APRESOLINE 9-05 06-29 tablet (25 s t ) 25 MG 00:00: 00:00 mg total) [facility]osp [facility]ani tablet 00 :00 by mouth 2 l (two) times a day. hydrALAZINE No 25mg Q.5D Take 1 Met hodi (APRESOLINE 9-05 06-29 tablet (25 s t ) 25 MG 00:00: 00:00 mg total) [facility]osp [facility]ani tablet 00 :00 by mouth 2 l (two) times a day. pravastatin No 40mg QD Take 1 Met hodi (PRAVACHOL) 8-07 05-20 tablet (40 s t 40 MG 00:00: 00:00 mg total) Hospit a tablet 00 :00 by mouth l daily. Vital Signs Vital Name Observation Time Observation Value Comments Source Systolic blood 2022-05-31 20:06:00 148 mm[Hg] [facility] pressure Diastolic blood 2022-05-31 20:06:00 91 mm[Hg] [facility] pressure Heart rate 2022-05-31 20:06:00 84 /min [facility] Body height 2022-05-31 20:06:00 170.2 cm [facility] Body weight 2022-05-31 20:06:00 99.791 kg [facility] BMI 2022-05-31 20:06:00 34.46 kg/m2 [facility] Oxygen saturation in 2022-05-31 20:06:00 99 /min [facility] Arterial blood by Pulse oximetry Respiratory rate 2022-05-18 14:59:00 16 /min [facility] Systolic blood 2021-04-28 20:07:00 138 mm[Hg] [facility] pressure Diastolic blood 2021-04-28 20:07:00 81 mm[Hg] [facility] pressure Heart rate 2021-04-28 20:07:00 88 /min [facility] Body height 2021-04-28 20:07:00 170.2 cm [facility] Body weight 2021-04-28 20:07:00 100.971 kg [facility] BMI 2021-04-28 20:07:00 34.86 kg/m2 [facility] Oxygen saturation in 2021-04-28 20:07:00 92 /min [facility] Arterial blood by Pulse oximetry Procedures Procedure Date / Time Performing Clinician Source Performed CV MRI VALVE ASSESSMENT 2022-05-31 21:02:52 Christiano Soto [facility] W CONTRAST ESTIMATED GFR 2022-05-31 19:42:00 Christiano Soto ospital POC PANEL 2022-05-31 19:42:00 Christiano Soto ospital PROTHROMBIN TIME WITH 2022-05-25 16:07:[address] [facility] INR T3 2022-05-25 16:05:00 Christiano Soto ospital LIPID PANEL 2022-05-25 16:05:00 Christiano Soto ospital CBC WITH PLATELET AND 2022-05-25 16:05:00 [facility] 2022-05-25 16:05:00 [facility] HORMONE T4, FREE 2022-05-25 16:05[facility]00 [facility] COM[facility]HENS[facility] METABOLIC 2022-05-25 16:05:00 Christiano Soto [facility] PANEL PROTHROMBIN TIME WITH 2022-05-25 00:00:00 Provider, Not In [facility] INR System ECG 12-LEAD 2022-05-18 15:08:12 Christiano Soto ospital PROTHROMBIN TIME WITH 2022-04-19 17:14:[address] [facility] INR POC PT/INR 2022-04-04 16:09:59 Christiano Soto H ospital PROTHROMBIN TIME WITH 2022-04-04 00:00:00 Provider, Not In [facility] INR System PROTHROMBIN TIME WITH 2022-04-01 19:17:[address] [facility] INR PROTHROMBIN TIME WITH 2022-02-21 18:51:[address] [facility] INR POC PT/INR 2022-01-12 20:18:00 [facility] ECG 12-LEAD 2022-01-12 19:59:11 [facility] PROTHROMBIN TIME WITH 2022-01-12 00:00:00 Provider, Not In [facility] INR System LIPID PANEL 2021-10-27 18:40:00 Christiano Soto H ospital COMPREHENSIVE METABOLIC 2021-10-27 18:40:00 Christiano Soto [facility] PANEL CBC WITH PLATELET AND 2021-10-27 18:40:[address] [facility] DIFFERENTIAL T3 2021-10-27 18:40:00 Christiano Soto H ospital T4, FREE 2021-10-27 18:40:00 Christiano Soto H ospital THYROID STIMULATING 2021-10-27 18:40:00 Christiano Soto [facility] HORMONE HEMOGLOBIN A1C 2021-10-27 18:40:00 Christiano Soto H ospital TTE COMPLETE, W 2021-09-29 15:00:00 Christiano Soto H ospital CONTRAST, W DOPPLER ([id number]) POC PT/INR 2021-09-22 16:52:00 Christian[facility] BASIC METABOLIC PANEL 2021-05-06 19:51:[address] [facility] PROTHROMBIN TIME WITH 2021-05-06 19:50:[address] [facility] INR ECG 12-LEAD 2021-04-28 20:13:30 Christian[facility] POC PT/INR 2021-02-15 16:44:00 [facility]o [facility]oto[facility]ital PROTHROMBIN TIME WITH 2021-02-15 00:00:00 Provider, Historical [facility] INR POC PT/INR 2021-02-04 16:31:00 Christiano Soto H ospital PROTHROMBIN TIME WITH 2021-02-04 00:00:00 Provider, Historical [facility] INR ASSIGNMENT OF BENEFITS 2020-03-04 16:50:53 Doctor Unassigned, No [facility] Plan of Care Planned Activity Planned Date Details Comments Source Future Scheduled 2022-08-29 Pneumococcal Vaccine: [facility] Test 10:22:57 Pediatrics (0 to 5 Years) and At-Risk Patients (6 to 64 Years) (1 - PCV) [code = Pneumococcal Vaccine: Pediatrics (0 to 5 Years) and At-Risk Patients (6 to 64 Years) (1 - PCV)] Future Scheduled 2022-08-29 DIABETES: RETINAL EYE [facility] Test 10:22:57 EXAM [code = DIABETES: RETINAL EYE EXAM] Future Scheduled 2022-08-29 DIABETIC FOOT EXAM [facility] Test 10:22:57 [code = DIABETIC FOOT EXAM] Future Scheduled 2022-08-29 URINE MICROALBUMIN [facility] Test 10:22:57 [code = URINE MICROALBUMIN] Future Scheduled 2022-08-29 Hepatitis C screening [facility] Test 10:22:57 (procedure) [code = [id number]] Future Scheduled 2022-08-29 COLONOSCOPY SCREENING [facility] Test 10:22:57 [code = COLONOSCOPY SCREENING] Future Scheduled 2022-08-29 SHINGLES VACCINES (1 [facility] Test 10:22:57 of 2) [code = SHINGLES VACCINES (1 of 2)] Future Scheduled 2022-08-29 COVID-19 VACCINE (4 - [facility] Test 10:22:57 Booster for Moderna series) [code = COVID-19 VACCINE (4 - Booster for Moderna series)] Future Scheduled 2022-08-29 INFLUENZA VACCINE [facility] Hospital Test 10:22:57 [code = INFLUENZA VACCINE] Future Scheduled 2022-07-10 Pneumococcal Vaccine: [facility] Test 22:38:21 Pediatrics (0 to 5 Years) and At-Risk Patients (6 to 64 Years) (1 - PCV) [code = Pneumococcal Vaccine: Pediatrics (0 to 5 Years) and At-Risk Patients (6 to 64 Years) (1 - PCV)] Future Scheduled 2022-07-10 DIABETES: RETINAL EYE [facility] Test 22:38:21 EXAM [code = DIABETES: RETINAL EYE EXAM] Future Scheduled 2022-07-10 [facility]ABETIC FO[facility]AM [facility] Test 22:38:21 [code = DIABETIC FOOT EXAM] Future Scheduled 2022-07-10 [facility] Test 22:38:21 [code = URINE MICROALBUMIN] Future Scheduled 2022-07-10 Hepatitis C screening [facility] Hospital Test 22:38:21 (procedure) [code = [id number]] Future Scheduled 2022-07-10 COLONOSCOPY SCREENING [facility] Hospital Test 22:38:21 [code = COLONOSCOPY SCREENING] Future Scheduled 2022-07-10 SHINGLES VACCINES (1 [facility] Test 22:38:21 of 2) [code = SHINGLES VACCINES (1 of 2)] Future Scheduled 2022-07-10 COVID-19 VACCINE (4 - [facility] Hospital Test 22:38:21 Booster for Moderna series) [code = COVID-19 VACCINE (4 - Booster for Moderna series)] Future Scheduled 2022-07-10 INFLUENZA VACCINE [facility] Test 22:38:21 [code = INFLUENZA VACCINE] Future Scheduled 2021-08-12 COVID-19 VACCINE (1) [facility] Test 09:06:24 [code = COVID-19 VACCINE (1)] Future Scheduled 2021-08-12 Hepatitis C screening [facility] Hospital Test 09:06:24 (procedure) [code = [id number]] Future Scheduled 2021-08-12 COLONOSCOPY SCREENING [facility] Hospital Test 09:06:24 [code = COLONOSCOPY SCREENING] Future Scheduled 2021-08-12 SHINGLES VACCINES (#1) M [facility] Test 09:06:24 [code = SHINGLES VACCINES (#1)] Future Scheduled 2021-08-12 INFLUENZA VACCINE [facility] Test 09:06:24 [code = INFLUENZA VACCINE] Encounters Start End Encounter Admission Attending Care Care Encounter Source Date/Time Date/Time Type Type Clinicians Facility Department ID 2022-08-01 2022-08-01 Bishop Traylor, 1.2.840.1 [id number] 3287 Methodi 00:00:00 00:00:00 Only Tamar 12808.1.[address] 3.430.2.7 Hospit a .3.363961 l .8 2022-07-25 2022-07-25 Refill Brittany, 1.2.840.1 [id number] 2100 188159 Methodi 00:00:00 00:00:[address] 3.430.2.7 Hospit a .3.498116 l .8 2022-07-08 2022-07-08 Orders Layton, 1.2.840.1 [id number] 427019 2446 Methodi 00:00:00 00:00:00 Only Tamar 23559.1.[address] 3.430.2.7 Hospit a .3.095209 l .8 2022-07-08 2022-07-08 Orders Layton, 1.2.840.1 072589907 963716 4109 Methodi 00:00:00 00:00:00 Only Tamar 00830.1.[address] 3.430.2.7 Hospit a .3.835994 l .8 2022-07-01 2022-07-01 Orders Layton, 1.2.840.1 880273811 637487 6912 Methodi 00:00:00 00:00:00 Only Tamar 54827.1.[address] 3.430.2.7 Hospit a .3.656624 l .8 2022-07-01 2022-07-01 Orders Layton, 1.2.840.1 244523421 833054 2232 Methodi 00:00:00 00:00:00 Only Tamar 61248.1.[address] 3.430.2.7 Hospit a .3.811637 l .8 2022-06-29 2022-06-29 Documentat Brittany, 1.2.840.1 [id number] 2 [id number] Methodi 00:00:00 00:00:00 ion Christiano 29704.1.[address] 3.430.2.7 Hospit a .3.772409 l .8 2022-06-29 2022-06-29 Documentat Brittany, 1.2.840.1 103964041 2 675381142 Methodi 00:00:00 00:00:00 [address]2706.1.[address] 3.430.2.7 Hospit a .3.506867 l .8 2022-06-27 2022-06-27 Bishop Soares 1.2.840.1 [id number] 2100 817222 Methodi 00:00:00 00:00:00 Only Mesha 69282.1.[address] 3.430.2.7 Hospit a .3.840766 l .8 2022-06-27 2022-06-27 Bishop Soares 1.2.840.1 167948833 2100 673481 Methodi 00:00:00 00:00:00 Only Mesha 08937.1.[address] 3.430.2.7 Hospit a .3.476235 l .8 2022-06-26 2022-06-26 Refill Nasimawali, 1.2.840.1 258059757 2100 128207 Methodi 00:00:00 00:00:[address] 3.430.2.7 Hospit a .3.703580 l .8 2022-06-26 2022-06-26 Refill Nasimawali, 1.2.840.1 968822622 2099 396128 Methodi 00:00:00 00:00:[address] 3.430.2.7 Hospit a .3.128461 l .8 2022-06-24 2022-06-24 Bishop Traylor 1.2.840.1 587730812 520653 5456 Methodi 00:00:00 00:00:00 Only Tamar 31488.1.[address] 3.430.2.7 Hospit a .3.593193 l .8 2022-06-24 2022-06-24 Bishop Traylor 1.2.840.1 167238931 570988 0027 Methodi 00:00:00 00:00:00 Only Tamar 61215.1.[address] 3.430.2.7 Hospit a .3.082242 l .8 2022-06-17 2022-06-17 Orders Traylor, 1.2.840.1 222769776 323487 2472 Methodi 00:00:00 00:00:00 Only Tamar 54585.1.[address] 3.430.2.7 Hospit a .3.140933 l .8 2022-06-17 2022-06-17 Orders Traylor, 1.2.840.1 379931467 838649 1368 Methodi 00:00:00 00:00:00 Only Tamar 74729.1.[address] 3.430.2.7 Hospit a .3.649720 l .8 2022-06-10 2022-06-10 Refill Brittany, 1.2.840.1 034725040 2100 891807 Methodi 00:00:00 00:00:[address] 3.430.2.7 Hospit a .3.468883 l .8 2022-06-10 2022-06-10 Orders Layton, 1.2.840.1 033968705 853781 7523 Methodi 00:00:00 00:00:00 Only Tamar 09450.1.[address] 3.430.2.7 Hospit a .3.343762 l .8 2022-06-10 2022-06-10 Refill Bhimawali, 1.2.840.1 [id number] 2099 532800 Methodi 00:00:00 00:00:[address] 3.430.2.7 Hospit a .3.334202 l .8 2022-06-10 2022-06-10 Orders Layton, 1.2.840.1 012427691 997409 7000 Methodi 00:00:00 00:00:00 Only Tamar 54595.1.[address] 3.430.2.7 Hospit a .3.969904 l .8 2022-06-03 2022-06-03 Orders Traylor, 1.2.840.1 221235535 699020 3304 Methodi 00:00:00 00:00:00 Only Tamar 43257.1.[address] 3.430.2.7 Hospit a .3.251624 l .8 2022-06-03 2022-06-03 Orders Traylor, 1.2.840.1 829025139 860497 9390 Methodi 00:00:00 00:00:00 Only Tamar 50159.1.[address] 3.430.2.7 Hospit a .3.550811 l .8 2022-05-31 2022-05-31 [facility], 1.2.840.1 [id number] 730 8842011 Methodi 13:02:32 23:59:00 Encounter Christiano 19187.1.[address] 3.430.2.7 Hospit a .3.787310 l .8 2022-05-31 2022-05-31 [facility], 1.2.840.1 818030177 725 2026435 Methodi 13:02:32 23:59:00 Encounter Christiano 39746.1.[address] 3.430.2.7 Hospit a .3.070523 l .8 2022-05-30 2022-05-30 Travel 1.2.840.1 1.2.650.857 4899 554492 Methodi 00:00:00 00:00:[address] 3.430.2.7 0.2.7.3.698 Ho spita .3.681921 084.8 l .8 2022-05-30 2022-05-30 Travel 1.2.840.1 1.2.844.136 8363 423293 Methodi 00:00:00 00:00:[address] 3.430.2.7 0.2.7.3.698 Ho spita .3.290576 084.8 l .8 2022-05-27 2022-05-27 Orders Layton, 1.2.840.1 473277827 586414 6560 Methodi 00:00:00 00:00:00 Only Tamar 44412.1.[address] 3.430.2.7 Hospit a .3.698365 l .8 2022-05-27 2022-05-27 Orders Traylor, 1.2.840.1 372995547 401064 9640 Methodi 00:00:00 00:00:00 Only Tamar 32661.1.[address] 3.430.2.7 Hospit a .3.140108 l .8 2022-05-26 2022-05-26 Telephone [place], 1.2.840.1 [id number] 2099 482116 Methodi 00:00:00 00:00:00 Jeanine A [address]165.1.[address] 3.430.2.7 Hospit a .3.896177 l .8 2022-05-26 2022-05-26 Telephone Layton, 1.2.840.1 185555514 2099 986021 Methodi 00:00:00 00:00:[address] 3.430.2.7 Hospit a .3.402113 l .8 2022-05-26 2022-05-26 Telephone [place], 1.2.840.1 756529730 2099 333890 Methodi 00:00:00 00:00:00 Jeanine A [address]54.1.[address] 3.430.2.7 Hospit a .3.112702 l .8 2022-05-26 2022-05-26 Telephone Traylor, 1.2.840.1 516136873 2099 546277 Methodi 00:00:00 00:00:[address] 3.430.2.7 Hospit a .3.818746 l .8 2022-05-20 2022-05-20 Orders Laytno, 1.2.840.1 593947938 126895 5993 Methodi 00:00:00 00:00:00 Only Tamar 72247.1.[address] 3.430.2.7 Hospit a .3.060505 l .8 2022-05-20 2022-05-20 Orders Layton, 1.2.840.1 618907772 186636 6594 Methodi 00:00:00 00:00:00 Only Tamar 33527.1.[address] 3.430.2.7 Hospit a .3.895517 l .8 2022-05-18 2022-05-18 Office [facility], 1.2.840.1 [id number] 2099 512764 Methodi 09:20:00 12:15:38 Visit Christiano 05033.1.[address] 3.430.2.7 Hospit a .3.356363 l .8 2022-05-18 2022-05-18 Office [facility], 1.2.840.1 [id number] 2099 759889 Methodi 09:20:00 12:15:38 Visit Christiano 46399.1.[address] 3.430.2.7 Hospit a .3.713789 l .8 2022-05-18 2022-05-18 Travel 1.2.840.1 1.2.079.575 7129 261225 Methodi 00:00:00 00:00:[address] 3.430.2.7 0.2.7.3.698 Ho spita .3.285619 084.8 l .8 2022-05-18 2022-05-18 Travel 1.2.840.1 1.2.644.852 4350 088304 Methodi 00:00:00 00:00:[address] 3.430.2.7 0.2.7.3.698 Ho spita .3.913813 084.8 l .8 2022-05-13 2022-05-13 Bishop Traylor, 1.2.840.1 442370584 548048 1269 Methodi 00:00:00 00:00:00 Only Tamar 70392.1.[address] 3.430.2.7 Hospit a .3.070500 l .8 2022-05-13 2022-05-13 Orders Traylor, 1.2.840.1 073663589 840076 6729 Methodi 00:00:00 00:00:00 Only Tamar 88056.1.[address] 3.430.2.7 Hospit a .3.179912 l .8 2022-05-11 2022-05-11 Travel 1.2.840.1 1.2.337.273 8648 051047 Methodi 00:00:00 00:00:[address] 3.430.2.7 0.2.7.3.698 Ho spita .3.393260 084.8 l .8 2022-05-11 2022-05-11 Travel 1.2.840.1 1.2.944.400 0277 006648 Methodi 00:00:00 00:00:[address] 3.430.2.7 0.2.7.3.698 Ho spita .3.247094 084.8 l .8 2022-05-09 2022-05-09 [facility] [id number] 2099 578370 Methodi 00:00:00 00:00:[address] 3.430.2.7 Hospit a .3.934073 l .8 2022-05-09 2022-05-09 Refill Bhimaraj, 1.2.840.1 096583637 2099 668231 Methodi 00:00:00 00:00:[address] 3.430.2.7 Hospit a .3.789886 l .8 2022-05-06 2022-05-06 Orders Layton, 1.2.840.1 300810087 864810 1998 Methodi 00:00:00 00:00:00 Only Tamar 01620.1.[address] 3.430.2.7 Hospit a .3.441389 l .8 2022-05-06 2022-05-06 Orders Traylor, 1.2.840.1 379186862 032414 4507 Methodi 00:00:00 00:00:00 Only Tamar 11833.1.[address] 3.430.2.7 Hospit a .3.465203 l .8 2022-04-29 2022-04-29 Orders Traylor, 1.2.840.1 593189899 892053 6127 Methodi 00:00:00 00:00:00 Only Tamar 86996.1.[address] 3.430.2.7 Hospit a .3.116578 l .8 2022-04-29 2022-04-29 Orders Traylor, 1.2.840.1 623521760 889860 7834 Methodi 00:00:00 00:00:00 Only Tamar 75239.1.[address] 3.430.2.7 Hospit a .3.572469 l .8 2022-04-22 2022-04-22 Orders Traylor, 1.2.840.1 441836801 593770 1828 Methodi 00:00:00 00:00:00 Only Tamar 69858.1.[address] 3.430.2.7 Hospit a .3.995134 l .8 2022-04-22 2022-04-22 Orders Traylor, 1.2.840.1 548847239 070807 3072 Methodi 00:00:00 00:00:00 Only Tamar 30932.1.[address] 3.430.2.7 Hospit a .3.619010 l .8 2022-04-20 2022-04-20 Telephone Traylor, 1.2.840.1 260513407 2099 259963 Methodi 00:00:00 00:00:[address] 3.430.2.7 Hospit a .3.077295 l .8 2022-04-20 2022-04-20 Telephone Layton, 1.2.840.1 983677648 2099 206740 Methodi 00:00:00 00:00:[address] 3.430.2.7 Hospit a .3.863068 l .8 2022-04-15 2022-04-15 Orders Layton, 1.2.840.1 656290139 667840 1467 Methodi 00:00:00 00:00:00 Only Tamar 15063.1.[address] 3.430.2.7 Hospit a .3.743262 l .8 2022-04-15 2022-04-15 Orders Layton, 1.2.840.1 968101525 821240 8299 Methodi 00:00:00 00:00:00 Only Tamar 80465.1.[address] 3.430.2.7 Hospit a .3.807797 l .8 2022-04-08 2022-04-08 Orders Layton, 1.2.840.1 150481076 206162 1706 Methodi 00:00:00 00:00:00 Only Tamar 49280.1.[address] 3.430.2.7 Hospit a .3.823305 l .8 2022-04-08 2022-04-08 Orders Layton, 1.2.840.1 976608868 813357 9318 Methodi 00:00:00 00:00:00 Only Tamar 85964.1.[address] 3.430.2.7 Hospit a .3.202247 l .8 2022-04-04 2022-04-04 Anticoagul 1.2.840.1 758073992 587 7609116 Methodi 10:50:00 11:00:[address] Visit 3.430.2.7 Hospit a .3.579311 l .8 2022-04-04 2022-04-04 Anticoagul 1.2.840.1 073783145 948 5525041 Methodi 10:50:00 11:00:[address] Visit 3.430.2.7 Hospit a .3.400633 l .8 2022-04-04 2022-04-04 Travel 1.2.840.1 1.2.749.191 5803 937631 Methodi 00:00:00 00:00:[address] 3.430.2.7 0.2.7.3.698 Ho spita .3.071769 084.8 l .8 2022-04-04 2022-04-04 Telephone Traylor, 1.2.840.1 363780602 2099638 Methodi 00:00:00 00:00:[address] 3.430.2.7 Hospit a .3.959798 l .8 2022-04-04 2022-04-04 Travel 1.2.840.1 1.2.446.042 2644 861643 Methodi 00:00:00 00:00:[address] 3.430.2.7 0.2.7.3.698 Ho spita .3.276645 084.8 l .8 2022-04-04 2022-04-04 Telephone Traylor, 1.2.840.1 471054156 2099638 Methodi 00:00:00 00:00:[address] 3.430.2.7 Hospit a .3.892296 l .8 2022-04-01 2022-04-01 Orders Layton, 1.2.840.1 632671892 959590 9266 Methodi 00:00:00 00:00:00 Only Tamar 88499.1.[address] 3.430.2.7 Hospit a .3.969120 l .8 2022-04-01 2022-04-01 Orders Layton, 1.2.840.1 726106471 682463 2529 Methodi 00:00:00 00:00:00 Only Tamar 83043.1.[address] 3.430.2.7 Hospit a .3.467694 l .8 2022-03-30 2022-03-30 Refill Brittany, 1.2.840.1 292012017 2099 682471 Methodi 00:00:00 00:00:[address] 3.430.2.7 Hospit a .3.527021 l .8 2022-03-30 2022-03-30 Refill Brittany, 1.2.840.1 251211608 2099 831710 Methodi 00:00:00 00:00:[address] 3.430.2.7 Hospit a .3.686214 l .8 2022-03-25 2022-03-25 Orders Layton, 1.2.840.1 487483345 892013 9995 Methodi 00:00:00 00:00:00 Only Tamar 01519.1.[address] 3.430.2.7 Hospit a .3.197825 l .8 2022-03-25 2022-03-25 Orders Layton, 1.2.840.1 113540160 225126 6690 Methodi 00:00:00 00:00:00 Only Tamar 65166.1.[address] 3.430.2.7 Hospit a .3.409695 l .8 2022-03-18 2022-03-18 Orders Layton, 1.2.840.1 373623640 067725 7993 Methodi 00:00:00 00:00:00 Only Tamar 33172.1.[address] 3.430.2.7 Hospit a .3.700657 l .8 2022-03-18 2022-03-18 Orders Layton, 1.2.840.1 244037762 886598 3126 Methodi 00:00:00 00:00:00 Only Tamar 22265.1.[address] 3.430.2.7 Hospit a .3.914419 l .8 2022-03-15 2022-03-15 Refill Brittany, 1.2.840.1 903930172 2099 016245 Methodi 00:00:00 00:00:[address] 3.430.2.7 Hospit a .3.031914 l .8 2022-03-15 2022-03-15 Refill Santiagorhoda, 1.2.840.1 385704505 2099 219027 Methodi 00:00:00 00:00:[address] 3.430.2.7 Hospit a .3.418454 l .8 2022-03-11 2022-03-11 Orders Layton, 1.2.840.1 657065871 416977 3371 Methodi 00:00:00 00:00:00 Only Tamar 10623.1.[address] 3.430.2.7 Hospit a .3.738730 l .8 2022-03-11 2022-03-11 Orders Layton, 1.2.840.1 512265138 974058 9570 Methodi 00:00:00 00:00:00 Only Tamar 23916.1.[address] 3.430.2.7 Hospit a .3.885248 l .8 2022-03-10 2022-03-10 Refill Jc, 1.2.840.1 518354458 2099032 Methodi 00:00:00 00:00:[address] 3.430.2.7 Hospit a .3.363881 l .8 2022-03-10 2022-03-10 Refill Jc, 1.2.840.1 731890125 2099032 Methodi 00:00:00 00:00:[address] 3.430.2.7 Hospit a .3.495631 l .8 2022-03-04 2022-03-04 Orders Layton, 1.2.840.1 886378380 965088 0034 Methodi 00:00:00 00:00:00 Only Tamar 55056.1.[address] 3.430.2.7 Hospit a .3.794228 l .8 2022-03-04 2022-03-04 Bishop Traylor, 1.2.840.1 013982503 910316 7802 Methodi 00:00:00 00:00:00 Only Tamar 77809.1.[address] 3.430.2.7 Hospit a .3.901236 l .8 2022-02-25 2022-02-25 Orders Layton, 1.2.840.1 886133669 155358 3327 Methodi 00:00:00 00:00:00 Only Tamar 15957.1.[address] 3.430.2.7 Hospit a .3.451906 l .8 2022-02-25 2022-02-25 Orders Layton, 1.2.840.1 939034092 673151 5438 Methodi 00:00:00 00:00:00 Only Tamar 64445.1.[address] 3.430.2.7 Hospit a .3.647953 l .8 2022-02-22 2022-02-22 Telephone Layton, 1.2.840.1 100541102 2099 168876 Methodi 00:00:00 00:00:[address] 3.430.2.7 Hospit a .3.109208 l .8 2022-02-22 2022-02-22 Telephone Layton, 1.2.840.1 318994696 2099 326603 Methodi 00:00:00 00:00:[address] 3.430.2.7 Hospit a .3.584869 l .8 2022-02-18 2022-02-18 Orders Layton, 1.2.840.1 154954192 761703 2152 Methodi 00:00:00 00:00:00 Only Tamar 97066.1.[address] 3.430.2.7 Hospit a .3.679857 l .8 2022-02-18 2022-02-18 Orders Layton, 1.2.840.1 515849978 954833 5150 Methodi 00:00:00 00:00:00 Only Tamar 48921.1.[address] 3.430.2.7 Hospit a .3.201093 l .8 2022-02-11 2022-02-11 Bishop Traylor, 1.2.840.1 436371892 201497 9438 Methodi 00:00:00 00:00:00 Only Tamar 89619.1.[address] 3.430.2.7 Hospit a .3.593459 l .8 2022-02-11 2022-02-11 Bishop Traylor, 1.2.840.1 827348867 694126 6229 Methodi 00:00:00 00:00:00 Only Tamar 03114.1.[address] 3.430.2.7 Hospit a .3.354524 l .8 2022-02-04 2022-02-04 Gladys Guthrie, 1.2.840.1 687403630 913112 3418 Methodi 00:00:00 00:00:00 Jeanine A [address]1049.1.[address] 3.430.2.7 Hospit a .3.930727 l .8 2022-02-04 2022-02-04 Bishop Traylor, 1.2.840.1 719782283 582223 1967 Methodi 00:00:00 00:00:00 Only Tamar 81929.1.[address] 3.430.2.7 Hospit a .3.754986 l .8 2022-02-04 2022-02-04 Gladys Guthrie, 1.2.840.1 385463103 508024 3551 Methodi 00:00:00 00:00:00 Jeanine A [address]82.1.[address] 3.430.2.7 Hospit a .3.151332 l .8 2022-02-04 2022-02-04 Bishop Traylor, 1.2.840.1 601674714 443789 7804 Methodi 00:00:00 00:00:00 Only Tamar 41836.1.[address] 3.430.2.7 Hospit a .3.282596 l .8 2022-01-28 2022-01-28 Bishop Traylor, 1.2.840.1 114125684 119046 3991 Methodi 00:00:00 00:00:00 Only Tamar 24944.1.[address] 3.430.2.7 Hospit a .3.871370 l .8 2022-01-28 2022-01-28 Orders Layton, 1.2.840.1 982583543 815191 6135 Methodi 00:00:00 00:00:00 Only Tamar 06573.1.[address] 3.430.2.7 Hospit a .3.783261 l .8 2022-01-21 2022-01-21 Orders Layton, 1.2.840.1 568203237 637016 2555 Methodi 00:00:00 00:00:00 Only Tamar 64954.1.[address] 3.430.2.7 Hospit a .3.449412 l .8 2022-01-21 2022-01-21 Orders Layton, 1.2.840.1 431029119 006099 1742 Methodi 00:00:00 00:00:00 Only Tamar 53257.1.[address] 3.430.2.7 Hospit a .3.377186 l .8 2022-01-12 2022-01-12 Office [facility], 1.2.840.1 558196315 2099 078282 Methodi 13:40:00 14:00:00 Visit Christiano 92672.1.[address] 3.430.2.7 Hospit a .3.534655 l .8 2022-01-12 2022-01-12 Office [facility], 1.2.840.1 344914304 2099 151998 Methodi 13:40:00 14:00:00 Visit Christiano 78732.1.[address] 3.430.2.7 Hospit a .3.773983 l .8 2022-01-12 2022-01-12 Orders Layton, 1.2.840.1 859958555 661049 0181 Methodi 00:00:00 00:00:00 Only Tamar 94678.1.[address] 3.430.2.7 Hospit a .3.098730 l .8 2022-01-12 2022-01-12 Travel 1.2.840.1 1.2.165.869 2516 333458 Methodi 00:00:00 00:00:[address] 3.430.2.7 0.2.7.3.698 Ho spita .3.243100 084.8 l .8 2022-01-12 2022-01-12 Orders Traylor, 1.2.840.1 568571963 019705 9727 Methodi 00:00:00 00:00:00 Only Tamar 68934.1.[address] 3.430.2.7 Hospit a .3.045058 l .8 2022-01-12 2022-01-12 Travel 1.2.840.1 1.2.803.704 9316 049456 Methodi 00:00:00 00:00:[address] 3.430.2.7 0.2.7.3.698 Ho spita .3.033758 084.8 l .8 2022-01-02 2022-01-02 Refill Bhimaraj, 1.2.840.1 475577596 2099 886430 Methodi 00:00:00 00:00:[address] 3.430.2.7 Hospit a .3.653972 l .8 2022-01-02 2022-01-02 Refill Bhimaraj, 1.2.840.1 478512586 2099 239836 Methodi 00:00:00 00:00:[address] 3.430.2.7 Hospit a .3.463322 l .8 2021-12-22 2021-12-22 Refill Bhimaraj, 1.2.840.1 263897351 2099 597042 Methodi 00:00:00 00:00:[address] 3.430.2.7 Hospit a .3.833305 l .8 2021-12-22 2021-12-22 Refill Bhimaraj, 1.2.840.1 922892000 2099 197438 Methodi 00:00:00 00:00:[address] 3.430.2.7 Hospit a .3.633215 l .8 2021-11-29 2021-11-29 Refill [facility], 1.2.840.1 121360683 2099 653450 Methodi 00:00:00 00:00:[address] 3.430.2.7 Hospit a .3.084099 l .8 2021-11-29 2021-11-29 Refill [facility], 1.2.840.1 430353745 2099 490875 Methodi 00:00:00 00:00:[address] 3.430.2.7 Hospit a .3.449241 l .8 2021-11-09 2021-11-09 Refill [facility], 1.2.840.1 [id number] 2099 [id number] Methodi 00:00:00 00:00:[address] 3.430.2.7 Hospit a .3.851250 l .8 2021-11-09 2021-11-09 Refill [facility], 1.2.840.1 [id number] 2099 [id number] Methodi 00:00:00 00:00:[address] 3.430.2.7 Hospit a .3.991571 l .8 2021-10-27 2021-10-27 Orders [facility], 1.2.840.1 [id number] 2099 [id number] Methodi 00:00:00 00:00:00 Only Christiano 52542.1.[address] 3.430.2.7 Hospit a .3.653501 l .8 2021-10-27 2021-10-27 Orders [facility], 1.2.840.1 [id number] 2099 [id number] Methodi 00:00:00 00:00:00 Only Christiano 63593.1.[address] 3.430.2.7 Hospit a .3.048970 l .8 2021-10-22 2021-10-22 Orders Rodger, 1.2.840.1 [id number] 2099 [id number] Methodi 00:00:00 00:00:00 Only Mesha 72677.1.[address] 3.430.2.7 Hospit a .3.141196 l .8 2021-10-22 2021-10-22 Orders Rodger, 1.2.840.1 [id number] Methodi 00:00:00 00:00:00 Only Mesha 49714.1.[address] 3.430.2.7 Hospit a .3.823672 l .8 2021-10-05 2021-10-05 Atiya Soares 1.2.840.1 [id number] Methodi 00:00:00 00:00:[address] 3.430.2.7 Hospit a .3.013969 l .8 2021-10-05 2021-10-05 Atiya Soares 1.2.840.1 [id number] Methodi 00:00:00 00:00:[address] 3.430.2.7 Hospit a .3.264249 l .8 2021-09-29 2021-09-29 Travel 1.2.840.1 1.2.754.381 0582 672830 Methodi 00:00:00 00:00:[address] 3.430.2.7 0.2.7.3.698 spita .3.226782 084.8 l .8 2021-09-29 2021-09-29 Outpatient COUNT INCLUDES THE [facility] 79770 54874 [place] 00:00:00 00:00:[address] CHRIST[address]O [address] 2021-09-29 2021-09-29 Travel 1.2.840.1 1.2.180.196 8037 559372 Methodi 00:00:00 00:00:[address] 3.430.2.7 0.2.7.3.698 Ho spita .3.162849 084.8 l .8 2021-09-24 2021-09-24 Orders Traylor, 1.2.840.1 [id number] 657891 6811 Methodi 00:00:00 00:00:00 Only Tamar 83849.1.[address] 3.430.2.7 Hospit a .3.434410 l .8 2021-09-24 2021-09-24 Orders Layton, 1.2.840.1 [id number] 2046 Methodi 00:00:00 00:00:00 Only Tamar 78344.1.[address] 3.430.2.7 Hospit a .3.877750 l .8 2021-09-22 2021-09-22 Office [facility], 1.2.840.1 [id number] 2099 875559 Methodi 10:40:00 11:33:28 Visit Christiano 53680.1.[address] 3.430.2.7 Hospit a .3.918973 l .8 2021-09-22 2021-09-22 Office [facility], 1.2.840.1 [id number] 2099 286931 Methodi 10:40:00 11:33:28 Visit Christiano 32530.1.[address] 3.430.2.7 Hospit a .3.586676 l .8 2021-09-22 2021-09-22 Travel 1.2.840.1 1.2.833.088 6476 801783 Methodi 00:00:00 00:00:[address] 3.430.2.7 0.2.7.3.698 Ho spita .3.374166 084.8 l .8 2021-09-22 2021-09-22 Travel 1.2.840.1 1.2.670.085 8172 289826 Methodi 00:00:00 00:00:[address] 3.430.2.7 0.2.7.3.698 Ho spita .3.374088 084.8 l .8 2021-09-10 2021-09-10 Bishop Traylor, 1.2.840.1 [id number] 051138 3477 Methodi 00:00:00 00:00:00 Only Tamar 86865.1.[address] 3.430.2.7 Hospit a .3.542234 l .8 2021-09-10 2021-09-10 Bishop Traylor, 1.2.840.1 [id number] 466587 3346 Methodi 00:00:00 00:00:00 Only Tamar 27475.1.[address] 3.430.2.7 Hospit a .3.627501 l .8 2021-09-09 2021-09-09 [facility] [id number] 20[facility] [id number] Methodi 00:00:00 00:00:[address] 3.430.2.7 Hospit a .3.284012 l .8 2021-09-09 2021-09-09 Refill Brittany, 1.2.840.1 [id number] 2099 [id number] Methodi 00:00:00 00:00:[address] 3.430.2.7 Hospit a .3.844780 l .8 2021-08-27 2021-08-27 Bishop Traylor, 1.2.840.1 [id number] 3966 Methodi 00:00:00 00:00:00 Only Tamar 40969.1.[address] 3.430.2.7 Hospit a .3.716382 l .8 2021-08-13 2021-08-13 Bishop Traylor, 1.2.840.1 [id number] 255117 3171 Methodi 00:00:00 00:00:00 Only Tamar 32129.1.[address] 3.430.2.7 Hospit a .3.027869 l .8 2021-08-12 2021-08-12 Bishop Soares, 1.2.840.1 [id number] 2099 174204 Methodi 00:00:00 00:00:00 Only Mesha 96774.1.[address] 3.430.2.7 Hospit a .3.964522 l .8 2021-07-30 2021-07-30 Orders Layton, 1.2.840.1 [id number] 643600 7292 Methodi 00:00:00 00:00:00 Only Tamar 62066.1.[address] 3.430.2.7 Hospit a .3.910199 l .8 2021-07-16 2021-07-16 Orders Layton, 1.2.840.1 [id number] 144422 4832 Methodi 00:00:00 00:00:00 Only Tamar 00968.1.[address] 3.430.2.7 Hospit a .3.129338 l .8 2021-07-11 2021-07-11 Refill Brittany, 1.2.840.1 [id number] 2100 [id number] Methodi 00:00:00 00:00:[address] 3.430.2.7 Hospit a .3.038893 l .8 2021-07-08 2021-07-08 Telephone Rodger, 1.2.840.1 [id number] 21 [id number] Methodi 00:00:00 00:00:[address] 3.430.2.7 Hospit a .3.004574 l .8 2021-07-05 2021-07-05 Outpatient [facility] [id number] 202 [facility] 08:00:00 08:00:00 83196 [facility] 2021-07-02 2021-07-02 Orders Layton, 1.2.840.1 [id number] [id number] 5663 Methodi 00:00:00 00:00:00 Only Tamar 87901.1.[address] 3.430.2.7 Hospit a .3.089088 l .8 2021-06-18 2021-06-18 Orders Layton, 1.2.840.1 [id number] 578625 0559 Methodi 00:00:00 00:00:00 Only Tamar 64747.1.[address] 3.430.2.7 Hospit a .3.926129 l .8 2021-06-04 2021-06-04 Orders Layton, 1.2.840.1 [id number] 789429 9837 Methodi 00:00:00 00:00:00 Only Tamar 62305.1.[address] 3.430.2.7 Hospit a .3.534534 l .8 2021-05-31 2021-05-31 Telephone Brittany, 1.2.840.1 [id number] Methodi 00:00:00 00:00:[address] 3.430.2.7 Hospit a .3.401201 l .8 2021-05-21 2021-05-21 Orders Layton, 1.2.840.1 [id number] 872978 3260 Methodi 00:00:00 00:00:00 Only Tamar 23328.1.[address] 3.430.2.7 Hospit a .3.774066 l .8 2021-05-12 2021-05-12 Orders Rodger, 1.2.840.1 [id number] 2099 [id number] Methodi 00:00:00 00:00:00 Only Mesha 02077.1.[address] 3.430.2.7 Hospit a .3.635334 l .8 2021-05-12 2021-05-12 Refill Brittany, 1.2.840.1 [id number] 2099 158470 Methodi 00:00:00 00:00:[address] 3.430.2.7 Hospit a .3.324991 l .8 2021-05-07 2021-05-07 Telephone Layton, 1.2.840.1 [id number] 2099 [id number] Methodi 00:00:00 00:00:[address] 3.430.2.7 Hospit a .3.239199 l .8 2021-05-07 2021-05-07 Orders Traylor, 1.2.840.1 [id number] 748850 6548 Methodi 00:00:00 00:00:00 Only Tamar 67018.1.[address] 3.430.2.7 Hospit a .3.231787 l .8 2021-04-28 2021-04-28 Office [facility], 1.2.840.1 [id number] 2100 470998 Methodi 15:01:18 16:02:44 Visit Christiano 67532.1.[address] 3.430.2.7 Hospit a .3.821446 l .8 2021-04-28 2021-04-28 Travel 1.2.840.1 1.2.959.668 3751 729736 Methodi 00:00:00 00:00:[address] 3.430.2.7 0.2.7.3.698 Ho spita .3.168304 084.8 l .8 2021-04-23 2021-04-23 Bishop Traylor, 1.2.840.1 [id number] 400049 6310 Methodi 00:00:00 00:00:00 Only Tamar 00864.1.[address] 3.430.2.7 Hospit a .3.208478 l .8 2021-04-12 2021-04-12 Refill [facility], 1.2.840.1 [id number] 2099 [id number] Methodi 00:00:00 00:00:[address] 3.430.2.7 Hospit a .3.127434 l .8 2021-03-30 2021-03-30 Bishop Traylor, 1.2.840.1 [id number] Methodi 00:00:00 00:00:00 Only Tamar 66950.1.[address] 3.430.2.7 Hospit a .3.961780 l .8 2021-03-30 2021-03-30 Atiya Traylor, 1.2.840.1 [id number] 2099 [id number] Methodi 00:00:00 00:00:[address] 3.430.2.7 Hospit a .3.996718 l .8 2021-03-08 2021-03-08 Travel 1.2.840.1 1.2.952.765 1609 [id number] Methodi 00:00:00 00:00:[address] 3.430.2.7 0.2.7.3.698 Ho spita .3.935345 084.8 l .8 2021-02-24 2021-02-24 Orders Rodger, 1.2.840.1 [id number] 2099 [id number] Methodi 00:00:00 00:00:00 Only Mesha 94117.1.[address] 3.430.2.7 Hospit a .3.464981 l .8 2021-02-17 2021-02-17 Refill Floresmamadouwali, 1.2.840.1 [id number] 2099 [id number] Methodi 00:00:00 00:00:[address] 3.430.2.7 Hospit a .3.300607 l .8 2021-02-15 2021-02-15 Anticoagul 1.2.840.1 [id number] Methodi 11:26:57 11:36:[address] Visit 3.430.2.7 Hospit a .3.909050 l .8 2021-02-15 2021-02-15 Travel 1.2.840.1 1.2.132.653 0824 996840 Methodi 00:00:00 00:00:[address] 3.430.2.7 0.2.7.3.698 Ho spita .3.685421 084.8 l .8 2021-02-04 2021-02-04 Anticoagul 1.2.840.1 [id number] 643 [id number] Methodi 11:25:38 11:45:[address] Visit 3.430.2.7 Hospit a .3.302692 l .8 2021-02-04 2021-02-04 Orders Layton, 1.2.840.1 [id number] 9647 Methodi 00:00:00 00:00:00 Only Tamar 03674.1.[address] 3.430.2.7 Hospit a .3.925513 l .8 2021-02-04 2021-02-04 Travel 1.2.840.1 1.2.481.379 6150 736376 Methodi 00:00:00 00:00:[address] 3.430.2.7 0.2.7.3.698 Ho spita .3.412283 084.8 l .8 2021-01-25 2021-01-25 [facility] [id number] 2099 137682 Methodi 00:00:00 00:00:[address] 3.430.2.7 Hospit a .3.174230 l .8 2021-01-04 2021-01-04 Documentat Delos 1.2.840.1 [id number] 599 [id number] Methodi 00:00:00 00:00:00 ion Drew, 93764.1.[address] Shari F. 3.430.2.7 Hosp lani .3.336319 l .8 2020-12-03 2020-12-03 Bishop Soares, 1.2.840.1 [id number] 2099 [id number] Methodi 00:00:00 00:00:00 Only Mesha 94975.1.[address] 3.430.2.7 Hospit a .3.963449 l .8 2020-12-02 2020-12-02 [facility] 1.[facility].840.1 [id number] Methodi 00:00:00 00:00:[address] 3.430.2.7 Hospit a .3.253272 l .8 2020-03-05 2020-03-05 Letter OSWALDO Donaldson 1.2.840.114 [id number] 27 Univers 00:00:00 00:00:00 (Out) Renée T NEELAM 350.1.13.10 it y of [facility] 4.2.7.2.686 Octavio as [id number] [facility] [address] [place] 2020-03-05 2020-03-05 Letter OSWALDO Donaldson 1.2.840.114 [id number] 27 00:00:00 00:00:00 (Out) Renée Rodriguez NEELAM 350.1.13.10 [facility] 4.2.7.2.686 [id number] 019 2020-03-04 2020-03-04 Laboratory Only, [facility] Test [facility] 1.2.840. 114 [id number] [facility] 11:49:51 12:04:51 Only Jena Marroquin 350.1.13.10 ity of [place] 4.2.7.2.686 [facility] [id number] [facility] [address] 2020-03-04 2020-03-04 Laboratory Only, [facility] 1.2.840.114 7 [id number] 11:49:51 12:04:51 Only Test [place] 350.1.13.10 [place] 4.2.7.2.686 [place] [id number] 353 2020-03-04 2020-03-04 Outpatient R JENA MARROQUIN [facility] 772 [id number] Univers 10:45:00 10:45:00 ity of [facility] 2020-03-04 2020-03-04 Orders Doctor OSWALDO Mcqueen2.840.114 [id number] Univers 00:00:00 00:00:00 Only Unassigned, NEELAM 350.1.13.10 ity of [place] [facility] 4.2.7.2.686 Octavio as [id number] [facility] [address] 2020-03-04 2020-03-04 Orders Doctor OSWALDO Mcqueen2.840.114 [id number] 85 00:00:00 00:00:00 Only Unassigned, NEELAM 350.1.13.10 [place] [facility] 4.2.7.2.686 [id number] 009 Results Test Description Test Time Test Comments Results Result Comments Source POC panel 2022-05-31 19:53:01 Test Item Value Reference Range Interpretation Comme nts POC creatinine (test code = 1.2 mg/dl 0.7-1.2 Etymology Teacher Name: Keshawn Mireles 65475-6) ID: [id number] POC hematocrit (test code = 43 % 41-51 4544-3) [facility] [id number] 19:53:01 Test Item Value Reference Range Interpretation Comments POC creatinine (test 1.2 mg/dl 0.7-1.2 Operato r Name: Keshawn code = 50018-4) Aline ID: [id number] POC hematocrit (test 43 % 41-51 code = 4544-3) [facility] [id number] 19:53:00 Test Item Value Reference Range Interpretation Comments Estimated GFR (test mL/min/1.73 m2 Caterg ory Units code = 51886-9) Interpretati onG1 >=90 Normal or highG 2 60-89 Mildly decrease dG3a 45-59 Mildly to moder ately lnicofmylX5i 30 -44 Moderately to s everely decreasedG4 15- 29 Severely decreasedG5 <15 Kidney failureThe eGFR was calculated usin g the Chronic Kidney Disease Epidemiology Co llaboration (CKD-EPI) equat ion. Interpretation is based on recommendations of the National Kidney Foundation-Kidn ey Disease Outcomes Qualit y Initiative (NKF-KDOQI) pub lished in 2014. [facility] [id number] 19:53:00 Test Item Value Reference Range Interpretation Comments Estimated GFR (test 80 mL/min/1.73 m2 Caterg ory Units code = 59071-1) Interpretati onG1 >=90 Normal or highG 2 60-89 Mildly decrease dG3a 45-59 Mildly to moder ately cgwmarooaF8s 30 -44 Moderately to s everely decreasedG4 15- 29 Severely decreasedG5 <15 Kidney failureThe eGFR was calculated usin g the Chronic Kidney Disease Epidemiology Co llaboration (CKD-EPI) equat ion. Interpretation is based on recommendations of the National Kidney Foundation-Kidn ey Disease Outcomes Qualit y Initiative (NKF-KDOQI) pub lished in 2014. [facility] [id number] 06:16:00 Test Item Value Reference Range Interpretation Comments Glucose (test code = 357 mg/dL 65-99 H Fastin g 2345-7) reference interval For someone without known diabetes, a glucosevalue >1 25 mg/dL indicates that they may havediabetes an d this should be confirmed with afollow-up test . BUN (test code = 25 mg/dL 02-07 3094-0) Creatinine (test 1.20 mg/dL 0.70-1.30 code [...] . Sodium (test code = 136 mmol/L 501-651 5294-2) Potassium (test code 4.1 mmol/L 3.5-5.3 = 2823-3) Chloride (test code 102 mmol/L 98-110 = 2075-0) CO2 (test code = 26 mmol/L 20-32 8-9) Calcium (test code = 9.4 mg/dL 8.6-10.3 19715-2) Protein (test code = 7.1 g/dL 6.1-8.1 2885-2) Albumin, S (test 3.8 g/dL 3.6-5.1 code = 1751-7) Globulin, total See_Comment [Automated (test code = message] The 04239-8) system which generated this result transmitted reference range : 1.9 - 3.7 g/dL (calc). The reference range was not used to interpret this result as normal/abnormal . Albumin/globulin See_Comment [Automated ratio (test code = message] The 1959-0) system which generated this result transmitted reference range : 1.0 - 2.5 (calc ). The reference range was not used to interpr et this result as normal/abnormal . Total bilirubin 0.4 mg/dL 0.2-1.2 (test code = 1975-2) Alkaline phosphatase 87 U/L 35-144 (test code = 6768-6) AST (test code = 18 U/L 10-35 1920-8) ALT (test code = 18 U/L 9-46 1742-6) SHIVAM (test code = FASTING:YES SHIVAM) FASTING: YES RAC (test code = Performing RAC) Organization Information: Site ID: RGA [facility] Address: [address] [place] [address] Director: Tate Rodriguez Lab Interpretation Abnormal (test code = 61831-7) [facility] [id number] 06:16:00 Test Item Value Reference Interpretation Comments [...] a fasting specime nif clinically indicated. Kanu metcalf et al. J. of Cl in. Lipidol. 2015;9:129-169. [Automated mess age] The system whic h generated this result transmit maxine reference range : <=150. The reference range was not used to interpret this result as normal/abnormal . LDL cholesterol mg/dL (calc) H Reference ra nge: calculated (test <100 Desira ble code = 55393-2) range <100 m g/dL for primary prevention; <70 mg/dL for patie nts with CHD or diabetic patien ts with > or = 2 C HD risk factors. L DL-C is now calculat ed using the Danish-Christian calculation, wh ich is a validated novel method providing rosemary r accuracy than t he Porfirio ellsworth tibriana in the estimati on of LDL-C. Zena n SS et al. YOSVANY. 2013;310(19): 5266-1384 (http://educati on.Q tu.nr .com /faq/WGH641) Cholesterol/HDL See_Comment [Automated ratio (test code = message] The system 9830-1) which generated this result transmitted reference range : <5.0 (calc). Th e reference range was not used to interpret this result as normal/abnormal . Non-HDL cholesterol See_Comment H For shailesh ents with (test code = diabetes plus 1 79443-1) major ASCVD ris k factor, treatin g to a non-HDL-C goa l of <100 mg/dL (LDL -C of <70 mg/dL) i s considered a therapeutic opt ion. [Automated mess age] The system [employer] generated this result transmit maxine reference range : <130 mg/dL (emlissa c). The reference r keenan was not used to interpret this result as normal/abnormal . SHIVAM (test code = FASTING:YES SHIVAM) FASTING: YES RAC (test code = Performing RAC) Organization Information: Site ID: A [facility] Address: [address] [place], [place] [id number] Director: Tate Rodriguez Lab Interpretation Abnormal (test code = 81168-6) [place] [address], [id number] 06:16:00 Test Item Value Reference Range Interpretation Comments T4, free (test code 1.4 ng/dL 0.8-1.8 = 3024-7) SHIVAM (test code = FASTING:YES FASTING: YES SHIVAM) RAC (test code = Performing Organization RAC) Information: Site ID: [facility] Address: [address] [place] [address] Director: Tate Rodriguez [facility] ClinicThyroid stimulating [id number] 06:16:00 Test Item Value Reference Range Interpretation Comments TSH (test See_Comment [Automated mes freedom] code = The system [employer] 3016-3) generated this result transmit maxine reference range : 0.40 - 4.50 mIU /L. The reference r keenan was not used to interpret this result as normal/abnormal . SHIVAM (test FASTING:YES FASTING: code = SHIVAM) YES RAC (test Performing code = RAC) Organization Information: Site ID: JON [facility] Address: [address] [place] [address] Director: [place] [id number] 06:16:00 Test Item Value Reference Range Interpretation Comments T3 (test code = 105 ng/dL 76-181 3053-6) SHIVAM (test code = FASTING:YES FASTING: YES SHIVAM) RAC (test code = Performing Organization RAC) Information: Site ID: JON Name: [facility] Lab Address: [address] [place] [address] Director: [facility] with platelet and [id number] 06:16:00 Test Item Value Reference Range Interpretation Comments WBC (test code = See_Comment [Automated 7392-2) message] The system which generated this result transmitted reference range : 3.8 - 10.8 Thousand/uL. Th e reference range was not used to interpret this result as normal/abnormal . RBC (test code = See_Comment [Automated 989-8) message] The system which generated this result [...] RAC) Organization Information: Site ID: RGA [facility] Address: [address] [place] [address] Director: Tate Rodriguez [facility] metabolic [id number] 06:16:00 Test Item Value Reference Range Interpretation Comments Glucose (test code = 357 mg/dL 65-99 H Fastin g 6195-1) reference interval For someone without known diabetes, a glucosevalue >1 25 mg/dL indicates that they may havediabetes an d this should be confirmed with afollow-up test . BUN (test code = 25 mg/dL 7-25 3094-0) Creatinine (test 1.20 mg/dL 0.70-1.30 code = 2160-0) eGFR (test code = 73 See_Comment The eGFR i s based 8257) on the CKD-EPI 2020 equation. To calculate the n ew eGFR from a previous Creatinine or Cystatin Cresul t, go to https://www.kid ne y.org/profronanio na randall/kdoqi/gfr%5F ca lculator [Automated message] The system which [...] . Sodium (test code = 136 mmol/L 581-022 6328-2) Potassium (test code 4.1 mmol/L 3.5-5.3 = 2823-3) Chloride (test code 102 mmol/L 98-110 = 2075-0) CO2 (test code = 26 mmol/L 20-32 2027-) Calcium (test code = 9.4 mg/dL 8.6-10.3 18723-7) Protein (test code = 7.1 g/dL 6.1-8.1 2885-2) Albumin, S (test 3.8 g/dL 3.6-5.1 code = 1751-7) Globulin, total 3.3 See_Comment [Automated (test code = message] The 87072-5) system which generated this result transmitted reference range : 1.9 - 3.7 g/dL (calc). The reference range was not used to interpret this result as normal/abnormal . Albumin/globulin 1.2 See_Comment [Automated ratio (test code = message] The ) system which generated this result transmitted reference range : 1.0 - 2.5 (calc ). The reference range was not used to interpr et this result as normal/abnormal . Total bilirubin 0.4 mg/dL 0.2-1.2 (test code = 1974-) Alkaline phosphatase 87 U/L 35-144 (test code = 6768-6) AST (test code = 18 U/L 10-35 1920-8) ALT (test code = 18 U/L 9-46 1742-6) SHIVAM (test code = FASTING:YES SHIVAM) FASTING: YES RAC (test code = Performing RAC) Organization Information: Site ID: RGA Name: [facility] Address: [address] [place] [address] Director: Tate Rodriguez Lab Interpretation Abnormal (test code = 67990-9) [facility] [id number] 06:16:00 Test Item Value Reference Interpretation Comments Range Cholesterol, total 188 mg/dL <=200 (test code = 2093-3) HDL cholesterol 43 mg/dL See_Comment [Automated (test code = 2084-9) message ] The system which generated this result transmitted reference range : > OR = 40. The reference range was not used to interpret this result as normal/abnormal . Triglycerides (test 301 mg/dL <=150 H If a no n-fasting code = 2571-8) specimen was collected, considerrepeat triglyceride testing on a fasting specime nif clinically indicated. Kanu metcalf et al. J. of Cl in. Lipidol. 2015;9:129-169. LDL cholesterol 105 mg/dL (calc) H Reference ra nge: calculated (test <100 Desira ble code = 62469-0) range <100 m g/dL for primary prevention; [...] Zena n SS et al. YOSVANY. 2013;310(19): 7472-5136 (http://educati on.Q tu.nr .com /faq/DWA543) Cholesterol/HDL 4.4 See_Comment [Automated ratio (test code = message] The system 9830-1) which generated this result transmitted reference range : <5.0 (calc). Th e reference range was not used to interpret this result as normal/abnormal . Non-HDL cholesterol 145 See_Comment H For shailesh ents with (test code = diabetes plus 1 27749-7) major ASCVD ris k factor, treatin g to a non-HDL-C goa l of <100 mg/dL (LDL -C of <70 mg/dL) i s considered a therapeutic opt ion. [Automated mess age] The system [facility] [employer] generated this result transmit maxine reference range : <130 mg/dL (melissa c). The reference r keenan was not used to interpret this result as normal/abnormal . SHIVAM (test code = FASTING:YES SHIVAM) FASTING: YES RAC (test code = Performing RAC) Organization Information: Site ID: RGA [facility]: [facility] Address: [address] [place] [address] Director: Tate Rodriguez Lab Interpretation Abnormal (test code = 37039-4) [facility], [id number] 06:16:00 Test Item Value Reference Range Interpretation Comments T4, free (test code 1.4 ng/dL 0.8-1.8 = 3024-7) SHIVAM (test code = FASTING:YES FASTING: YES SHIVAM) RAC (test code = Performing Organization RAC) Information: Site ID: A [facility] Address: [address] [place] [address] Director: [place] Shantel MedranoJenniferAshtabula General HospitalThyroid stimulating [id number] 06:16:00 Test Item Value Reference Range Interpretation Comments TSH (test 0.48 See_Comment [Automated mes freedom] code = The system [facility] [employer] 3016-3) generated this result transmit maxine reference range : 0.40 - 4.50 mIU /L. The reference r keenan was not used to interpret this result as normal/abnormal . SHIVAM (test FASTING:YES FASTING: code = SHIVAM) YES RAC (test Performing code = RAC) Organization Information: Site ID: [facility] Name: [facility] Address: [address] [place] [address] Director: [place] Shantel DavilaJenniferMetroHealth Main Campus Medical CenterT32022-11-10 06:16:00 Test Item Value Reference Range Interpretation Comments T3 (test code = 105 ng/dL 76-181 3053-6) SHIVAM (test code = FASTING:YES FASTING: YES SHIVAM) RAC (test code = Performing Organization RAC) Information: Site ID: RGA [facility] Address: [address] [place] [address] Director: Tate Rodriguez [facility] with platelet and [id number] 06:16:00 Test Item Value Reference Range Interpretation Comments WBC (test code = 5.3 See_Comment [Automated 5165-2) message] The system which generated this result transmitted reference range : 3.8 - 10.8 Thousand/uL. Th e reference range was not used to interpret this result as normal/abnormal . RBC (test code = 4.77 See_Comment [Automated 489-8) message] The system which generated this result [...] = 13.4 % 11.0-15.0 788-0) Platelet count 245 See_Comment [Automated (test code = message] The 777-3) system which generated this result transmitted reference range : 140 - 400 Thousand/uL. Th e reference range was not used to interpret this result as normal/abnormal . MPV (test code = 10.4 fL 7.5-12.5 776-5) Neutrophils, 3297 See_Comment [Automated absolute (test message] The code = 751-8) system which generated this result transmitted reference range : 1,500 - 7,800 cells/uL. The reference range was not used to interpret this result as normal/abnormal . Lymphocytes, 1675 See_Comment [Automated absolute (test message] The code = 731-0) system which generated this result transmitted reference range : 850 - 3,900 cells/uL. The reference range was not used to interpret this result as normal/abnormal . Monocytes, 239 See_Comment [Automated absolute (test message] The code = 742-7) system which generated this result transmitted reference range : 200 - 950 cells/uL. The reference range was not used to interpret this result as normal/abnormal . Eosinophils, 69 See_Comment [Automated absolute (test message] The code = 711-2) system which generated this result transmitted reference range : 15 - 500 cells/uL. The reference range was not used to interpret this result as normal/abnormal . Basophils, 21 See_Comment [Automated absolute (test message] The code [...] RAC) Organization Information: Site ID: RGA [facility] Address: [address] [place] [address] Director: Tate Rodriguez [facility] ClinicProthrombin time with [id number] 05:19:00 Test Item Value Reference Range Interpretation Comments INR (test code = H Reference R keenan 6301-6) 0.9-1.1Moderate -i ntensity Warfar in Therapy 2.0-3.0Higher-i nt ensity Warfarin Therapy 3.0-4.0 Prothrombin time See_Comment H For additio nal (test code = 5902-2) informa tion, please refer tohttp://educat io n.questdiagnost Change.orgcom/faq/FAQ10 4( This link is being provided for informational/e du cational purpos es only.) [Automat ed message] The system which generated this result transmitted reference range : 9.0 - 11.5 sec. The reference range was not used to interpr et this result as normal/abnormal . RAC (test code = Performing RAC) Organization Information: Site ID: [facility] Name: [facility] Address: [address] [place], [place] [id number] Director: Tate Rodriguez Lab Interpretation Abnormal (test code = 96923-6) [facility] time with [id number] 05:19:00 Test Item Value Reference Range Interpretation Comments INR (test code = 2.6 H Reference R keenan 6301-6) 0.9-1.1Moderate -i ntensity Warfar in Therapy 2.0-3.0Higher-i nt ensity Warfarin Therapy 3.0-4.0 Prothrombin time 24.5 See_Comment H For additio nal (test code = 5902-2) informa tion, please refer tohttp://educat io n.[employer]/faq/FAQ10 4( This link is being provided for informational/e du cational purpos es only.) [Automat ed message] The system which generated this result transmitted reference range : 9.0 - 11.5 sec. The reference range was not used to interpr et this result as normal/abnormal . RAC (test code = Performing RAC) Organization Information: Site ID: [facility] Name: [facility] Address: [address] [place] [address] Director: Tate Rodriguez Lab Interpretation Abnormal (test code = 37341-5) [facility] 12 [id number] 07:55:19 Test Item Value Reference Range Interpretation Comments Ventricular rate (test code = 253) Atrial rate (test code = 255) FL interval (test code = 266) QRSD interval [...] Donna Talbot ([id number]) on 05/19/2022 2:55:13 AM [facility] 12 [id number] 07:55:19 Test Item Value Reference Range Interpretation Comments Ventricular rate 77 (test code = 253) Atrial rate (test 77 code = 255) FL interval (test 144 code = 266) QRSD interval (test 112 code = 260) QT interval (test 400 code = 264) QTC interval (test 452 code = 265) P axis 1 (test code = 43 267) QRS axis 1 (test code -12 = 268) T wave axis (test 157 code = 270) EKG impression (test Sinus rhythm with code = 273) occasional premature ventricular complexes-Possible Left atrial enlargement-Left ventricular hypertrophy with repolarization abnormality-Electronical ly Signed By Donna Talbot ([id number]) on 05/19/2022 2:55:13 AM [facility] PT/[id number] 16:09:59 Test Item Value Reference Range Interpretation Comments POC prothrombin time (test code = 2285912) POC INR (test code = 3108864) [facility] [id number] 16:09:59 Test Item Value Reference Range Interpretation Comments POC prothrombin time (test code = 26.6 2335515) POC INR (test code = 4792668) 2.2 [facility] Clinic[facility]oglobin [id number] 11:38:00 Test Item Value Reference Interpretation Comments Range Hemoglobin A1C (test See_Comment H For rl sears without code = 4548-4) known diabete s, [...] for children. [Automated mess age] The system [employer] generated this result transmit maxine reference range : <5.7 % of total Hgb. The refere nce range was not u sed to interpret th is result as normal/abnormal . SHIVAM (test code = FASTING:YES SHIVAM) FASTING: YES RAC (test code = Performing RAC) Organization Information: Site ID: RGA Name: [facility] Address: [address] [place] [address] Director: Tate Rodriguez Lab Interpretation Abnormal (test code = 08877-4) [facility] ClinicH[facility] [id number] 11:38:00 Test Item Value Reference Interpretation Comments Range Hemoglobin A1C (test 12.8 See_Comment H For rl eone without code [...] for children. [Automated mess age] The system [employer] generated this result transmit maxine reference range : <5.7 % of total Hgb. The refere nce range was not u sed to interpret th is result as normal/abnormal . SHIVAM (test code = FASTING:YES SHIVAM) FASTING: YES RAC (test code = Performing RAC) Organization Information: Site ID: RGA Name: [facility] Address: [address] [place] [address] Director: Tate Rodriguez Lab Interpretation Abnormal (test code = 07539-1) [facility] Clinic[facility]th[facility] time with [id number] 09:04:00 Test Item Value Reference Range Interpretation Comments INR (test code = H Reference R keenan 6301-6) 0.9-1.1Moderate -i ntensity Warfar in Therapy 2.0-3.0Higher-i nt ensity Warfarin Therapy 3.0-4.0 Prothrombin time See_Comment H For additio nal (test code = 5902-2) informa tion, please refer tohttp://educat io n.questdiagnost ic Voltaixcom/faq/FAQ10 4( This link is being provided for informational/e du cational purpos es only.) [Automat ed message] The system which generated this result transmitted reference range : 9.0 - 11.5 sec. The reference range was not used to interpr et this result as normal/abnormal . RAC (test code = Performing RAC) Organization Information: Site ID: [id number] Name: [facility] Address: [address] [place] [id number] Director: Tate Rodriguez Lab Interpretation Abnormal (test code = 48150-4) [facility] metabolic [id number] 06:54:00 Test Item Value Reference Interpretation Comments Range Glucose (test code 266 mg/dL 65-99 H Fasting reference = 2345-7) interval For so meone without known diabetes, a glucosevalue >1 25 [...] EGFR Non-Afr. See_Comment L [Automated me ssage] [place] (test code The syst em which = 9675) generated this result transmit maxine reference range : > OR = 60 mL/min/1.73m2. The reference range was not used to interpret this result as normal/abnormal . EGFR See_Comment [Automated mes freedom] [place] (test code The syst em which = 5384) generated this result transmit maxine reference range [...] . Sodium (test code = 139 mmol/L 977-289 1516-2) Potassium (test 4.3 mmol/L 3.5-5.3 code = 2823-3) Chloride (test code 99 mmol/L 98-110 = 5-0) CO2 (test code = 33 mmol/L 20-32 H 2028-03) Calcium (test code 9.1 mg/dL 8.6-10.3 = 61885-4) RAC (test code = Performing RAC) Organization Information: Site ID: [facility] Name: [facility] Address: [address] [place] [id number] Director: Tate Rodriguez Lab Interpretation Abnormal (test code = 83897-8) [facility] 12 [id number] 09:04:28 Test Item Value Reference Range Interpretation Comments Ventricular rate (test code = 253) Atrial rate (test code = 255) FL interval (test code = 266) QRSD interval [...] & T wave abnormality, consider anterolateral ischemia- [facility] [id number] 16:44:00 Test Item Value Reference Range Interpretation Comments POC prothrombin time (test code = 5148972) POC INR (test code = 6778848) [facility]
--- NOTE | 2022-08-29 14:55 | EDPHYS ---
Physician Documentation [facility] Name: Cam Huitron Age: 51 yrs Sex: Male : 1970 Arrival Date: 08/29/2022 Time: 14:00 Bed 14 Private MD: ED Physician Tereso Soto HPI: 08/29 14:51 This 51 yrs old Black Male presents to ER via Ambulatory with complaints of Wound Check.bs3 14:51 52-year-old history of diabetes, [place], hypertension who underwent an incision and bs3 drainage of his scalp in June notes that it was healing well but then developed a small amount of red/white discharge from the area that started this weekend denies fevers chills denies anything else bothering him he notes similar episode but was more severe last time he has not taken anything for at this time. Historical: - Allergies: 14:15 No Known Allergies; jh5 - PMHx: 14:15 Myocardial infarction; Hypertension; Gout; Diabetes - NIDDM; CHF; Anemia; ADD/ADHD; jh5 - Immunization history:: Adult Immunizations up to date. - Social history:: Smoking status: Patient denies any tobacco usage or history of. ROS: 14:51 Constitutional: Negative for fever, chills Eyes: Negative for injury, pain, redness, bs3 and discharge. 14:51 All other systems are negative. Exam: 14:51 Constitutional: This is a well developed, well nourished patient who is awake, alert, bs3 and in no acute distress. Head/Face: On his occiput he has a small pimple at the area of his wound, he has alopecia in that area there is no sig drainage, no palpable abscess. Eyes: Pupils equal round and reactive to light, extra-ocular motions intact. Lids and lashes normal. ENT: mmm, no posterior phyarngeal erythema Chest/axilla: Normal chest wall appearance and motion. Nontender with no deformity. No lesions are appreciated. Cardiovascular: Regular rate and rhythm with a normal S1 and S2. symmetric pulses in upper extremities Respiratory: Lungs have equal breath sounds bilaterally, clear to auscultation, no respiratory distress Abdomen/GI: Soft, non-tender, no rebound or guarding MS/ Extremity: Pulses equal, no cyanosis. Neurovascular intact. Full, normal range of motion. Neuro: Awake and alert, GCS 15, oriented to person, place, time, and situation. Cranial nerves II-XII grossly intact. Motor strength 5/5 in all extremities. Sensory grossly intact. Psych: Awake, alert, with orientation to person, place and time. Behavior, mood, and affect are within normal limits. Vital Signs: 14:13 BP 147 / 92; Pulse 87; Resp 16; Temp 98.6; Pulse Ox 96% ; Weight 99.79 kg; Height 5 ft. [facility] 7 in. (170.18 cm); 14:13 Body Mass Index 34.46 (99.79 kg, 170.18 cm) [facility] MDM: 14:15 Patient medically screened. bs3 14:51 Differential diagnosis: cellulitis, Possible abscess possible mass, likely he has a new bs3 ingrown hair which is causing some irritation I attempted to express purulent material from the pimple however there was less than 1 cc which was expressed we will cover with antibiotics advised strongly to follow-up with primary care given his diabetes strict return precautions given. Data reviewed: vital signs, nurses notes. Care significantly affected by the following Social Determinants of Health: Poor access to healthcare and/or lack of insurance. Administered Medications: No medications were administered Disposition Summary: 08/29/22 14:55 Discharge Ordered Location: Home bs3 Problem: new bs3 Symptoms: are unchanged bs3 Condition: Stable bs3 Diagnosis - Cutaneous abscess, unspecified bs3 Followup: bs3 - With: Private Physician - When: - Reason: Recheck today's complaints, Re-evaluation by your physician Discharge Instructions: - Discharge Summary Sheet bs3 - Skin Abscess bs3 Forms: - Medication Reconciliation Form bs3 - Thank You Letter bs3 - Antibiotic Education bs3 - Prescription Opioid Use bs3 Prescriptions: - Clindamycin HCl 300 mg Oral Capsule - take 1 capsule by ORAL route every 6 hours for 10 days; 40 capsule; Refills: 0, bs3 Product Selection Permitted Signatures: Sowmya Mccormick RN RN 5 Tereso Soto MD MD bs3 Corrections: (The following items were deleted from the chart) 14:15 14:15 PSHx: defibrillator; [place] [id number]
--- NOTE | 2022-08-29 14:55 | ER ---
Nurse's Notes [facility] Name: Cam Huitron Age: 51 yrs Sex: Male : 1970 Arrival Date: 08/29/2022 Time: 14:00 Bed 14 Private MD: Diagnosis: Cutaneous abscess, unspecified Presentation: 08/29 14:13 Chief complaint: Patient states: wound on back on head since before lucinda; came [facility] here the day after lucinda and it was lanced and it healed up after that but then Monday it started draining a lot out of nowhere. Coronavirus screen: Vaccine status: Patient reports receiving the 2nd dose of the covid vaccine. Client denies travel out of the [place] in the last 14 days. Ebola Screen: Patient negative for fever greater than or equal to 101.5 degrees Fahrenheit, and additional compatible Ebola Virus Disease symptoms Patient denies exposure to infectious person. Patient denies travel to an Ebola-affected area in the 21 days before illness onset. Initial Sepsis Screen: Does the patient meet any 2 criteria? No. Patient's initial sepsis screen is negative. Does the patient have a suspected source of infection? No. Patient's initial sepsis screen is negative. Risk Assessment: Do you want to hurt yourself or someone else? Patient reports no desire to harm self or others. 14:13 Method Of Arrival: Ambulatory [facility] 14:13 Acuity: SILVER 3 [facility] 14:16 Onset of symptoms was August 26, 2022. [facility] Triage Assessment: 14:15 General: Appears in no apparent distress. well groomed, well developed, Behavior is [facility] calm, cooperative, appropriate for age. Pain: Denies pain. Historical: - Allergies: 14:15 No Known Allergies; [facility] - PMHx: 14:15 Myocardial infarction; Hypertension; Gout; Diabetes - NIDDM; CHF; Anemia; ADD/ADHD; [facility] - Immunization history:: Adult Immunizations up to date. - Social history:: Smoking status: Patient denies any tobacco usage or history of. Screenin:16 [facility] ED Fall Risk Assessment (Adult) History of falling in the last 3 months, [facility] including since admission. Abuse screen: Denies threats or abuse. Denies injuries from another. Nutritional screening: No deficits noted. Tuberculosis screening: No symptoms or risk factors identified. Assessment: 14:50 General: Appears in no apparent distress. comfortable, Behavior is calm, cooperative. vg1 Pain: Denies pain. Neuro: Level of Consciousness is awake, alert, obeys commands, Oriented to person, place, time, situation. Cardiovascular: Patient's skin is warm and dry. Respiratory: Airway is patent Respiratory effort is even, unlabored. GI: No signs and/or symptoms were reported involving the gastrointestinal system. : No signs and/or symptoms were reported regarding the genitourinary system. EENT: No signs and/or symptoms were reported regarding the EENT system. Derm: Wound noted scalp. Musculoskeletal: Circulation, motion, and sensation intact. Vital Signs: 14:13 BP 147 / 92; Pulse 87; Resp 16; Temp 98.6; Pulse Ox 96% ; Weight 99.79 kg; Height 5 ft. jh5 7 in. (170.18 cm); 14:13 Body Mass Index 34.46 (99.79 kg, 170.18 cm) 5 ED Course: 14:00 Patient arrived in ED. as 14:15 Tereso Soto MD is Attending Physician. bs3 14:15 Triage completed. jh5 14:15 Arm band placed on right wrist. jh5 14:50 Clara Ellington RN is Primary Nurse. vg1 14:50 Patient has correct armband on for positive identification. Bed in low position. Call vg1 light in reach. Side rails up X 1. 15:16 No provider procedures requiring assistance completed. Patient did not have IV access vg1 during this emergency room visit. Administered Medications: No medications were administered Medication: 14:50 VIS not applicable for this client. vg1 Outcome: 14:55 Discharge ordered by . bs3 15:15 Discharged to home ambulatory. vg1 15:15 Condition: good 15:15 Discharge instructions given to patient, Instructed on discharge instructions, follow up and referral plans. medication usage, wound care, Demonstrated understanding of instructions, follow-up care, medications, wound care, Prescriptions given X 1. 15:16 Patient left the ED. vg1 Signatures: Mahi Soares Victoria, RN RN vg1 Sowmya Mccormick RN RN 5 Tereso Soto MD MD bs3 Corrections: (The following items were deleted from the chart) 14:15 14:15 PSHx: defibrillator; [email or web address] 14:19 14:13 Pulse 87bpm; Resp 16bpm; Pulse Ox 96%; Temp 98.6F; 99.79 kg; Height 5 ft. 7 in.; [facility] BMI: 34.4; [facility]
[2022-08-29 15:24] VITALS: BP 147/92; TEMP 98.6; O2SAT 96
== END 2022-08-29 15:16 | disposition home or self-care (01) ==
LOC: ER 13:57
DX: L02.811 Cutaneous abscess of head [any part, except face] (principal)
CPT/HCPCS: 99282

== ENCOUNTER 2023-10-11 17:16 | Inpatient (IN) | payer MEDICARE, OTHER ==
[2023-10-11 18:03] LABS: Absolute Monocytes 0.3 K/uL (0.1-1.3); Absolute Neutrophil 2.5 K/uL (1.8-8.0); Basophils % 0.5 % (0-1.3); Eosinophils % 0.4 % (0-4.4); Hemoglobin 12.5 g/dL (13.6-17.9); Lymphocytes % 25.7 % (15.3-44.8); MCH 26.6 pg (27.0-35.0); MCHC 33.7 g/dL (32.0-36.0); MCV 78.9 fL (80-100); MPV 8.7 fL (7.6-11.3); Monocytes % 7.1 % (3.3-12.3); Neutrophils % 66.3 % (41.7-73.7); Nucleated Red Blood Cells % 0.1 % (0-0); Platelets 172 thou/uL (152-406); RBC Red Blood Cell Count 4.69 M/uL (4.33-5.43); Red Cell Distribution Width 16.8 % (12.1-15.2)
[2023-10-11] MEDS ORDERED: IPRATROPIUM BROM 0.5MG/2.5ML ONE (18:05)
[2023-10-11] MEDS ORDERED: LEVALBUTEROL 1.25 MG/3 ML NEB ONE (18:05)
[2023-10-11 18:09] LABS: PT Prothrombin Time 13.5 SECONDS (9.5-12.5); Protime INR 1.23
[2023-10-11 18:29] LABS: SARS-CoV-2 Antigen CONTROL BLUE LINE VIS/BG OK; SARS-CoV-2 Antigen Rapid Res Negative (Negative)
[2023-10-11 18:34] LABS: Albumin 2.9 g/dL (3.4-5.0); Albumin/Globulin Ratio 0.7 (1.1-1.8); Anion Gap 8.1 mEq/L (5.0-15.0); Bilirubin Direct 0.2 mg/dL (0-0.2); Bilirubin Indirect, Calculated 0.5 mg/dL (0.2-0.8); Bilirubin Total 0.7 mg/dL (0.2-1.0); Digoxin Level 0.3 ng/mL (0.80-2.00); Globulin 4.1 g/dL (2.3-3.5); Magnesium 1.9 mg/dL (1.6-2.4); Potassium 3.1 mEq/L (3.5-5.1)
[2023-10-11 18:41] LABS: Troponin High Sensitivity 330.4 pg/mL (<58.9)
--- NOTE | 2023-10-11 18:45 | RAD REPORT ---
EXAM DESCRIPTION: Sreekanth Single View10/11/2023 5:48 pm CLINICAL HISTORY: Chest pain COMPARISON: 2020 FINDINGS: Moderate bilateral pulmonary opacities. Cardiomegaly. Pacemaker leads in place IMPRESSION: Moderate bilateral pulmonary opacities could represent pulmonary edema or pneumonia
--- NOTE | 2023-10-11 18:50 | EDPHYS ---
Physician Documentation [facility] Name: Cam Huitron Age: 53 yrs Sex: Male : 1970 Arrival Date: 10/11/2023 Time: 17:16 Bed 5 Private MD: ED Physician Surjit Huertas HPI: 10/10 18:01 This 53 yrs old Black Male presents to ER via EMS with complaints of Chest Pain. arnaldo 18:01 The patient or guardian reports chest pain that is located primarily in the substernal [facility] area. Onset: 3 day(s) ago. Historical: - Allergies: 17:39 No Known Allergies; iw - PMHx: 17:39 ADD/ADHD; CHF; Diabetes - NIDDM; Gout; Hypertension; Myocardial infarction; Anemia; iw - PSHx: 17:39 defibrillator; iw - Immunization history:: Adult Immunizations unknown. - Social history:: Smoking status: unknown. ROS: 18:01 Constitutional: Negative for fever, chills, and weight loss, Eyes: Negative for injury, arnaldo pain, redness, and discharge, ENT: Negative for injury, pain, and discharge, Neck: Negative for injury, pain, and swelling, Cardiovascular: Negative for chest pain, palpitations, and edema, Abdomen/GI: Negative for abdominal pain, nausea, vomiting, diarrhea, and constipation, Back: Negative for injury and pain, : Negative for injury, bleeding, discharge, and swelling, MS/Extremity: Negative for injury and deformity, Neuro: Negative for headache, weakness, numbness, tingling, and seizure, Psych: Negative for depression, anxiety, suicide ideation, homicidal ideation, and hallucinations, Allergy/Immunology: Negative for hives, rash, and allergies, Endocrine: Negative for neck swelling, polydipsia, polyuria, polyphagia, and marked weight changes, Hematologic/Lymphatic: Negative for swollen nodes, abnormal bleeding, and unusual bruising, 18:01 Respiratory: Positive for cough, dyspnea on exertion, shortness of breath, at rest. Exam: 18:01 Constitutional: This is a well developed, well nourished patient who is awake, alert, arnaldo and in no acute distress. Head/Face: Normocephalic, atraumatic. Eyes: Pupils equal round and reactive to light, extra-ocular motions intact. Lids and lashes normal. Conjunctiva and sclera are non-icteric and not injected. Cornea within normal limits. Periorbital areas with no swelling, redness, or edema. ENT: Nares patent. No nasal discharge, no septal abnormalities noted. Tympanic membranes are normal and external auditory canals are clear. Oropharynx with no redness, swelling, or masses, exudates, or evidence of obstruction, uvula midline. Mucous membranes moist. Neck: Trachea midline, no thyromegaly or masses palpated, and no cervical lymphadenopathy. Supple, full range of motion without nuchal rigidity, or vertebral point tenderness. No Meningismus. Chest/axilla: Normal chest wall appearance and motion. Nontender with no deformity. No lesions are appreciated. Cardiovascular: Regular rate and rhythm with a normal S1 and S2. No gallops, murmurs, or rubs. Normal PMI, no JVD. No pulse deficits. Respiratory: Lungs have equal breath sounds bilaterally, clear to auscultation and percussion. No rales, rhonchi or wheezes noted. No increased work of breathing, no retractions or nasal flaring. Abdomen/GI: Soft, non-tender, with normal bowel sounds. No distension or tympany. No guarding or rebound. No evidence of tenderness throughout. Back: No spinal tenderness. No costovertebral tenderness. Full range of motion. Male : Normal genitalia with no discharge or lesions. Skin: Warm, dry with normal turgor. Normal color with no rashes, no lesions, and no evidence of cellulitis. MS/ Extremity: Pulses equal, no cyanosis. Neurovascular intact. Full, normal range of motion. Neuro: Awake and alert, GCS 15, oriented to person, place, time, and situation. Cranial nerves II-XII grossly intact. Motor strength 5/5 in all extremities. Sensory grossly intact. Cerebellar exam normal. Normal gait. Psych: Awake, alert, with orientation to person, place and time. Behavior, mood, and affect are within normal limits. 18:01 Neck: External neck: is normal, C-spine: appears grossly normal, no acute changes, ROM/movement: is normal, no acute changes, 18:10 ECG was reviewed by the Attending Physician. [facility] Vital Signs: 17:38 BP 125 / 85; Pulse 95; Resp 19; Temp 98.4; Pulse Ox 98% on R/A; Weight 92.99 kg; Height iw 5 ft. 7 in. ; Pain 7/10; 18:14 BP 109 / 77; Pulse 93; Resp 17; Pulse Ox 100% on R/A; kd3 19:30 BP 102 / 70; Pulse 94; Resp 16; Pulse Ox 95% on R/A; jb4 20:30 BP 100 / 72; Pulse 75; Resp 16; Pulse Ox 97% on R/A; jb4 21:00 BP 117 / 81; Pulse 74; Resp 16; Pulse Ox 98% on R/A; jb4 17:38 Body Mass Index 32.11 (92.99 kg, 170.18 cm) iw 17:38 Pain Scale: Adult iw MDM: 17:24 Patient medically screened. arnaldo 17:24 Patient medically screened. arnaldo 18:03 Antibiotic administration: Rocephin and Zithromax given. Differential diagnosis: arnaldo abnormal EKG, acute myocardial infarction, acute pericarditis, anxiety, chest wall pain, costochondritis. Data reviewed: vital signs, nurses notes, EMS record, lab test result(s), EKG, radiologic studies, plain films. 10/10 17:33 Order name: Basic Metabolic Panel; Complete Time: 18:46 [facility] 10/10 17:33 Order name: CBC with Diff; Complete Time: 18:15 [facility] 10/10 17:33 Order name: LFT's; Complete Time: 18:46 [facility] 10/10 17:33 Order name: Magnesium; Complete Time: 18:46 [facility] 10/10 17:33 Order name: NT PRO-BNP; Complete Time: 18:46 [facility] 10/10 17:33 Order name: PT-INR; Complete Time: 18:15 [facility] 10/10 17:33 Order name: Troponin HS; Complete Time: 18:46 [facility] 10/10 17:33 Order name: Blood Culture Adult (2) [facility] 10/10 17:33 Order name: Lactate w/ 2H reflex if indic.; Complete Time: 18:38 [facility] 10/10 17:33 Order name: Flu; Complete Time: 18:46 [facility] 10/10 17:33 Order name: SARS RAPID; Complete Time: 18:38 [facility] 10/10 17:33 Order name: Digoxin; Complete Time: 18:46 [facility] 10/10 20:25 Order name: CBC with Automated Diff EDMS 10/10 20:25 Order name: CBC with Automated Diff EDMS 10/10 20:25 Order name: Comprehensive Metabolic Panel [facility] 10/10 20:25 Order name: Comprehensive Metabolic Panel [facility] 10/10 20:25 Order name: Lipid Profile [facility] 10/10 20:25 Order name: Lipid Profile [facility] 10/10 20:25 Order name: Magnesium [facility] 10/10 20:25 Order name: Magnesium [facility] 10/10 20:25 Order name: NT PRO-BNP [facility] 10/10 20:25 Order name: NT PRO-BNP [facility] 10/10 20:25 Order name: Phosphorus [facility] 10/10 20:25 Order name: Phosphorus [facility] 10/10 20:25 Order name: Troponin High Sensitivity [facility] 10/10 20:25 Order name: Troponin High Sensitivity [facility] 10/10 20:25 Order name: Troponin High Sensitivity [facility] 10/10 20:25 Order name: Troponin High Sensitivity [facility] 10/10 20:26 Order name: D-Dimer [facility] 10/10 17:33 Order name: XRAY Chest (1 view); Complete Time: 18:47 [facility] 10/10 20:25 Order name: Echo with Doppler [facility] 10/10 20:26 Order name: Chest For Pe Angio [facility] 10/10 17:33 Order name: EKG; Complete Time: 17:35 [facility] 10/10 20:25 Order name: CONS Physician Consult [facility] 10/10 17:33 Order name: Cardiac monitoring; Complete Time: 17:49 [facility] 10/10 17:33 Order name: EKG - Nurse/Tech; Complete Time: 17:49 [facility] 10/10 17:33 Order name: IV Saline Lock; Complete Time: 17:49 [facility] 10/10 17:33 Order name: Labs collected and sent; Complete Time: 17:49 [facility] 10/10 17:33 Order name: O2 Per Protocol; Complete Time: 17:49 [facility] 10/10 17:33 Order name: O2 Sat Monitoring; Complete Time: 17:49 [facility] EC:10 Rate is 94 beats/min. Rhythm is regular. QRS [place] is Normal. [place] interval is normal. QRS arnaldo interval is normal. QT interval is normal. No Q waves. T waves are Normal. No ST changes noted. Clinical impression: NSR w/ Non-specific ST/T Changes, Abnormal EKG without significant change, and No evidence of ischemia. Interpreted by me. Reviewed by me. Administered Medications: 18:13 Drug: Levalbuterol Inhalation 1.25 mg Inhalation once Route: Inhalation; kd3 18:13 Drug: Ipratropium Inhalation Aerosol 0.5 mg Inhalation once Route: Inhalation; kd3 19:20 Drug: Digoxin IVP 0.5 mg IVP once Route: IVP; Site: right antecubital; me1 19:20 Drug: Warfarin PO 10 mg PO once Route: PO; me1 19:20 Drug: Aspirin PO Chewable Tablet 162 mg PO once Route: PO; me1 19:20 Drug: Coreg PO 25 mg PO once; administer with food Route: PO; me1 19:25 Drug: Furosemide IVP 40 mg IVP once; give over 2 minutes Route: IVP; Site: right me1 antecubital; Disposition Summary: 10/11/23 18:50 Hospitalization Ordered Notes: Hospitalization Status: Inpatient Admission arnaldo Provider: Brigette Clayton cha Location: Telemetry/MedSurg (Inpatient) arnaldo Condition: Stable arnaldo Problem: new arnaldo Symptoms: have improved arnaldo Bed/Room Type: Standard arnaldo Room Assignment: 419(10/11/23 21:02) rv1 Diagnosis - Chest pain, unspecified arnaldo - Chronic combined systolic (congestive) and diastolic (congestive) heart failure arnaldo - Hypokalemia arnaldo - Non ST elevation [place] arnaldo - Cough arnaldo Forms: - Medication Reconciliation Form arnaldo - SBAR form arnaldo - Leadership Thank You Letter arnaldo Signatures: Dispatcher [employer] Surjit Duarte MD MD cha Williams, Irene, RN RN Madhuri Del Valle RN RN kd3 Katarina Esquivel rv1 Flory Bobby RN RN nj1 Dorothy Mckeon RN RN me1 Corrections: (The following items were deleted from the chart) 20:37 18:50 arnaldo rv1 21:02 20:37 429 rv1 rv1
--- NOTE | 2023-10-11 18:50 | ER ---
Nurse's Notes [facility] Name: Cam Huitron Age: 53 yrs Sex: Male : 1970 Arrival Date: 10/11/2023 Time: 17:16 Bed 5 Private MD: Diagnosis: Chest pain, unspecified;Chronic combined systolic (congestive) and diastolic (congestive) heart failure;Hypokalemia;Non ST elevation NC;Cough Presentation: 10/10 17:38 Chief complaint: Patient states: left sided chest pain , SOB , cough. Coronavirus iw screen: At this time, the client does not indicate any symptoms associated with coronavirus-19. Ebola Screen: Patient negative for fever greater than or equal to 101.5 degrees Fahrenheit, and additional compatible Ebola Virus Disease symptoms Patient denies exposure to infectious person. Patient denies travel to an Ebola-affected area in the 21 days before illness onset. No symptoms or risks identified at this time. 17:38 Acuity: SILVER 3 iw 17:38 Method Of Arrival: EMS: [facility] iw 17:39 Initial Sepsis Screen: Does the patient meet any 2 criteria? No. Patient's initial iw sepsis screen is negative. Does the patient have a suspected source of infection? No. Patient's initial sepsis screen is negative. Risk Assessment: Do you want to hurt yourself or someone else? Patient reports no desire to harm self or others. Onset of symptoms was October 11, 2023. 17:39 Care prior to arrival: Medication(s) given: ASA, 81 mg, x 4. iw Historical: - Allergies: 17:39 No Known Allergies; iw - PMHx: 17:39 ADD/ADHD; CHF; Diabetes - NIDDM; Gout; Hypertension; Myocardial infarction; Anemia; iw - PSHx: 17:39 defibrillator; iw - Immunization history:: Adult Immunizations unknown. - Social history:: Smoking status: unknown. Screenin:40 [facility] ED Fall Risk Assessment (Adult) History of falling in the last 3 months, nj1 including since admission No falls in past 3 months (0 pts) Confusion or Disorientation No (0 pts) Intoxicated or Sedated No (0 pts) Impaired Gait No (0 pts) Mobility Assist Device Used No (0 pt) Altered Elimination No (0 pt) Score/Fall Risk Level 0 - 2 = Low Risk Oriented to surroundings, Maintained a safe environment, Hourly rounding (assess needs \T\ fall precautionary measures) done. Abuse screen: Denies threats or abuse. Denies injuries from another. Nutritional screening: No deficits noted. Tuberculosis screening: No symptoms or risk factors identified. Assessment: 18:40 General: Appears in no apparent distress. comfortable, Behavior is calm, cooperative, nj1 appropriate for age. Pain: Denies pain. 18:40 Neuro: Level of Consciousness is awake, alert, obeys commands, Oriented to person, nj1 place, time, situation. Cardiovascular: Patient's skin is warm and dry. Respiratory: Airway is patent Respiratory effort is even, unlabored. 19:00 Reassessment: Patient appears in no apparent distress at this time. Patient and/or jb4 family updated on plan of care and expected duration. Pain level reassessed. Patient is alert, oriented x 3, equal unlabored respirations, skin warm/dry/pink. 20:00 Reassessment: Patient appears in no apparent distress at this time. Patient and/or jb4 family updated on plan of care and expected duration. Pain level reassessed. Patient is alert, oriented x 3, equal unlabored respirations, skin warm/dry/pink. 21:00 Reassessment: Patient appears in no apparent distress at this time. Patient and/or jb4 family updated on plan of care and expected duration. Pain level reassessed. Patient is alert, oriented x 3, equal unlabored respirations, skin warm/dry/pink. Patient states feeling better. Vital Signs: 17:38 BP 125 / 85; Pulse 95; Resp 19; Temp 98.4; Pulse Ox 98% on R/A; Weight 92.99 kg; Height iw 5 ft. 7 in. ; Pain 7/10; 18:14 BP 109 / 77; Pulse 93; Resp 17; Pulse Ox 100% on R/A; kd3 19:30 BP 102 / 70; Pulse 94; Resp 16; Pulse Ox 95% on R/A; jb4 20:30 BP 100 / 72; Pulse 75; Resp 16; Pulse Ox 97% on R/A; jb4 21:00 BP 117 / 81; Pulse 74; Resp 16; Pulse Ox 98% on R/A; jb4 17:38 Body Mass Index 32.11 (92.99 kg, 170.18 cm) iw 17:38 Pain Scale: Adult iw ED Course: 17:23 Patient arrived in ED. arnaldo 17:24 Surjit Huertas MD is Attending Physician. arnaldo 17:39 Triage completed. iw 17:39 Arm band placed on. iw 17:40 Flory Bobby, RN is Primary Nurse. nj1 17:50 XRAY Chest (1 view) In Process Unspecified. EDMS 18:13 SARS RAPID Sent. kd3 18:13 Flu Sent. kd3 18:13 Lactate w/ 2H reflex if indic. Sent. kd3 18:13 Blood Culture Adult (2) Sent. kd3 18:13 Basic Metabolic Panel Sent. kd3 18:13 LFT's Sent. kd3 18:13 Magnesium Sent. kd3 18:13 NT PRO-BNP Sent. kd3 18:13 Troponin HS Sent. kd3 18:13 Initial lab(s) drawn, by ks, sent to lab. First set of blood cultures drawn by me, kd3 Second set of blood cultures drawn by me. Inserted saline lock: 20 gauge in right antecubital area, using aseptic technique. Blood collected. 18:40 Patient has correct armband on for positive identification. Bed in low position. Call nj1 light in reach. Adult w/ patient. Provided Education on: call light, fall precautions. 18:40 Client placed on continuous cardiac and pulse oximetry monitoring. NIBP monitoring nj1 applied. playground monitor on. 18:40 Patient maintains SpO2 saturation greater than 95% on room air. nj1 18:49 Brigette Clayton MD is Hospitalizing Provider. [facility] 19:05 Report given to Bigg BLANTON and Demetris BLANTON. nj1 21:00 No provider procedures requiring assistance completed. Patient admitted, IV remains in jb4 place. Administered Medications: 18:13 Drug: Levalbuterol Inhalation 1.25 mg Inhalation once Route: Inhalation; kd3 18:13 Drug: Ipratropium Inhalation Aerosol 0.5 mg Inhalation once Route: Inhalation; kd3 19:20 Drug: Digoxin IVP 0.5 mg IVP once Route: IVP; Site: right antecubital; me1 19:20 Drug: Warfarin PO 10 mg PO once Route: PO; me1 19:20 Drug: Aspirin PO Chewable Tablet 162 mg PO once Route: PO; me1 19:20 Drug: Coreg PO 25 mg PO once; administer with food Route: PO; me1 19:25 Drug: Furosemide IVP 40 mg IVP once; give over 2 minutes Route: IVP; Site: right me1 antecubital; Medication: 21:00 VIS not applicable for this client. jb4 Outcome: 18:50 Decision to Hospitalize by Provider. arnaldo 21:00 Discharged to home ambulatory, jb4 21:00 Condition: stable 21:00 Discharge instructions given to patient, Instructed on the need for admit, Demonstrated understanding of instructions, 21:51 Patient left the ED. jb4 Signatures: Dispatcher [employer] EDSurjit Robles MD MD cha Williams, Irene, RN RN iw Ramiro Gibson RN RN jb4 Madhuri Del Valle RN RN 3 Flory Bobby RN RN nj1 Dorothy Mckeon RN RN me1
[2023-10-11] MEDS ORDERED: WARFARIN SODIUM 5 MG TAB ONE (19:19)
[2023-10-11] MEDS ORDERED: DIGOXIN 0.25 MG/ML AMP ONE (19:19)
[2023-10-11] MEDS ORDERED: FUROSEMIDE 40 MG/4 ML VIAL ONE (19:20)
[2023-10-11] MEDS ORDERED: ASPIRIN 81 MG CHEWABLE TABLET ONE (19:21)
[2023-10-11] MEDS ORDERED: carvediloL 6.25 MG TAB ONE (19:21)
[2023-10-11] MEDS ORDERED: ONDANSETRON 4 MG/2 ML VIAL IV PRN (20:16)
[2023-10-11] MEDS ORDERED: ACETAMINOPHEN 500 MG TAB PO PRN (20:16)
--- NOTE | 2023-10-11 20:32 | P.HP ---
Certification for Inpatient Patient admitted to: Inpatient With expected LOS: >2 Midnights Patient will require the following post-hospital care: None Practitioner: I am a practitioner with admitting privileges, knowledge of patient current condition, hospital course, and medical plan of care. Services: Services provided to patient in accordance with Admission requirements found in Title 42 Section 412.3 of the Code of Federal Regulations Patient History Date of Service: 10/11/23 Reason for admission: Acute respiratory distress History of Present Illness: Patient is a 53-year-old gentleman came to the hospital with shortness of breath. Patient has a history of cardiomyopathy with an ejection fraction less than 20% status post defibrillator placement. 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 Patient apparently is being considered for a transplant. Patient has a longstanding family history of cardiomyopathy with 2 family members that have had cardiac transplants because of cardiomyopathy at a young age. One of his sisters had 2 cardiac transplants. The family is also been involved in genetic testing to determine the etiology of their cardiomyopathy. Patient states he was really short of breath and having hemoptysis. Patient is x-ray revealed pulmonary edema and patient was diuresed in the emergency room. Patient had a very small amount of urine output according to the family, but once his blood pressure improved patient was feeling much better. Patient's cardiac care is done mainly in the [place] area. However, he is okay with staying for further workup. Patient had hemoptysis and states he has had about 100 pound weight loss over the last year. Will get CT imaging studies to further evaluate this. Echocardiogram pending. Patient be admitted for inpatient hospitalization. Allergies No Known Allergies Allergy (Verified 11/13/17 22:47) Home Medications: Allopurinol 300 mg PO DAILY 11/13/17 Furosemide 40 mg PO DAILY 11/13/17 Hydralazine HCl 25 mg PO DAILY 11/13/17 Isosorbide Carlton (Bid) [Ismo 10 mg Tab*] 20 mg PO BID 11/13/17 Losartan/Hydrochlorothiazide [Losartan-Hctz 100-25 mg Tab] 1 tab PO DAILY 11/13/17 Metformin HCl 1,000 mg PO BID 11/13/17 Spironolactone [Aldactone*] 25 mg PO DAILY 11/13/17 Warfarin Sodium 10 mg PO DAILY 11/13/17 carvediloL [Carvedilol] 25 mg PO BID 11/13/17 Aspirin 81 mg PO DAILY 12/15/18 Atorvastatin Calcium 40 mg PO BEDTIME 12/15/18 Digoxin [Lanoxin*] 125 mcg PO DAILY 12/15/18 Glimepiride [Amaryl*] 2 mg PO BID 12/15/18 Sertraline [Zoloft*] 50 mg PO DAILY 12/15/18 clonazePAM [Clonazepam] 0.5 mg PO BID 12/15/18 Insulin -Regular Human [Novolin -R*] 7 unit SQ TIDWM #1 vial 12/16/18 Insulin Glargine Human [Lantus*] 20 units SQ BEDTIME #1 vial 12/16/18 - Past Medical/Surgical History Diabetic: Yes -: HTN -: diabetes, -: chf -: stemi mi aug 2014 -: gout -: anemia -: add/adhd -: ICD - Family History Sister Medical History: Heart disease, Kidney disease Notes: deseased Mother Medical History: Heart disease Notes: chf Father Medical History: Lung disease, Cancer Notes: lung ca - Social History Smoking Status: Former smoker Alcohol use: No CD- Drugs: No Caffeine use: Yes Review of Systems 10-point ROS is otherwise unremarkable Physical Examination - Vital Signs Temperature: 98.6 F Blood Pressure: 110/70 Pulse: 80 Respirations: 20 Pulse Ox (%): 92 - Physical Exam General: Alert, In no apparent distress, Oriented x3 HEENT: Atraumatic, PERRLA, Mucous membr. moist/pink, EOMI, Sclerae nonicteric Neck: Supple, 2+ carotid pulse no bruit, No LAD, Without JVD or thyroid abnormality Respiratory: Diminished, Crackles/rales Cardiovascular: Regular rate/rhythm, Normal S1 S2, Systolic murmur (Loud holosystolic murmur) Gastrointestinal: Normal bowel sounds, Soft and benign, Non-distended, No tenderness Musculoskeletal: No clubbing, No swelling, No tenderness Integumentary: No rashes Neurological: Normal gait, Normal speech, Normal strength at 5/5 x4 extr, Normal tone, Sensation intact, Cranial nerves 3-12 intact, Normal affect Lymphatics: No axilla or inguinal lymphadenopathy - Studies Laboratory Data (last 24 hrs) 10/11/23 10/11/23 10/11/23 17:53 17:53 17:53 WBC 3.70 L Hgb 12.5 L Hct 37.0 L Plt Count 172 PT 13.5 H INR 1.23 Sodium 138 Potassium 3.1 L BUN 14 Creatinine 1.22 Glucose 123 H Magnesium 1.9 Total Bilirubin 0.7 AST 38 H ALT 26 Alkaline Phosphatase 71 Microbiology Data (last 24 hrs): 10/11/23 18:09 Nasopharnyx Influenza Type A Antigen Screen - Final 10/11/23 18:09 Nasopharnyx Influenza Type B Antigen Screen - Final Assessment & Plan - Problems (Diagnosis) (1) Hemoptysis Current Visit: Yes Status: Acute (2) CKD (chronic kidney disease) stage 3, GFR 30-59 ml/min Current Visit: Yes Status: Acute (3) Acute on chronic systolic (congestive) heart failure Onset Date: 02/16/17 Current Visit: No Status: Acute (4) Diabetes mellitus Current Visit: No Status: Acute Qualifiers: (5) Dilated cardiomyopathy Current Visit: No Status: Chronic (6) History of implantable cardioverter-defibrillator (ICD) placement Current Visit: No Status: Chronic (7) Hyperlipidemia Onset Date: 02/10/15 Current Visit: No Status: Chronic Qualifiers: (8) Hypertension Onset Date: 02/10/15 Current Visit: No Status: Chronic (9) Hypothyroidism Onset Date: 02/10/15 Current Visit: No Status: Chronic Qualifiers: - Plan 1. HFrEF; patient with acute exacerbation. Patient's been diuresed in the emergency room and clinically feeling better. According to the patient and the family his ejection fraction is less than 20% and he had a defibrillator placed. There is been talk of him going on the transplant list. Patient with a family history of cardiomyopathy. Will continue with diuresing and get an echocardiogram. Cardiology consultation. Continue with home medications and will see if patient taking Entresto. His blood pressure is on the low side so w e will need to monitor the dosing of Entresto prior to giving it to him if that is what he is taking. Nursing staff to review home medication. 2. Patient with elevated troponin; setting of type II myocardial infarction; anticoagulation. Pt is on Coumadin at home but I do not see this listed as home medication. Cardiology consultation and troponins will be trended. Echocardiogram pending. Further workup per cardiology recommendations 3. Patient with hemoptysis and weight loss; will go ahead and get a CT of the chest. Patient denies any current chest pain. However, will go ahead and get the imaging studies to make sure there is no malignancy or another etiology for the hemoptysis and weight loss including infectious etiology 4. History of hypertension and diabetes; strict blood pressure and blood sugar control 5. Chronic kidney disease with proteinuria; patient with hypoalbuminemia and stage III chronic kidney disease. Will gently diurese him and monitor renal function closely. Also will be given contrast and will need to keep an eye on his renal function afterwards. 6. Gouty arthropathy; continue with allopurinol 7. GI DVT prophylaxis Discharge Plan: Home - Advance Directives Does patient have a Living Will: No Does patient have a Durable POA for Healthcare: No - Code Status/Comfort Care Code Status Assessed: Yes Code Status: Full Code Critical Care: No Time Spent Managing PTS Care (In Minutes): 45
--- NOTE | 2023-10-11 22:27 | RAD REPORT ---
EXAM DESCRIPTION: CT - Chest For Pe Angio - 10/11/2023 9:50 pm CLINICAL HISTORY: Hemoptysis with respiratory distress COMPARISON: 2019 TECHNIQUE: Dynamically enhanced axial 3 mm thick images of the chest were obtained during administra tion of 100 mL Isovue 370 IV contrast. Coronal and oblique reconstruction images were generated and r eviewed. Exam utilizes a protocol for optimal evaluation of pulmonary arterial tree. Maximum intensity projections 3D imaging was utilized All CT scans are performed using dose optimization technique as appropriate and may include automated exposure control or mA/KV adjustment according to patient size. FINDINGS: A pulmonary embolus is not seen. A thoracic aortic aneurysm is not noted. Small right pleural effusion. A pericardial effusion is not seen. Moderate right and mild to moderate left centrilobular nodules Metallic linear structure within a left lower lobe pulmonary artery without significant change IMPRESSION: Negative for a pulmonary embolism. Moderate right and mild to moderate left centrilobular nodules may be secondary to pulmonary edema, i nfection or inflammation
[2023-10-11] MEDS: METOPROLOL TAR 50 MG TAB PO SCH (22:50)
[2023-10-11] MEDS: POTASSIUM 25 MEQ EFFERV TAB PO SCH (22:50)
[2023-10-11 23:39] VITALS: O2SAT 100
[2023-10-12 08:16] LABS: Absolute Eosinophils 0.1 K/uL (0-0.5); Absolute Monocytes 0.3 K/uL (0.1-1.3); Absolute Neutrophil 2.2 K/uL (1.8-8.0); Basophils % 0.2 % (0-1.3); Eosinophils % 1.5 % (0-4.4); Hematocrit 36.8 % (39.6-49.0); Hemoglobin 12.2 g/dL (13.6-17.9); Lymphocytes % 27.6 % (15.3-44.8); MCHC 33.1 g/dL (32.0-36.0); MCV 78.6 fL (80-100); MPV 8.9 fL (7.6-11.3); Monocytes % 8.5 % (3.3-12.3); Neutrophils % 62.2 % (41.7-73.7); Nucleated Red Blood Cells % 0.4 % (0-0); Platelets 176 thou/uL (152-406); RBC Red Blood Cell Count 4.68 M/uL (4.33-5.43); Red Cell Distribution Width 16.7 % (12.1-15.2)
[2023-10-12 08:18] LABS: Percent Reticulocyte Count 0.71 % (0.4-2.05); RBC Red Blood Cell Count 4.72 M/uL (4.33-5.43)
[2023-10-12 08:32] LABS: Albumin 2.7 g/dL (3.4-5.0); Anion Gap 8.4 mEq/L (5.0-15.0); Bilirubin Total 0.6 mg/dL (0.2-1.0); Phosphorus 3.2 mg/dL (2.5-4.9); Potassium 3.4 mEq/L (3.5-5.1); Protein, Total 6.5 g/dL (6.4-8.2)
[2023-10-12 08:33] LABS: Albumin/Globulin Ratio 0.7 (1.1-1.8); Globulin 3.8 g/dL (2.3-3.5)
[2023-10-12 08:54] LABS: Thyroid Stimulating Hormone 0.252 uIU/mL (0.358-3.740)
[2023-10-12 08:56] LABS: Troponin High Sensitivity 213.4 pg/mL (<58.9)
[2023-10-12] MEDS ORDERED: FUROSEMIDE 40 MG/4 ML VIAL IV SCH (09:00)
[2023-10-12] MEDS: ISOSORBIDE MONO 10 MG TAB PO SCH (09:00)
[2023-10-12] MEDS: LOSARTAN POTASSIUM 50 MG TABLET PO SCH (09:01)
[2023-10-12] MEDS: allopurinoL 300 MG TAB PO SCH (09:01)
[2023-10-12] MEDS: hydroCHLOROthiazide 25 MG TAB PO SCH (09:01)
[2023-10-12] MEDS: SPIRONOLACTONE 25 MG TABLET PO SCH (09:01)
[2023-10-12] MEDS: HYDRALAZINE HCL 25 MG TABLET PO SCH (09:01)
[2023-10-12] MEDS: GABAPENTIN 300 MG CAP PO SCH (09:01)
[2023-10-12] MEDS: FUROSEMIDE 20 MG TABLET PO SCH (09:02)
[2023-10-12] MEDS: WARFARIN SODIUM 5 MG TAB PO SCH (09:04)
[2023-10-12] MEDS: DIGOXIN 0.125 MG TABLET PO SCH (09:05)
[2023-10-12] MEDS: ASPIRIN 81 MG CHEWABLE TABLET PO SCH (09:05)
[2023-10-12] MEDS: carvediloL 12.5 MG TAB PO SCH (09:05)
--- NOTE | 2023-10-12 09:28 | P.PN ---
Date of Service: 10/12/23 Subjective: still with some dyspnea, worsened with exertion; but improved, slight improvement of urine output reports intermittent hemoptysis over last 1-2 weeks felt out of breath after ambulating to bathroom today Breathing a little more comfortably today. afebrile ROS: 10 point ROS as noted above, otherwise negative Physical Exam: GEN: Alert, oriented, NAD HEENT: Normal conjunctiva, sclera anicteric, CV: Regular rate and rhythm, 4/6 holosystolic murmur Pulm: Nonlabored respirations on room air, diminished at bases b/l, +crackles/rales ABD: soft, nontender, nondistended Neuro: Normal speech, normal affect Problem List: Acute on chronic systolic CHF elevated troponin, suspect type II WI Dilated Cardiomyopathy, chronic s/p ICD placement Hemoptysis hx LV mural thrombus subtherapeutic INR CKD3 Anemia, suspect iron deficiency DM2 Hypertension Hyperlipidemia Hypothyroidism hx gout hx LV mural thrombus Acute on chronic systolic CHF elevated troponin, type II WI Dilated Cardiomyopathy, chronic s/p ICD placement Hemoptysis Reports worsening dyspnea along with hemoptysis over the 1-2 weeks. Denies any chest pain. Also reports > 100 lb weight loss over the last year Patient reports he has an EF < 20%. Has ICD in place. 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 currently being considered for transplant. +family history of cardiomyopathy requiring at least 2 family members that have had previous cardiac transplants due to cardiomyopathy. previously on entresto but was stopped secondary to cost CTA chest (10/10): moderate right and mild-mod left centrilobular nodules possibly secondary to pulm edema vs infection/inflammation. Small right pleural effusion. no PE. CXR (10/10): mod bilateral pulm opacities; pulm edema vs pneumonia clinically improved after diuresed in ED Cardiology consulted recommended IV lasix, however held secondary to low BP troponins elevated but trended flat, monitor on telemtry continue IV lasix if BP allows, PO spironolactone, PO hydrochlorothiazide continue aspirin 81 mg, coreg, digoxin BNP improving Pulmonology consulted regarding centrilobular nodules hx LV mural thrombus subtherapeutic INR reports history of LV thrombus in the past and told its resolved but still on coumadin. currently subtherapeutic, INR: 1.23 discussed with cardiology; start heparin drip for bridging until INR >2 CKD3 Continue to monitor renal function stable Anemia, suspect iron deficiency iron levels this hospitalization low 20.0 hx iron deficiency in 2017 DM2 accu-checks, SSI Hypertension Confirm home meds - on multiple antihypertensives. BP low-normal Hyperlipidemia Continue home statin Hypothyroidism TSH low 0.252 / Free T4 1.39 hx gout continue allopurinol VTE: continue home coumadin, start heparin drip for bridging Code: Full Dispo: Home
--- NOTE | 2023-10-12 11:32 | P.CNS ---
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 Allergies No Known Allergies Allergy (Verified 10/11/23 22:40) Home Medications: Allopurinol 300 mg PO DAILY 11/13/17 Furosemide 40 mg PO DAILY 11/13/17 Hydralazine HCl 25 mg PO DAILY 11/13/17 Isosorbide Stark (Bid) [Ismo 10 mg Tab*] 20 mg PO BID 11/13/17 Losartan/Hydrochlorothiazide [Losartan-Hctz 100-25 mg Tab] 1 tab PO DAILY 11/13/17 Metformin HCl 1,000 mg PO BID 11/13/17 Spironolactone [Aldactone*] 25 mg PO DAILY 11/13/17 Warfarin Sodium 10 mg PO DAILY 11/13/17 carvediloL [Carvedilol] 25 mg PO BID 11/13/17 Aspirin 81 mg PO DAILY 12/15/18 Atorvastatin Calcium 40 mg PO BEDTIME 12/15/18 Digoxin [Lanoxin*] 125 mcg PO DAILY 12/15/18 Gabapentin 300 mg PO DAILY 10/11/23 - Past Medical/Surgical History Diabetic: Yes -: HTN -: diabetes, -: chf -: stemi mi aug 2014 -: gout -: anemia -: add/adhd -: ICD - Family History Sister Medical History: Heart disease, Kidney disease Notes: deseased Mother Medical History: Heart disease Notes: chf Father Medical History: Lung disease, Cancer Notes: lung ca - Social History Smoking Status: Unknown if ever smoked Alcohol use: No CD- Drugs: No Caffeine use: Yes Place of Residence: Home Review of Systems 10-point ROS is otherwise unremarkable Physical Examination Temp Pulse Resp BP Pulse Ox 98.6 F 73 16 107/71 95 10/12/23 08:00 10/12/23 09:05 10/12/23 08:00 10/12/23 09:05 10/12/23 08:00 General: Alert, Oriented x3 HEENT: Atraumatic Neck: Supple, JVD not distended Respiratory: Crackles/rales Cardiovascular: No edema, Normal S1 S2 Gastrointestinal: Normal bowel sounds Laboratory Data (last 24 hrs) 10/11/23 10/11/23 10/11/23 17:53 17:53 17:53 WBC 3.70 L Hgb 12.5 L Hct 37.0 L Plt Count 172 PT 13.5 H INR 1.23 Sodium 138 Potassium 3.1 L BUN 14 Creatinine 1.22 Glucose 123 H Magnesium 1.9 Total Bilirubin 0.7 AST 38 H ALT 26 Alkaline Phosphatase 71 - Problems (1) LV (left ventricular) mural thrombus Current Visit: Yes Status: Acute Plan: per patient report he had a history of LV thrombus in the past, and he was told it was resolved but he is still on Coumadin. INR is sub therapeutic. would recommend IV heaprin drip until INR is 2-3 resume patient and Coumadin and please get pharmacy team to help with adjusting dosage and patient education. (2) Acute on chronic systolic (congestive) heart failure Onset Date: 02/16/17 Current Visit: No Status: Acute Plan: start patient on IV Lasix 40 mg BID Monitor input and output and electrolytes. also continue Coreg 25 mg po BID D/C Metoprolol Continue Losartan 100 mg po daily Continue Spirnolactone 25 mg daily Continue Isordil Continue Digoxin 0.125 mg daily Patient was on Entresto before but that was stopped due to cost issues. (3) History of implantable cardioverter-defibrillator (ICD) placement Current Visit: No Status: Chronic (4) Hyperlipidemia Onset Date: 02/10/15 Current Visit: No Status: Chronic Plan: lipid panel is normal Continue Lipitor 40 mg daily Qualifiers: (5) Hypertension Onset Date: 02/10/15 Current Visit: No Status: Chronic Plan: continue to monitor BP Medications as above.
[2023-10-12] MEDS: FUROSEMIDE 40 MG/4 ML VIAL IV ONE (14:00)
--- NOTE | 2023-10-12 14:30 | ECHO ---
HEIGHT: 5 ft 7 in WEIGHT: 205 lb 0 oz DATE OF STUDY: 10/12/[address]: Brigette Clayton MD 2-DIMENSIONAL: YES M.MODE: YES DOPPLER: YES COLOR FLOW: YES TDS: PORTABLE: YES DEFINITY: BUBBLE STUDY: DIAGNOSIS: CONGESTIVE HEART FAILURE, EJECTION FRACTION LESS THAN 20%, CARDIOMYOPATHY CARDIAC HISTORY: CATHERIZATION: YES SURGERY: NO PROSTHETIC VALVE: NO PACEMAKER: YES MEASUREMENTS (cm) DIASTOLIC (NORMALS) SYSTOLIC (NORMALS) IVSd 1.2 (0.6-1.2) LA Diam 3.6 (1.9-4.0) LVEF 25-30% LVIDd 5.1 (3.5-5.7) LVIDs 4.6 (2.0-3.5) %FS 9% LVPWd 1.2 (0.6-1.2) Ao Diam 2.7 (2.0-3.7) 2 DIMENSIONAL ASSESSMENT: RIGHT ATRIUM: NORMAL LEFT ATRIUM: NORMAL RIGHT VENTRICLE: NORMAL (PACEMAKER) LEFT VENTRICLE: SEVERLY DEPRESSED EJECTION FRACTION TRICUSPID VALVE: MILD TRICUSPID REGURGITATION MITRAL VALVE: MILD MITRAL REGURGITATION PULMONIC VALVE: NORMAL AORTIC VALVE: HEAVILY CALCIFIED PERICARDIAL EFFUSION: NONE AORTIC ROOT: NORMAL LEFT VENTRICULAR WALL MOTION: SEVERE GLOBAL HYPOKINESIS DOPPLER/COLOR FLOW: SEE BELOW COMMENTS: 1. SEVERELY DEPRESSED LEFT VENTRICULAR EJECTION FRACTION 25-30% 2. SEVERE GLOBAL HYPOKINESIS 3. HEAVILY CALCIFIED AORTIC VALVE WITH AT LEAST MODERATE AORTIC STENOSIS 4. MILD MITRAL REGURGITATION TECHNOLOGIST: MAYELIN HIDALGO
--- NOTE | 2023-10-12 15:04 | P.CNS ---
Date of Consult: 10/12/23 Chief Complaint: Acute respiratory distress History of Present Illness: Patient is 53 years of age with the end-stage cardiomyopathy awaiting evaluation for a heart transplant has been sick for two weeks complaining of progressive dyspnea cough congestion hemoptysis finally started feeling dizzy and was sent here to the emergency room is no history of any fever Allergies No Known Allergies Allergy (Verified 10/11/23 22:40) Home Medications: Allopurinol 300 mg PO DAILY 11/13/17 Furosemide 40 mg PO DAILY 11/13/17 Hydralazine HCl 25 mg PO DAILY 11/13/17 Isosorbide [place] (Bid) [Ismo 10 mg Tab*] 20 mg PO BID 11/13/17 Losartan/Hydrochlorothiazide [Losartan-Hctz 100-25 mg Tab] 1 tab PO DAILY 11/13/17 Metformin HCl 1,000 mg PO BID 11/13/17 Spironolactone [Aldactone*] 25 mg PO DAILY 11/13/17 Warfarin Sodium 10 mg PO DAILY 11/13/17 carvediloL [Carvedilol] 25 mg PO BID 11/13/17 Aspirin 81 mg PO DAILY 12/15/18 Atorvastatin Calcium 40 mg PO BEDTIME 12/15/18 Digoxin [Lanoxin*] 125 mcg PO DAILY 12/15/18 Gabapentin 300 mg PO DAILY 10/11/23 - Past Medical/Surgical History Diabetic: Yes -: HTN -: diabetes, -: chf -: stemi mi aug 2014 -: gout -: anemia -: add/adhd -: ICD - Family History Sister Medical History: Heart disease, Kidney disease Notes: deseased Mother Medical History: Heart disease Notes: chf Father Medical History: Lung disease, Cancer Notes: lung ca - Social History Smoking Status: Unknown if ever smoked Alcohol use: No CD- Drugs: No Caffeine use: Yes Place of Residence: Home Review of Systems 10-point ROS is otherwise unremarkable General: Weakness Respiratory: Cough, Shortness of Breath, Hemoptysis Cardiovascular: Edema Physical Examination Temp Pulse Resp BP Pulse Ox 98.5 F 65 14 97/64 95 10/12/23 12:00 10/12/23 12:00 10/12/23 12:00 10/12/23 12:00 10/12/23 12:00 General: Alert, Oriented x3 Respiratory: Crackles/rales (Tractors on the right side) Cardiovascular: No edema, Regular rate/rhythm, Normal S1 S2 Gastrointestinal: Normal bowel sounds Laboratory Data (last 24 hrs) 10/11/23 10/11/23 10/11/23 17:53 17:53 17:53 WBC 3.70 L Hgb 12.5 L Hct 37.0 L Plt Count 172 PT 13.5 H INR 1.23 Sodium 138 Potassium 3.1 L BUN 14 Creatinine 1.22 Glucose 123 H Magnesium 1.9 Total Bilirubin 0.7 AST 38 H ALT 26 Alkaline Phosphatase 71 - Problems (1) Congestive heart failure Current Visit: Yes Status: Acute Plan: Patient is 53 years of age with the end-stage cardiomyopathy awaiting heart transplant admitted with a two-week history of progressive dyspnea coffer the hemoptysis patient is on warfarin he also has a defibrillator agree with diuretics also add Augmentin chest x-ray shows bilateral patchy infiltrates including bilateral pleural effusion. Patient BNP significantly elevatedLabs chest x-rays all reviewedEchocardiogram shows severe decrease in ejection fraction [facility] also added Augmentin for the possibility of superimpose infection Qualifiers: Heart failure type: systolic
[2023-10-12] MEDS: AMOX/K CLAV 875 MG TAB PO SCH (16:41)
[2023-10-12] MEDS: FUROSEMIDE 40 MG/4 ML VIAL IV SCH (17:43)
[2023-10-12] MEDS ORDERED: HEPARIN 5000 UNIT/ML 1 ML VIAL IV PRN (17:57)
[2023-10-12 18:04] VITALS: BMI 31.6
[2023-10-12] MEDS: HEPARIN/D5W 25,000 UNIT/500 ML BAG IV PRN (18:28)
[2023-10-12] MEDS: HEPARIN 5000 UNIT/ML 1 ML VIAL IV ONE (18:28)
[2023-10-12 18:40] LABS: PT Prothrombin Time 12.5 SECONDS (9.5-12.5); PTT, Activated Partial Thromb 31.3 SECONDS (24.3-36.9); Protime INR 1.14
[2023-10-12 21:11] VITALS: BP 105/65
[2023-10-12] MEDS: ATORVASTATIN 40 MG TAB PO SCH (21:16)
[2023-10-12 22:48] VITALS: TEMP 97.7
--- NOTE | 2023-10-13 05:23 | P.DS ---
Discharge Date: 10/13/23 Disposition: TRANSFER TO [facility] Discharge Condition: FAIR Reason for Admission: Acute respiratory distress - Problems (1) Hemoptysis Status: Acute (2) CKD (chronic kidney disease) stage 3, GFR 30-59 ml/min Status: Acute (3) Acute on chronic systolic (congestive) heart failure Onset Date: 02/16/17 Status: Acute (4) Diabetes mellitus Status: Acute Qualifiers: (5) Dilated cardiomyopathy Status: Chronic (6) History of implantable cardioverter-defibrillator (ICD) placement Status: Chronic (7) Hyperlipidemia Onset Date: 02/10/15 Status: Chronic Qualifiers: (8) Hypertension Onset Date: 02/10/15 Status: Chronic (9) Hypothyroidism Onset Date: 02/10/15 Status: Chronic Qualifiers: Brief History of Present Illness: Patient is a 53-year-old gentleman came to the hospital with shortness of breath. Patient has a history of cardiomyopathy with an ejection fraction less than 20% status post defibrillator placement. 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 Patient apparently is being considered for a transplant. Patient has a longstanding family history of cardiomyopathy with 2 family members that have had cardiac transplants because of cardiomyopathy at a young age. One of his sisters had 2 cardiac transplants. The family is also been involved in genetic testing to determine the etiology of their cardiomyopathy. Patient states he was really short of breath and having hemoptysis. Patient is x-ray revealed pulmonary edema and patient was diuresed in the emergency room. Patient had a very small amount of urine output according to the family, but once his blood pressure improved patient was feeling much better. Patient's cardiac care is done mainly in the [place] area. However, he is okay with staying for further workup. Patient had hemoptysis and states he has had about 100 pound weight loss over the last year. Will get CT imaging studies to further evaluate this. Echocardiogram pending. Patient be admitted for inpatient hospitalization. Hospital Course: Patient is clinically doing well. Patient appear to be compensated. Patient had an echocardiogram with an ejection fraction of 25 to 30%. Patient troponins were elevated. Family wanted transfer to [facility] for continuity of care. If any interventions were needed they wanted to get this done at [facility]. Talk to transfer center at [facility] and patient was transferred for continuity of care. Patient was transferred in stable condition . Vital Signs/Physical Exam: Temp Pulse Resp BP Pulse Ox 97.7 F 69 17 105/65 98 10/12/23 20:00 10/12/23 20:53 10/12/23 20:00 10/12/23 20:53 10/12/23 20:00 General: Alert, In no apparent distress, Oriented x3 Laboratory Data at Discharge: WBC Cancelled 10/13/23 05:15 Hgb Cancelled 10/13/23 05:15 Hct Cancelled 10/13/23 05:15 Plt Count Cancelled 10/13/23 05:15 PT Cancelled 10/13/23 06:00 INR Cancelled 10/13/23 06:00 APTT Cancelled 10/13/23 05:15 Sodium Cancelled 10/13/23 05:15 Potassium Cancelled 10/13/23 05:15 BUN Cancelled 10/13/23 05:15 Creatinine Cancelled 10/13/23 05:15 Glucose Cancelled 10/13/23 05:15 Phosphorus 3.2 mg/dL (2.5-4.9) 10/12/23 07:47 Magnesium Cancelled 10/13/23 05:15 Total Bilirubin 0.6 mg/dL (0.2-1.0) 10/12/23 07:47 AST 43 U/L (15-37) H 10/12/23 07:47 ALT 27 U/L (16-61) 10/12/23 07:47 Alkaline Phosphatase 66 U/L (45-117) 10/12/23 07:47 Triglycerides 92 mg/dL (<150) 10/12/23 07:47 Cholesterol 136 mg/dL (<200) 10/12/23 07:47 HDL Cholesterol 33 mg/dL (40-60) L 10/12/23 07:47 Cholesterol/HDL Ratio 4.12 10/12/23 07:47 Home Medications: Allopurinol 300 mg PO DAILY 11/13/17 Furosemide 40 mg PO DAILY 11/13/17 Hydralazine HCl 25 mg PO DAILY 11/13/17 Isosorbide [place] (Bid) [Ismo 10 mg Tab*] 20 mg PO BID 11/13/17 Losartan/Hydrochlorothiazide [Losartan-Hctz 100-25 mg Tab] 1 tab PO DAILY 11/13/17 Metformin HCl 1,000 mg PO BID 11/13/17 Spironolactone [Aldactone*] 25 mg PO DAILY 11/13/17 Warfarin Sodium 10 mg PO DAILY 11/13/17 carvediloL [Carvedilol] 25 mg PO BID 11/13/17 Aspirin 81 mg PO DAILY 12/15/18 Atorvastatin Calcium 40 mg PO BEDTIME 12/15/18 Digoxin [Lanoxin*] 125 mcg PO DAILY 12/15/18 Gabapentin 300 mg PO DAILY 10/11/23 Physician Discharge Instructions: Transfer to [facility] Followup: NONE,NONE [UNKNOWN] - Time spent managing pt's care (in minutes): 35
--- NOTE | 2023-10-13 11:56 | EKG ---
Test Date: 2023-10-11 Test Time: 16:47:02 Electric Lineman: FLODY MEASUREMENT RESULTS: Intervals: Rate: 94 LA: 134 QRSD: 118 QT: 366 QTc: 457 [place]: P: 48 LA: 134 QRS: -31 T: 121 INTERPRETIVE STATEMENTS: Normal sinus rhythm Left axis deviation ST & T wave abnormality, consider lateral ischemia Abnormal ECG Compared to ECG 07/11/2022 02:19:49 Left-axis deviation now present Prolonged QT interval no longer present ST (T wave) deviation still present Possible ischemia still present Electronically Signed On 10-13-23 11:50:25 CDT by Luis Angel Huston
== END 2023-10-13 00:30 | disposition short-term general hospital (02) | DRG 280 ==
LOC: ER 17:16 → ERHOLD 20:16 → 4TH 21:23
PROVIDERS: ADMIT Hospitalist; ATTEND Hospitalist
DX: I13.0 Hypertensive heart and chronic kidney disease with heart failure and stage 1 through stage 4 chronic kidney disease, or unspecified chronic kidney disease (principal); I50.23 Acute on chronic systolic (congestive) heart failure; I21.A1 Myocardial infarction type 2; R04.2 Hemoptysis; N18.30 Chronic kidney disease, stage 3 unspecified; E11.22 Type 2 diabetes mellitus with diabetic chronic kidney disease; D63.1 Anemia in chronic kidney disease; D50.9 Iron deficiency anemia, unspecified; I42.0 Dilated cardiomyopathy; E78.5 Hyperlipidemia, unspecified; E03.9 Hypothyroidism, unspecified; E88.09 Other disorders of plasma-protein metabolism, not elsewhere classified; M10.9 Gout, unspecified; E87.6 Hypokalemia; I25.2 Old myocardial infarction; Z79.4 Long term (current) use of insulin; Z79.84 Long term (current) use of oral hypoglycemic drugs; Z11.52 Encounter for screening for COVID-19; Z79.02 Long term (current) use of antithrombotics/antiplatelets; Z79.82 Long term (current) use of aspirin; Z87.891 Personal history of nicotine dependence; Z79.899 Other long term (current) drug therapy; Z95.810 Presence of automatic (implantable) cardiac defibrillator
CPT/HCPCS: 36415; 71045; 71275; 80048; 80053; 80061; 80076; 80162; 82607; 82947; 83036; 83540; 83605; 83735; 83880; 84100; 84439; 84443; 84484; 85025; 85044; 85379; 85610; 85730; 87040; 87804; 87811; 93005; 93306; 96374; 96375; 99285; J1160; J1644; J1940; J7614; J7644; Q9967

== ENCOUNTER 2024-03-13 14:21 | Emergency (ER) | payer MEDICARE ==
--- NOTE | 2024-03-13 15:49 | RAD REPORT ---
EXAM DESCRIPTION: US - Lower Extremity Arterial Bilat - 03/13/2024 3:24 pm CLINICAL HISTORY: non-healing wound COMPARISON: No comparisons TECHNIQUE: Bilateral lower extremity arterial Doppler examination was performed with carine long FINDINGS: Triphasic waveforms are seen throughout both lower extremity arterial systems. No high-grade stenosis or occlusion. Mild atherosclerosis. IMPRESSION: No evidence of significant peripheral vascular disease.
--- NOTE | 2024-03-13 16:16 | RAD REPORT ---
EXAM DESCRIPTION: US - Extrem Venous W Compress Bari - 03/13/2024 4:05 pm CLINICAL HISTORY: wound Bilateral leg edema and swelling. COMPARISON: Extremity Venous Uni Ltd dated 12/03/2019 TECHNIQUE: Real-time sonographic interrogation of the left and right lower extremity deep venous sys tems was performed. FINDINGS: Normal compressibility, flow augmentation, phasic flow and spontaneous flow is identified in both the left and right lower extremity deep venous systems. IMPRESSION: No sonographic evidence of left or right lower extremity deep venous thrombosis.
[2024-03-13 16:32] LABS: Absolute Monocytes 0.4 K/uL (0.1-1.3); Absolute Neutrophil 4.4 K/uL (1.8-8.0); Basophils % 0.5 % (0-1.3); Eosinophils % 0.3 % (0-4.4); Hematocrit 44.5 % (39.6-49.0); Hemoglobin 14.2 g/dL (13.6-17.9); Lymphocytes % 16.8 % (15.3-44.8); MCH 25.2 pg (27.0-35.0); MCHC 31.8 g/dL (32.0-36.0); MCV 79.1 fL (80-100); Monocytes % 7.2 % (3.3-12.3); Neutrophils % 75.2 % (41.7-73.7); Platelets 292 thou/uL (152-406); RBC Red Blood Cell Count 5.62 M/uL (4.33-5.43); Red Cell Distribution Width 17.1 % (12.1-15.2)
[2024-03-13 16:44] LABS: Anion Gap 6.2 mEq/L (5.0-15.0); Potassium 3.2 mEq/L (3.5-5.1)
--- NOTE | 2024-03-13 17:53 | ER ---
Nurse's Notes [facility] Name: Cam Huitron Age: 53 yrs Sex: Male : 1970 Arrival Date: 03/13/2024 Time: 14:21 Bed 10 Private MD: Diagnosis: Unspecified open wound, left lower leg Presentation: 03/13 14:35 Chief complaint: Patient states: LLE abscess for 1 week. Drains bloody pus per patient, ll1 no fever. Coronavirus screen: Client denies travel out of the [place] in the last 14 days. At this time, the client does not indicate any symptoms associated with coronavirus-19. Ebola Screen: Patient denies travel to an Ebola-affected area in the 21 days before illness onset. Initial Sepsis Screen: Does the patient meet any 2 criteria? No. Patient's initial sepsis screen is negative. Does the patient have a suspected source of infection? No. Patient's initial sepsis screen is negative. Risk Assessment: Do you want to hurt yourself or someone else? Patient reports no desire to harm self or others. Onset of symptoms was January 28, 2024. 14:35 Method Of Arrival: Ambulatory ll1 14:35 Acuity: SILVER 3 ll1 Triage Assessment: 14:37 General: Appears uncomfortable, Behavior is calm, cooperative, appropriate for age. ll1 Pain: Complains of pain in left leg Quality of pain is described as aching. Derm: LLE ulcer getting slowly worse for 1 month Reports pain. Historical: - Allergies: 14:34 No Known Allergies; ll1 - PMHx: 14:34 ADD/ADHD; Anemia; CHF; Diabetes - NIDDM; Gout; Hypertension; Myocardial infarction; ll1 - PSHx: 14:34 defibrillator; ll1 - Immunization history:: Adult Immunizations up to date. - Social history:: Smoking status: Patient denies any tobacco usage or history of. - Family history:: not pertinent. - Hospitalizations: : No recent hospitalization is reported. Vital Signs: 14:35 BP 140 / 88; Pulse 77; Resp 17; Temp 97.8; Pulse Ox 100% ; Weight 90.72 kg; Height 5 ll1 ft. 7 in. ; Pain 10/10; 14:35 Body Mass Index 31.32 (90.72 kg, 170.18 cm) ll1 14:35 Pain Scale: Adult ll1 ED Course: 14:26 Patient arrived in ED. ra3 14:33 Ketan Varghese MD is Attending Physician. rn 14:37 Triage completed. ll1 14:37 Arm band placed on. ll1 15:26 Lower Extremity Arterial Bilat US In Process Unspecified. EDMS 15:44 Extrem Venous W Compression Bari US In Process Unspecified. EDMS 15:55 Val Rodriguez, RN is Primary Nurse. iw 16:26 Basic Metabolic Panel Sent. bc6 16:26 CBC with Diff Sent. bc6 16:27 Initial lab(s) drawn, by nd, sent to lab. Inserted saline lock: 20 gauge in right bc6 antecubital area, using aseptic technique. Blood collected. Flushed with 10 mL NS. 17:52 Chris Bautista MD is Referral Physician. rn 18:31 No provider procedures requiring assistance completed. IV discontinued, intact, iw bleeding controlled, No redness/swelling at site. Pressure dressing applied. Administered Medications: 18:31 Drug: traMADol PO 50 mg PO once Route: PO; iw 18:31 Follow up: Response: Medication administered at discharge. iw Outcome: 17:52 Discharge ordered by . rn 18:32 Patient left the ED. iw Signatures: Dispatcher [employer] EDMS Val Rodriguez, FRANNY RN iw Ketan Varghese MD MD rn Lewis, Lynsay, RN RN ll1 Rosanna Lindsay 6 Honey Severino ra3 Corrections: (The following items were deleted from the chart) 14:39 14:35 Resp 17bpm; 90.72 kg; Height 5 ft. 7 in.; BMI: 31.3; Pain 10/10, Adult; ll1 ll1
--- NOTE | 2024-03-13 17:53 | EDPHYS ---
Physician Documentation [facility] Name: Cam Huitron Age: 53 yrs Sex: Male : 1970 Arrival Date: 03/13/2024 Time: 14:21 Bed 10 Private MD: ED Physician Ketan Varghese HPI: 03/13 15:35 This 53 yrs old Black Male presents to ER via Ambulatory with complaints of leg sore. rn 15:35 The patient presents with wound. The complaints affect the lateral aspect of left calf. rn Onset: The symptoms/episode began/occurred 6 week(s) ago. Modifying factors: The symptoms are alleviated by nothing. the symptoms are aggravated by nothing. Severity of symptoms: At their worst the symptoms were mild, in the emergency department the symptoms are unchanged. The patient has not experienced similar symptoms in the past. Patient and family member report nonhealing wound to the left lateral calf. Started 5 to 6 weeks ago. Has been on round of antibiotics without improvement. Wound slowly growing, is dry, very minimal clear drainage. No fever or chills. Does not feel ill. Patient is known diabetic and reports pain with ambulation and sometimes at rest.. Historical: - Allergies: 14:34 No Known Allergies; ll1 - PMHx: 14:34 ADD/ADHD; Anemia; CHF; Diabetes - NIDDM; Gout; Hypertension; Myocardial infarction; ll1 - PSHx: 14:34 defibrillator; ll1 - Immunization history:: Adult Immunizations up to date. - Social history:: Smoking status: Patient denies any tobacco usage or history of. - Family history:: not pertinent. - Hospitalizations: : No recent hospitalization is reported. ROS: 15:35 Constitutional: Negative for fever, chills, and weight loss, Cardiovascular: Negative rn for chest pain, palpitations, and edema, Respiratory: Negative for shortness of breath, cough, wheezing, and pleuritic chest pain, Abdomen/GI: Negative for abdominal pain, nausea, vomiting, diarrhea, and constipation, MS/Extremity: Negative for injury and deformity, Skin: + non-healing wounds Exam: 15:35 Constitutional: This is a well developed, well nourished patient who is awake, alert, rn and in no acute distress. Cardiovascular: Regular rate and rhythm. No pulse deficits. MS/ Extremity: Pulses equal, no cyanosis. Weak distal pulses, 5cm diameter irregular non-healing wound to left lateral leg. Clear pinpoint yellow drainage in center of wound. NO fluctuance. No streaking. Vital Signs: 14:35 BP 140 / 88; Pulse 77; Resp 17; Temp 97.8; Pulse Ox 100% ; Weight 90.72 kg; Height 5 ll1 ft. 7 in. ; Pain 10/10; 14:35 Body Mass Index 31.32 (90.72 kg, 170.18 cm) ll1 14:35 Pain Scale: Adult ll1 MDM: 14:33 Patient medically screened. rn 17:51 Differential diagnosis: Peripheral vascular disease, DVT, lymphedema, nonhealing wound. rn Data reviewed: vital signs, nurses notes, lab test result(s), radiologic studies, ultrasound, and as a result, I will discharge patient. Counseling: I had a detailed discussion with the patient and/or guardian regarding the historical points, exam findings, and any diagnostic results supporting the discharge/admit diagnosis, lab results, radiology results, the need for outpatient follow up, to return to the emergency department if symptoms worsen or persist or if there are any questions or concerns that arise at home. ED course: No indication for emergent admission at this time, we will DC home with referral to Dr. Bautista to get plugged in with wound care.. 03/13 14:46 Order name: CBC with Diff; Complete Time: 17:34 rn 03/13 14:46 Order name: Basic Metabolic Panel; Complete Time: 17:34 rn 03/13 14:46 Order name: Extrem Venous W Compression Bari rn 03/13 14:46 Order name: Lower Extremity Arterial Bilat rn 03/13 14:46 Order name: IV Start; Complete Time: 16:26 rn Administered Medications: 18:31 Drug: traMADol PO 50 mg PO once Route: PO; iw 18:31 Follow up: Response: Medication administered at discharge. 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 EDMS EDMS 14:46 14:46 BASIC METABOLIC PANEL+C.LAB.BRZ ordered. EDMS EDMS 14:46 14:46 Extrem Venous W Compression Bari+US.RAD.BRZ ordered. EDMS EDMS 14:46 14:46 Lower Extremity Arterial Bilat+US.RAD.BRZ ordered. EDMS EDMS
[2024-03-13] MEDS ORDERED: TRAMADOL HCL 50 MG TAB ONE (18:17)
[2024-03-13 19:05] VITALS: BP 140/88; TEMP 97.8; O2SAT 100
== END 2024-03-13 18:32 | disposition home or self-care (01) ==
LOC: ER 14:21
DX: S81.802A Unspecified open wound, left lower leg, initial encounter (principal); E11.9 Type 2 diabetes mellitus without complications; I10 Essential (primary) hypertension; Z95.810 Presence of automatic (implantable) cardiac defibrillator
CPT/HCPCS: 36415; 80048; 85025; 93925; 93970